=== PATIENT | female | born 1945 | race Asian ===

== ENCOUNTER 2017-11-21 14:26 | Inpatient (IN) | payer MEDICARE, MEDICAID ==
[~2017-11-21] VITALS: Ht 154.9 cm; Wt 51.3 kg
[2017-11-21 15:08] LABS: APPEARANCE,URINE CLEAR; BILIRUBIN, URINE NEGATIVE (NEGATIVE); COLOR,URINE PALE YELLOW; GLUCOSE, URINE (UA) 1+ (NEGATIVE); KETONES,URINE 1+ (NEGATIVE); LEUKOCYTE ESTERASE ,URINE NEGATIVE (NEGATIVE); NITRITE,URINE NEGATIVE (NEGATIVE); PH,URINE 6.5 (4.5-8.0); PROTEIN,URINE 3+ (NEGATIVE); UROBILINOGEN,URINE NORMAL MG/DL (0.0-1.0)
[2017-11-21 15:11] VITALS: BP 176/82
[2017-11-21 15:14] LABS: BASOPHILS % (AUTO) 0.7 % (0.0-2.0); EOSINOPHILS % (AUTO) 0.9 % (0.0-3.0); HEMOGLOBIN 12.9 G/DL (12.0-16.0); LYMPHOCYTES % (AUTO) 16.4 % (20.0-45.0); MEAN CORPUSCULAR VOLUME 99 FL (80-99); MONOCYTES % (AUTO) 5.4 % (1.0-10.0); NEUTROPHILS % (AUTO) 76.5 % (45.0-75.0); PLATELET COUNT 153 K/UL (150-450); RED BLOOD COUNT 3.74 M/UL (4.20-5.40); RED CELL DISTRIBUTION WIDTH 10.1 % (11.6-14.8); WHITE BLOOD COUNT 6.2 K/UL (4.8-10.8)
[2017-11-21 15:20] LABS: ANION GAP 8 mmol/L (5-15); BLOOD UREA NITROGEN 9 mg/dL (7-18); CALCIUM 11.1 MG/DL (8.5-10.1); CARBON DIOXIDE 28 MMOL/L (21-32); CHLORIDE 106 MMOL/L (98-107); CREATININE 0.7 MG/DL (0.55-1.30); SODIUM 142 MMOL/L (136-145)
[2017-11-21 15:24] LABS: ALANINE AMINOTRANSFERASE 18 U/L (12-78); ALBUMIN 3.3 G/DL (3.4-5.0); ALKALINE PHOSPHATASE 57 U/L (46-116); ASPARTATE AMINO TRANSFERASE 22 U/L (15-37); BILIRUBIN,TOTAL 0.6 MG/DL (0.2-1.0)
[2017-11-21] MEDS ORDERED: OMEPRAZOLE40 M1 ORAL (15:34)
[2017-11-21] MEDS ORDERED: SERTRALINE HCL25 MG ORAL (15:34)
[2017-11-21] MEDS ORDERED: SIMVASTATIN40 MG ORAL (15:34)
[2017-11-21] MEDS ORDERED: LOSARTAN POTASS50 MG ORAL (15:34)
[2017-11-21] MEDS ORDERED: METOPROLOL SUCC50 MG ORAL (15:34)
[2017-11-21] MEDS ORDERED: DIPHENOXYLATE-A60 ML ORAL (15:34)
[2017-11-21] MEDS ORDERED: LIDOCAINE700 M1 TP (15:34)
[2017-11-21] MEDS ORDERED: TYLENOL WITH C1 EACH ORAL (15:34)
[2017-11-21] MEDS ORDERED: METFORMIN HCL1000 M1 ORAL (15:34)
[2017-11-21] MEDS ORDERED: OMEGA-3 ACID ETH1 GM PO (15:34)
[2017-11-21] MEDS ORDERED: GLIPIZIDE5 MG ORAL (15:34)
[2017-11-21] MEDS: D5NS 1,000 ML IV SCH (15:53)
[2017-11-21 16:00] VITALS: BP 200/91
--- NOTE | 2017-11-21 16:01 | Diagnostic Imaging Report ---
Indication: Altered mental status Technique: Contiguous 5 mm thick transaxial imaging of the head obtained in a Siemens Sensation [address] scanner. Soft tissue and bone windows generated. Automatic Exposure Control was utilized. Total Dose length Product (DLP): 1414.[address] Dose Index Volume (CTDIvol): 70.38 mGy Comparison: none Findings: There is moderate prominence of the ventricles, basal cisterns, and cerebral sulci consistent with atrophy. Moderate, nonspecific, white matter hypoattenuation is noted throughout the brain consistent with chronic small vessel disease. There is no midline shift, edema, acute hemorrhage, mass effect, or abnormal extra-axial fluid collections. Bones and extra osseous soft tissues are unremarkable. Impression: No acute intracranial bleed, mass effect or edema. Moderate atrophy of the brain. Evidence of chronic small vessel disease involving white matter tracts. The CT scanner at [facility] is accredited by the [employer] and the scans are performed using dose optimization techniques as appropriate to a performed exam including Automatic Exposure control.
[2017-11-21 16:30] VITALS: BP 171/89
[2017-11-21] MEDS: NovoLOG Insulin Flexpen SUBQ SCH ×2 (16:30→21:00)
--- NOTE | 2017-11-21 16:39 | Emergency Room Report ---
History of Present Illness General Chief Complaint: Dizziness Source: Patient, Family Member, EMS Present Illness HPI 72-year-old female presents ED for evaluation. Patient felt weak and dizzy at home today. Accu-Chek per EMS was in the 20s. Given D50 in the field. Patient has history of diabetes. Takes glipizide and metformin. States she took her medication without eating. Daughter at bedside states that patient fell a few days ago in the bathroom and hit her head. Did not seek evaluation at that time. Denies any headache. Denies any slurred speech or facial droop. Denies chest pain or shortness of breath. No other aggravating relieving factors. Denies any other associated symptoms Allergies: Coded Allergies: No Known Allergies (Unverified , 11/21/17) Patient History Past Medical History: DM, HTN Past Surgical History: none Pertinent Family History: none Social History: Denies: smoking, alcohol use, drug use Now: No Immunizations: UTD Reviewed Nursing Documentation: PMH: Agreed; PSxH: Agreed Nursing Documentation-PMH Hx Cardiac Problems: Yes Hx Hypertension: Yes Hx Diabetes: Yes Review of Systems All Other Systems: negative except mentioned in HPI Physical Exam Vital Signs Date Time Temp Pulse Resp B/P (MAP) Pulse Ox O2 Delivery O2 Flow Rate FiO2 11/21/17 14:21 98.0 86 16 183/110 98 Room Air 98.1 Sp02 EP Interpretation: reviewed, normal General Appearance: no apparent distress, alert, GCS 15, non-toxic Head: normocephalic, atraumatic Eyes: bilateral eye normal inspection, bilateral eye PERRL ENT: hearing grossly normal, normal pharynx, no angioedema, normal voice Neck: full range of motion, supple/symm/no masses Respiratory: chest non-tender, lungs clear, normal breath sounds, speaking full sentences Cardiovascular #1: regular rate, rhythm, no edema Cardiovascular #2: 2+ carotid (R), 2+ carotid (L), 2+ radial (R), 2+ radial (L) , 2+ dorsalis pedis (R), 2+ dorsalis pedis (L) Gastrointestinal: normal bowel sounds, non tender, soft, non-distended, no guarding, no rebound Rectal: deferred Genitourinary: normal inspection, no CVA tenderness Musculoskeletal: back normal, gait/station normal, normal range of motion, non- tender Neurologic: alert, oriented x3, responsive, motor strength/tone normal, sensory intact, speech normal Psychiatric: judgement/insight normal, memory normal, mood/affect normal, no suicidal/homicidal ideation Reflexes: 3+ bicep (R), 3+ bicep (L), 3+ tricep (R), 3+ tricep (L), 3+ knee (R) , 3+ knee (L) Skin: normal color, no rash, warm/dry, well hydrated Lymphatic: no adenopathy Medical Decision Making Diagnostic Impression: Primary Impression: Hypoglycemia associated with type 2 diabetes mellitus ER Course Hospital Course 72-year-old female presenting to ED with generalized weakness, low FS in field Differential diagnoses include: dehyration, sepsis, hypoglycemia Clinical course Patient placed on stretcher. On potline monitor. After initial history and physical I ordered labs Labs-glucose 119, K 3.0, no leukocytosis, hb/hct stable Patient's Accu-Chek again became low, started on D5NS K repleted CT head negative Because patient is on long-acting oral medications, it is possible that she can again become hypoglycemic. Case discussed with Dr. Winston/Shantel and he agreed to accept the patient to his service for further care and support i. I feel this is a highly complex case requiring extensive working including EKG/Rhythm strip, Xray/CT/US, Blood/urine lab work, repeat exams while in ED, and administration of strong opiates/narcotics for pain control, admission to hospital or close patient follow up. diagnosis - hypoglycemia admitted to floor in serious condition Labs Test 11/21/17 14:40 White Blood Count 6.2 K/UL (4.8-10.8) Red Blood Count 3.74 M/UL (4.20-5.40) Hemoglobin 12.9 G/DL (12.0-16.0) Hematocrit 37.0 % (37.0-47.0) Mean Corpuscular Volume 99 FL (80-99) Mean Corpuscular Hemoglobin 34.6 PG (27.0-31.0) Mean Corpuscular Hemoglobin Concent 35.0 G/DL (32.0-36.0) Red Cell Distribution Width 10.1 % (11.6-14.8) Platelet Count 153 K/UL (150-450) Mean Platelet Volume 5.3 FL (6.5-10.1) Neutrophils (%) (Auto) 76.5 % (45.0-75.0) Lymphocytes (%) (Auto) 16.4 % (20.0-45.0) Monocytes (%) (Auto) 5.4 % (1.0-10.0) Eosinophils (%) (Auto) 0.9 % (0.0-3.0) Basophils (%) (Auto) 0.7 % (0.0-2.0) Urine Color Pale yellow Urine Appearance Clear Urine pH 6.5 (4.5-8.0) Urine Specific [place] 1.015 (1.005-1.035) Urine Protein 3+ (NEGATIVE) Urine Glucose (UA) 1+ (NEGATIVE) Urine Ketones 1+ (NEGATIVE) Urine Blood 2+ (NEGATIVE) Urine Nitrite Negative (NEGATIVE) Urine Bilirubin Negative (NEGATIVE) Urine Urobilinogen Normal MG/DL (0.0-1.0) Urine Leukocyte Esterase Negative (NEGATIVE) Urine RBC 2-4 /HPF (0 - 2) Urine WBC 0 /HPF (0 - 2) Urine Squamous Epithelial Cells Occasional /LPF Urine Bacteria None /HPF (NONE) Sodium Level 142 MMOL/L (136-145) Potassium Level 3.0 MMOL/L (3.5-5.1) Chloride Level 106 MMOL/L (98-107) Carbon Dioxide Level 28 MMOL/L (21-32) Anion Gap 8 mmol/L (5-15) Blood Urea Nitrogen 9 mg/dL (7-18) Creatinine 0.7 MG/DL (0.55-1.30) Estimat Glomerular Filtration Rate mL/min (>60) Glucose Level 119 MG/DL (74-106) Calcium Level 11.1 MG/DL (8.5-10.1) Magnesium Level 1.3 MG/DL (1.8-2.4) Total Bilirubin 0.6 MG/DL (0.2-1.0) Aspartate Amino Transf (AST/SGOT) 22 U/L (15-37) Alanine Aminotransferase (ALT/SGPT) 18 U/L (12-78) Alkaline Phosphatase 57 U/L (46-116) Total Protein 6.5 G/DL (6.4-8.2) Albumin 3.3 G/DL (3.4-5.0) Globulin 3.2 g/dL Albumin/Globulin Ratio 1.0 (1.0-2.7) Acetone Level Negative (NEGATIVE) CT/MRI/US Diagnostic Results CT/MRI/US Diagnostic Results : Imaging Test Ordered: CT Head Impression no acute process Last Vital Signs Date Time Temp Pulse Resp B/P (MAP) Pulse Ox O2 Delivery O2 Flow Rate FiO2 11/21/17 16:17 194/81 11/21/17 15:11 97.6 96 18 99 Room Air 97.6 Status: improved Disposition: ADMITTED INPATIENT Condition: Serious Referrals: NOT CHOSEN IPA/,REFERRING (PCP) Jose Arteaga MD Nov 21, 2017 16:39
[2017-11-21] MEDS ORDERED: Enoxaparin 40mg Inj SUBQ SCH (17:30)
[2017-11-21] MEDS: Metoprolol Succinate XL 50mg tab ORAL SCH (19:30)
[2017-11-21] MEDS: Losartan 50mg tab ORAL SCH (19:31)
[2017-11-21 20:00] VITALS: BP 159/89
--- NOTE | 2017-11-21 20:45 | History and Physical Report ---
DATE OF ADMISSION: 11/21/2017 REASON FOR ADMISSION: 1. Hypoglycemia. 2. Weakness. HISTORY OF PRESENT ILLNESS: The patient is a 72-year-old female, who was seen in the emergency room for further evaluation and care of weakness and dizziness. She was brought in by the emergency services, who has noted that she had a serum glucose in the 20s. She does have diabetes and has been taking glipizide and metformin without eating. She does have a caregiver. Her son had brought her in as well, but is not currently there. No slurred speech. No facial droops. No headaches to note. However, she has not been eating well, but taking her diabetes medication and feeling weak and has fallen. She had some unsteady gait, but at home, does have a walker and a cane and used for mobility, however, due to not eating well and taking her diabetes medications of glipizide and metformin, she presented to the emergency room and was noted that she had serum glucose in the 20s. She is feeling much better post resuscitation. PAST MEDICAL HISTORY: 1. Hypertension. 2. Diabetes mellitus. PAST SURGICAL HISTORY: None. ALLERGIES: No known drug allergies. FAMILY HISTORY: Positive for hypertension. SOCIAL HISTORY: No tobacco, alcohol, or illicit drug use. REVIEW OF SYSTEMS: NEUROLOGIC: The patient denies headache, change in vision, syncope, or presyncopal episodes. She has been feeling a little dizzy. CARDIOVASCULAR: No current chest pain, palpitations, or angina. PULMONARY: No difficulty breathing, productive cough, or sputum. GASTROINTESTINAL/GENITOURINARY: No changes in urinary or bowel habits. She has a decreased appetite. MUSCULOSKELETAL: The patient is feeling weak, tired, and fatigued. PHYSICAL EXAMINATION: VITAL SIGNS: Blood pressure 178/83, pulse oximetry 100% on room air, respiratory rate 14, pulse 84, and temperature 97.4. GENERAL: The patient is awake, seemingly alert, and coherent. HEENT: Extraocular muscles intact. No lymphadenopathy noted. CARDIOVASCULAR: S1, S2. No rubs or gallops. PULMONARY: Clear to auscultation bilaterally. No rales, rhonchi, or wheezes. ABDOMEN: Nondistended and nontender. EXTREMITY: No edema, however, throughout the extremities, there are small erythematous and bruising like lesions. She does have an area in her coccyx, which was examined with the nurse at bedside, which is slightly tender to touch. LABORATORY DATA: Laboratories dated 11/21/2017, white cell count 6.2, hemoglobin 12.9, and platelet count 153,000. Sodium 142, potassium 3, BUN 9, creatinine 0.7, glucose 119, calcium 11.1, and magnesium 1.3. Normal LFTs. Albumin 3.3. Toxicology, acetone level negative. ASSESSMENT AND PLAN: 1. Hypoglycemia, at this time, most likely secondary to poor oral intake while taking glipizide and metformin. Glipizide and metformin will be temporarily held. The patient will be given a regular diet and is initiated on IV fluids. Her serum glucose is now stable. Insulin sliding scale has been initiated. She is much more awake and feeling better after correction of her hypoglycemia. 2. Diabetes mellitus. We will have to adjust her oral hypoglycemics. We will also arrange for home health nurse to help with her medications at home at the time of discharge. 3. DVT prophylaxis with Lovenox subcutaneous. 4. Hypertension. I have re-initiated home antihypertensive medications. 5. Sacral tenderness. We will order an x-ray and wound care to evaluate. 6. PT evaluation for mobility. Vinh Winston MD DR: JOSE MANUEL JOB#: [id number] CC:
[2017-11-21] MEDS ORDERED: Atorvastatin 20mg tab ORAL SCH (21:00)
[2017-11-22] VITALS (47 sets, daily range): BP systolic 118–221; BP diastolic 53–162
[2017-11-22] MEDS: D5NS 1,000 ML IV SCH (01:41)
[2017-11-22] MEDS: Metoprolol Succinate XL 50mg tab ORAL SCH (06:48)
[2017-11-22] MEDS: Losartan 50mg tab ORAL SCH (06:48)
--- NOTE | 2017-11-22 08:45 | Nephrology Progress Note ---
Assessment/Plan Assessment/Plan A/P 1) HTN Urgency- Transferred to ICU - labetaolol gtt started for SBP goal 160-170 - on Losartan and Metoprolol - prn clonidine 2) S/P Fall- CT Head ordered STAT - Pulm Critical care cslted 3) Sacral pain- Xrays pending 4) DVT prophylaxsis with Lovenox 5) Hypokalemia- AM labs pending Subjective Date patient seen: Nov 22, 2017 Time patient seen: 08:42 ROS Limited/Unobtainable: Yes Allergies: Coded Allergies: No Known Allergies (Unverified , 11/21/17) Subjective Patient fell out of bed early this morning. Her BP spiked and patient became agitated Objective Last 24 Hour Vital Signs Date Time Temp Pulse Resp B/P (MAP) Pulse Ox O2 Delivery O2 Flow Rate FiO2 11/22/17 06:48 198/102 11/22/17 06:48 198/102 11/22/17 04:14 179/98 11/22/17 04:00 97.1 83 18 174/95 (121) 96 97.1 11/22/17 00:00 97.7 75 17 129/80 (96) 96 97.7 11/21/17 20:58 Room Air 11/21/17 20:00 97.3 85 17 159/89 (112) 98 97.3 11/21/17 19:31 172/95 11/21/17 19:30 84 172/95 11/21/17 17:20 97.4 84 14 178/83 100 Room Air 11/21/17 16:30 79 16 171/89 99 Room Air 11/21/17 16:17 194/81 11/21/17 16:00 76 18 200/91 100 Room Air 11/21/17 15:11 97.6 96 18 176/82 99 Room Air 97.6 11/21/17 14:21 98.0 86 16 183/110 98 Room Air 98.1 Intake and Output 11/21/17 11/22/17 19:00 07:00 Intake Total 300 ml 1100 ml Output Total 200 ml Balance 100 ml 1100 ml Intake IV Total 300 ml 1100 ml Output Urine Total 200 ml # Bowel Movements 2 Laboratory Tests 11/21/17 14:40: White Blood Count 6.2, Red Blood Count 3.74L, Hemoglobin 12.9, Hematocrit 37.0, Mean Corpuscular Volume 99, Mean Corpuscular Hemoglobin 34.6H, Mean Corpuscular Hemoglobin Concent 35.0, Red Cell Distribution Width 10.1L, Platelet Count 153, Mean Platelet Volume 5.3L, Neutrophils (%) (Auto) 76.5H, Lymphocytes (%) (Auto) 16.4L, Monocytes (%) (Auto) 5.4, Eosinophils (%) (Auto) 0.9, Basophils (%) (Auto ) 0.7, Urine Color Pale yellow, Urine Appearance Clear, Urine pH 6.5, Urine Specific [place] 1.015, Urine Protein 3+H, Urine Glucose (UA) 1+H, Urine Ketones 1+H, Urine Blood 2+H, Urine Nitrite Negative, Urine Bilirubin Negative, Urine Urobilinogen Normal, Urine Leukocyte Esterase Negative, Urine RBC 2-4H, Urine WBC 0, Urine Squamous Epithelial Cells Occasional, Urine Bacteria None, Sodium Level 142, Potassium Level 3.0L, Chloride Level 106, Carbon Dioxide Level 28, Anion Gap 8, Blood Urea Nitrogen 9, Creatinine 0.7, Estimat Glomerular Filtration Rate , Glucose Level 119H, Calcium Level 11.1H, Magnesium Level 1.3L, Total Bilirubin 0.6, Aspartate Amino Transf (AST/SGOT) 22, Alanine Aminotransferase (ALT/SGPT) 18, Alkaline Phosphatase 57, Total Protein 6.5, Albumin 3.3L, Globulin 3.2, Albumin/Globulin Ratio 1.0, Acetone Level Negative Height (Feet): 5 Height (Inches): 4.00 Weight (Pounds): 130 General Appearance: agitated EENT: normal ENT inspection Neck: normal alignment, supple Cardiovascular: normal rate, regular rhythm Respiratory/Chest: lungs clear, normal breath sounds Abdomen: non tender, soft Edema: no edema noted Arm (L), no edema noted Arm (R), no edema noted Leg (L), no edema noted Leg (R), no edema noted Pedal (L), no edema noted Pedal (R), no edema noted Generalized Vinh Winston MD Nov 22, 2017 08:45
[2017-11-22] MEDS ORDERED: D5NS 1,000 ML IV SCH (08:59)
[2017-11-22] MEDS: Sertraline 50mg tab ORAL SCH ×2 (09:00→10:52)
[2017-11-22] MEDS ORDERED: Losartan 50mg tab ORAL SCH (09:00)
[2017-11-22] MEDS ORDERED: Metoprolol Succinate XL 50mg tab ORAL SCH (09:00)
[2017-11-22] MEDS ORDERED: Sertraline 50mg tab ORAL SCH (09:00)
--- NOTE | 2017-11-22 09:45 | Diagnostic Imaging Report ---
INDICATION: Fall TECHNIQUE: Multiple, contiguous 2.5 mm axial cuts of the brain are obtained from the posterior fossa to the cranial vault. Sagittal and coronal reformatted images provided. No IV contrast is administered. One or more of the following dose reduction techniques were used: automated exposure control, adjustment of the mA and/or kV according to patient size, use of iterative reconstruction technique. COMPARISON: CT head dated 11/21/17 FINDINGS: No intracranial hemorrhage, abnormal intra- or extra-axial collections or parenchymal lesions are seen. There are involutional changes with prominence of the sulci, basal cisterns and ventricles. Scattered white matter hypoattenuations are present, likely from small vessel disease. The smith-white differentiation is preserved. No evidence of mass effect, midline shift, or edema. The osseous structures are unremarkable. The visualized portions of the paranasal sinuses are clear. Atherosclerotic vascular disease. IMPRESSION: 1. No acute intracranial process. 2. Involutional changes with small vessel disease. CTDI: 70.38 mGy DLP: 2480 mGycm
[2017-11-22] MEDS: D5W IV SCH ×4 (09:58→22:16)
[2017-11-22] MEDS: LABETALOL IV SCH ×4 (09:58→22:16)
--- NOTE | 2017-11-22 10:18 | Pulmonology Progress Note ---
Subjective Allergies: Coded Allergies: No Known Allergies (Unverified , 11/21/17) Objective Last 24 Hour Vital Signs Date Time Temp Pulse Resp B/P (MAP) Pulse Ox O2 Delivery O2 Flow Rate FiO2 11/22/17 09:58 89 214/90 11/22/17 06:48 198/102 11/22/17 06:48 198/102 11/22/17 04:14 179/98 11/22/17 04:00 97.1 83 18 174/95 (121) 96 97.1 11/22/17 00:00 97.7 75 17 129/80 (96) 96 97.7 11/21/17 20:58 Room Air 11/21/17 20:00 97.3 85 17 159/89 (112) 98 97.3 11/21/17 19:31 172/95 11/21/17 19:30 84 172/95 11/21/17 17:20 97.4 84 14 178/83 100 Room Air 11/21/17 16:30 79 16 171/89 99 Room Air 11/21/17 16:17 194/81 11/21/17 16:00 76 18 200/91 100 Room Air 11/21/17 15:11 97.6 96 18 176/82 99 Room Air 97.6 11/21/17 14:21 98.0 86 16 183/110 98 Room Air 98.1 Intake and Output 11/21/17 11/22/17 19:00 07:00 Intake Total 300 ml 1100 ml Output Total 200 ml Balance 100 ml 1100 ml Intake IV Total 300 ml 1100 ml Output Urine Total 200 ml # Bowel Movements 2 Microbiology Date/Time Source Procedure Growth Status 11/21/17 21:00 Stool Clostridium difficile Toxin Assay - Final Complete Laboratory Tests 11/21/17 14:40: White Blood Count 6.2, Red Blood Count 3.74L, Hemoglobin 12.9, Hematocrit 37.0, Mean Corpuscular Volume 99, Mean Corpuscular Hemoglobin 34.6H, Mean Corpuscular Hemoglobin Concent 35.0, Red Cell Distribution Width 10.1L, Platelet Count 153, Mean Platelet Volume 5.3L, Neutrophils (%) (Auto) 76.5H, Lymphocytes (%) (Auto) 16.4L, Monocytes (%) (Auto) 5.4, Eosinophils (%) (Auto) 0.9, Basophils (%) (Auto ) 0.7, Urine Color Pale yellow, Urine Appearance Clear, Urine pH 6.5, Urine Specific [place] 1.015, Urine Protein 3+H, Urine Glucose (UA) 1+H, Urine Ketones 1+H, Urine Blood 2+H, Urine Nitrite Negative, Urine Bilirubin Negative, Urine Urobilinogen Normal, Urine Leukocyte Esterase Negative, Urine RBC 2-4H, Urine WBC 0, Urine Squamous Epithelial Cells Occasional, Urine Bacteria None, Sodium Level 142, Potassium Level 3.0L, Chloride Level 106, Carbon Dioxide Level 28, Anion Gap 8, Blood Urea Nitrogen 9, Creatinine 0.7, Estimat Glomerular Filtration Rate , Glucose Level 119H, Calcium Level 11.1H, Magnesium Level 1.3L, Total Bilirubin 0.6, Aspartate Amino Transf (AST/SGOT) 22, Alanine Aminotransferase (ALT/SGPT) 18, Alkaline Phosphatase 57, Total Protein 6.5, Albumin 3.3L, Globulin 3.2, Albumin/Globulin Ratio 1.0, Acetone Level Negative Current Medications Medications (Trade) Dose Ordered Sig/Atilio Route PRN Reason Start Time Stop Time Status Last Admin Dose Admin Acetaminophen (Tylenol) 650 mg Q4H PRN ORAL Mild Pain (Pain Scale 1-3) 11/22/17 08:59 12/21/17 08:58 Atorvastatin Calcium (Lipitor) 40 mg QHS ORAL 11/22/17 21:00 12/21/17 20:59 Clonidine HCl (Catapres Tab) 0.1 mg Q6H PRN ORAL For High Blood Pressure 11/22/17 09:00 12/21/17 08:59 Dextrose (Dextrose 50%) 25 ml Q1H PRN IV Hypoglycemia 11/22/17 09:15 Dextrose (Dextrose 50%) 50 ml Q1H PRN IV hypoglycemia 11/22/17 09:15 Dextrose/Sodium Chloride 1,000 ml @ 100 mls/hr Q10H IV 11/22/17 08:59 12/21/17 08:58 11/22/17 10:04 Diphenhydramine HCl (Benadryl) 25 mg Q6H PRN ORAL Itching/Pruritis 11/22/17 09:00 12/21/17 08:59 Enoxaparin Sodium (Lovenox) 40 mg Q24H SUBQ 11/22/17 17:30 12/21/17 17:29 Famotidine (Pepcid) 40 mg DAILY ORAL 11/22/17 09:00 12/22/17 08:59 Insulin Aspart (NovoLOG) BEFORE MEALS AND HS SUBQ 11/22/17 11:30 12/21/17 16:29 Labetalol HCl 200 mg/Dextrose 290 ml @ 0 mls/hr Q24H IV 11/22/17 10:00 11/24/17 23:59 11/22/17 09:58 Losartan Potassium (Cozaar) 50 mg DAILY ORAL 11/23/17 09:00 12/23/17 08:59 Metoprolol Succinate (Toprol XL) 50 mg DAILY ORAL 11/23/17 09:00 12/23/17 08:59 Ondansetron HCl (Zofran) 4 mg Q6H PRN IVP Nausea & Vomiting 11/22/17 09:02 12/21/17 09:01 Sertraline HCl (Zoloft) 25 mg DAILY ORAL 11/22/17 09:00 12/22/17 08:59 Romeo Smith MD Nov 22, 2017 10:18
--- NOTE | 2017-11-22 10:18 | Consultation ---
Consult Note Consult Note 72-year-old female, admitted for weakness and dizziness. She was brought in by the emergency and was noted to be hypoglycemic. She does have diabetes and has been taking glipizide and metformin. Patient was transferred to ICU due to ALOC and fall. I was called to assist with critical care services. Care discussed with nursing staff on the floor. findings reviewed and chart noted PAST MEDICAL HISTORY: 1. Hypertension. 2. Diabetes mellitus. PAST SURGICAL HISTORY: None. ALLERGIES: No known drug allergies. FAMILY HISTORY: hypertension. SOCIAL HISTORY: No tobacco, alcohol, or illicit drug use. retired REVIEW OF SYSTEMS: unable PHYSICAL EXAMINATION: GENERAL: The patient is altered HEENT: No lymphadenopathy noted. CARDIOVASCULAR: S1, S2. No rubs or gallops. RRR PULMONARY: CTA. No rales, rhonchi, or wheezes. ABDOMEN: NABS, nontender EXTREMITY: no CCE NEURO: nonfocal Laboratory Tests Test 11/21/17 14:40 White Blood Count 6.2 K/UL (4.8-10.8) Red Blood Count 3.74 M/UL (4.20-5.40) L Hemoglobin 12.9 G/DL (12.0-16.0) Hematocrit 37.0 % (37.0-47.0) Mean Corpuscular Volume 99 FL (80-99) Mean Corpuscular Hemoglobin 34.6 PG (27.0-31.0) H Mean Corpuscular Hemoglobin Concent 35.0 G/DL (32.0-36.0) Red Cell Distribution Width 10.1 % (11.6-14.8) L Platelet Count 153 K/UL (150-450) Mean Platelet Volume 5.3 FL (6.5-10.1) L Neutrophils (%) (Auto) 76.5 % (45.0-75.0) H Lymphocytes (%) (Auto) 16.4 % (20.0-45.0) L Monocytes (%) (Auto) 5.4 % (1.0-10.0) Eosinophils (%) (Auto) 0.9 % (0.0-3.0) Basophils (%) (Auto) 0.7 % (0.0-2.0) Urine Color Pale yellow Urine Appearance Clear Urine pH 6.5 (4.5-8.0) Urine Specific [place] 1.015 (1.005-1.035) Urine Protein 3+ (NEGATIVE) H Urine Glucose (UA) 1+ (NEGATIVE) H Urine Ketones 1+ (NEGATIVE) H Urine Blood 2+ (NEGATIVE) H Urine Nitrite Negative (NEGATIVE) Urine Bilirubin Negative (NEGATIVE) Urine Urobilinogen Normal MG/DL (0.0-1.0) Urine Leukocyte Esterase Negative (NEGATIVE) Urine RBC 2-4 /HPF (0 - 2) H Urine WBC 0 /HPF (0 - 2) Urine Squamous Epithelial Cells Occasional /LPF Urine Bacteria None /HPF (NONE) Sodium Level 142 MMOL/L (136-145) Potassium Level 3.0 MMOL/L (3.5-5.1) L Chloride Level 106 MMOL/L (98-107) Carbon Dioxide Level 28 MMOL/L (21-32) Anion Gap 8 mmol/L (5-15) Blood Urea Nitrogen 9 mg/dL (7-18) Creatinine 0.7 MG/DL (0.55-1.30) Estimat Glomerular Filtration Rate mL/min (>60) Glucose Level 119 MG/DL (74-106) H Calcium Level 11.1 MG/DL (8.5-10.1) H Magnesium Level 1.3 MG/DL (1.8-2.4) L Total Bilirubin 0.6 MG/DL (0.2-1.0) Aspartate Amino Transf (AST/SGOT) 22 U/L (15-37) Alanine Aminotransferase (ALT/SGPT) 18 U/L (12-78) Alkaline Phosphatase 57 U/L (46-116) Total Protein 6.5 G/DL (6.4-8.2) Albumin 3.3 G/DL (3.4-5.0) L Globulin 3.2 g/dL Albumin/Globulin Ratio 1.0 (1.0-2.7) Acetone Level Negative (NEGATIVE) IMPRESSION ALOC DM HTN S/P fall hypercalemia PLAN ICU care neuro checks head CT noted monitor blood sugars monitor for aspiration check ABG if needed medications/laboratory data/nursing notes/ICU care reviewed in detail note reviewed and edited care discussed with RN and RT Romeo Smith MD Nov 22, 2017 10:18
[2017-11-22 10:31] LABS: BASOPHILS % (AUTO) 1.2 % (0.0-2.0); HEMATOCRIT 36.8 % (37.0-47.0); HEMOGLOBIN 12.8 G/DL (12.0-16.0); LYMPHOCYTES % (AUTO) 25.5 % (20.0-45.0); MEAN CORPUSCULAR VOLUME 100 FL (80-99); MONOCYTES % (AUTO) 4.4 % (1.0-10.0); PLATELET COUNT 140 K/UL (150-450); RED CELL DISTRIBUTION WIDTH 10.7 % (11.6-14.8); WHITE BLOOD COUNT 4.6 K/UL (4.8-10.8)
[2017-11-22 10:39] LABS: ANION GAP 7 mmol/L (5-15); BLOOD UREA NITROGEN 5 mg/dL (7-18); CALCIUM 10.6 MG/DL (8.5-10.1); CARBON DIOXIDE 28 MMOL/L (21-32); CHLORIDE 110 MMOL/L (98-107); CREATININE 0.8 MG/DL (0.55-1.30); POTASSIUM 3.4 MMOL/L (3.5-5.1); SODIUM 145 MMOL/L (136-145)
[2017-11-22] MEDS: DiphenhydrAMINE 50mg/ml Inj IVP PRN ×2 (11:38→14:29)
[2017-11-22] MEDS ORDERED: DiphenhydrAMINE 50mg/ml Inj IVP PRN (11:45)
--- NOTE | 2017-11-22 12:02 | Consultation ---
History of Present Illness General Date patient seen: Nov 22, 2017 Chief Complaint: Dizziness Reason for Consultation: abdominal pain Present Illness HPI 72 year old female with known history of DM presented with weakness and hypoglycemia. Admitted for care and management. Complaining of abdominal pain epigastric region upon admission. Surgery called to evaluate for abdominal pain. no n/v/f/c. unfortunately had a fall soon after admission and became hypertensive. currently admitted to ICU for monitoring and care. awake and alert but somewhat confused. patient seen, chart reviewed, patient examined. tender in epigastric region. Allergies: Coded Allergies: No Known Allergies (Unverified , 11/21/17) Medication History Scheduled Diphenoxylate Hcl/Atropine (Diphenoxylate-Atropine Liq), 5 ML ORAL DAILY, ( Reported) Glipizide* (Glipizide*), 10 MG ORAL BIDAC, (Reported) Lidocaine (Lidocaine), 700 MG TP DAILY, (Reported) Losartan Potassium* (Losartan Potassium*), 50 MG ORAL DAILY, (Reported) Metformin Hcl* (Metformin Hcl*), 1,000 MG ORAL BID, (Reported) Metoprolol Succinate* (Metoprolol Succinate*), 50 MG ORAL DAILY, (Reported) Finley-3 Acid Ethyl Esters (Finley-3 Acid Ethyl Esters), 1 GM PO DAILY, (Reported) Omeprazole (Omeprazole), 40 MG ORAL DAILY, (Reported) Sertraline Hcl* (Sertraline Hcl*), 25 MG ORAL DAILY, (Reported) Simvastatin (Zocor), 40 MG ORAL BEDTIME, (Reported) Scheduled PRN Acetaminophen With Codeine 300MG/30MG (T#3)* (Tylenol With Codeine #3 Tablet*), Unknown Dose ORAL Q6H PRN for For Pain, (Reported) Patient History Limited by: language barrier, medical condition History Provided By: Patient, Medical Record, PMD Healthcare decision maker N Resuscitation status Full Code Advanced Directive on File Past Medical/Surgical History Past Medical/Surgical History: (1) Abdominal pain (2) Hypoglycemia associated with type 2 diabetes mellitus Review of Systems All Other Systems: negative except mentioned in HPI Physical Exam General Appearance: no apparent distress, alert Lines, tubes and drains: peripheral HEENT: atraumatic, anicteric, mucous membranes moist Neck: normal inspection Respiratory/Chest: normal breath sounds, no respiratory distress, no accessory muscle use Cardiovascular/Chest: normal rate, regular rhythm, regularly irregular Abdomen: normal bowel sounds, soft, no organomegaly, no mass, guarding, tender Extremities: normal inspection, no calf tenderness Skin Exam: warm/dry Neurologic: alert, responsive Last 24 Hour Vital Signs Date Time Temp Pulse Resp B/P (MAP) Pulse Ox O2 Delivery O2 Flow Rate FiO2 11/22/17 09:58 89 214/90 11/22/17 06:48 198/102 11/22/17 06:48 198/102 11/22/17 04:14 179/98 11/22/17 04:00 97.1 83 18 174/95 (121) 96 97.1 11/22/17 00:00 97.7 75 17 129/80 (96) 96 97.7 11/21/17 20:58 Room Air 11/21/17 20:00 97.3 85 17 159/89 (112) 98 97.3 11/21/17 19:31 172/95 11/21/17 19:30 84 172/95 11/21/17 17:20 97.4 84 14 178/83 100 Room Air 11/21/17 16:30 79 16 171/89 99 Room Air 11/21/17 16:17 194/81 11/21/17 16:00 76 18 200/91 100 Room Air 11/21/17 15:11 97.6 96 18 176/82 99 Room Air 97.6 11/21/17 14:21 98.0 86 16 183/110 98 Room Air 98.1 Intake and Output 11/21/17 11/22/17 19:00 07:00 Intake Total 300 ml 1100 ml Output Total 200 ml Balance 100 ml 1100 ml Intake IV Total 300 ml 1100 ml Output Urine Total 200 ml # Bowel Movements 2 Laboratory Tests Test 11/21/17 14:40 11/22/17 10:20 White Blood Count 6.2 K/UL (4.8-10.8) 4.6 K/UL (4.8-10.8) L Red Blood Count 3.74 M/UL (4.20-5.40) L 3.70 M/UL (4.20-5.40) L Hemoglobin 12.9 G/DL (12.0-16.0) 12.8 G/DL (12.0-16.0) Hematocrit 37.0 % (37.0-47.0) 36.8 % (37.0-47.0) L Mean Corpuscular Volume 99 FL (80-99) 100 FL (80-99) H Mean Corpuscular Hemoglobin 34.6 PG (27.0-31.0) H 34.6 PG (27.0-31.0) H Mean Corpuscular Hemoglobin Concent 35.0 G/DL (32.0-36.0) 34.8 G/DL (32.0-36.0) Red Cell Distribution Width 10.1 % (11.6-14.8) L 10.7 % (11.6-14.8) L Platelet Count 153 K/UL (150-450) 140 K/UL (150-450) L Mean Platelet Volume 5.3 FL (6.5-10.1) L 5.0 FL (6.5-10.1) L Neutrophils (%) (Auto) 76.5 % (45.0-75.0) H 68.0 % (45.0-75.0) Lymphocytes (%) (Auto) 16.4 % (20.0-45.0) L 25.5 % (20.0-45.0) Monocytes (%) (Auto) 5.4 % (1.0-10.0) 4.4 % (1.0-10.0) Eosinophils (%) (Auto) 0.9 % (0.0-3.0) 1.0 % (0.0-3.0) Basophils (%) (Auto) 0.7 % (0.0-2.0) 1.2 % (0.0-2.0) Urine Color Pale yellow Urine Appearance Clear Urine pH 6.5 (4.5-8.0) Urine Specific [place] 1.015 (1.005-1.035) Urine Protein 3+ (NEGATIVE) H Urine Glucose (UA) 1+ (NEGATIVE) H Urine Ketones 1+ (NEGATIVE) H Urine Blood 2+ (NEGATIVE) H Urine Nitrite Negative (NEGATIVE) Urine Bilirubin Negative (NEGATIVE) Urine Urobilinogen Normal MG/DL (0.0-1.0) Urine Leukocyte Esterase Negative (NEGATIVE) Urine RBC 2-4 /HPF (0 - 2) H Urine WBC 0 /HPF (0 - 2) Urine Squamous Epithelial Cells Occasional /LPF Urine Bacteria None /HPF (NONE) Sodium Level 142 MMOL/L (136-145) 145 MMOL/L (136-145) Potassium Level 3.0 MMOL/L (3.5-5.1) L 3.4 MMOL/L (3.5-5.1) L Chloride Level 106 MMOL/L (98-107) 110 MMOL/L (98-107) H Carbon Dioxide Level 28 MMOL/L (21-32) 28 MMOL/L (21-32) Anion Gap 8 mmol/L (5-15) 7 mmol/L (5-15) Blood Urea Nitrogen 9 mg/dL (7-18) 5 mg/dL (7-18) L Creatinine 0.7 MG/DL (0.55-1.30) 0.8 MG/DL (0.55-1.30) Estimat Glomerular Filtration Rate mL/min (>60) mL/min (>60) Glucose Level 119 MG/DL (74-106) H 194 MG/DL (74-106) H Calcium Level 11.1 MG/DL (8.5-10.1) H 10.6 MG/DL (8.5-10.1) H Magnesium Level 1.3 MG/DL (1.8-2.4) L Total Bilirubin 0.6 MG/DL (0.2-1.0) Aspartate Amino Transf (AST/SGOT) 22 U/L (15-37) Alanine Aminotransferase (ALT/SGPT) 18 U/L (12-78) Alkaline Phosphatase 57 U/L (46-116) Total Protein 6.5 G/DL (6.4-8.2) Albumin 3.3 G/DL (3.4-5.0) L Globulin 3.2 g/dL Albumin/Globulin Ratio 1.0 (1.0-2.7) Acetone Level Negative (NEGATIVE) Microbiology Date/Time Source Procedure Growth Status 11/21/17 21:00 Stool Clostridium difficile Toxin Assay - Final Complete Height (Feet): 5 Height (Inches): 4.00 Weight (Pounds): 130 Medications Current Medications Medications (Trade) Dose Ordered Sig/Atilio Route PRN Reason Start Time Stop Time Status Last Admin Dose Admin Acetaminophen (Tylenol) 650 mg Q4H PRN ORAL Mild Pain (Pain Scale 1-3) 11/22/17 08:59 12/21/17 08:58 Atorvastatin Calcium (Lipitor) 40 mg QHS ORAL 11/22/17 21:00 12/21/17 20:59 Clonidine HCl (Catapres Tab) 0.1 mg Q6H PRN ORAL For High Blood Pressure 11/22/17 09:00 12/21/17 08:59 Dextrose (Dextrose 50%) 25 ml Q1H PRN IV Hypoglycemia 11/22/17 09:15 Dextrose (Dextrose 50%) 50 ml Q1H PRN IV hypoglycemia 11/22/17 09:15 Dextrose/Sodium Chloride 1,000 ml @ 100 mls/hr Q10H IV 11/22/17 08:59 12/21/17 08:58 11/22/17 10:04 Diphenhydramine HCl (Benadryl) 25 mg Q3H PRN IVP Itching 11/22/17 11:45 12/22/17 11:44 11/22/17 11:38 Diphenhydramine HCl (Benadryl) 25 mg Q6H PRN ORAL Itching/Pruritis 11/22/17 09:00 12/21/17 08:59 Enoxaparin Sodium (Lovenox) 40 mg Q24H SUBQ 11/22/17 17:30 12/21/17 17:29 Famotidine (Pepcid) 40 mg DAILY ORAL 11/22/17 09:00 12/22/17 08:59 Insulin Aspart (NovoLOG) BEFORE MEALS AND HS SUBQ 11/22/17 11:30 12/21/17 16:29 Labetalol HCl 200 mg/Dextrose 290 ml @ 0 mls/hr Q24H IV 11/22/17 10:00 11/24/17 23:59 11/22/17 09:58 Losartan Potassium (Cozaar) 50 mg DAILY ORAL 11/23/17 09:00 12/23/17 08:59 Metoprolol Succinate (Toprol XL) 50 mg DAILY ORAL 11/23/17 09:00 12/23/17 08:59 Ondansetron HCl (Zofran) 4 mg Q6H PRN IVP Nausea & Vomiting 11/22/17 09:02 12/21/17 09:01 Sertraline HCl (Zoloft) 25 mg DAILY ORAL 11/22/17 09:00 12/22/17 08:59 Assessment/Plan Problem List: (1) Abdominal pain Assessment & Plan: c/o abdominal pain. no n/v/f/c. unsure how long has been having pain. on exam epigastric tenderness with guarding labs reviewed. no leukocytosis. lfts okay etiology unknown gastritis? -PPI -okay for diet -US abd -MICHELLEB will follow with recs thank you for this consultation ICD Codes: R10.9 - Unspecified abdominal pain SNOMED: [id number] Qualifiers: Qualified Codes: R10.13 - Epigastric pain Sourav Tobias Nov 22, 2017 12:02
[2017-11-22] MEDS: NovoLOG Insulin Flexpen SUBQ SCH ×3 (12:03→21:16)
[2017-11-22] MEDS: Enoxaparin 40mg Inj SUBQ SCH (17:46)
--- NOTE | 2017-11-22 21:00 | Consultation ---
DATE OF CONSULTATION: 11/22/2017 GASTROENTEROLOGY CONSULTATION CONSULTING PHYSICIAN: Radhames Harding M.D. CHIEF COMPLAINT: I was asked to see this patient for evaluation of abdominal pain. HISTORY OF PRESENT ILLNESS: The patient is a 72-year-old Urdu woman who was admitted to the hospital when she was found weak and there was hypoglycemia with the sugar in the 20s. She does take oral diabetes medications. She was brought to the hospital and admitted to the medical floor, but subsequently was found to have a syncopal episode due to hypoglycemia. The patient was brought to the Intensive Care Unit. At some point during the admission process, the patient complained of some abdominal pain. However, at this time, she denies abdominal pain to me. She is interpreted through Urdu manufacture specialist. The nurse, Urdu manufacture specialist believes the patient's answers were poorly and the patient was only interested to be sent home. Nonetheless, she denies any abdominal pain, nausea, vomiting. The patient appears to have had some possible laparoscopic surgery of the abdomen, but she is not clear what type of surgery that was. PAST MEDICAL HISTORY: History of [id number] diabetes mellitus and history of hypertension. PAST SURGICAL HISTORY: Status post laparoscopic surgery of the abdomen. FAMILY HISTORY: Unavailable. SOCIAL HISTORY: The patient is Urdu speaking only. The patient has no reported history of smoking or drinking. REVIEW OF SYSTEMS: Otherwise negative. PHYSICAL EXAMINATION: GENERAL: An elderly Urdu woman, seen in the ICU with the nurse at bedside. HEENT: Normocephalic and atraumatic. Sclerae anicteric. Oropharynx clear. NECK: Supple. CHEST: Clear to auscultation. CARDIOVASCULAR: Revealed regular rate. ABDOMEN: Soft , nontender, and nondistended with good bowel sounds. There is no organomegaly and no tenderness. EXTREMITIES: Revealed no edema. LABORATORY DATA: Noted. ASSESSMENT: This patient was admitted to the hospital with predominant feature of hypoglycemia. There was also some degree of confusion and at one point syncope. The patient at this point denies any abdominal complaints and then will be observed for now. Her laboratory parameters likewise did not show any significant pathology. Endoscopy and colonoscopy can be contemplated at a later date and perhaps as an outpatient if her symptoms persist. In addition, the patient has not had a screening colonoscopy, this can be contemplated as well. For the time being, an abdominal ultrasound can perhaps be done to evaluate the GI tract and this will be accordingly ordered. Diabetic diet should be given and the patient should be watched for further signs and symptoms of hypoglycemia. RECOMMENDATIONS: Per above discussion and per orders written in the chart. Thank you for asking me to participate in the care of this patient. Radhames Harding M.D. DR: ROSIBEL JOB#: [id number] CC: GRACE
[2017-11-22] MEDS: Atorvastatin 20mg tab ORAL SCH (21:14)
[2017-11-23] VITALS (47 sets, daily range): BP systolic 97–190; BP diastolic 36–117
[2017-11-23 05:11] LABS: BASOPHILS % (AUTO) 0.9 % (0.0-2.0); EOSINOPHILS % (AUTO) 1.5 % (0.0-3.0); HEMATOCRIT 32.9 % (37.0-47.0); HEMOGLOBIN 12.1 G/DL (12.0-16.0); MEAN CORPUSCULAR VOLUME 100 FL (80-99); MONOCYTES % (AUTO) 7.7 % (1.0-10.0); PLATELET COUNT 122 K/UL (150-450); RED BLOOD COUNT 3.31 M/UL (4.20-5.40); RED CELL DISTRIBUTION WIDTH 10.9 % (11.6-14.8); WHITE BLOOD COUNT 5.2 K/UL (4.8-10.8)
[2017-11-23 05:13] LABS: ANION GAP 7 mmol/L (5-15); BLOOD UREA NITROGEN 6 mg/dL (7-18); CALCIUM 10.5 MG/DL (8.5-10.1); CARBON DIOXIDE 26 MMOL/L (21-32); CHLORIDE 113 MMOL/L (98-107); CREATININE 0.7 MG/DL (0.55-1.30); SODIUM 146 MMOL/L (136-145)
[2017-11-23] MEDS: NovoLOG Insulin Flexpen SUBQ SCH ×4 (06:04→21:00)
[2017-11-23] MEDS: LORazepam Inj 2mg/ml 1ml IV PRN ×2 (08:42→13:48)
--- NOTE | 2017-11-23 08:42 | Nephrology Progress Note ---
Assessment/Plan Assessment/Plan A/P 1) HTN Urgency- Transferred to ICU - labetalol gtt started for SBP goal 160-170 - start IV scheduled metoprolol 2) S/P Fall- CT Head negative - cslt car worker to evaluate home at discharge 3) Sacral pain- X-rays pending 4) DVT prophylaxsis with Lovenox 5) Hypokalemia- replace 6) Encephalopathy- Neuro not available until Friday. PSY consulted Subjective Date patient seen: Nov 23, 2017 Time patient seen: 08:32 ROS Limited/Unobtainable: No Allergies: Coded Allergies: No Known Allergies (Unverified , 11/21/17) Subjective Patient confused and disoriented today Objective Last 24 Hour Vital Signs Date Time Temp Pulse Resp B/P (MAP) Pulse Ox O2 Delivery O2 Flow Rate FiO2 11/23/17 08:00 98.7 86 20 188/84 (118) 97 98.7 11/23/17 07:30 86 20 176/78 (110) 97 11/23/17 07:00 76 19 173/75 (107) 96 11/23/17 06:30 75 19 170/76 (107) 96 11/23/17 06:00 74 19 145/65 (91) 95 11/23/17 05:30 74 19 139/58 (85) 95 11/23/17 05:00 75 16 149/63 (91) 97 11/23/17 04:30 74 19 175/72 (106) 98 11/23/17 04:00 83 11/23/17 04:00 Room Air 11/23/17 04:00 98.2 75 18 173/60 (97) 98 98.2 11/23/17 03:30 74 18 144/66 (92) 97 11/23/17 03:00 75 18 162/85 (110) 98 11/23/17 02:30 74 19 162/67 (98) 97 11/23/17 02:00 74 19 144/65 (91) 98 11/23/17 01:30 74 19 144/65 (91) 97 11/23/17 01:00 75 17 152/80 (104) 95 11/23/17 01:00 74 18 170/70 (103) 95 11/23/17 00:30 75 17 152/80 (104) 95 9/23/18 00:00 Room Air 11/23/17 00:00 98.7 75 18 151/72 (98) 95 98.7 11/23/17 00:00 73 11/22/17 23:30 74 17 156/76 (102) 95 11/22/17 23:00 76 18 145/65 (91) 95 11/22/17 22:30 77 17 150/79 (102) 95 11/22/17 22:16 74 141/69 11/22/17 22:00 75 18 141/69 (93) 95 11/22/17 21:30 81 17 158/95 (116) 98 11/22/17 21:00 79 19 147/75 (99) 98 11/22/17 20:30 79 19 169/82 (111) 98 11/22/17 20:00 98.1 80 18 162/102 (122) 99 98.1 11/22/17 20:00 75 11/22/17 20:00 Room Air 11/22/17 19:30 81 18 172/73 (106) 100 11/22/17 19:00 82 18 174/70 (104) 100 11/22/17 18:45 83 20 173/79 (110) 100 11/22/17 18:30 85 18 175/77 (109) 100 11/22/17 18:15 86 19 143/114 (124) 100 11/22/17 18:09 85 172/152 11/22/17 18:00 83 19 172/152 (159) 99 11/22/17 17:45 82 19 155/99 (117) 99 11/22/17 17:15 83 20 156/59 (91) 100 11/22/17 17:00 83 20 198/83 (121) 100 11/22/17 16:45 84 19 185/71 (109) 100 11/22/17 16:15 81 17 186/66 (106) 99 11/22/17 16:00 98.7 82 19 165/70 (101) 99 98.7 11/22/17 16:00 Room Air 11/22/17 15:45 82 19 178/57 (97) 99 11/22/17 15:30 82 18 165/65 (98) 99 11/22/17 15:15 83 19 178/67 (104) 99 11/22/17 15:00 82 13 178/67 (104) 100 11/22/17 14:45 85 20 177/68 (104) 99 11/22/17 14:30 87 18 186/81 (116) 99 11/22/17 14:15 86 21 192/53 (99) 97 11/22/17 14:14 87 171/73 11/22/17 14:00 85 19 174/67 (102) 99 11/22/17 13:45 86 19 171/73 (105) 99 11/22/17 13:30 87 19 156/126 (136) 100 11/22/17 13:15 86 19 177/79 (111) 100 11/22/17 13:00 85 19 161/136 (144) 99 11/22/17 12:45 87 22 130/56 (80) 99 11/22/17 12:30 88 21 193/147 (162) 99 11/22/17 12:15 98.6 87 20 182/62 (102) 98 98.6 11/22/17 12:00 92 20 186/80 (115) 99 11/22/17 12:00 Room Air 11/22/17 11:45 92 20 179/144 (156) 99 11/22/17 11:15 92 20 187/162 (170) 99 11/22/17 10:45 89 21 173/123 (140) 99 11/22/17 10:15 88 19 118/103 (108) 100 11/22/17 10:15 Room Air 11/22/17 09:58 89 214/90 11/22/17 09:45 89 19 157/106 (123) 99 11/22/17 09:30 88 20 140/103 (115) 99 11/22/17 09:15 87 19 140/103 (115) 99 11/22/17 09:00 Room Air 11/22/17 09:00 81 18 221/90 (133) 99 11/22/17 08:45 97.6 82 18 221/90 (133) 99 97.6 Intake and Output 11/22/17 11/23/17 19:00 07:00 Intake Total 1642.15 ml 1135.15 ml Balance 1642.15 ml 1135.15 ml Intake Oral 100 ml 100 ml IV Total 1542.15 ml 1035.15 ml # Voids 6 1 # Bowel Movements 13 6 Laboratory Tests 11/22/17 10:20: White Blood Count 4.6L, Red Blood Count 3.70L, Hemoglobin 12.8, Hematocrit 36.8L , Mean Corpuscular Volume 100H, Mean Corpuscular Hemoglobin 34.6H, Mean Corpuscular Hemoglobin Concent 34.8, Red Cell Distribution Width 10.7L, Platelet Count 140L, Mean Platelet Volume 5.0L, Neutrophils (%) (Auto) 68.0, Lymphocytes (%) (Auto) 25.5, Monocytes (%) (Auto) 4.4, Eosinophils (%) (Auto) 1.0, Basophils (%) (Auto) 1.2, Sodium Level 145, Potassium Level 3.4L, Chloride Level 110H, Carbon Dioxide Level 28, Anion Gap 7, Blood Urea Nitrogen 5L, Creatinine 0.8, Estimat Glomerular Filtration Rate , Glucose Level 194H, Calcium Level 10.6H 11/23/17 04:00: White Blood Count 5.2, Red Blood Count 3.31L, Hemoglobin 12.1, Hematocrit 32.9L , Mean Corpuscular Volume 100H, Mean Corpuscular Hemoglobin 36.7H, Mean Corpuscular Hemoglobin Concent 36.8H, Red Cell Distribution Width 10.9L, Platelet Count 122L, Mean Platelet Volume 5.4L, Neutrophils (%) (Auto) 63.0, Lymphocytes (%) (Auto) 27.0, Monocytes (%) (Auto) 7.7, Eosinophils (%) (Auto) 1.5, Basophils (%) (Auto) 0.9, Sodium Level 146H, Potassium Level 3.0L, Chloride Level 113H, Carbon Dioxide Level 26, Anion Gap 7, Blood Urea Nitrogen 6L, Creatinine 0.7, Estimat Glomerular Filtration Rate , Glucose Level 120H, Calcium Level 10.5H Height (Feet): 5 Height (Inches): 4.00 Weight (Pounds): 114 General Appearance: confused, agitated, combative EENT: normal ENT inspection Neck: normal alignment, supple Cardiovascular: normal rate, regular rhythm Respiratory/Chest: lungs clear, normal breath sounds Abdomen: non tender, soft Edema: no edema noted Arm (L), no edema noted Arm (R), no edema noted Leg (L), no edema noted Leg (R), no edema noted Pedal (L), no edema noted Pedal (R), no edema noted Generalized Vinh Winston MD Nov 23, 2017 08:42
[2017-11-23] MEDS ORDERED: D5W IV SCH (08:45)
[2017-11-23] MEDS ORDERED: LABETALOL IV SCH (08:45)
[2017-11-23] MEDS: Labetalol 5mg/ml 20ml vial IV SCH ×4 (11:30→21:30)
[2017-11-23] MEDS: Sertraline 50mg tab ORAL SCH (11:38)
[2017-11-23] MEDS: Metoprolol Succinate XL 50mg tab ORAL SCH (11:38)
[2017-11-23] MEDS: Losartan 50mg tab ORAL SCH (11:38)
--- NOTE | 2017-11-23 12:00 | General Progress Note ---
Assessment/Plan Assessment/Plan Assessment - HTN - hypoglycemia - mild macrocytic anemia - hypokalemia Recommendations - push po - monitor glucose - BP control - check B12, folate - ? samm level Subjective Allergies: Coded Allergies: No Known Allergies (Unverified , 11/21/17) Subjective Above noted seen in ICU arousable Objective Last 24 Hour Vital Signs Date Time Temp Pulse Resp B/P (MAP) Pulse Ox O2 Delivery O2 Flow Rate FiO2 11/23/17 11:38 82 190/88 11/23/17 11:38 190/88 11/23/17 11:30 82 189/80 11/23/17 11:00 81 20 189/80 (116) 98 11/23/17 10:30 81 19 190/88 (122) 98 11/23/17 10:00 80 19 180/96 (124) 98 11/23/17 09:30 81 20 182/101 (128) 98 11/23/17 09:00 82 19 177/87 (117) 98 11/23/17 08:00 85 11/23/17 08:00 98.7 86 20 188/84 (118) 97 98.7 11/23/17 07:30 86 20 176/78 (110) 97 11/23/17 07:00 76 19 173/75 (107) 96 11/23/17 06:30 75 19 170/76 (107) 96 11/23/17 06:00 74 19 145/65 (91) 95 11/23/17 05:30 74 19 139/58 (85) 95 11/23/17 05:00 75 16 149/63 (91) 97 11/23/17 04:30 74 19 175/72 (106) 98 11/23/17 04:00 83 11/23/17 04:00 Room Air 11/23/17 04:00 98.2 75 18 173/60 (97) 98 98.2 11/23/17 03:30 74 18 144/66 (92) 97 11/23/17 03:00 75 18 162/85 (110) 98 11/23/17 02:30 74 19 162/67 (98) 97 11/23/17 02:00 74 19 144/65 (91) 98 11/23/17 01:30 74 19 144/65 (91) 97 11/23/17 01:00 75 17 152/80 (104) 95 11/23/17 01:00 74 18 170/70 (103) 95 11/23/17 00:30 75 17 152/80 (104) 95 11/23/17 00:00 Room Air 11/23/17 00:00 98.7 75 18 151/72 (98) 95 98.7 11/23/17 00:00 73 11/22/17 23:30 74 17 156/76 (102) 95 11/22/17 23:00 76 18 145/65 (91) 95 11/22/17 22:30 77 17 150/79 (102) 95 11/22/17 22:16 74 141/69 11/22/17 22:00 75 18 141/69 (93) 95 11/22/17 21:30 81 17 158/95 (116) 98 11/22/17 21:00 79 19 147/75 (99) 98 11/22/17 20:30 79 19 169/82 (111) 98 11/22/17 20:00 98.1 80 18 162/102 (122) 99 98.1 11/22/17 20:00 75 11/22/17 20:00 Room Air 11/22/17 19:30 81 18 172/73 (106) 100 11/22/17 19:00 82 18 174/70 (104) 100 11/22/17 18:45 83 20 173/79 (110) 100 11/22/17 18:30 85 18 175/77 (109) 100 11/22/17 18:15 86 19 143/114 (124) 100 11/22/17 18:09 85 172/152 11/22/17 18:00 83 19 172/152 (159) 99 11/22/17 17:45 82 19 155/99 (117) 99 11/22/17 17:15 83 20 156/59 (91) 100 11/22/17 17:00 83 20 198/83 (121) 100 11/22/17 16:45 84 19 185/71 (109) 100 11/22/17 16:15 81 17 186/66 (106) 99 11/22/17 16:00 98.7 82 19 165/70 (101) 99 98.7 11/22/17 16:00 Room Air 11/22/17 15:45 82 19 178/57 (97) 99 9/22/18 15:30 82 18 165/65 (98) 99 11/22/17 15:15 83 19 178/67 (104) 99 11/22/17 15:00 82 13 178/67 (104) 100 11/22/17 14:45 85 20 177/68 (104) 99 11/22/17 14:30 87 18 186/81 (116) 99 11/22/17 14:15 86 21 192/53 (99) 97 11/22/17 14:14 87 171/73 11/22/17 14:00 85 19 174/67 (102) 99 11/22/17 13:45 86 19 171/73 (105) 99 11/22/17 13:30 87 19 156/126 (136) 100 11/22/17 13:15 86 19 177/79 (111) 100 11/22/17 13:00 85 19 161/136 (144) 99 11/22/17 12:45 87 22 130/56 (80) 99 11/22/17 12:30 88 21 193/147 (162) 99 11/22/17 12:15 98.6 87 20 182/62 (102) 98 98.6 11/22/17 12:00 92 20 186/80 (115) 99 11/22/17 12:00 Room Air Intake and Output 11/22/17 11/23/17 19:00 07:00 Intake Total 1642.15 ml 1135.15 ml Balance 1642.15 ml 1135.15 ml Intake Oral 100 ml 100 ml IV Total 1542.15 ml 1035.15 ml # Voids 6 1 # Bowel Movements 13 6 Laboratory Tests 11/23/17 04:00: White Blood Count 5.2, Red Blood Count 3.31L, Hemoglobin 12.1, Hematocrit 32.9L , Mean Corpuscular Volume 100H, Mean Corpuscular Hemoglobin 36.7H, Mean Corpuscular Hemoglobin Concent 36.8H, Red Cell Distribution Width 10.9L, Platelet Count 122L, Mean Platelet Volume 5.4L, Neutrophils (%) (Auto) 63.0, Lymphocytes (%) (Auto) 27.0, Monocytes (%) (Auto) 7.7, Eosinophils (%) (Auto) 1.5, Basophils (%) (Auto) 0.9, Sodium Level 146H, Potassium Level 3.0L, Chloride Level 113H, Carbon Dioxide Level 26, Anion Gap 7, Blood Urea Nitrogen 6L, Creatinine 0.7, Estimat Glomerular Filtration Rate , Glucose Level 120H, Calcium Level 10.5H Height (Feet): 5 Height (Inches): 4.00 Weight (Pounds): 114 Objective Elderly woman NCAT supple CTA RRR abd soft no edema Radhames Harding MD Nov 23, 2017 12:00
--- NOTE | 2017-11-23 12:04 | General Surgery Progress Note ---
General Surgery-Progress Note Subjective Symptoms: improved Additional Comments pain improved. no n/v/f/c. labs okay Objective Last 24 Hour Vital Signs Date Time Temp Pulse Resp B/P (MAP) Pulse Ox O2 Delivery O2 Flow Rate FiO2 11/23/17 11:38 82 190/88 11/23/17 11:38 190/88 11/23/17 11:30 82 189/80 11/23/17 11:00 81 20 189/80 (116) 98 11/23/17 10:30 81 19 190/88 (122) 98 11/23/17 10:00 80 19 180/96 (124) 98 11/23/17 09:30 81 20 182/101 (128) 98 11/23/17 09:00 82 19 177/87 (117) 98 11/23/17 08:00 85 11/23/17 08:00 98.7 86 20 188/84 (118) 97 98.7 11/23/17 07:30 86 20 176/78 (110) 97 11/23/17 07:00 76 19 173/75 (107) 96 11/23/17 06:30 75 19 170/76 (107) 96 11/23/17 06:00 74 19 145/65 (91) 95 11/23/17 05:30 74 19 139/58 (85) 95 11/23/17 05:00 75 16 149/63 (91) 97 11/23/17 04:30 74 19 175/72 (106) 98 11/23/17 04:00 83 11/23/17 04:00 Room Air 11/23/17 04:00 98.2 75 18 173/60 (97) 98 98.2 11/23/17 03:30 74 18 144/66 (92) 97 11/23/17 03:00 75 18 162/85 (110) 98 11/23/17 02:30 74 19 162/67 (98) 97 11/23/17 02:00 74 19 144/65 (91) 98 11/23/17 01:30 74 19 144/65 (91) 97 11/23/17 01:00 75 17 152/80 (104) 95 11/23/17 01:00 74 18 170/70 (103) 95 11/23/17 00:30 75 17 152/80 (104) 95 11/23/17 00:00 Room Air 11/23/17 00:00 98.7 75 18 151/72 (98) 95 98.7 11/23/17 00:00 73 11/22/17 23:30 74 17 156/76 (102) 95 11/22/17 23:00 76 18 145/65 (91) 95 11/22/17 22:30 77 17 150/79 (102) 95 11/22/17 22:16 74 141/69 11/22/17 22:00 75 18 141/69 (93) 95 11/22/17 21:30 81 17 158/95 (116) 98 11/22/17 21:00 79 19 147/75 (99) 98 11/22/17 20:30 79 19 169/82 (111) 98 11/22/17 20:00 98.1 80 18 162/102 (122) 99 98.1 11/22/17 20:00 75 11/22/17 20:00 Room Air 11/22/17 19:30 81 18 172/73 (106) 100 11/22/17 19:00 82 18 174/70 (104) 100 11/22/17 18:45 83 20 173/79 (110) 100 11/22/17 18:30 85 18 175/77 (109) 100 11/22/17 18:15 86 19 143/114 (124) 100 11/22/17 18:09 85 172/152 11/22/17 18:00 83 19 172/152 (159) 99 11/22/17 17:45 82 19 155/99 (117) 99 11/22/17 17:15 83 20 156/59 (91) 100 11/22/17 17:00 83 20 198/83 (121) 100 11/22/17 16:45 84 19 185/71 (109) 100 11/22/17 16:15 81 17 186/66 (106) 99 11/22/17 16:00 98.7 82 19 165/70 (101) 99 98.7 11/22/17 16:00 Room Air 11/22/17 15:45 82 19 178/57 (97) 99 11/22/17 15:30 82 18 165/65 (98) 99 11/22/17 15:15 83 19 178/67 (104) 99 11/22/17 15:00 82 13 178/67 (104) 100 11/22/17 14:45 85 20 177/68 (104) 99 11/22/17 14:30 87 18 186/81 (116) 99 11/22/17 14:15 86 21 192/53 (99) 97 11/22/17 14:14 87 171/73 11/22/17 14:00 85 19 174/67 (102) 99 11/22/17 13:45 86 19 171/73 (105) 99 11/22/17 13:30 87 19 156/126 (136) 100 11/22/17 13:15 86 19 177/79 (111) 100 11/22/17 13:00 85 19 161/136 (144) 99 11/22/17 12:45 87 22 130/56 (80) 99 11/22/17 12:30 88 21 193/147 (162) 99 11/22/17 12:15 98.6 87 20 182/62 (102) 98 98.6 I&O Intake and Output 11/22/17 11/23/17 19:00 07:00 Intake Total 1642.15 ml 1135.15 ml Balance 1642.15 ml 1135.15 ml Intake Oral 100 ml 100 ml IV Total 1542.15 ml 1035.15 ml # Voids 6 1 # Bowel Movements 13 6 Cardiovascular: RSR Respiratory: clear Abdomen: soft, distended, non-tender, present bowel sounds Extremities: other Laboratory Tests Test 11/23/17 04:00 White Blood Count 5.2 K/UL (4.8-10.8) Red Blood Count 3.31 M/UL (4.20-5.40) L Hemoglobin 12.1 G/DL (12.0-16.0) Hematocrit 32.9 % (37.0-47.0) L Mean Corpuscular Volume 100 FL (80-99) H Mean Corpuscular Hemoglobin 36.7 PG (27.0-31.0) H Mean Corpuscular Hemoglobin Concent 36.8 G/DL (32.0-36.0) H Red Cell Distribution Width 10.9 % (11.6-14.8) L Platelet Count 122 K/UL (150-450) L Mean Platelet Volume 5.4 FL (6.5-10.1) L Neutrophils (%) (Auto) 63.0 % (45.0-75.0) Lymphocytes (%) (Auto) 27.0 % (20.0-45.0) Monocytes (%) (Auto) 7.7 % (1.0-10.0) Eosinophils (%) (Auto) 1.5 % (0.0-3.0) Basophils (%) (Auto) 0.9 % (0.0-2.0) Sodium Level 146 MMOL/L (136-145) H Potassium Level 3.0 MMOL/L (3.5-5.1) L Chloride Level 113 MMOL/L (98-107) H Carbon Dioxide Level 26 MMOL/L (21-32) Anion Gap 7 mmol/L (5-15) Blood Urea Nitrogen 6 mg/dL (7-18) L Creatinine 0.7 MG/DL (0.55-1.30) Estimat Glomerular Filtration Rate mL/min (>60) Glucose Level 120 MG/DL (74-106) H Calcium Level 10.5 MG/DL (8.5-10.1) H Plan Problems: (1) Abdominal pain Assessment & Plan: c/o abdominal pain. no n/v/f/c. unsure how long has been having pain. on exam epigastric tenderness with guarding labs reviewed. no leukocytosis. lfts okay etiology unknown gastritis? -PPI -okay for diet -US abd pending -KUB will follow with recs thank you for this consultation Sourav Tobias Nov 23, 2017 12:04
[2017-11-23] MEDS: LABETALOL IV SCH ×2 (12:52→17:10)
[2017-11-23] MEDS: D5W IV SCH ×2 (12:52→17:10)
--- NOTE | 2017-11-23 15:22 | Pulmonology Progress Note ---
Assessment/Plan Assessment/Plan IMPRESSION ALOC DM HTN S/P fall hypercalemia PLAN ICU care noted neuro follow up monitor blood sugars monitor for aspiration medications/laboratory data/nursing notes/ICU care reviewed in detail note reviewed and edited care discussed with RN and RT Subjective ROS Limited/Unobtainable: Yes Allergies: Coded Allergies: No Known Allergies (Unverified , 11/21/17) Subjective altered Objective Last 24 Hour Vital Signs Date Time Temp Pulse Resp B/P (MAP) Pulse Ox O2 Delivery O2 Flow Rate FiO2 11/23/17 14:30 81 28 147/76 (99) 98 11/23/17 14:01 86 171/82 11/23/17 14:00 85 20 171/82 (111) 95 11/23/17 13:30 88 19 97/36 (56) 98 11/23/17 13:00 82 20 170/81 (110) 98 11/23/17 12:52 80 166/72 11/23/17 12:30 83 20 166/72 (103) 99 11/23/17 12:00 82 11/23/17 12:00 Room Air 11/23/17 12:00 98.6 82 20 176/117 (136) 98 98.6 11/23/17 11:38 82 190/88 11/23/17 11:38 190/88 11/23/17 11:30 82 20 179/71 (107) 98 11/23/17 11:30 82 189/80 11/23/17 11:00 81 20 189/80 (116) 98 11/23/17 10:30 81 19 190/88 (122) 98 11/23/17 10:00 80 19 180/96 (124) 98 11/23/17 09:30 81 20 182/101 (128) 98 11/23/17 09:00 82 19 177/87 (117) 98 11/23/17 08:00 85 11/23/17 08:00 98.7 86 20 188/84 (118) 97 98.7 11/23/17 08:00 Room Air 11/23/17 07:30 86 20 176/78 (110) 97 11/23/17 07:00 76 19 173/75 (107) 96 11/23/17 06:30 75 19 170/76 (107) 96 11/23/17 06:00 74 19 145/65 (91) 95 11/23/17 05:30 74 19 139/58 (85) 95 11/23/17 05:00 75 16 149/63 (91) 97 11/23/17 04:30 74 19 175/72 (106) 98 11/23/17 04:00 83 11/23/17 04:00 Room Air 11/23/17 04:00 98.2 75 18 173/60 (97) 98 98.2 11/23/17 03:30 74 18 144/66 (92) 97 11/23/17 03:00 75 18 162/85 (110) 98 11/23/17 02:30 74 19 162/67 (98) 97 11/23/17 02:00 74 19 144/65 (91) 98 11/23/17 01:30 74 19 144/65 (91) 97 11/23/17 01:00 75 17 152/80 (104) 95 11/23/17 01:00 74 18 170/70 (103) 95 11/23/17 00:30 75 17 152/80 (104) 95 11/23/17 00:00 Room Air 11/23/17 00:00 98.7 75 18 151/72 (98) 95 98.7 11/23/17 00:00 73 11/22/17 23:30 74 17 156/76 (102) 95 11/22/17 23:00 76 18 145/65 (91) 95 11/22/17 22:30 77 17 150/79 (102) 95 11/22/17 22:16 74 141/69 11/22/17 22:00 75 18 141/69 (93) 95 11/22/17 21:30 81 17 158/95 (116) 98 11/22/17 21:00 79 19 147/75 (99) 98 11/22/17 20:30 79 19 169/82 (111) 98 11/22/17 20:00 98.1 80 18 162/102 (122) 99 98.1 11/22/17 20:00 75 11/22/17 20:00 Room Air 11/22/17 19:30 81 18 172/73 (106) 100 11/22/17 19:00 82 18 174/70 (104) 100 11/22/17 18:45 83 20 173/79 (110) 100 11/22/17 18:30 85 18 175/77 (109) 100 11/22/17 18:15 86 19 143/114 (124) 100 11/22/17 18:09 85 172/152 11/22/17 18:00 83 19 172/152 (159) 99 11/22/17 17:45 82 19 155/99 (117) 99 11/22/17 17:15 83 20 156/59 (91) 100 11/22/17 17:00 83 20 198/83 (121) 100 11/22/17 16:45 84 19 185/71 (109) 100 11/22/17 16:15 81 17 186/66 (106) 99 11/22/17 16:00 98.7 82 19 165/70 (101) 99 98.7 11/22/17 16:00 Room Air 11/22/17 15:45 82 19 178/57 (97) 99 11/22/17 15:30 82 18 165/65 (98) 99 Intake and Output 11/22/17 11/23/17 19:00 07:00 Intake Total 1642.15 ml 1135.15 ml Balance 1642.15 ml 1135.15 ml Intake Oral 100 ml 100 ml IV Total 1542.15 ml 1035.15 ml # Voids 6 1 # Bowel Movements 13 6 Objective WDWN NAD reduced breath sounds bilaterally without rhonchi or wheeze [id number] without MRG NABS nontender no HSM no CCE altered Microbiology Date/Time Source Procedure Growth Status 11/21/17 21:00 Stool Clostridium difficile Toxin Assay - Final Complete Laboratory Tests 11/23/17 04:00: White Blood Count 5.2, Red Blood Count 3.31L, Hemoglobin 12.1, Hematocrit 32.9L , Mean Corpuscular Volume 100H, Mean Corpuscular Hemoglobin 36.7H, Mean Corpuscular Hemoglobin Concent 36.8H, Red Cell Distribution Width 10.9L, Platelet Count 122L, Mean Platelet Volume 5.4L, Neutrophils (%) (Auto) 63.0, Lymphocytes (%) (Auto) 27.0, Monocytes (%) (Auto) 7.7, Eosinophils (%) (Auto) 1.5, Basophils (%) (Auto) 0.9, Sodium Level 146H, Potassium Level 3.0L, Chloride Level 113H, Carbon Dioxide Level 26, Anion Gap 7, Blood Urea Nitrogen 6L, Creatinine 0.7, Estimat Glomerular Filtration Rate , Glucose Level 120H, Calcium Level 10.5H Current Medications Medications (Trade) Dose Ordered Sig/Atilio Route PRN Reason Start Time Stop Time Status Last Admin Dose Admin Acetaminophen (Tylenol) 650 mg Q4H PRN ORAL Mild Pain (Pain Scale 1-3) 11/22/17 08:59 12/21/17 08:58 Atorvastatin Calcium (Lipitor) 40 mg QHS ORAL 11/22/17 21:00 12/21/17 20:59 11/22/17 21:14 Clonidine HCl (Catapres Tab) 0.1 mg Q6H PRN ORAL For High Blood Pressure 11/22/17 09:00 12/21/17 08:59 Dextrose (Dextrose 50%) 25 ml Q1H PRN IV Hypoglycemia 11/22/17 09:15 Dextrose (Dextrose 50%) 50 ml Q1H PRN IV hypoglycemia 11/22/17 09:15 Diphenhydramine HCl (Benadryl) 25 mg Q3H PRN IVP Itching 11/22/17 11:45 12/22/17 11:44 11/22/17 14:29 Enoxaparin Sodium (Lovenox) 40 mg Q24H SUBQ 11/22/17 17:30 12/21/17 17:29 11/22/17 17:46 Famotidine (Pepcid) 40 mg DAILY ORAL 11/22/17 09:00 12/22/17 08:59 11/23/17 11:38 Insulin Aspart (NovoLOG) BEFORE MEALS AND HS SUBQ 11/22/17 11:30 12/21/17 16:29 11/23/17 11:46 Labetalol HCl (Normodyne) 5 mg Q4H IV 11/23/17 09:00 12/23/17 08:59 11/23/17 14:01 Labetalol HCl 200 mg/Dextrose 290 ml @ 0 mls/hr Q24H IV 11/22/17 10:00 11/24/17 23:59 11/23/17 12:52 Lorazepam (Ativan 2mg/ml 1ml) 0.5 mg Q4H PRN IV For Anxiety 11/22/17 17:30 11/29/17 17:29 11/23/17 13:48 Losartan Potassium (Cozaar) 50 mg DAILY ORAL 11/23/17 09:00 12/23/17 08:59 11/23/17 11:38 Metoprolol Succinate (Toprol XL) 50 mg DAILY ORAL 11/23/17 09:00 12/23/17 08:59 11/23/17 11:38 Ondansetron HCl (Zofran) 4 mg Q6H PRN IVP Nausea & Vomiting 11/22/17 09:02 12/21/17 09:01 Sertraline HCl (Zoloft) 25 mg DAILY ORAL 11/22/17 09:00 12/22/17 08:59 11/23/17 11:38 Sodium Chloride 1,000 ml @ 75 mls/hr [id number] IV 11/22/17 17:30 12/22/17 17:29 11/23/17 05:46 Romeo Smith MD Nov 23, 2017 15:22
[2017-11-23] MEDS: Enoxaparin 40mg Inj SUBQ SCH (17:36)
[2017-11-23] MEDS: Atorvastatin 20mg tab ORAL SCH ×2 (21:00→21:42)
[2017-11-24] VITALS (48 sets, daily range): BP systolic 132–199; BP diastolic 61–151
[2017-11-24] MEDS: Labetalol 5mg/ml 20ml vial IV SCH ×6 (00:20→21:00)
[2017-11-24] MEDS: NovoLOG Insulin Flexpen SUBQ SCH ×4 (05:14→21:02)
[2017-11-24 05:50] LABS: BASOPHILS % (AUTO) 0.5 % (0.0-2.0); EOSINOPHILS % (AUTO) 1.9 % (0.0-3.0); HEMATOCRIT 34.7 % (37.0-47.0); HEMOGLOBIN 12.2 G/DL (12.0-16.0); LYMPHOCYTES % (AUTO) 18.1 % (20.0-45.0); MEAN CORPUSCULAR VOLUME 99 FL (80-99); NEUTROPHILS % (AUTO) 73.6 % (45.0-75.0); PLATELET COUNT 130 K/UL (150-450); RED BLOOD COUNT 3.52 M/UL (4.20-5.40); RED CELL DISTRIBUTION WIDTH 10.6 % (11.6-14.8); WHITE BLOOD COUNT 5.5 K/UL (4.8-10.8)
[2017-11-24 06:13] LABS: ALANINE AMINOTRANSFERASE 20 U/L (12-78); ALBUMIN 2.6 G/DL (3.4-5.0); ALBUMIN/GLOBULIN RATIO 0.9 (1.0-2.7); ALKALINE PHOSPHATASE 53 U/L (46-116); ANION GAP 7 mmol/L (5-15); ASPARTATE AMINO TRANSFERASE 17 U/L (15-37); BILIRUBIN,TOTAL 0.8 MG/DL (0.2-1.0); BLOOD UREA NITROGEN 5 mg/dL (7-18); CALCIUM 10.4 MG/DL (8.5-10.1); CARBON DIOXIDE 24 MMOL/L (21-32); CHLORIDE 112 MMOL/L (98-107); CREATININE 0.6 MG/DL (0.55-1.30); POTASSIUM 3.2 MMOL/L (3.5-5.1); SODIUM 143 MMOL/L (136-145)
[2017-11-24] MEDS: DiphenhydrAMINE 50mg/ml Inj IVP PRN (06:20)
[2017-11-24] MEDS: LABETALOL IV SCH ×4 (06:51→22:04)
[2017-11-24] MEDS: D5W IV SCH ×4 (06:51→22:04)
[2017-11-24] MEDS: LORazepam Inj 2mg/ml 1ml IV PRN ×3 (08:43→18:17)
--- NOTE | 2017-11-24 08:43 | Nephrology Progress Note ---
Assessment/Plan Assessment/Plan A/P 1) HTN Urgency- Transferred to ICU and BP improved - labetalol gtt started for SBP goal 160-170 - labetalol scheduled as patient not taking po - will check renin:samm ratio as patient HTN and hypokalemic 2) S/P Fall- CT Head negative - cslt hospice social worker to evaluate home at discharge and HH vs SNF 3) Sacral pain- X-rays pending 4) DVT prophylaxsis with Lovenox 5) Hypokalemia- replaced 6) Encephalopathy- Neuro not available until Friday. PSY consulted 7) Abd Pain- N/V being addressed by Gen Surg and GI Subjective Date patient seen: Nov 24, 2017 Time patient seen: 08:40 ROS Limited/Unobtainable: Yes Allergies: Coded Allergies: No Known Allergies (Unverified , 11/21/17) Subjective Patient remains confused and agitated today Objective Last 24 Hour Vital Signs Date Time Temp Pulse Resp B/P (MAP) Pulse Ox O2 Delivery O2 Flow Rate FiO2 11/24/17 07:00 84 18 156/102 (120) 97 11/24/17 06:51 86 181/79 11/24/17 06:30 82 18 174/85 (114) 97 11/24/17 06:00 87 18 181/84 (116) 97 11/24/17 05:30 85 18 171/86 (114) 97 11/24/17 05:00 76 18 199/78 (118) 96 11/24/17 04:41 78 192/78 11/24/17 04:30 75 21 194/78 (116) 96 11/24/17 04:00 Room Air 11/24/17 04:00 79 11/24/17 04:00 76 20 177/73 (107) 96 11/24/17 04:00 98.1 98.1 11/24/17 03:30 75 18 157/73 (101) 96 11/24/17 03:00 74 19 144/77 (99) 96 11/24/17 02:30 76 18 169/76 (107) 96 11/24/17 02:00 72 19 158/68 (98) 97 11/24/17 01:30 75 19 163/68 (99) 98 11/24/17 01:00 73 19 154/68 (96) 96 11/24/17 00:30 98.3 71 19 156/71 (99) 96 98.3 11/24/17 00:20 71 156/63 11/24/17 00:00 Room Air 11/24/17 00:00 71 19 156/63 (94) 96 11/24/17 00:00 71 11/23/17 23:30 71 19 151/71 (97) 97 11/23/17 23:00 74 19 165/75 (105) 97 11/23/17 22:30 76 19 158/77 (104) 97 11/23/17 22:00 80 19 161/73 (102) 97 11/23/17 21:30 77 19 149/66 (93) 99 11/23/17 21:30 73 152/71 11/23/17 21:00 73 19 152/71 (98) 96 11/23/17 20:30 75 20 155/66 (95) 97 11/23/17 20:00 77 11/23/17 20:00 Room Air 11/23/17 20:00 98.4 76 20 152/66 (94) 97 98.4 11/23/17 19:30 77 20 149/70 (96) 97 11/23/17 19:00 78 19 144/63 (90) 97 11/23/17 18:30 81 19 157/68 (97) 95 11/23/17 18:00 77 19 157/62 (93) 97 11/23/17 17:30 82 154/80 11/23/17 17:30 80 18 177/81 (113) 96 11/23/17 17:10 81 169/77 11/23/17 17:00 82 30 154/80 (104) 94 11/23/17 16:30 98.6 81 22 169/77 (107) 95 98.6 11/23/17 16:00 Room Air 11/23/17 16:00 81 11/23/17 16:00 81 19 159/74 (102) 95 11/23/17 15:30 82 27 163/74 (103) 98 11/23/17 15:00 82 27 176/71 (106) 98 11/23/17 14:30 81 28 147/76 (99) 98 11/23/17 14:01 86 171/82 11/23/17 14:00 85 20 171/82 (111) 95 11/23/17 13:30 88 19 97/36 (56) 98 11/23/17 13:00 82 20 170/81 (110) 98 11/23/17 12:52 80 166/72 11/23/17 12:30 83 20 166/72 (103) 99 11/23/17 12:00 82 11/23/17 12:00 Room Air 11/23/17 12:00 98.6 82 20 176/117 (136) 98 98.6 11/23/17 11:38 82 190/88 11/23/17 11:38 190/88 11/23/17 11:30 82 20 179/71 (107) 98 11/23/17 11:30 82 189/80 11/23/17 11:00 81 20 189/80 (116) 98 11/23/17 10:30 81 19 190/88 (122) 98 11/23/17 10:00 80 19 180/96 (124) 98 11/23/17 09:30 81 20 182/101 (128) 98 11/23/17 09:00 82 19 177/87 (117) 98 Intake and Output 11/23/17 11/24/17 19:00 07:00 Intake Total 2208.3 ml 1115.5 ml Output Total 1 ml 0 ml Balance 2207.3 ml 1115.5 ml Intake Oral 0 ml 0 ml IV Total 2148.3 ml 1115.5 ml Other 60 ml Output Urine Total 1 ml 0 ml # Voids 1 4 # Bowel Movements 6 Laboratory Tests 11/24/17 05:08: White Blood Count 5.5, Red Blood Count 3.52L, Hemoglobin 12.2, Hematocrit 34.7L , Mean Corpuscular Volume 99, Mean Corpuscular Hemoglobin 34.8H, Mean Corpuscular Hemoglobin Concent 35.3, Red Cell Distribution Width 10.6L, Platelet Count 130L, Mean Platelet Volume 5.8L, Neutrophils (%) (Auto) 73.6, Lymphocytes (%) (Auto) 18.1L, Monocytes (%) (Auto) 6.0, Eosinophils (%) (Auto) 1.9, Basophils (%) (Auto) 0.5, Sodium Level 143, Potassium Level 3.2L, Chloride Level 112H, Carbon Dioxide Level 24, Anion Gap 7, Blood Urea Nitrogen 5L, Creatinine 0.6, Estimat Glomerular Filtration Rate , Glucose Level 111H, Calcium Level 10.4H, Total Bilirubin 0.8, Aspartate Amino Transf (AST/SGOT) 17, Alanine Aminotransferase (ALT/SGPT) 20, Alkaline Phosphatase 53, Total Protein 5.4L, Albumin 2.6L, Globulin 2.8, Albumin/Globulin Ratio 0.9L, Vitamin B12 Level 393, RBC Folate Hemolysate [Pending], Red Blood Cell Folate [Pending] Height (Feet): 5 Height (Inches): 4.00 Weight (Pounds): 114 General Appearance: agitated, combative EENT: normal ENT inspection Neck: normal alignment, supple Cardiovascular: normal rate, regular rhythm Respiratory/Chest: lungs clear, normal breath sounds Abdomen: non tender, soft Edema: no edema noted Arm (L), no edema noted Arm (R), no edema noted Leg (L), no edema noted Leg (R), no edema noted Pedal (L), no edema noted Pedal (R), no edema noted Generalized Vinh Winston MD Nov 24, 2017 08:43
[2017-11-24] MEDS: Sertraline 50mg tab ORAL SCH (08:44)
[2017-11-24] MEDS: Losartan 50mg tab ORAL SCH (08:46)
[2017-11-24] MEDS: Metoprolol Succinate XL 50mg tab ORAL SCH (09:46)
--- NOTE | 2017-11-24 11:34 | GI Progress Note ---
Assessment/Plan Problems: (1) Abdominal pain ICD Codes: R10.9 - Unspecified abdominal pain SNOMED: 04814716 Qualifiers: Qualified Codes: R10.13 - Epigastric pain (2) Hypoglycemia associated with type 2 diabetes mellitus ICD Codes: E11.649 - Type 2 diabetes mellitus with hypoglycemia without coma SNOMED: 40089459, 524293053 (3) Encephalopathy acute ICD Codes: G93.40 - Encephalopathy, unspecified SNOMED: 21322322, 135362331 Status: stable Status Narrative Discussed with Dr. Alegre. Assessment/Plan Assessment - HTN - hypoglycemia - mild macrocytic anemia - hypokalemia Recommendations - symptomatic treatment - push PO - DM management - zofran prn - prn transfusions - fu labs The patient was seen and examined at bedside and all new and available data was reviewed in the patients chart. I agree with the above findings, impression and plan. (Patient seen earlier today. Signature stamp does not reflect patient encounter time.). - Mayito Alegre MD Subjective Subjective limited Objective Last 24 Hour Vital Signs Date Time Temp Pulse Resp B/P (MAP) Pulse Ox O2 Delivery O2 Flow Rate FiO2 11/24/17 10:30 79 19 173/151 (158) 98 11/24/17 10:00 80 17 193/85 (121) 98 11/24/17 09:46 80 188/76 11/24/17 09:30 81 19 177/109 (131) 98 11/24/17 09:00 80 19 184/84 (117) 99 11/24/17 08:46 169/109 11/24/17 08:43 80 169/109 11/24/17 08:30 80 19 169/109 (129) 99 11/24/17 08:00 98.1 81 19 141/120 (127) 98 98.1 11/24/17 08:00 Room Air 11/24/17 08:00 82 11/24/17 07:30 84 20 177/86 (116) 98 11/24/17 07:00 84 18 156/102 (120) 97 11/24/17 06:51 86 181/79 11/24/17 06:30 82 18 174/85 (114) 97 11/24/17 06:00 87 18 181/84 (116) 97 11/24/17 05:30 85 18 171/86 (114) 97 11/24/17 05:00 76 18 199/78 (118) 96 11/24/17 04:41 78 192/78 11/24/17 04:30 75 21 194/78 (116) 96 11/24/17 04:00 Room Air 11/24/17 04:00 79 11/24/17 04:00 76 20 177/73 (107) 96 11/24/17 04:00 98.1 98.1 11/24/17 03:30 75 18 157/73 (101) 96 11/24/17 03:00 74 19 144/77 (99) 96 11/24/17 02:30 76 18 169/76 (107) 96 11/24/17 02:00 72 19 158/68 (98) 97 11/24/17 01:30 75 19 163/68 (99) 98 11/24/17 01:00 73 19 154/68 (96) 96 11/24/17 00:30 98.3 71 19 156/71 (99) 96 98.3 11/24/17 00:20 71 156/63 11/24/17 00:00 Room Air 11/24/17 00:00 71 19 156/63 (94) 96 11/24/17 00:00 71 11/23/17 23:30 71 19 151/71 (97) 97 11/23/17 23:00 74 19 165/75 (105) 97 11/23/17 22:30 76 19 158/77 (104) 97 11/23/17 22:00 80 19 161/73 (102) 97 11/23/17 21:30 77 19 149/66 (93) 99 11/23/17 21:30 73 152/71 11/23/17 21:00 73 19 152/71 (98) 96 11/23/17 20:30 75 20 155/66 (95) 97 11/23/17 20:00 77 11/23/17 20:00 Room Air 11/23/17 20:00 98.4 76 20 152/66 (94) 97 98.4 11/23/17 19:30 77 20 149/70 (96) 97 11/23/17 19:00 78 19 144/63 (90) 97 11/23/17 18:30 81 19 157/68 (97) 95 11/23/17 18:00 77 19 157/62 (93) 97 11/23/17 17:30 82 154/80 11/23/17 17:30 80 18 177/81 (113) 96 11/23/17 17:10 81 169/77 11/23/17 17:00 82 30 154/80 (104) 94 11/23/17 16:30 98.6 81 22 169/77 (107) 95 98.6 11/23/17 16:00 Room Air 11/23/17 16:00 81 11/23/17 16:00 81 19 159/74 (102) 95 11/23/17 15:30 82 27 163/74 (103) 98 11/23/17 15:00 82 27 176/71 (106) 98 11/23/17 14:30 81 28 147/76 (99) 98 11/23/17 14:01 86 171/82 11/23/17 14:00 85 20 171/82 (111) 95 11/23/17 13:30 88 19 97/36 (56) 98 11/23/17 13:00 82 20 170/81 (110) 98 11/23/17 12:52 80 166/72 11/23/17 12:30 83 20 166/72 (103) 99 11/23/17 12:00 82 11/23/17 12:00 Room Air 11/23/17 12:00 98.6 82 20 176/117 (136) 98 98.6 11/23/17 11:38 82 190/88 11/23/17 11:38 190/88 Intake and Output 11/23/17 11/24/17 19:00 07:00 Intake Total 2208.3 ml 1115.5 ml Output Total 1 ml 0 ml Balance 2207.3 ml 1115.5 ml Intake Oral 0 ml 0 ml IV Total 2148.3 ml 1115.5 ml Other 60 ml Output Urine Total 1 ml 0 ml # Voids 1 4 # Bowel Movements 6 Laboratory Tests Test 11/24/17 05:08 White Blood Count 5.5 K/UL (4.8-10.8) Red Blood Count 3.52 M/UL (4.20-5.40) L Hemoglobin 12.2 G/DL (12.0-16.0) Hematocrit 34.7 % (37.0-47.0) L Mean Corpuscular Volume 99 FL (80-99) Mean Corpuscular Hemoglobin 34.8 PG (27.0-31.0) H Mean Corpuscular Hemoglobin Concent 35.3 G/DL (32.0-36.0) Red Cell Distribution Width 10.6 % (11.6-14.8) L Platelet Count 130 K/UL (150-450) L Mean Platelet Volume 5.8 FL (6.5-10.1) L Neutrophils (%) (Auto) 73.6 % (45.0-75.0) Lymphocytes (%) (Auto) 18.1 % (20.0-45.0) L Monocytes (%) (Auto) 6.0 % (1.0-10.0) Eosinophils (%) (Auto) 1.9 % (0.0-3.0) Basophils (%) (Auto) 0.5 % (0.0-2.0) Sodium Level 143 MMOL/L (136-145) Potassium Level 3.2 MMOL/L (3.5-5.1) L Chloride Level 112 MMOL/L (98-107) H Carbon Dioxide Level 24 MMOL/L (21-32) Anion Gap 7 mmol/L (5-15) Blood Urea Nitrogen 5 mg/dL (7-18) L Creatinine 0.6 MG/DL (0.55-1.30) Estimat Glomerular Filtration Rate mL/min (>60) Glucose Level 111 MG/DL (74-106) H Calcium Level 10.4 MG/DL (8.5-10.1) H Calcium (Send out) Pending Total Bilirubin 0.8 MG/DL (0.2-1.0) Aspartate Amino Transf (AST/SGOT) 17 U/L (15-37) Alanine Aminotransferase (ALT/SGPT) 20 U/L (12-78) Alkaline Phosphatase 53 U/L (46-116) Total Protein 5.4 G/DL (6.4-8.2) L Albumin 2.6 G/DL (3.4-5.0) L Globulin 2.8 g/dL Albumin/Globulin Ratio 0.9 (1.0-2.7) L Renin Pending Aldosterone Pending Vitamin B12 Level 393 PG/ML (193-986) RBC Folate Hemolysate Pending Red Blood Cell Folate Pending Parathyroid Hormone (Intact) Pending Height (Feet): 5 Height (Inches): 4.00 Weight (Pounds): 114 General Appearance: WD/WN, no apparent distress, alert Cardiovascular: normal rate Respiratory/Chest: normal breath sounds, no respiratory distress Abdominal Exam: normal bowel sounds, non tender, soft Extremities: non-tender Fatou Santos NP Nov 24, 2017 11:34
--- NOTE | 2017-11-24 13:01 | General Surgery Progress Note ---
General Surgery-Progress Note Subjective Symptoms: improved, pain absent Additional Comments ultrasound being performed. stable Objective Last 24 Hour Vital Signs Date Time Temp Pulse Resp B/P (MAP) Pulse Ox O2 Delivery O2 Flow Rate FiO2 11/24/17 12:07 81 165/83 11/24/17 10:30 79 19 173/151 (158) 98 11/24/17 10:00 80 17 193/85 (121) 98 11/24/17 09:46 80 188/76 11/24/17 09:30 81 19 177/109 (131) 98 11/24/17 09:00 80 19 184/84 (117) 99 11/24/17 08:46 169/109 11/24/17 08:43 80 169/109 11/24/17 08:30 80 19 169/109 (129) 99 11/24/17 08:00 98.1 81 19 141/120 (127) 98 98.1 11/24/17 08:00 Room Air 11/24/17 08:00 82 11/24/17 07:30 84 20 177/86 (116) 98 11/24/17 07:00 84 18 156/102 (120) 97 11/24/17 06:51 86 181/79 11/24/17 06:30 82 18 174/85 (114) 97 11/24/17 06:00 87 18 181/84 (116) 97 11/24/17 05:30 85 18 171/86 (114) 97 11/24/17 05:00 76 18 199/78 (118) 96 11/24/17 04:41 78 192/78 11/24/17 04:30 75 21 194/78 (116) 96 11/24/17 04:00 Room Air 11/24/17 04:00 79 11/24/17 04:00 76 20 177/73 (107) 96 11/24/17 04:00 98.1 98.1 11/24/17 03:30 75 18 157/73 (101) 96 11/24/17 03:00 74 19 144/77 (99) 96 11/24/17 02:30 76 18 169/76 (107) 96 11/24/17 02:00 72 19 158/68 (98) 97 11/24/17 01:30 75 19 163/68 (99) 98 11/24/17 01:00 73 19 154/68 (96) 96 11/24/17 00:30 98.3 71 19 156/71 (99) 96 98.3 11/24/17 00:20 71 156/63 11/24/17 00:00 Room Air 11/24/17 00:00 71 19 156/63 (94) 96 11/24/17 00:00 71 11/23/17 23:30 71 19 151/71 (97) 97 11/23/17 23:00 74 19 165/75 (105) 97 11/23/17 22:30 76 19 158/77 (104) 97 11/23/17 22:00 80 19 161/73 (102) 97 11/23/17 21:30 77 19 149/66 (93) 99 11/23/17 21:30 73 152/71 11/23/17 21:00 73 19 152/71 (98) 96 11/23/17 20:30 75 20 155/66 (95) 97 11/23/17 20:00 77 11/23/17 20:00 Room Air 11/23/17 20:00 98.4 76 20 152/66 (94) 97 98.4 11/23/17 19:30 77 20 149/70 (96) 97 11/23/17 19:00 78 19 144/63 (90) 97 11/23/17 18:30 81 19 157/68 (97) 95 11/23/17 18:00 77 19 157/62 (93) 97 11/23/17 17:30 82 154/80 11/23/17 17:30 80 18 177/81 (113) 96 11/23/17 17:10 81 169/77 11/23/17 17:00 82 30 154/80 (104) 94 11/23/17 16:30 98.6 81 22 169/77 (107) 95 98.6 11/23/17 16:00 Room Air 11/23/17 16:00 81 11/23/17 16:00 81 19 159/74 (102) 95 11/23/17 15:30 82 27 163/74 (103) 98 11/23/17 15:00 82 27 176/71 (106) 98 11/23/17 14:30 81 28 147/76 (99) 98 11/23/17 14:01 86 171/82 11/23/17 14:00 85 20 171/82 (111) 95 11/23/17 13:30 88 19 97/36 (56) 98 I&O Intake and Output 11/23/17 11/24/17 19:00 07:00 Intake Total 2208.3 ml 1115.5 ml Output Total 1 ml 0 ml Balance 2207.3 ml 1115.5 ml Intake Oral 0 ml 0 ml IV Total 2148.3 ml 1115.5 ml Other 60 ml Output Urine Total 1 ml 0 ml # Voids 1 4 # Bowel Movements 6 Dressing: other Wound: other Drains: other Cardiovascular: RSR Respiratory: clear Abdomen: soft, flat, non-tender, present bowel sounds Extremities: other Laboratory Tests Test 11/24/17 05:08 White Blood Count 5.5 K/UL (4.8-10.8) Red Blood Count 3.52 M/UL (4.20-5.40) L Hemoglobin 12.2 G/DL (12.0-16.0) Hematocrit 34.7 % (37.0-47.0) L Mean Corpuscular Volume 99 FL (80-99) Mean Corpuscular Hemoglobin 34.8 PG (27.0-31.0) H Mean Corpuscular Hemoglobin Concent 35.3 G/DL (32.0-36.0) Red Cell Distribution Width 10.6 % (11.6-14.8) L Platelet Count 130 K/UL (150-450) L Mean Platelet Volume 5.8 FL (6.5-10.1) L Neutrophils (%) (Auto) 73.6 % (45.0-75.0) Lymphocytes (%) (Auto) 18.1 % (20.0-45.0) L Monocytes (%) (Auto) 6.0 % (1.0-10.0) Eosinophils (%) (Auto) 1.9 % (0.0-3.0) Basophils (%) (Auto) 0.5 % (0.0-2.0) Sodium Level 143 MMOL/L (136-145) Potassium Level 3.2 MMOL/L (3.5-5.1) L Chloride Level 112 MMOL/L (98-107) H Carbon Dioxide Level 24 MMOL/L (21-32) Anion Gap 7 mmol/L (5-15) Blood Urea Nitrogen 5 mg/dL (7-18) L Creatinine 0.6 MG/DL (0.55-1.30) Estimat Glomerular Filtration Rate mL/min (>60) Glucose Level 111 MG/DL (74-106) H Calcium Level 10.4 MG/DL (8.5-10.1) H Calcium (Send out) Pending Total Bilirubin 0.8 MG/DL (0.2-1.0) Aspartate Amino Transf (AST/SGOT) 17 U/L (15-37) Alanine Aminotransferase (ALT/SGPT) 20 U/L (12-78) Alkaline Phosphatase 53 U/L (46-116) Total Protein 5.4 G/DL (6.4-8.2) L Albumin 2.6 G/DL (3.4-5.0) L Globulin 2.8 g/dL Albumin/Globulin Ratio 0.9 (1.0-2.7) L Renin Pending Aldosterone Pending Vitamin B12 Level 393 PG/ML (193-986) RBC Folate Hemolysate Pending Red Blood Cell Folate Pending Parathyroid Hormone (Intact) Pending Plan Problems: (1) Abdominal pain Assessment & Plan: c/o abdominal pain. no n/v/f/c. unsure how long has been having pain. on exam epigastric tenderness with guarding labs reviewed. no leukocytosis. lfts okay etiology unknown gastritis? -PPI -okay for diet -US abd pending -KUB will follow with recs thank you for this consultation Sourav Tobias Nov 24, 2017 13:01
[2017-11-24] MEDS: Enoxaparin 40mg Inj SUBQ SCH (17:36)
--- NOTE | 2017-11-24 18:23 | Diagnostic Imaging Report ---
Indication: Trauma pain Technique: Multiplanar ultrasound examination of the abdomen with duplex Doppler evaluation. Comparison: None Findings: Imaged portions of the pancreatic head grossly unremarkable. The body and tail are not seen. The liver is moderately dense and echogenicity. No focal hepatic mass lesion is appreciated sonographically. The liver is normal in size with the right lobe measuring approximately 11 cm in length. The main portal vein is patent with normal direction of flow. The gallbladder is not identified. Correlate for history of cholecystectomy. The common bile duct measures approximately 5.7 mm. No appreciable intrahepatic biliary ductal dilatation. The right kidney measures 10.4 cm in length. The left kidney measures 10.6 cm in length. Renal echogenicity is within normal limits bilaterally. 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 A subcentimeter cyst with a tiny peripheral microcalcification is noted in the left kidney. No evidence of hydronephrosis bilaterally. Spleen is normal in size and remarkable in appearance. Imaged portions of the abdominal aorta are normal in caliber. Trace right pleural effusion incidentally identified. IMPRESSION: * Gallbladder not identified. Correlate for history of cholecystectomy. * No appreciable biliary ductal dilatation. * No hydronephrosis or sonographically appreciable renal stone. * Subcentimeter left renal cyst with peripheral calcification. * Trace right pleural effusion incidentally identified.
--- NOTE | 2017-11-24 20:40 | Pulmonology Progress Note ---
Assessment/Plan Assessment/Plan IMPRESSION ALOC DM HTN S/P fall hypercalemia PLAN ICU care noted neuro care noted monitor blood sugars monitor for aspiration supportive care medications/laboratory data/nursing notes/ICU care reviewed in detail note reviewed and edited care discussed with RN and RT Subjective Allergies: Coded Allergies: No Known Allergies (Unverified , 11/21/17) Subjective altered Objective Last 24 Hour Vital Signs Date Time Temp Pulse Resp B/P (MAP) Pulse Ox O2 Delivery O2 Flow Rate FiO2 11/24/17 20:00 Room Air 11/24/17 19:00 83 19 164/99 (120) 99 11/24/17 19:00 83 170/130 11/24/17 18:30 84 21 170/138 (149) 97 11/24/17 18:00 84 21 178/80 (112) 97 11/24/17 17:34 82 183/131 11/24/17 17:30 80 20 187/86 (119) 97 11/24/17 17:00 81 19 169/87 (114) 97 11/24/17 16:30 79 20 180/88 (118) 95 11/24/17 16:00 82 11/24/17 16:00 99.1 77 19 171/74 (106) 96 99.1 11/24/17 16:00 Room Air 11/24/17 15:30 78 21 188/77 (114) 96 11/24/17 15:00 77 21 192/73 (112) 97 11/24/17 14:30 80 20 174/78 (110) 97 11/24/17 14:00 79 19 174/78 (110) 98 11/24/17 13:30 80 18 169/77 (107) 97 11/24/17 13:06 84 159/90 11/24/17 13:00 82 19 159/90 (113) 98 11/24/17 12:30 81 19 140/78 (98) 98 11/24/17 12:07 81 165/83 11/24/17 12:00 81 11/24/17 12:00 Room Air 11/24/17 12:00 99.1 79 22 165/83 (110) 98 99.1 11/24/17 11:30 81 20 174/93 (120) 98 11/24/17 11:00 81 19 191/129 (149) 98 11/24/17 10:30 79 19 173/151 (158) 98 11/24/17 10:00 80 17 193/85 (121) 98 11/24/17 09:46 80 188/76 11/24/17 09:30 81 19 177/109 (131) 98 11/24/17 09:00 80 19 184/84 (117) 99 11/24/17 08:46 169/109 11/24/17 08:43 80 169/109 11/24/17 08:30 80 19 169/109 (129) 99 11/24/17 08:00 98.1 81 19 141/120 (127) 98 98.1 11/24/17 08:00 Room Air 11/24/17 08:00 82 11/24/17 07:30 84 20 177/86 (116) 98 11/24/17 07:00 84 18 156/102 (120) 97 11/24/17 06:51 86 181/79 11/24/17 06:30 82 18 174/85 (114) 97 11/24/17 06:00 87 18 181/84 (116) 97 11/24/17 05:30 85 18 171/86 (114) 97 11/24/17 05:00 76 18 199/78 (118) 96 11/24/17 04:41 78 192/78 11/24/17 04:30 75 21 194/78 (116) 96 11/24/17 04:00 Room Air 11/24/17 04:00 79 11/24/17 04:00 76 20 177/73 (107) 96 11/24/17 04:00 98.1 98.1 11/24/17 03:30 75 18 157/73 (101) 96 11/24/17 03:00 74 19 144/77 (99) 96 11/24/17 02:30 76 18 169/76 (107) 96 11/24/17 02:00 72 19 158/68 (98) 97 11/24/17 01:30 75 19 163/68 (99) 98 11/24/17 01:00 73 19 154/68 (96) 96 11/24/17 00:30 98.3 71 19 156/71 (99) 96 98.3 11/24/17 00:20 71 156/63 11/24/17 00:00 Room Air 11/24/17 00:00 71 19 156/63 (94) 96 11/24/17 00:00 71 11/23/17 23:30 71 19 151/71 (97) 97 11/23/17 23:00 74 19 165/75 (105) 97 11/23/17 22:30 76 19 158/77 (104) 97 11/23/17 22:00 80 19 161/73 (102) 97 11/23/17 21:30 77 19 149/66 (93) 99 11/23/17 21:30 73 152/71 11/23/17 21:00 73 19 152/71 (98) 96 Intake and Output 11/23/17 11/24/17 19:00 07:00 Intake Total 2208.3 ml 1115.5 ml Output Total 1 ml 0 ml Balance 2207.3 ml 1115.5 ml Intake Oral 0 ml 0 ml IV Total 2148.3 ml 1115.5 ml Other 60 ml Output Urine Total 1 ml 0 ml # Voids 1 4 # Bowel Movements 6 Objective WDWN NAD reduced breath sounds bilaterally without rhonchi or wheeze [id number] without MRG NABS nontender no HSM no CCE altered Microbiology Date/Time Source Procedure Growth Status 11/21/17 21:00 Stool Clostridium difficile Toxin Assay - Final Complete Laboratory Tests 11/24/17 05:08: White Blood Count 5.5, Red Blood Count 3.52L, Hemoglobin 12.2, Hematocrit 34.7L , Mean Corpuscular Volume 99, Mean Corpuscular Hemoglobin 34.8H, Mean Corpuscular Hemoglobin Concent 35.3, Red Cell Distribution Width 10.6L, Platelet Count 130L, Mean Platelet Volume 5.8L, Neutrophils (%) (Auto) 73.6, Lymphocytes (%) (Auto) 18.1L, Monocytes (%) (Auto) 6.0, Eosinophils (%) (Auto) 1.9, Basophils (%) (Auto) 0.5, Sodium Level 143, Potassium Level 3.2L, Chloride Level 112H, Carbon Dioxide Level 24, Anion Gap 7, Blood Urea Nitrogen 5L, Creatinine 0.6, Estimat Glomerular Filtration Rate , Glucose Level 111H, Calcium Level 10.4H, Calcium (Send out) [Pending], Total Bilirubin 0.8, Aspartate Amino Transf (AST/SGOT) 17, Alanine Aminotransferase (ALT/SGPT) 20, Alkaline Phosphatase 53, Total Protein 5.4L, Albumin 2.6L, Globulin 2.8, Albumin /Globulin Ratio 0.9L, Renin [Pending], Aldosterone [Pending], Vitamin B12 Level 393, RBC Folate Hemolysate [Pending], Red Blood Cell Folate [Pending], Parathyroid Hormone (Intact) [Pending] Current Medications Medications (Trade) Dose Ordered Sig/Atilio Route PRN Reason Start Time Stop Time Status Last Admin Dose Admin Acetaminophen (Tylenol) 650 mg Q4H PRN ORAL Mild Pain (Pain Scale 1-3) 11/22/17 08:59 12/21/17 08:58 Atorvastatin Calcium (Lipitor) 40 mg QHS ORAL 11/22/17 21:00 12/21/17 20:59 11/23/17 21:42 Clonidine HCl (Catapres Tab) 0.1 mg Q6H PRN ORAL For High Blood Pressure 11/22/17 09:00 12/21/17 08:59 Dextrose (Dextrose 50%) 25 ml Q1H PRN IV Hypoglycemia 11/22/17 09:15 Dextrose (Dextrose 50%) 50 ml Q1H PRN IV hypoglycemia 11/22/17 09:15 Diphenhydramine HCl (Benadryl) 25 mg Q3H PRN IVP Itching 11/22/17 11:45 12/22/17 11:44 11/24/17 06:20 Enoxaparin Sodium (Lovenox) 40 mg Q24H SUBQ 11/22/17 17:30 12/21/17 17:29 11/24/17 17:36 Famotidine (Pepcid) 40 mg DAILY ORAL 11/22/17 09:00 12/22/17 08:59 11/24/17 08:44 Insulin Aspart (NovoLOG) BEFORE MEALS AND HS SUBQ 11/22/17 11:30 12/21/17 16:29 11/24/17 11:50 Labetalol HCl (Normodyne) 5 mg Q4H IV 11/23/17 09:00 12/23/17 08:59 11/24/17 17:34 Labetalol HCl 200 mg/Dextrose 290 ml @ 0 mls/hr Q24H IV 11/22/17 10:00 11/24/17 23:59 11/24/17 19:00 Lorazepam (Ativan 2mg/ml 1ml) 0.5 mg Q4H PRN IV For Anxiety 11/22/17 17:30 11/29/17 17:29 11/24/17 18:17 Losartan Potassium (Cozaar) 50 mg DAILY ORAL 11/23/17 09:00 12/23/17 08:59 11/24/17 08:46 Metoprolol Succinate (Toprol XL) 50 mg DAILY ORAL 11/23/17 09:00 12/23/17 08:59 11/24/17 09:46 Ondansetron HCl (Zofran) 4 mg Q6H PRN IVP Nausea & Vomiting 11/22/17 09:02 12/21/17 09:01 Sertraline HCl (Zoloft) 25 mg DAILY ORAL 11/22/17 09:00 12/22/17 08:59 11/24/17 08:44 Sodium Chloride 1,000 ml @ 75 mls/hr [id number] IV 11/22/17 17:30 12/22/17 17:29 11/24/17 08:40 Romeo Smith MD Nov 24, 2017 20:40
--- NOTE | 2017-11-24 20:49 | Consultation ---
Consult Note Consult Note NEUROLOGY CONSULTATION: Full note dictated #[id number] 72 y/o, KF of ?H who has a PH of HTN and DM She was hospitalized on 11/21/17 for an episode of hypoglycemia at home with her BS in the 20s. She continues to have an AMS and thus this consult was requested. ON EXAM: Difficult to arouse. When aroused for a few seconds does not follow commands consistently. No definite focal or lateralizing findings. CT of brain done on 11/22/17 with atrophy but no acute path. 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 However other etiology should be R/O. REC: Labs for encephalopathy EEG MRI brain B12 - 1000 mcg SC daily x3 Observe. Betina Osullivan M.D., M.S.P.H. BETINA OSULLIVAN Nov 24, 2017 20:48
[2017-11-24] MEDS: Atorvastatin 20mg tab ORAL SCH (21:00)
--- NOTE | 2017-11-24 22:45 | Consultation ---
DATE OF CONSULTATION: 11/24/2017 NEUROLOGY CONSULTATION CONSULTING PHYSICIAN: Jeff Osullivan M.D. REQUESTING PHYSICIAN: Vinh Winston M.D. HISTORY: Ms. Chelly Bernardo is a 72-year-old, [place] lady, of unknown handedness, who does have a past history of hypertension and diabetes mellitus. She apparently had a hypoglycemic event at home with her blood sugars in the 20s. When the paramedics got to her, she was unresponsive. She was given intravenous glucose and her blood sugars rapidly returned to within normal range. She, however, has been observed to have an alteration in the mental state with periods of confusion and disorientation followed by periods of poor responsiveness. This consultation was requested to evaluate the patient from a neurological point of view for her altered mental state. At this point in time, the patient is unable to give me any history. PAST MEDICAL HISTORY: Significant for hypertension and diabetes mellitus. FAMILY HISTORY: Positive for hypertension. PERSONAL HISTORY: Home: She lives at own home . Work: She is unemployed. Habits: None. PRESENT MEDICATIONS: Losartan, Toprol, labetalol, Lipitor, Lovenox, Ativan p.r.n., Benadryl p.r.n, insulin, clonidine p.r.n., Pepcid, Zoloft, and Tylenol p.r.n. PHYSICAL EXAMINATION: GENERAL: She is a well-developed, well-nourished, [place] lady, lying in bed, in no acute distress. VITAL SIGNS: Pulse 83 per minute, blood pressure 170/130 mmHg, respirations 19 per minute, and temperature 99.1 degrees Fahrenheit axillary. HEAD: Normocephalic and atraumatic. EENT: Examination benign. NECK: No neck rigidity was observed. NEUROLOGICAL EXAMINATION: MENTAL STATUS EXAMINATION: She was difficult to arouse. When aroused for few seconds, she did not follow commands in a consistent manner. Further mental status testing was impossible. SPEECH: She was quite dysarthric when she said a few words. LANGUAGE: She was unable to communicate even in [place]zeri. CRANIAL NERVE EXAMINATION: II: She did blink to threat when aroused for a few seconds, but would then rapidly go off to sleep. III, IV & : The external ocular movements were present on oculocephalic maneuvers. The pupils were 3 mm in diameter, equal, round, regular, and reactive sluggishly to light. V & VII: The corneal reflexes were present bilaterally. VIII: She seemed to be able to hear and had no nystagmus. IX: The palate moved symmetrically on phonation. X: She had no hoarseness of voice. XI: The sternocleidomastoids and trapezii functioned normally. XII: The tongue was in the midline without any fasciculations or atrophy. MOTOR SYSTEM: The tone was normal in all four extremities. Examination of muscle mass revealed no focal wasting. Examination of power was impossible to perform on individual muscle groups, however, when deep painful stimuli were applied, she did move all four extremities. SENSORY EXAMINATION: She responded appropriately to deep pain. She was unable to cooperate for other sensory modalities. REFLEXES: 0 at the biceps, triceps, brachioradialis, knees, and ankles. The plantar responses were flexor bilaterally. COORDINATION, STANCE & GAIT: Could not be tested. DIAGNOSTIC IMPRESSION: 1. Ms. Chelly Bernardo is a 72-year-old, [place] lady, of unknown handedness, who does have a past history of hypertension and diabetes mellitus, who was hospitalized on 11/21/2017 for an episode of severe hypoglycemia with her blood sugars in the 20s. Since she has been here, she has also been exhibiting significantly elevated blood pressures. Her mental state continues to be quite altered. 2. On neurological examination, at this time, she is difficult to arouse. When aroused, she wakes up for a few seconds at a time and does not follow commands in a consistent manner. She, however, does not demonstrate any focal or lateralizing neurological findings. 3. The CT scan of the brain performed on 11/22/2017 revealed atrophy, but no acute pathology. 4. Laboratory data obtained thus far have revealed that she is mildly anemic., has a borderline low B12 level, but otherwise normal laboratory data. 5. 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 However, other etiologies should be excluded. RECOMMENDATIONS: 1. The patient's blood pressure should be brought down into the physiological range. 2. Would continue to correct the patient's fluids and electrolytes. 3. The patient should be worked up thoroughly for other treatable causes of encephalopathy with in addition to the laboratory tests already done, a folate, vitamin D level, TSH, RPR, glycohemoglobin, Westergren sedimentation rate, and an a.m. cortisol. 4. The patient should be given vitamin B12 1000 mcg SC daily for the next 3 days and then monthly. 5. An EEG will be ordered to evaluate the patient for the degree and type of cerebral dysfunction. 6. An MRI scan will be ordered to evaluate the patient for acute intracranial pathology. 7. Depending on how the patient fares over the next day or so, further recommendations will be given. Thank you for entrusting me with the care of . I shall follow her with you. Jeff Osullivan M.D., M.S.P.H. DR: NII JOB#: [id number]
--- NOTE | 2017-11-24 23:24 | Consultation ---
History of Present Illness General Chief Complaint: Dizziness Reason for Consultation: abdominal pain Present Illness Allergies: Coded Allergies: No Known Allergies (Unverified , 11/21/17) Medication History Scheduled Diphenoxylate Hcl/Atropine (Diphenoxylate-Atropine Liq), 5 ML ORAL DAILY, ( Reported) Glipizide* (Glipizide*), 10 MG ORAL BIDAC, (Reported) Lidocaine (Lidocaine), 700 MG TP DAILY, (Reported) Losartan Potassium* (Losartan Potassium*), 50 MG ORAL DAILY, (Reported) Metformin Hcl* (Metformin Hcl*), 1,000 MG ORAL BID, (Reported) Metoprolol Succinate* (Metoprolol Succinate*), 50 MG ORAL DAILY, (Reported) Shunk-3 Acid Ethyl Esters (Shunk-3 Acid Ethyl Esters), 1 GM PO DAILY, (Reported) Omeprazole (Omeprazole), 40 MG ORAL DAILY, (Reported) Sertraline Hcl* (Sertraline Hcl*), 25 MG ORAL DAILY, (Reported) Simvastatin (Zocor), 40 MG ORAL BEDTIME, (Reported) Scheduled PRN Acetaminophen With Codeine 300MG/30MG (T#3)* (Tylenol With Codeine #3 Tablet*), Unknown Dose ORAL Q6H PRN for For Pain, (Reported) Patient History Healthcare decision maker N Resuscitation status Full Code Advanced Directive on File Physical Exam Last 24 Hour Vital Signs Date Time Temp Pulse Resp B/P (MAP) Pulse Ox O2 Delivery O2 Flow Rate FiO2 11/24/17 22:04 78 132/61 11/24/17 21:00 80 169/72 11/24/17 20:00 Room Air 11/24/17 19:00 83 19 164/99 (120) 99 11/24/17 19:00 83 170/130 11/24/17 18:30 84 21 170/138 (149) 97 11/24/17 18:00 84 21 178/80 (112) 97 11/24/17 17:34 82 183/131 11/24/17 17:30 80 20 187/86 (119) 97 11/24/17 17:00 81 19 169/87 (114) 97 11/24/17 16:30 79 20 180/88 (118) 95 11/24/17 16:00 82 11/24/17 16:00 99.1 77 19 171/74 (106) 96 99.1 11/24/17 16:00 Room Air 11/24/17 15:30 78 21 188/77 (114) 96 11/24/17 15:00 77 21 192/73 (112) 97 11/24/17 14:30 80 20 174/78 (110) 97 11/24/17 14:00 79 19 174/78 (110) 98 11/24/17 13:30 80 18 169/77 (107) 97 11/24/17 13:06 84 159/90 11/24/17 13:00 82 19 159/90 (113) 98 11/24/17 12:30 81 19 140/78 (98) 98 11/24/17 12:07 81 165/83 11/24/17 12:00 81 11/24/17 12:00 Room Air 11/24/17 12:00 99.1 79 22 165/83 (110) 98 99.1 11/24/17 11:30 81 20 174/93 (120) 98 11/24/17 11:00 81 19 191/129 (149) 98 11/24/17 10:30 79 19 173/151 (158) 98 11/24/17 10:00 80 17 193/85 (121) 98 11/24/17 09:46 80 188/76 11/24/17 09:30 81 19 177/109 (131) 98 11/24/17 09:00 80 19 184/84 (117) 99 11/24/17 08:46 169/109 11/24/17 08:43 80 169/109 11/24/17 08:30 80 19 169/109 (129) 99 11/24/17 08:00 98.1 81 19 141/120 (127) 98 98.1 11/24/17 08:00 Room Air 11/24/17 08:00 82 11/24/17 07:30 84 20 177/86 (116) 98 11/24/17 07:00 84 18 156/102 (120) 97 11/24/17 06:51 86 181/79 11/24/17 06:30 82 18 174/85 (114) 97 11/24/17 06:00 87 18 181/84 (116) 97 11/24/17 05:30 85 18 171/86 (114) 97 11/24/17 05:00 76 18 199/78 (118) 96 11/24/17 04:41 78 192/78 11/24/17 04:30 75 21 194/78 (116) 96 11/24/17 04:00 Room Air 11/24/17 04:00 79 11/24/17 04:00 76 20 177/73 (107) 96 11/24/17 04:00 98.1 98.1 11/24/17 03:30 75 18 157/73 (101) 96 11/24/17 03:00 74 19 144/77 (99) 96 11/24/17 02:30 76 18 169/76 (107) 96 11/24/17 02:00 72 19 158/68 (98) 97 11/24/17 01:30 75 19 163/68 (99) 98 11/24/17 01:00 73 19 154/68 (96) 96 11/24/17 00:30 98.3 71 19 156/71 (99) 96 98.3 11/24/17 00:20 71 156/63 11/24/17 00:00 Room Air 11/24/17 00:00 71 19 156/63 (94) 96 11/24/17 00:00 71 11/23/17 23:30 71 19 151/71 (97) 97 Intake and Output 11/23/17 11/24/17 19:00 07:00 Intake Total 2208.3 ml 1115.5 ml Output Total 1 ml 0 ml Balance 2207.3 ml 1115.5 ml Intake Oral 0 ml 0 ml IV Total 2148.3 ml 1115.5 ml Other 60 ml Output Urine Total 1 ml 0 ml # Voids 1 4 # Bowel Movements 6 Laboratory Tests Test 11/24/17 05:08 White Blood Count 5.5 K/UL (4.8-10.8) Red Blood Count 3.52 M/UL (4.20-5.40) L Hemoglobin 12.2 G/DL (12.0-16.0) Hematocrit 34.7 % (37.0-47.0) L Mean Corpuscular Volume 99 FL (80-99) Mean Corpuscular Hemoglobin 34.8 PG (27.0-31.0) H Mean Corpuscular Hemoglobin Concent 35.3 G/DL (32.0-36.0) Red Cell Distribution Width 10.6 % (11.6-14.8) L Platelet Count 130 K/UL (150-450) L Mean Platelet Volume 5.8 FL (6.5-10.1) L Neutrophils (%) (Auto) 73.6 % (45.0-75.0) Lymphocytes (%) (Auto) 18.1 % (20.0-45.0) L Monocytes (%) (Auto) 6.0 % (1.0-10.0) Eosinophils (%) (Auto) 1.9 % (0.0-3.0) Basophils (%) (Auto) 0.5 % (0.0-2.0) Sodium Level 143 MMOL/L (136-145) Potassium Level 3.2 MMOL/L (3.5-5.1) L Chloride Level 112 MMOL/L (98-107) H Carbon Dioxide Level 24 MMOL/L (21-32) Anion Gap 7 mmol/L (5-15) Blood Urea Nitrogen 5 mg/dL (7-18) L Creatinine 0.6 MG/DL (0.55-1.30) Estimat Glomerular Filtration Rate mL/min (>60) Glucose Level 111 MG/DL (74-106) H Calcium Level 10.4 MG/DL (8.5-10.1) H Calcium (Send out) Pending Total Bilirubin 0.8 MG/DL (0.2-1.0) Aspartate Amino Transf (AST/SGOT) 17 U/L (15-37) Alanine Aminotransferase (ALT/SGPT) 20 U/L (12-78) Alkaline Phosphatase 53 U/L (46-116) Total Protein 5.4 G/DL (6.4-8.2) L Albumin 2.6 G/DL (3.4-5.0) L Globulin 2.8 g/dL Albumin/Globulin Ratio 0.9 (1.0-2.7) L Renin Pending Aldosterone Pending Vitamin B12 Level 393 PG/ML (193-986) RBC Folate Hemolysate Pending Red Blood Cell Folate Pending Parathyroid Hormone (Intact) Pending Height (Feet): 5 Height (Inches): 4.00 Weight (Pounds): 114 Medications Current Medications Medications (Trade) Dose Ordered Sig/Atilio Route PRN Reason Start Time Stop Time Status Last Admin Dose Admin Acetaminophen (Tylenol) 650 mg Q4H PRN ORAL Mild Pain (Pain Scale 1-3) 11/22/17 08:59 12/21/17 08:58 Atorvastatin Calcium (Lipitor) 40 mg QHS ORAL 11/22/17 21:00 12/21/17 20:59 11/24/17 21:00 Clonidine HCl (Catapres Tab) 0.1 mg Q6H PRN ORAL For High Blood Pressure 11/22/17 09:00 12/21/17 08:59 Dextrose (Dextrose 50%) 25 ml Q1H PRN IV Hypoglycemia 11/22/17 09:15 Dextrose (Dextrose 50%) 50 ml Q1H PRN IV hypoglycemia 11/22/17 09:15 Diphenhydramine HCl (Benadryl) 25 mg Q3H PRN IVP Itching 11/22/17 11:45 12/22/17 11:44 11/24/17 06:20 Enoxaparin Sodium (Lovenox) 40 mg Q24H SUBQ 11/22/17 17:30 12/21/17 17:29 11/24/17 17:36 Famotidine (Pepcid) 40 mg DAILY ORAL 11/22/17 09:00 12/22/17 08:59 11/24/17 08:44 Insulin Aspart (NovoLOG) BEFORE MEALS AND HS SUBQ 11/22/17 11:30 12/21/17 16:29 11/24/17 21:02 Labetalol HCl (Normodyne) 5 mg Q4H IV 11/23/17 09:00 12/23/17 08:59 11/24/17 21:00 Labetalol HCl 200 mg/Dextrose 290 ml @ 0 mls/hr Q24H IV 11/24/17 21:30 11/26/17 21:29 11/24/17 22:04 Lorazepam (Ativan 2mg/ml 1ml) 0.5 mg Q4H PRN IV For Anxiety 11/22/17 17:30 11/29/17 17:29 11/24/17 18:17 Losartan Potassium (Cozaar) 50 mg DAILY ORAL 11/23/17 09:00 12/23/17 08:59 11/24/17 08:46 Metoprolol Succinate (Toprol XL) 50 mg DAILY ORAL 11/23/17 09:00 12/23/17 08:59 11/24/17 09:46 Ondansetron HCl (Zofran) 4 mg Q6H PRN IVP Nausea & Vomiting 11/22/17 09:02 12/21/17 09:01 Sertraline HCl (Zoloft) 25 mg DAILY ORAL 11/22/17 09:00 12/22/17 08:59 11/24/17 08:44 Sodium Chloride 1,000 ml @ 75 mls/hr [id number] IV 11/22/17 17:30 12/22/17 17:29 11/24/17 23:00 Lacey Matthews MD Nov 24, 2017 23:24
[2017-11-25] VITALS (63 sets, daily range): BP systolic 101–185; BP diastolic 46–133
[2017-11-25] MEDS: Labetalol 5mg/ml 20ml vial IV SCH ×6 (01:12→21:14)
[2017-11-25] MEDS: D5W IV SCH ×5 (05:44→17:43)
[2017-11-25] MEDS: LABETALOL IV SCH ×5 (05:44→17:43)
[2017-11-25 05:45] LABS: BASOPHILS % (AUTO) 0.4 % (0.0-2.0); HEMOGLOBIN 11.4 G/DL (12.0-16.0); MEAN CORPUSCULAR VOLUME 99 FL (80-99); MONOCYTES % (AUTO) 6.2 % (1.0-10.0); NEUTROPHILS % (AUTO) 68.4 % (45.0-75.0); PLATELET COUNT 133 K/UL (150-450); RED BLOOD COUNT 3.22 M/UL (4.20-5.40); RED CELL DISTRIBUTION WIDTH 10.3 % (11.6-14.8); WHITE BLOOD COUNT 4.4 K/UL (4.8-10.8)
[2017-11-25 06:05] LABS: ALANINE AMINOTRANSFERASE 13 U/L (12-78); ALBUMIN 2.4 G/DL (3.4-5.0); ALKALINE PHOSPHATASE 53 U/L (46-116); ANION GAP 9 mmol/L (5-15); ASPARTATE AMINO TRANSFERASE 14 U/L (15-37); BILIRUBIN,DIRECT 0.2 MG/DL (0.0-0.3); BILIRUBIN,TOTAL 0.8 MG/DL (0.2-1.0); BLOOD UREA NITROGEN 4 mg/dL (7-18); CALCIUM 10.3 MG/DL (8.5-10.1); CARBON DIOXIDE 24 MMOL/L (21-32); CHLORIDE 113 MMOL/L (98-107); CREATININE 0.7 MG/DL (0.55-1.30); POTASSIUM 3.1 MMOL/L (3.5-5.1); SODIUM 146 MMOL/L (136-145)
[2017-11-25] MEDS: NovoLOG Insulin Flexpen SUBQ SCH ×4 (06:36→21:20)
--- NOTE | 2017-11-25 08:16 | Nephrology Progress Note ---
Assessment/Plan Assessment/Plan A/P 1) HTN Urgency- target goal today 130-140 - labetalol scheduled as patient not taking po - renin:samm ratio pending as patient HTN and hypokalemic 2) S/P Fall- CT Head negative - cslted psychologist social to evaluate home at discharge and HH vs SNF 3) Sacral pain- X-rays pending 4) DVT prophylaxsis with Lovenox 5) Hypokalemia- replace today 6) Encephalopathy- appreciate Neuro and PSY - patient has been confused at home prior to hospitilization 7) Abd Pain- N/V being addressed by Gen Surg and GI and improved Subjective Date patient seen: Nov 25, 2017 Time patient seen: 08:11 ROS Limited/Unobtainable: Yes Allergies: Coded Allergies: No Known Allergies (Unverified , 11/21/17) Subjective Patient remains confused but less agitated Objective Last 24 Hour Vital Signs Date Time Temp Pulse Resp B/P (MAP) Pulse Ox O2 Delivery O2 Flow Rate FiO2 11/25/17 07:00 81 19 181/69 (106) 99 11/25/17 06:30 98.1 83 19 157/74 (101) 99 98.1 11/25/17 06:00 81 19 160/89 (112) 99 11/25/17 05:44 88 173/46 11/25/17 05:30 83 19 173/46 (88) 99 11/25/17 05:20 77 163/70 11/25/17 05:00 80 19 163/70 (101) 99 11/25/17 04:30 80 19 167/69 (101) 99 11/25/17 04:00 81 19 149/67 (94) 99 11/25/17 04:00 Room Air 11/25/17 04:00 83 11/25/17 03:30 81 19 152/66 (94) 99 11/25/17 03:00 81 19 150/73 (98) 99 11/25/17 02:30 81 19 152/73 (99) 99 11/25/17 02:00 78 19 150/80 (103) 99 11/25/17 01:30 77 19 164/99 (120) 99 11/25/17 01:12 77 132/57 11/25/17 01:00 76 19 154/61 (92) 99 11/25/17 00:30 76 19 132/57 (82) 99 11/25/17 00:00 Room Air 11/25/17 00:00 Room Air 11/25/17 00:00 98.9 76 19 138/60 (86) 99 98.9 11/25/17 00:00 80 11/25/17 00:00 83 11/24/17 23:30 76 19 144/65 (91) 99 11/24/17 23:00 76 19 132/66 (88) 99 11/24/17 22:30 76 19 139/61 (87) 99 11/24/17 22:04 78 132/61 11/24/17 22:00 78 19 151/64 (93) 99 11/24/17 21:30 81 19 142/80 (100) 99 11/24/17 21:00 80 169/72 11/24/17 21:00 81 19 164/99 (120) 99 11/24/17 20:30 81 19 169/72 (104) 99 11/24/17 20:00 Room Air 11/24/17 20:00 81 11/24/17 20:00 98.9 82 19 186/72 (110) 99 98.9 11/24/17 19:30 82 19 172/76 (108) 99 11/24/17 19:00 83 19 164/99 (120) 99 11/24/17 19:00 83 170/130 11/24/17 18:30 84 21 170/138 (149) 97 11/24/17 18:00 84 21 178/80 (112) 97 11/24/17 17:34 82 183/131 11/24/17 17:30 80 20 187/86 (119) 97 11/24/17 17:00 81 19 169/87 (114) 97 11/24/17 16:30 79 20 180/88 (118) 95 11/24/17 16:00 82 11/24/17 16:00 99.1 77 19 171/74 (106) 96 99.1 11/24/17 16:00 Room Air 11/24/17 15:30 78 21 188/77 (114) 96 11/24/17 15:00 77 21 192/73 (112) 97 11/24/17 14:30 80 20 174/78 (110) 97 11/24/17 14:00 79 19 174/78 (110) 98 11/24/17 13:30 80 18 169/77 (107) 97 11/24/17 13:06 84 159/90 11/24/17 13:00 82 19 159/90 (113) 98 11/24/17 12:30 81 19 140/78 (98) 98 11/24/17 12:07 81 165/83 11/24/17 12:00 81 11/24/17 12:00 Room Air 11/24/17 12:00 99.1 79 22 165/83 (110) 98 99.1 11/24/17 11:30 81 20 174/93 (120) 98 11/24/17 11:00 81 19 191/129 (149) 98 11/24/17 10:30 79 19 173/151 (158) 98 11/24/17 10:00 80 17 193/85 (121) 98 11/24/17 09:46 80 188/76 11/24/17 09:30 81 19 177/109 (131) 98 11/24/17 09:00 80 19 184/84 (117) 99 11/24/17 08:46 169/109 11/24/17 08:43 80 169/109 11/24/17 08:30 80 19 169/109 (129) 99 Intake and Output 11/24/17 11/25/17 19:00 07:00 Intake Total 1644.00 ml 1574.25 ml Output Total 3 ml 350 ml Balance 1641.00 ml 1224.25 ml Intake Oral 0 ml IV Total 1584.00 ml 1574.25 ml Other 60 ml Output Urine Total 3 ml 350 ml Laboratory Tests 11/25/17 05:12: White Blood Count 4.4L, Red Blood Count 3.22L, Hemoglobin 11.4L, Hematocrit 32.0L, Mean Corpuscular Volume 99, Mean Corpuscular Hemoglobin 35.5H, Mean Corpuscular Hemoglobin Concent 35.8, Red Cell Distribution Width 10.3L, Platelet Count 133L, Mean Platelet Volume 5.9L, Neutrophils (%) (Auto) 68.4, Lymphocytes (%) (Auto) 21.0, Monocytes (%) (Auto) 6.2, Eosinophils (%) (Auto) 4.0H, Basophils (%) (Auto) 0.4, Erythrocyte Sedimentation Rate 27, Sodium Level 146H, Potassium Level 3.1L, Chloride Level 113H, Carbon Dioxide Level 24, Anion Gap 9, Blood Urea Nitrogen 4L, Creatinine 0.7, Estimat Glomerular Filtration Rate , Glucose Level 113H, Hemoglobin A1c 5.4, Calcium Level 10.3H, Total Bilirubin 0.8, Direct Bilirubin 0.2, Aspartate Amino Transf (AST/SGOT) 14L, Alanine Aminotransferase (ALT/SGPT) 13, Alkaline Phosphatase 53, Total Protein 5.1L, Albumin 2.4L, Vitamin D 25-Hydroxy [Pending], 25-Hydroxy Vitamin D2 [ Pending], 25-Hydroxy Vitamin D3 [Pending], Folate 3.3L, Thyroid Stimulating Hormone (TSH) 1.051, Cortisol AM Sample [Pending], Rapid Plasma Reagin [Pending] Height (Feet): 5 Height (Inches): 4.00 Weight (Pounds): 114 General Appearance: no apparent distress, alert EENT: normal ENT inspection Neck: normal alignment, supple Cardiovascular: normal rate, regular rhythm Respiratory/Chest: lungs clear, normal breath sounds Abdomen: non tender, soft Edema: no edema noted Arm (L), no edema noted Arm (R), no edema noted Leg (L), no edema noted Leg (R), no edema noted Pedal (L), no edema noted Pedal (R), no edema noted Generalized Vinh Winston MD Nov 25, 2017 08:16
--- NOTE | 2017-11-25 09:12 | General Surgery Progress Note ---
General Surgery-Progress Note Subjective Additional Comments states abdominal discomfort. no n/v/f/c. US without GB. Objective Last 24 Hour Vital Signs Date Time Temp Pulse Resp B/P (MAP) Pulse Ox O2 Delivery O2 Flow Rate FiO2 11/25/17 07:00 81 19 181/69 (106) 99 11/25/17 06:30 98.1 83 19 157/74 (101) 99 98.1 11/25/17 06:00 81 19 160/89 (112) 99 11/25/17 05:44 88 173/46 11/25/17 05:30 83 19 173/46 (88) 99 11/25/17 05:20 77 163/70 11/25/17 05:00 80 19 163/70 (101) 99 11/25/17 04:30 80 19 167/69 (101) 99 11/25/17 04:00 81 19 149/67 (94) 99 11/25/17 04:00 Room Air 11/25/17 04:00 83 11/25/17 03:30 81 19 152/66 (94) 99 11/25/17 03:00 81 19 150/73 (98) 99 11/25/17 02:30 81 19 152/73 (99) 99 11/25/17 02:00 78 19 150/80 (103) 99 11/25/17 01:30 77 19 164/99 (120) 99 11/25/17 01:12 77 132/57 11/25/17 01:00 76 19 154/61 (92) 99 11/25/17 00:30 76 19 132/57 (82) 99 11/25/17 00:00 Room Air 11/25/17 00:00 Room Air 11/25/17 00:00 98.9 76 19 138/60 (86) 99 98.9 11/25/17 00:00 80 11/25/17 00:00 83 11/24/17 23:30 76 19 144/65 (91) 99 11/24/17 23:00 76 19 132/66 (88) 99 11/24/17 22:30 76 19 139/61 (87) 99 11/24/17 22:04 78 132/61 11/24/17 22:00 78 19 151/64 (93) 99 11/24/17 21:30 81 19 142/80 (100) 99 11/24/17 21:00 80 169/72 11/24/17 21:00 81 19 164/99 (120) 99 11/24/17 20:30 81 19 169/72 (104) 99 11/24/17 20:00 Room Air 11/24/17 20:00 81 11/24/17 20:00 98.9 82 19 186/72 (110) 99 98.9 11/24/17 19:30 82 19 172/76 (108) 99 11/24/17 19:00 83 19 164/99 (120) 99 11/24/17 19:00 83 170/130 11/24/17 18:30 84 21 170/138 (149) 97 11/24/17 18:00 84 21 178/80 (112) 97 11/24/17 17:34 82 183/131 11/24/17 17:30 80 20 187/86 (119) 97 11/24/17 17:00 81 19 169/87 (114) 97 11/24/17 16:30 79 20 180/88 (118) 95 11/24/17 16:00 82 11/24/17 16:00 99.1 77 19 171/74 (106) 96 99.1 11/24/17 16:00 Room Air 11/24/17 15:30 78 21 188/77 (114) 96 11/24/17 15:00 77 21 192/73 (112) 97 11/24/17 14:30 80 20 174/78 (110) 97 11/24/17 14:00 79 19 174/78 (110) 98 11/24/17 13:30 80 18 169/77 (107) 97 11/24/17 13:06 84 159/90 11/24/17 13:00 82 19 159/90 (113) 98 11/24/17 12:30 81 19 140/78 (98) 98 11/24/17 12:07 81 165/83 11/24/17 12:00 81 11/24/17 12:00 Room Air 11/24/17 12:00 99.1 79 22 165/83 (110) 98 99.1 11/24/17 11:30 81 20 174/93 (120) 98 11/24/17 11:00 81 19 191/129 (149) 98 11/24/17 10:30 79 19 173/151 (158) 98 11/24/17 10:00 80 17 193/85 (121) 98 11/24/17 09:46 80 188/76 11/24/17 09:30 81 19 177/109 (131) 98 I&O Intake and Output 11/24/17 11/25/17 19:00 07:00 Intake Total 1644.00 ml 1574.25 ml Output Total 3 ml 350 ml Balance 1641.00 ml 1224.25 ml Intake Oral 0 ml IV Total 1584.00 ml 1574.25 ml Other 60 ml Output Urine Total 3 ml 350 ml Dressing: other Wound: other Drains: other Cardiovascular: RSR Respiratory: clear Abdomen: soft, distended, present bowel sounds Extremities: other Laboratory Tests Test 11/25/17 05:12 White Blood Count 4.4 K/UL (4.8-10.8) L Red Blood Count 3.22 M/UL (4.20-5.40) L Hemoglobin 11.4 G/DL (12.0-16.0) L Hematocrit 32.0 % (37.0-47.0) L Mean Corpuscular Volume 99 FL (80-99) Mean Corpuscular Hemoglobin 35.5 PG (27.0-31.0) H Mean Corpuscular Hemoglobin Concent 35.8 G/DL (32.0-36.0) Red Cell Distribution Width 10.3 % (11.6-14.8) L Platelet Count 133 K/UL (150-450) L Mean Platelet Volume 5.9 FL (6.5-10.1) L Neutrophils (%) (Auto) 68.4 % (45.0-75.0) Lymphocytes (%) (Auto) 21.0 % (20.0-45.0) Monocytes (%) (Auto) 6.2 % (1.0-10.0) Eosinophils (%) (Auto) 4.0 % (0.0-3.0) H Basophils (%) (Auto) 0.4 % (0.0-2.0) Erythrocyte Sedimentation Rate 27 MM/HR (0-30) Sodium Level 146 MMOL/L (136-145) H Potassium Level 3.1 MMOL/L (3.5-5.1) L Chloride Level 113 MMOL/L (98-107) H Carbon Dioxide Level 24 MMOL/L (21-32) Anion Gap 9 mmol/L (5-15) Blood Urea Nitrogen 4 mg/dL (7-18) L Creatinine 0.7 MG/DL (0.55-1.30) Estimat Glomerular Filtration Rate mL/min (>60) Glucose Level 113 MG/DL (74-106) H Hemoglobin A1c 5.4 % (4.3-6.0) Calcium Level 10.3 MG/DL (8.5-10.1) H Total Bilirubin 0.8 MG/DL (0.2-1.0) Direct Bilirubin 0.2 MG/DL (0.0-0.3) Aspartate Amino Transf (AST/SGOT) 14 U/L (15-37) L Alanine Aminotransferase (ALT/SGPT) 13 U/L (12-78) Alkaline Phosphatase 53 U/L (46-116) Total Protein 5.1 G/DL (6.4-8.2) L Albumin 2.4 G/DL (3.4-5.0) L Vitamin D 25-Hydroxy Pending 25-Hydroxy Vitamin D2 Pending 25-Hydroxy Vitamin D3 Pending Folate 3.3 NG/ML (8.6-58.9) L Thyroid Stimulating Hormone (TSH) 1.051 uiU/mL (0.358-3.740) Cortisol AM Sample Pending Rapid Plasma Reagin Pending Plan Problems: (1) Abdominal pain Assessment & Plan: c/o abdominal pain. no n/v/f/c. unsure how long has been having pain. on exam epigastric tenderness with guarding labs reviewed. no leukocytosis. lfts okay etiology unknown gastritis? US reviewed. no GB noted. prior cholecystectomy -PPI -okay for diet -no surgical intervention planned. will follow with recs thank you for this consultation Sourav Tobias Nov 25, 2017 09:12
[2017-11-25] MEDS: Losartan 50mg tab ORAL SCH (09:20)
[2017-11-25] MEDS: Metoprolol Succinate XL 50mg tab ORAL SCH (09:23)
[2017-11-25 09:24] LABS: AMYLASE 29 U/L (25-115)
--- NOTE | 2017-11-25 10:23 | Diagnostic Imaging Report ---
Indication: Abdominal pain Technique: Supine view of the abdomen Comparison: none Findings: Bowel gas pattern is unremarkable. No unusual masses or calcifications. There are cholecystectomy clips. Impression: Negative
--- NOTE | 2017-11-25 10:32 | Diagnostic Imaging Report ---
Indication: Pain Technique: One view of the pelvis Comparison: none Findings: Bones are osteoporotic. No acute fractures. No dislocations. The joint spaces are preserved. Some dystrophic ossification is seen adjacent to the greater trochanter on the right. No gross pelvic mass Impression: No acute process
--- NOTE | 2017-11-25 12:51 | Pulmonology Progress Note ---
Assessment/Plan Assessment/Plan IMPRESSION ALOC DM HTN S/P fall hypercalemia trace pleural effusion, not significant mild anemia PLAN ICU care reviewed changes noted monitor for aspiration supportive care medications/laboratory data/nursing notes/ICU care reviewed in detail note reviewed and edited care discussed with RN and RT Subjective Allergies: Coded Allergies: No Known Allergies (Unverified , 11/21/17) Subjective less altered Objective Last 24 Hour Vital Signs Date Time Temp Pulse Resp B/P (MAP) Pulse Ox O2 Delivery O2 Flow Rate FiO2 11/25/17 12:30 78 17 142/61 (88) 98 11/25/17 12:15 78 17 168/69 (102) 98 11/25/17 12:01 78 170/72 11/25/17 12:00 78 17 150/70 (96) 99 11/25/17 11:45 79 17 174/72 (106) 98 11/25/17 11:36 80 174/76 11/25/17 11:30 80 18 174/72 (106) 99 11/25/17 11:15 81 19 162/66 (98) 99 11/25/17 11:00 81 18 160/88 (112) 99 11/25/17 10:45 82 19 163/72 (102) 99 11/25/17 10:30 82 19 147/92 (110) 99 11/25/17 10:15 82 17 170/76 (107) 99 11/25/17 10:00 82 19 155/65 (95) 98 11/25/17 09:56 84 163/71 11/25/17 09:45 84 21 163/71 (101) 99 11/25/17 09:30 85 20 175/85 (115) 99 11/25/17 09:23 89 189/76 11/25/17 09:20 185/76 11/25/17 09:19 95 185/76 11/25/17 09:15 86 21 185/76 (112) 99 11/25/17 09:00 85 21 178/74 (108) 99 11/25/17 08:30 83 20 164/75 (104) 98 11/25/17 08:00 82 20 164/106 (125) 99 11/25/17 07:30 97.7 86 20 175/81 (112) 97 97.7 11/25/17 07:00 81 19 181/69 (106) 99 11/25/17 06:30 98.1 83 19 157/74 (101) 99 98.1 11/25/17 06:00 81 19 160/89 (112) 99 11/25/17 05:44 88 173/46 11/25/17 05:30 83 19 173/46 (88) 99 11/25/17 05:20 77 163/70 11/25/17 05:00 80 19 163/70 (101) 99 11/25/17 04:30 80 19 167/69 (101) 99 11/25/17 04:00 81 19 149/67 (94) 99 11/25/17 04:00 Room Air 11/25/17 04:00 83 11/25/17 03:30 81 19 152/66 (94) 99 11/25/17 03:00 81 19 150/73 (98) 99 11/25/17 02:30 81 19 152/73 (99) 99 11/25/17 02:00 78 19 150/80 (103) 99 11/25/17 01:30 77 19 164/99 (120) 99 11/25/17 01:12 77 132/57 11/25/17 01:00 76 19 154/61 (92) 99 11/25/17 00:30 76 19 132/57 (82) 99 11/25/17 00:00 Room Air 11/25/17 00:00 Room Air 11/25/17 00:00 98.9 76 19 138/60 (86) 99 98.9 11/25/17 00:00 80 11/25/17 00:00 83 11/24/17 23:30 76 19 144/65 (91) 99 11/24/17 23:00 76 19 132/66 (88) 99 11/24/17 22:30 76 19 139/61 (87) 99 11/24/17 22:04 78 132/61 11/24/17 22:00 78 19 151/64 (93) 99 11/24/17 21:30 81 19 142/80 (100) 99 11/24/17 21:00 80 169/72 11/24/17 21:00 81 19 164/99 (120) 99 11/24/17 20:30 81 19 169/72 (104) 99 11/24/17 20:00 Room Air 11/24/17 20:00 81 11/24/17 20:00 98.9 82 19 186/72 (110) 99 98.9 11/24/17 19:30 82 19 172/76 (108) 99 11/24/17 19:00 83 19 164/99 (120) 99 11/24/17 19:00 83 170/130 11/24/17 18:30 84 21 170/138 (149) 97 11/24/17 18:00 84 21 178/80 (112) 97 11/24/17 17:34 82 183/131 11/24/17 17:30 80 20 187/86 (119) 97 11/24/17 17:00 81 19 169/87 (114) 97 11/24/17 16:30 79 20 180/88 (118) 95 11/24/17 16:00 82 11/24/17 16:00 99.1 77 19 171/74 (106) 96 99.1 11/24/17 16:00 Room Air 11/24/17 15:30 78 21 188/77 (114) 96 11/24/17 15:00 77 21 192/73 (112) 97 11/24/17 14:30 80 20 174/78 (110) 97 11/24/17 14:00 79 19 174/78 (110) 98 11/24/17 13:30 80 18 169/77 (107) 97 11/24/17 13:06 84 159/90 11/24/17 13:00 82 19 159/90 (113) 98 Intake and Output 11/24/17 11/25/17 19:00 07:00 Intake Total 1644.00 ml 1574.25 ml Output Total 3 ml 350 ml Balance 1641.00 ml 1224.25 ml Intake Oral 0 ml IV Total 1584.00 ml 1574.25 ml Other 60 ml Output Urine Total 3 ml 350 ml Objective WDWN NAD reduced breath sounds bilaterally without rhonchi or wheeze [id number] without MRG NABS nontender no HSM no CCE altered Laboratory Tests 11/25/17 05:12: White Blood Count 4.4L, Red Blood Count 3.22L, Hemoglobin 11.4L, Hematocrit 32.0L, Mean Corpuscular Volume 99, Mean Corpuscular Hemoglobin 35.5H, Mean Corpuscular Hemoglobin Concent 35.8, Red Cell Distribution Width 10.3L, Platelet Count 133L, Mean Platelet Volume 5.9L, Neutrophils (%) (Auto) 68.4, Lymphocytes (%) (Auto) 21.0, Monocytes (%) (Auto) 6.2, Eosinophils (%) (Auto) 4.0H, Basophils (%) (Auto) 0.4, Erythrocyte Sedimentation Rate 27, Sodium Level 146H, Potassium Level 3.1L, Chloride Level 113H, Carbon Dioxide Level 24, Anion Gap 9, Blood Urea Nitrogen 4L, Creatinine 0.7, Estimat Glomerular Filtration Rate , Glucose Level 113H, Hemoglobin A1c 5.4, Calcium Level 10.3H, Total Bilirubin 0.8, Direct Bilirubin 0.2, Aspartate Amino Transf (AST/SGOT) 14L, Alanine Aminotransferase (ALT/SGPT) 13, Alkaline Phosphatase 53, Total Protein 5.1L, Albumin 2.4L, Amylase Level 29, Lipase 55L, Vitamin D 25-Hydroxy [Pending] , 25-Hydroxy Vitamin D2 [Pending], 25-Hydroxy Vitamin D3 [Pending], Folate 3.3L , Thyroid Stimulating Hormone (TSH) 1.051, Cortisol AM Sample 14.1, Rapid Plasma Reagin [Pending] Current Medications Medications (Trade) Dose Ordered Sig/Atilio Route PRN Reason Start Time Stop Time Status Last Admin Dose Admin Acetaminophen (Tylenol) 650 mg Q4H PRN ORAL Mild Pain (Pain Scale 1-3) 11/22/17 08:59 12/21/17 08:58 Atorvastatin Calcium (Lipitor) 40 mg QHS ORAL 11/22/17 21:00 12/21/17 20:59 11/24/17 21:00 Clonidine HCl (Catapres Tab) 0.1 mg Q6H PRN ORAL For High Blood Pressure 11/22/17 09:00 12/21/17 08:59 Dextrose (Dextrose 50%) 25 ml Q1H PRN IV Hypoglycemia 11/22/17 09:15 Dextrose (Dextrose 50%) 50 ml Q1H PRN IV hypoglycemia 11/22/17 09:15 Diphenhydramine HCl (Benadryl) 25 mg Q3H PRN IVP Itching 11/22/17 11:45 12/22/17 11:44 11/24/17 06:20 Enoxaparin Sodium (Lovenox) 40 mg Q24H SUBQ 11/22/17 17:30 12/21/17 17:29 11/24/17 17:36 Famotidine (Pepcid) 40 mg DAILY ORAL 11/22/17 09:00 12/22/17 08:59 11/25/17 09:20 Insulin Aspart (NovoLOG) BEFORE MEALS AND HS SUBQ 11/22/17 11:30 12/21/17 16:29 11/25/17 12:06 Labetalol HCl (Normodyne) 5 mg Q4H IV 11/23/17 09:00 12/23/17 08:59 11/25/17 12:01 Labetalol HCl 200 mg/Dextrose 290 ml @ 0 mls/hr Q24H IV 11/25/17 08:15 12/25/17 08:14 11/25/17 11:36 Lorazepam (Ativan 2mg/ml 1ml) 0.5 mg Q4H PRN IV For Anxiety 11/22/17 17:30 11/29/17 17:29 11/24/17 18:17 Losartan Potassium (Cozaar) 50 mg DAILY ORAL 11/23/17 09:00 12/23/17 08:59 11/25/17 09:20 Metoprolol Succinate (Toprol XL) 50 mg DAILY ORAL 11/23/17 09:00 12/23/17 08:59 11/25/17 09:23 Ondansetron HCl (Zofran) 4 mg Q6H PRN IVP Nausea & Vomiting 11/22/17 09:02 12/21/17 09:01 Quetiapine Fumarate (SEROquel) 25 mg EVERY 4 HOURS ORAL 11/25/17 13:00 12/25/17 12:59 Sodium Chloride 1,000 ml @ 75 mls/hr [id number] IV 11/22/17 17:30 12/22/17 17:29 11/25/17 12:01 Romeo Smith MD Nov 25, 2017 12:51
--- NOTE | 2017-11-25 14:03 | GI Progress Note ---
Assessment/Plan Problems: (1) Abdominal pain ICD Codes: R10.9 - Unspecified abdominal pain SNOMED: 79268108 Qualifiers: Qualified Codes: R10.13 - Epigastric pain (2) Hypoglycemia associated with type 2 diabetes mellitus ICD Codes: E11.649 - Type 2 diabetes mellitus with hypoglycemia without coma SNOMED: 26308249, 932742914 (3) Encephalopathy acute ICD Codes: G93.40 - Encephalopathy, unspecified SNOMED: 38673956, [id number] Status: stable, unchanged Status Narrative Discussed with Dr. Alegre. Assessment/Plan Assessment - HTN - hypoglycemia - mild macrocytic anemia - hypokalemia - no N/V/D Recommendations - symptomatic treatment - push PO - DM management - zofran prn - prn transfusions - fu labs The patient was seen and examined at bedside and all new and available data was reviewed in the patients chart. I agree with the above findings, impression and plan. (Patient seen earlier today. Signature stamp does not reflect patient encounter time.). - Mayito Alegre MD Subjective Subjective limited Objective Last 24 Hour Vital Signs Date Time Temp Pulse Resp B/P (MAP) Pulse Ox O2 Delivery O2 Flow Rate FiO2 11/25/17 12:30 78 17 142/61 (88) 98 11/25/17 12:15 78 17 168/69 (102) 98 11/25/17 12:01 78 170/72 11/25/17 12:00 78 17 150/70 (96) 99 11/25/17 12:00 Room Air 11/25/17 11:45 79 17 174/72 (106) 98 11/25/17 11:36 80 174/76 11/25/17 11:30 80 18 174/72 (106) 99 11/25/17 11:15 81 19 162/66 (98) 99 11/25/17 11:00 81 18 160/88 (112) 99 11/25/17 10:45 82 19 163/72 (102) 99 11/25/17 10:30 82 19 147/92 (110) 99 11/25/17 10:15 82 17 170/76 (107) 99 11/25/17 10:00 82 19 155/65 (95) 98 11/25/17 09:56 84 163/71 11/25/17 09:45 84 21 163/71 (101) 99 11/25/17 09:30 85 20 175/85 (115) 99 11/25/17 09:23 89 189/76 11/25/17 09:20 185/76 11/25/17 09:19 95 185/76 11/25/17 09:15 86 21 185/76 (112) 99 11/25/17 09:00 85 21 178/74 (108) 99 11/25/17 08:30 83 20 164/75 (104) 98 11/25/17 08:00 Room Air 11/25/17 08:00 82 20 164/106 (125) 99 11/25/17 07:30 97.7 86 20 175/81 (112) 97 97.7 11/25/17 07:00 81 19 181/69 (106) 99 11/25/17 06:30 98.1 83 19 157/74 (101) 99 98.1 11/25/17 06:00 81 19 160/89 (112) 99 11/25/17 05:44 88 173/46 11/25/17 05:30 83 19 173/46 (88) 99 11/25/17 05:20 77 163/70 11/25/17 05:00 80 19 163/70 (101) 99 11/25/17 04:30 80 19 167/69 (101) 99 11/25/17 04:00 81 19 149/67 (94) 99 11/25/17 04:00 Room Air 11/25/17 04:00 83 11/25/17 03:30 81 19 152/66 (94) 99 11/25/17 03:00 81 19 150/73 (98) 99 11/25/17 02:30 81 19 152/73 (99) 99 11/25/17 02:00 78 19 150/80 (103) 99 11/25/17 01:30 77 19 164/99 (120) 99 11/25/17 01:12 77 132/57 11/25/17 01:00 76 19 154/61 (92) 99 11/25/17 00:30 76 19 132/57 (82) 99 11/25/17 00:00 Room Air 11/25/17 00:00 Room Air 11/25/17 00:00 98.9 76 19 138/60 (86) 99 98.9 11/25/17 00:00 80 11/25/17 00:00 83 11/24/17 23:30 76 19 144/65 (91) 99 11/24/17 23:00 76 19 132/66 (88) 99 11/24/17 22:30 76 19 139/61 (87) 99 11/24/17 22:04 78 132/61 11/24/17 22:00 78 19 151/64 (93) 99 11/24/17 21:30 81 19 142/80 (100) 99 11/24/17 21:00 80 169/72 11/24/17 21:00 81 19 164/99 (120) 99 11/24/17 20:30 81 19 169/72 (104) 99 11/24/17 20:00 Room Air 11/24/17 20:00 81 11/24/17 20:00 98.9 82 19 186/72 (110) 99 98.9 11/24/17 19:30 82 19 172/76 (108) 99 11/24/17 19:00 83 19 164/99 (120) 99 11/24/17 19:00 83 170/130 11/24/17 18:30 84 21 170/138 (149) 97 11/24/17 18:00 84 21 178/80 (112) 97 11/24/17 17:34 82 183/131 11/24/17 17:30 80 20 187/86 (119) 97 11/24/17 17:00 81 19 169/87 (114) 97 11/24/17 16:30 79 20 180/88 (118) 95 11/24/17 16:00 82 11/24/17 16:00 99.1 77 19 171/74 (106) 96 99.1 11/24/17 16:00 Room Air 11/24/17 15:30 78 21 188/77 (114) 96 11/24/17 15:00 77 21 192/73 (112) 97 11/24/17 14:30 80 20 174/78 (110) 97 Intake and Output 11/24/17 11/25/17 19:00 07:00 Intake Total 1644.00 ml 1574.25 ml Output Total 3 ml 350 ml Balance 1641.00 ml 1224.25 ml Intake Oral 0 ml IV Total 1584.00 ml 1574.25 ml Other 60 ml Output Urine Total 3 ml 350 ml Laboratory Tests Test 11/25/17 05:12 White Blood Count 4.4 K/UL (4.8-10.8) L Red Blood Count 3.22 M/UL (4.20-5.40) L Hemoglobin 11.4 G/DL (12.0-16.0) L Hematocrit 32.0 % (37.0-47.0) L Mean Corpuscular Volume 99 FL (80-99) Mean Corpuscular Hemoglobin 35.5 PG (27.0-31.0) H Mean Corpuscular Hemoglobin Concent 35.8 G/DL (32.0-36.0) Red Cell Distribution Width 10.3 % (11.6-14.8) L Platelet Count 133 K/UL (150-450) L Mean Platelet Volume 5.9 FL (6.5-10.1) L Neutrophils (%) (Auto) 68.4 % (45.0-75.0) Lymphocytes (%) (Auto) 21.0 % (20.0-45.0) Monocytes (%) (Auto) 6.2 % (1.0-10.0) Eosinophils (%) (Auto) 4.0 % (0.0-3.0) H Basophils (%) (Auto) 0.4 % (0.0-2.0) Erythrocyte Sedimentation Rate 27 MM/HR (0-30) Sodium Level 146 MMOL/L (136-145) H Potassium Level 3.1 MMOL/L (3.5-5.1) L Chloride Level 113 MMOL/L (98-107) H Carbon Dioxide Level 24 MMOL/L (21-32) Anion Gap 9 mmol/L (5-15) Blood Urea Nitrogen 4 mg/dL (7-18) L Creatinine 0.7 MG/DL (0.55-1.30) Estimat Glomerular Filtration Rate mL/min (>60) Glucose Level 113 MG/DL (74-106) H Hemoglobin A1c 5.4 % (4.3-6.0) Calcium Level 10.3 MG/DL (8.5-10.1) H Total Bilirubin 0.8 MG/DL (0.2-1.0) Direct Bilirubin 0.2 MG/DL (0.0-0.3) Aspartate Amino Transf (AST/SGOT) 14 U/L (15-37) L Alanine Aminotransferase (ALT/SGPT) 13 U/L (12-78) Alkaline Phosphatase 53 U/L (46-116) Total Protein 5.1 G/DL (6.4-8.2) L Albumin 2.4 G/DL (3.4-5.0) L Amylase Level 29 U/L (25-115) Lipase 55 U/L (73-393) L Vitamin D 25-Hydroxy Pending 25-Hydroxy Vitamin D2 Pending 25-Hydroxy Vitamin D3 Pending Folate 3.3 NG/ML (8.6-58.9) L Thyroid Stimulating Hormone (TSH) 1.051 uiU/mL (0.358-3.740) Cortisol AM Sample 14.1 UG/DL Rapid Plasma Reagin Pending Height (Feet): 5 Height (Inches): 4.00 Weight (Pounds): 114 General Appearance: WD/WN, no apparent distress, alert Cardiovascular: normal rate Respiratory/Chest: normal breath sounds, no respiratory distress Abdominal Exam: normal bowel sounds, non tender, soft Extremities: normal range of motion, non-tender Fatou Santos NP Nov 25, 2017 14:03
--- NOTE | 2017-11-25 15:01 | Consultation ---
History of Present Illness General Date patient seen: Nov 24, 2017 Chief Complaint: Dizziness Reason for Consultation: abdominal pain Present Illness HPI 72-year-old female, came in for an evaluation and care of weakness and dizziness. the pt is severely agitated and not able to provide hx. the pt has cognitive impairment. the pt has been trying to come out of bed Allergies: Coded Allergies: No Known Allergies (Unverified , 11/21/17) Medication History Scheduled Diphenoxylate Hcl/Atropine (Diphenoxylate-Atropine Liq), 5 ML ORAL DAILY, ( Reported) Glipizide* (Glipizide*), 10 MG ORAL BIDAC, (Reported) Lidocaine (Lidocaine), 700 MG TP DAILY, (Reported) Losartan Potassium* (Losartan Potassium*), 50 MG ORAL DAILY, (Reported) Metformin Hcl* (Metformin Hcl*), 1,000 MG ORAL BID, (Reported) Metoprolol Succinate* (Metoprolol Succinate*), 50 MG ORAL DAILY, (Reported) [place]-3 Acid Ethyl Esters ([place]-3 Acid Ethyl Esters), 1 GM PO DAILY, (Reported) Omeprazole (Omeprazole), 40 MG ORAL DAILY, (Reported) Sertraline Hcl* (Sertraline Hcl*), 25 MG ORAL DAILY, (Reported) Simvastatin (Zocor), 40 MG ORAL BEDTIME, (Reported) Scheduled PRN Acetaminophen With Codeine 300MG/30MG (T#3)* (Tylenol With Codeine #3 Tablet*), Unknown Dose ORAL Q6H PRN for For Pain, (Reported) Patient History Limited by: medical condition History Provided By: Patient, Medical Record Healthcare decision maker N Resuscitation status Full Code Advanced Directive on File Past Medical/Surgical History Past Medical/Surgical History: (1) Abdominal pain (2) Hypoglycemia associated with type 2 diabetes mellitus (3) Encephalopathy acute Review of Systems Psychiatric: Reports: anxiety, depressed feelings, emotional problems Physical Exam General Appearance: alert, confused, severe distress, agitated Last 24 Hour Vital Signs Date Time Temp Pulse Resp B/P (MAP) Pulse Ox O2 Delivery O2 Flow Rate FiO2 11/25/17 12:30 78 17 142/61 (88) 98 11/25/17 12:15 78 17 168/69 (102) 98 11/25/17 12:01 78 170/72 11/25/17 12:00 78 17 150/70 (96) 99 11/25/17 12:00 Room Air 11/25/17 11:45 79 17 174/72 (106) 98 11/25/17 11:36 80 174/76 11/25/17 11:30 80 18 174/72 (106) 99 11/25/17 11:15 81 19 162/66 (98) 99 11/25/17 11:00 81 18 160/88 (112) 99 11/25/17 10:45 82 19 163/72 (102) 99 11/25/17 10:30 82 19 147/92 (110) 99 11/25/17 10:15 82 17 170/76 (107) 99 11/25/17 10:00 82 19 155/65 (95) 98 11/25/17 09:56 84 163/71 11/25/17 09:45 84 21 163/71 (101) 99 11/25/17 09:30 85 20 175/85 (115) 99 11/25/17 09:23 89 189/76 11/25/17 09:20 185/76 11/25/17 09:19 95 185/76 11/25/17 09:15 86 21 185/76 (112) 99 11/25/17 09:00 85 21 178/74 (108) 99 11/25/17 08:30 83 20 164/75 (104) 98 11/25/17 08:00 Room Air 11/25/17 08:00 82 20 164/106 (125) 99 11/25/17 07:30 97.7 86 20 175/81 (112) 97 97.7 11/25/17 07:00 81 19 181/69 (106) 99 11/25/17 06:30 98.1 83 19 157/74 (101) 99 98.1 11/25/17 06:00 81 19 160/89 (112) 99 11/25/17 05:44 88 173/46 11/25/17 05:30 83 19 173/46 (88) 99 11/25/17 05:20 77 163/70 11/25/17 05:00 80 19 163/70 (101) 99 11/25/17 04:30 80 19 167/69 (101) 99 11/25/17 04:00 81 19 149/67 (94) 99 11/25/17 04:00 Room Air 11/25/17 04:00 83 11/25/17 03:30 81 19 152/66 (94) 99 11/25/17 03:00 81 19 150/73 (98) 99 11/25/17 02:30 81 19 152/73 (99) 99 11/25/17 02:00 78 19 150/80 (103) 99 11/25/17 01:30 77 19 164/99 (120) 99 11/25/17 01:12 77 132/57 11/25/17 01:00 76 19 154/61 (92) 99 11/25/17 00:30 76 19 132/57 (82) 99 11/25/17 00:00 Room Air 11/25/17 00:00 Room Air 11/25/17 00:00 98.9 76 19 138/60 (86) 99 98.9 11/25/17 00:00 80 11/25/17 00:00 83 11/24/17 23:30 76 19 144/65 (91) 99 11/24/17 23:00 76 19 132/66 (88) 99 11/24/17 22:30 76 19 139/61 (87) 99 11/24/17 22:04 78 132/61 11/24/17 22:00 78 19 151/64 (93) 99 11/24/17 21:30 81 19 142/80 (100) 99 11/24/17 21:00 80 169/72 11/24/17 21:00 81 19 164/99 (120) 99 11/24/17 20:30 81 19 169/72 (104) 99 11/24/17 20:00 Room Air 11/24/17 20:00 81 11/24/17 20:00 98.9 82 19 186/72 (110) 99 98.9 11/24/17 19:30 82 19 172/76 (108) 99 11/24/17 19:00 83 19 164/99 (120) 99 11/24/17 19:00 83 170/130 11/24/17 18:30 84 21 170/138 (149) 97 11/24/17 18:00 84 21 178/80 (112) 97 11/24/17 17:34 82 183/131 11/24/17 17:30 80 20 187/86 (119) 97 11/24/17 17:00 81 19 169/87 (114) 97 11/24/17 16:30 79 20 180/88 (118) 95 11/24/17 16:00 82 11/24/17 16:00 99.1 77 19 171/74 (106) 96 99.1 11/24/17 16:00 Room Air 11/24/17 15:30 78 21 188/77 (114) 96 11/24/17 15:00 77 21 192/73 (112) 97 Intake and Output 11/24/17 11/25/17 19:00 07:00 Intake Total 1644.00 ml 1574.25 ml Output Total 3 ml 350 ml Balance 1641.00 ml 1224.25 ml Intake Oral 0 ml IV Total 1584.00 ml 1574.25 ml Other 60 ml Output Urine Total 3 ml 350 ml Laboratory Tests Test 11/25/17 05:12 White Blood Count 4.4 K/UL (4.8-10.8) L Red Blood Count 3.22 M/UL (4.20-5.40) L Hemoglobin 11.4 G/DL (12.0-16.0) L Hematocrit 32.0 % (37.0-47.0) L Mean Corpuscular Volume 99 FL (80-99) Mean Corpuscular Hemoglobin 35.5 PG (27.0-31.0) H Mean Corpuscular Hemoglobin Concent 35.8 G/DL (32.0-36.0) Red Cell Distribution Width 10.3 % (11.6-14.8) L Platelet Count 133 K/UL (150-450) L Mean Platelet Volume 5.9 FL (6.5-10.1) L Neutrophils (%) (Auto) 68.4 % (45.0-75.0) Lymphocytes (%) (Auto) 21.0 % (20.0-45.0) Monocytes (%) (Auto) 6.2 % (1.0-10.0) Eosinophils (%) (Auto) 4.0 % (0.0-3.0) H Basophils (%) (Auto) 0.4 % (0.0-2.0) Erythrocyte Sedimentation Rate 27 MM/HR (0-30) Sodium Level 146 MMOL/L (136-145) H Potassium Level 3.1 MMOL/L (3.5-5.1) L Chloride Level 113 MMOL/L (98-107) H Carbon Dioxide Level 24 MMOL/L (21-32) Anion Gap 9 mmol/L (5-15) Blood Urea Nitrogen 4 mg/dL (7-18) L Creatinine 0.7 MG/DL (0.55-1.30) Estimat Glomerular Filtration Rate mL/min (>60) Glucose Level 113 MG/DL (74-106) H Hemoglobin A1c 5.4 % (4.3-6.0) Calcium Level 10.3 MG/DL (8.5-10.1) H Total Bilirubin 0.8 MG/DL (0.2-1.0) Direct Bilirubin 0.2 MG/DL (0.0-0.3) Aspartate Amino Transf (AST/SGOT) 14 U/L (15-37) L Alanine Aminotransferase (ALT/SGPT) 13 U/L (12-78) Alkaline Phosphatase 53 U/L (46-116) Total Protein 5.1 G/DL (6.4-8.2) L Albumin 2.4 G/DL (3.4-5.0) L Amylase Level 29 U/L (25-115) Lipase 55 U/L (73-393) L Vitamin D 25-Hydroxy Pending 25-Hydroxy Vitamin D2 Pending 25-Hydroxy Vitamin D3 Pending Folate 3.3 NG/ML (8.6-58.9) L Thyroid Stimulating Hormone (TSH) 1.051 uiU/mL (0.358-3.740) Cortisol AM Sample 14.1 UG/DL Rapid Plasma Reagin Pending Height (Feet): 5 Height (Inches): 4.00 Weight (Pounds): 114 Medications Current Medications Medications (Trade) Dose Ordered Sig/Atilio Route PRN Reason Start Time Stop Time Status Last Admin Dose Admin Acetaminophen (Tylenol) 650 mg Q4H PRN ORAL Mild Pain (Pain Scale 1-3) 11/22/17 08:59 12/21/17 08:58 Atorvastatin Calcium (Lipitor) 40 mg QHS ORAL 11/22/17 21:00 12/21/17 20:59 11/24/17 21:00 Clonidine HCl (Catapres Tab) 0.1 mg Q6H PRN ORAL For High Blood Pressure 11/22/17 09:00 12/21/17 08:59 Dextrose (Dextrose 50%) 25 ml Q1H PRN IV Hypoglycemia 11/22/17 09:15 Dextrose (Dextrose 50%) 50 ml Q1H PRN IV hypoglycemia 11/22/17 09:15 Diphenhydramine HCl (Benadryl) 25 mg Q3H PRN IVP Itching 11/22/17 11:45 12/22/17 11:44 11/24/17 06:20 Enoxaparin Sodium (Lovenox) 40 mg Q24H SUBQ 11/22/17 17:30 12/21/17 17:29 11/24/17 17:36 Famotidine (Pepcid) 40 mg DAILY ORAL 11/22/17 09:00 12/22/17 08:59 11/25/17 09:20 Insulin Aspart (NovoLOG) BEFORE MEALS AND HS SUBQ 11/22/17 11:30 12/21/17 16:29 11/25/17 12:06 Labetalol HCl (Normodyne) 5 mg Q4H IV 11/23/17 09:00 12/23/17 08:59 11/25/17 12:01 Labetalol HCl 200 mg/Dextrose 290 ml @ 0 mls/hr Q24H IV 11/25/17 08:15 12/25/17 08:14 11/25/17 11:36 Lorazepam (Ativan 2mg/ml 1ml) 0.5 mg Q4H PRN IV For Anxiety 11/22/17 17:30 11/29/17 17:29 11/24/17 18:17 Losartan Potassium (Cozaar) 50 mg DAILY ORAL 11/23/17 09:00 12/23/17 08:59 11/25/17 09:20 Metoprolol Succinate (Toprol XL) 50 mg DAILY ORAL 11/23/17 09:00 12/23/17 08:59 11/25/17 09:23 Ondansetron HCl (Zofran) 4 mg Q6H PRN IVP Nausea & Vomiting 11/22/17 09:02 12/21/17 09:01 Quetiapine Fumarate (SEROquel) 25 mg EVERY 4 HOURS ORAL 11/25/17 13:00 12/25/17 12:59 11/25/17 14:03 Sodium Chloride 1,000 ml @ 75 mls/hr [id number] IV 11/22/17 17:30 12/22/17 17:29 11/25/17 12:01 Assessment/Plan Problem List: (1) Encephalopathy acute ICD Codes: G93.40 - Encephalopathy, unspecified SNOMED: [id number], [id number] Status: unchanged, deteriorating Assessment/Plan Seroquel 12.5 mg po q6hr prn anxiety Lacey Matthews MD Nov 25, 2017 15:01
--- NOTE | 2017-11-25 15:03 | General Progress Note ---
Assessment/Plan Problem List: (1) Encephalopathy acute ICD Codes: G93.40 - Encephalopathy, unspecified SNOMED: [id number], [id number] Status: unchanged Assessment/Plan increase Seroquel 25 mg q 6hr restraints soft Subjective Neurologic/Psychiatric: Reports: anxiety, depressed, emotional problems Allergies: Coded Allergies: No Known Allergies (Unverified , 11/21/17) Objective Last 24 Hour Vital Signs Date Time Temp Pulse Resp B/P (MAP) Pulse Ox O2 Delivery O2 Flow Rate FiO2 11/25/17 12:30 78 17 142/61 (88) 98 11/25/17 12:15 78 17 168/69 (102) 98 11/25/17 12:01 78 170/72 11/25/17 12:00 78 17 150/70 (96) 99 11/25/17 12:00 Room Air 11/25/17 11:45 79 17 174/72 (106) 98 11/25/17 11:36 80 174/76 11/25/17 11:30 80 18 174/72 (106) 99 11/25/17 11:15 81 19 162/66 (98) 99 11/25/17 11:00 81 18 160/88 (112) 99 11/25/17 10:45 82 19 163/72 (102) 99 11/25/17 10:30 82 19 147/92 (110) 99 11/25/17 10:15 82 17 170/76 (107) 99 11/25/17 10:00 82 19 155/65 (95) 98 11/25/17 09:56 84 163/71 11/25/17 09:45 84 21 163/71 (101) 99 11/25/17 09:30 85 20 175/85 (115) 99 11/25/17 09:23 89 189/76 11/25/17 09:20 185/76 11/25/17 09:19 95 185/76 11/25/17 09:15 86 21 185/76 (112) 99 11/25/17 09:00 85 21 178/74 (108) 99 11/25/17 08:30 83 20 164/75 (104) 98 11/25/17 08:00 Room Air 11/25/17 08:00 82 20 164/106 (125) 99 11/25/17 07:30 97.7 86 20 175/81 (112) 97 97.7 11/25/17 07:00 81 19 181/69 (106) 99 11/25/17 06:30 98.1 83 19 157/74 (101) 99 98.1 11/25/17 06:00 81 19 160/89 (112) 99 11/25/17 05:44 88 173/46 11/25/17 05:30 83 19 173/46 (88) 99 11/25/17 05:20 77 163/70 11/25/17 05:00 80 19 163/70 (101) 99 11/25/17 04:30 80 19 167/69 (101) 99 11/25/17 04:00 81 19 149/67 (94) 99 11/25/17 04:00 Room Air 11/25/17 04:00 83 11/25/17 03:30 81 19 152/66 (94) 99 11/25/17 03:00 81 19 150/73 (98) 99 11/25/17 02:30 81 19 152/73 (99) 99 11/25/17 02:00 78 19 150/80 (103) 99 11/25/17 01:30 77 19 164/99 (120) 99 11/25/17 01:12 77 132/57 11/25/17 01:00 76 19 154/61 (92) 99 11/25/17 00:30 76 19 132/57 (82) 99 11/25/17 00:00 Room Air 11/25/17 00:00 Room Air 11/25/17 00:00 98.9 76 19 138/60 (86) 99 98.9 11/25/17 00:00 80 11/25/17 00:00 83 11/24/17 23:30 76 19 144/65 (91) 99 11/24/17 23:00 76 19 132/66 (88) 99 11/24/17 22:30 76 19 139/61 (87) 99 11/24/17 22:04 78 132/61 11/24/17 22:00 78 19 151/64 (93) 99 11/24/17 21:30 81 19 142/80 (100) 99 11/24/17 21:00 80 169/72 11/24/17 21:00 81 19 164/99 (120) 99 11/24/17 20:30 81 19 169/72 (104) 99 11/24/17 20:00 Room Air 11/24/17 20:00 81 11/24/17 20:00 98.9 82 19 186/72 (110) 99 98.9 11/24/17 19:30 82 19 172/76 (108) 99 11/24/17 19:00 83 19 164/99 (120) 99 11/24/17 19:00 83 170/130 11/24/17 18:30 84 21 170/138 (149) 97 11/24/17 18:00 84 21 178/80 (112) 97 11/24/17 17:34 82 183/131 11/24/17 17:30 80 20 187/86 (119) 97 11/24/17 17:00 81 19 169/87 (114) 97 11/24/17 16:30 79 20 180/88 (118) 95 11/24/17 16:00 82 11/24/17 16:00 99.1 77 19 171/74 (106) 96 99.1 11/24/17 16:00 Room Air 11/24/17 15:30 78 21 188/77 (114) 96 Intake and Output 11/24/17 11/25/17 19:00 07:00 Intake Total 1644.00 ml 1574.25 ml Output Total 3 ml 350 ml Balance 1641.00 ml 1224.25 ml Intake Oral 0 ml IV Total 1584.00 ml 1574.25 ml Other 60 ml Output Urine Total 3 ml 350 ml Laboratory Tests 11/25/17 05:12: White Blood Count 4.4L, Red Blood Count 3.22L, Hemoglobin 11.4L, Hematocrit 32.0L, Mean Corpuscular Volume 99, Mean Corpuscular Hemoglobin 35.5H, Mean Corpuscular Hemoglobin Concent 35.8, Red Cell Distribution Width 10.3L, Platelet Count 133L, Mean Platelet Volume 5.9L, Neutrophils (%) (Auto) 68.4, Lymphocytes (%) (Auto) 21.0, Monocytes (%) (Auto) 6.2, Eosinophils (%) (Auto) 4.0H, Basophils (%) (Auto) 0.4, Erythrocyte Sedimentation Rate 27, Sodium Level 146H, Potassium Level 3.1L, Chloride Level 113H, Carbon Dioxide Level 24, Anion Gap 9, Blood Urea Nitrogen 4L, Creatinine 0.7, Estimat Glomerular Filtration Rate , Glucose Level 113H, Hemoglobin A1c 5.4, Calcium Level 10.3H, Total Bilirubin 0.8, Direct Bilirubin 0.2, Aspartate Amino Transf (AST/SGOT) 14L, Alanine Aminotransferase (ALT/SGPT) 13, Alkaline Phosphatase 53, Total Protein 5.1L, Albumin 2.4L, Amylase Level 29, Lipase 55L, Vitamin D 25-Hydroxy [Pending] , 25-Hydroxy Vitamin D2 [Pending], 25-Hydroxy Vitamin D3 [Pending], Folate 3.3L , Thyroid Stimulating Hormone (TSH) 1.051, Cortisol AM Sample 14.1, Rapid Plasma Reagin [Pending] Height (Feet): 5 Height (Inches): 4.00 Weight (Pounds): 114 General Appearance: alert, confused, severe distress Neurologic: depressed affect Lacey Matthews MD Nov 25, 2017 15:03
[2017-11-25] MEDS: Enoxaparin 40mg Inj SUBQ SCH (17:27)
--- NOTE | 2017-11-25 20:26 | Neurology Progress Note ---
Interim History Interim History Interim History Ms. Bernardo is sedated now. She has been getting Seroquel as she has been agitated. She is unable to respond due to her somnolence. Review of Systems Neuro Review of Systems Unable to obtain. Objective Physical Exam Last Vital Signs Date Time Temp Pulse Resp B/P (MAP) Pulse Ox O2 Delivery O2 Flow Rate FiO2 11/25/17 17:43 81 164/67 11/25/17 17:15 20 99 11/25/17 16:00 Room Air 11/25/17 12:45 98.7 98.7 Laboratory Tests Test 11/25/17 05:12 White Blood Count 4.4 K/UL (4.8-10.8) L Red Blood Count 3.22 M/UL (4.20-5.40) L Hemoglobin 11.4 G/DL (12.0-16.0) L Hematocrit 32.0 % (37.0-47.0) L Mean Corpuscular Volume 99 FL (80-99) Mean Corpuscular Hemoglobin 35.5 PG (27.0-31.0) H Mean Corpuscular Hemoglobin Concent 35.8 G/DL (32.0-36.0) Red Cell Distribution Width 10.3 % (11.6-14.8) L Platelet Count 133 K/UL (150-450) L Mean Platelet Volume 5.9 FL (6.5-10.1) L Neutrophils (%) (Auto) 68.4 % (45.0-75.0) Lymphocytes (%) (Auto) 21.0 % (20.0-45.0) Monocytes (%) (Auto) 6.2 % (1.0-10.0) Eosinophils (%) (Auto) 4.0 % (0.0-3.0) H Basophils (%) (Auto) 0.4 % (0.0-2.0) Erythrocyte Sedimentation Rate 27 MM/HR (0-30) Sodium Level 146 MMOL/L (136-145) H Potassium Level 3.1 MMOL/L (3.5-5.1) L Chloride Level 113 MMOL/L (98-107) H Carbon Dioxide Level 24 MMOL/L (21-32) Anion Gap 9 mmol/L (5-15) Blood Urea Nitrogen 4 mg/dL (7-18) L Creatinine 0.7 MG/DL (0.55-1.30) Estimat Glomerular Filtration Rate mL/min (>60) Glucose Level 113 MG/DL (74-106) H Hemoglobin A1c 5.4 % (4.3-6.0) Calcium Level 10.3 MG/DL (8.5-10.1) H Total Bilirubin 0.8 MG/DL (0.2-1.0) Direct Bilirubin 0.2 MG/DL (0.0-0.3) Aspartate Amino Transf (AST/SGOT) 14 U/L (15-37) L Alanine Aminotransferase (ALT/SGPT) 13 U/L (12-78) Alkaline Phosphatase 53 U/L (46-116) Total Protein 5.1 G/DL (6.4-8.2) L Albumin 2.4 G/DL (3.4-5.0) L Amylase Level 29 U/L (25-115) Lipase 55 U/L (73-393) L Vitamin D 25-Hydroxy Pending 25-Hydroxy Vitamin D2 Pending 25-Hydroxy Vitamin D3 Pending Folate 3.3 NG/ML (8.6-58.9) L Thyroid Stimulating Hormone (TSH) 1.051 uiU/mL (0.358-3.740) Cortisol AM Sample 14.1 UG/DL Rapid Plasma Reagin Pending Neurologic Exam Objective PHYSICAL EXAMINATION: GENERAL: She is a well-developed, well-nourished, [place] lady, lying in bed, in no acute distress. HEAD: Normocephalic and atraumatic. EENT: Examination benign. NECK: No neck rigidity was observed. NEUROLOGICAL EXAMINATION: MENTAL STATUS EXAMINATION: She was difficult to arouse. When aroused for few seconds, she did not follow commands in a consistent manner. Further mental status testing was impossible. SPEECH: She was quite dysarthric when she said a few words. LANGUAGE: She was unable to communicate even in Thai. CRANIAL NERVE EXAMINATION: II: She did blink to threat when aroused for a few seconds, but would then rapidly go off to sleep. III, IV & : The external ocular movements were present on oculocephalic maneuvers. The pupils were 3 mm in diameter, equal, round, regular, and reactive sluggishly to light. V & VII: The corneal reflexes were present bilaterally. VIII: She seemed to be able to hear and had no nystagmus. IX: The palate moved symmetrically on phonation. X: She had no hoarseness of voice. XI: The sternocleidomastoids and trapezii functioned normally. XII: The tongue was in the midline without any fasciculations or atrophy. MOTOR SYSTEM: The tone was normal in all four extremities. Examination of muscle mass revealed no focal wasting. Examination of power was impossible to perform on individual muscle groups, however, when deep painful stimuli were applied, she did move all four extremities. SENSORY EXAMINATION: She responded appropriately to deep pain. She was unable to cooperate for other sensory modalities. REFLEXES: 0 at the biceps, triceps, brachioradialis, knees, and ankles. The plantar responses were flexor bilaterally. COORDINATION, STANCE & GAIT: Could not be tested. Impression/Recommendations Diagnostic Impression 1. Ms. Chelly Bernardo is a 72-year-old, [place] lady, of unknown handedness, who does have a past history of hypertension and diabetes mellitus, who was hospitalized on 11/21/2017 for an episode of severe hypoglycemia with her blood sugars in the 20s. Since she has been here, she has also been exhibiting significantly elevated blood pressures. Her mental state continues to be quite altered. 2. She is sedated now. She has been getting Seroquel as she has been agitated. She is unable to respond due to her somnolence. 3. On neurological examination, at this time, she is difficult to arouse. When aroused, she wakes up for a few seconds at a time and does not follow commands in a consistent manner. She, however, does not demonstrate any focal or lateralizing neurological findings. 4. The CT scan of the brain performed on 11/22/2017 revealed atrophy, but no acute pathology. 5. Laboratory data obtained thus far have revealed that she is mildly anemic., has a borderline low B12 level, and a low folate level but otherwise normal laboratory data. 6. 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 In addition the neuroleptics (Seroquel 62.5 mg in total) she is getting could also be complicating the encephalopathy. Recommendations 1. The patient's blood pressure should be brought down into the physiological range. 2. Continue to correct the patient's fluids and electrolytes. 3. Folic acid 1 mg via NGT q day. 4. The patient should be given vitamin B12 1000 mcg SC daily for the next 3 days and then monthly. 5. Will review EEG. 6. Await MRI scan of brain. Betina Osullivan M.D., M.S.P.H. BETINA OSULLIVAN Nov 25, 2017 20:26
[2017-11-25] MEDS ORDERED: Losartan 25mg tab ORAL SCH (21:00)
[2017-11-25] MEDS ORDERED: Metoprolol 25mg tab ORAL SCH (21:00)
[2017-11-25] MEDS: Atorvastatin 20mg tab ORAL SCH (21:14)
[2017-11-25] MEDS: Vitamin B12 1000mcg/ml Inj SUBQ SCH (22:00)
[2017-11-26] VITALS (69 sets, daily range): BP systolic 103–172; BP diastolic 49–90
[2017-11-26] MEDS: Labetalol 5mg/ml 20ml vial IV SCH ×6 (01:13→21:51)
[2017-11-26] MEDS: NovoLOG Insulin Flexpen SUBQ SCH ×4 (06:36→21:00)
[2017-11-26 06:50] LABS: BASOPHILS % (AUTO) 0.6 % (0.0-2.0); EOSINOPHILS % (AUTO) 2.7 % (0.0-3.0); HEMATOCRIT 29.7 % (37.0-47.0); HEMOGLOBIN 10.4 G/DL (12.0-16.0); LYMPHOCYTES % (AUTO) 9.4 % (20.0-45.0); MEAN CORPUSCULAR VOLUME 99 FL (80-99); MONOCYTES % (AUTO) 6.1 % (1.0-10.0); NEUTROPHILS % (AUTO) 81.2 % (45.0-75.0); PLATELET COUNT 124 K/UL (150-450); RED BLOOD COUNT 2.99 M/UL (4.20-5.40); RED CELL DISTRIBUTION WIDTH 10.4 % (11.6-14.8); WHITE BLOOD COUNT 6.1 K/UL (4.8-10.8)
[2017-11-26 07:18] LABS: ANION GAP 8 mmol/L (5-15); BLOOD UREA NITROGEN 5 mg/dL (7-18); CALCIUM 10.5 MG/DL (8.5-10.1); CARBON DIOXIDE 23 MMOL/L (21-32); CHLORIDE 112 MMOL/L (98-107); CREATININE 0.8 MG/DL (0.55-1.30); SODIUM 143 MMOL/L (136-145)
--- NOTE | 2017-11-26 08:22 | Nephrology Progress Note ---
Assessment/Plan Assessment/Plan A/P 1) HTN Urgency- resolved. BP at goal - labetalol scheduled as patient not taking po - renin:samm ratio pending 2) S/P Fall- CT Head negative - licensed master social worker to evaluate home at discharge and HH vs SNF 3) Sacral pain- X-rays negative 4) DVT prophylaxsis with Lovenox 5) Hypokalemia- replace today again. TPN started 6) Encephalopathy- appreciate Neuro and PSY - patient has been confused at home prior to hospitilization - BP at goal , MRI Head 7) Abd Pain- N/V being addressed by Gen Surg and GI and improved Subjective Date patient seen: Nov 26, 2017 Time patient seen: 08:20 ROS Limited/Unobtainable: Yes Allergies: Coded Allergies: No Known Allergies (Unverified , 11/21/17) Subjective Patient sedated. BP at goal Objective Last 24 Hour Vital Signs Date Time Temp Pulse Resp B/P (MAP) Pulse Ox O2 Delivery O2 Flow Rate FiO2 11/26/17 07:00 84 17 132/58 (82) 98 11/26/17 06:30 84 17 121/50 (73) 98 11/26/17 06:00 99.5 83 17 125/49 (74) 98 99.5 11/26/17 05:30 80 17 116/69 (85) 98 11/26/17 05:00 82 17 149/63 (91) 98 11/26/17 04:49 81 166/72 11/26/17 04:30 84 17 158/69 (98) 98 11/26/17 04:00 Room Air 11/26/17 04:00 83 11/26/17 04:00 81 17 154/70 (98) 98 11/26/17 03:30 81 17 152/70 (97) 98 11/26/17 03:00 99.5 81 17 133/90 (104) 98 99.5 11/26/17 02:30 81 17 161/65 (97) 98 11/26/17 02:00 81 17 150/62 (91) 98 11/26/17 01:30 81 17 150/60 (90) 98 11/26/17 01:13 76 149/65 11/26/17 01:00 79 17 154/59 (90) 98 11/26/17 00:30 78 17 141/85 (103) 98 11/26/17 00:00 76 17 145/57 (86) 98 18 00:00 77 11/26/17 00:00 Room Air 11/25/17 23:30 74 17 146/57 (86) 98 18 23:00 75 17 133/52 (79) 98 18 22:30 74 17 111/48 (69) 98 11/25/17 22:00 77 17 122/51 (74) 98 11/25/17 21:30 77 19 149/56 (87) 98 18 21:14 77 145/56 11/25/17 21:00 78 19 145/56 (85) 98 18 20:30 79 19 159/58 (91) 98 11/25/17 20:00 79 11/25/17 20:00 82 19 129/50 (76) 98 11/25/17 20:00 Room Air 11/25/17 19:30 82 19 144/73 (96) 98 11/25/17 19:00 82 19 129/77 (94) 98 11/25/17 18:30 82 19 101/71 (81) 98 18 18:00 82 19 136/62 (86) 98 11/25/17 17:43 81 164/67 11/25/17 17:30 82 19 164/67 (99) 98 11/25/17 17:17 82 173/133 11/25/17 17:15 83 20 173/133 (146) 99 11/25/17 17:00 82 19 152/64 (93) 98 11/25/17 16:45 81 20 157/82 (107) 99 18 16:30 83 20 155/89 (111) 99 11/25/17 16:15 82 20 138/113 (121) 99 11/25/17 16:00 Room Air 11/25/17 16:00 80 19 164/79 (107) 99 11/25/17 16:00 82 18 15:44 84 164/79 11/25/17 15:30 80 19 164/79 (107) 99 18 15:15 78 18 161/70 (100) 99 18 15:00 78 19 140/94 (109) 99 11/25/17 14:30 75 16 143/63 (89) 98 11/25/17 14:15 75 16 128/65 (86) 98 11/25/17 14:00 76 17 149/65 (93) 99 18 13:45 76 16 131/61 (84) 99 11/25/17 13:30 76 16 146/62 (90) 98 11/25/17 13:15 77 15 127/84 (98) 99 11/25/17 13:00 79 17 111/61 (78) 99 11/25/17 12:45 98.7 77 17 131/69 (89) 98 98.7 11/25/17 12:30 78 17 142/61 (88) 98 11/25/17 12:15 78 17 168/69 (102) 98 11/25/17 12:01 78 170/72 11/25/17 12:00 78 17 150/70 (96) 99 11/25/17 12:00 Room Air 11/25/17 12:00 77 11/25/17 11:45 79 17 174/72 (106) 98 11/25/17 11:36 80 174/76 11/25/17 11:30 80 18 174/72 (106) 99 11/25/17 11:15 81 19 162/66 (98) 99 11/25/17 11:00 81 18 160/88 (112) 99 11/25/17 10:45 82 19 163/72 (102) 99 11/25/17 10:30 82 19 147/92 (110) 99 11/25/17 10:15 82 17 170/76 (107) 99 11/25/17 10:00 82 19 155/65 (95) 98 11/25/17 09:56 84 163/71 11/25/17 09:45 84 21 163/71 (101) 99 11/25/17 09:30 85 20 175/85 (115) 99 11/25/17 09:23 89 189/76 18 09:20 185/76 18 09:19 95 185/76 11/25/17 09:15 86 21 185/76 (112) 99 11/25/17 09:00 85 21 178/74 (108) 99 11/25/17 08:30 83 20 164/75 (104) 98 Intake and Output 11/25/17 11/26/17 19:00 07:00 Intake Total 2248 ml 1161.00 ml Output Total 700 ml 500 ml Balance 1548 ml 661.00 ml IV Total 2248 ml 1161.00 ml Output Urine Total 700 ml 500 ml Laboratory Tests 11/26/17 05:55: White Blood Count 6.1, Red Blood Count 2.99L, Hemoglobin 10.4L, Hematocrit 29.7L , Mean Corpuscular Volume 99, Mean Corpuscular Hemoglobin 34.8H, Mean Corpuscular Hemoglobin Concent 35.0, Red Cell Distribution Width 10.4L, Platelet Count 124L, Mean Platelet Volume 6.5, Neutrophils (%) (Auto) 81.2H, Lymphocytes (%) (Auto) 9.4L, Monocytes (%) (Auto) 6.1, Eosinophils (%) (Auto) 2.7, Basophils (%) (Auto) 0.6, Sodium Level 143, Potassium Level 3.0L, Chloride Level 112H, Carbon Dioxide Level 23, Anion Gap 8, Blood Urea Nitrogen 5L, Creatinine 0.8, Estimat Glomerular Filtration Rate , Glucose Level 128H, Calcium Level 10.5H, RBC Folate Hemolysate [Pending], Red Blood Cell Folate [ Pending] Height (Feet): 5 Height (Inches): 4.00 Weight (Pounds): 115 General Appearance: lethargic EENT: normal ENT inspection Neck: normal alignment, supple Cardiovascular: normal rate, regular rhythm Respiratory/Chest: lungs clear, normal breath sounds Abdomen: non tender, soft Edema: no edema noted Arm (L), no edema noted Arm (R), no edema noted Leg (L), no edema noted Leg (R), no edema noted Pedal (L), no edema noted Pedal (R), no edema noted Generalized Vinh Winston MD Nov 26, 2017 08:22
[2017-11-26] MEDS: Vitamin B12 1000mcg/ml Inj SUBQ SCH (08:53)
--- NOTE | 2017-11-26 09:00 | Pulmonolgy Critical Care Note ---
Critical Care - Asmt/Plan Assessment/Plan: Assessment/Plan IMPRESSION ALOC DM Hypertensive Urgency S/P fall hypercalemia trace pleural effusion, not significant mild anemia PLAN ICU care reviewed changes noted monitor for aspiration supportive care medications/laboratory data/nursing notes/ICU care reviewed in detail note reviewed and edited care discussed with RN and RT Subjective Allergies: Coded Allergies: No Known Allergies (Unverified , 11/21/17) Subjective less altered Objective Last 24 Hour Vital Signs Date Time Temp Pulse Resp B/P (MAP) Pulse Ox O2 Delivery O2 Flow Rate FiO2 11/25/17 12:30 78 17 142/61 (88) 98 11/25/17 12:15 78 17 168/69 (102) 98 11/25/17 12:01 78 170/72 11/25/17 12:00 78 17 150/70 (96) 99 11/25/17 11:45 79 17 174/72 (106) 98 11/25/17 11:36 80 174/76 11/25/17 11:30 80 18 174/72 (106) 99 11/25/17 11:15 81 19 162/66 (98) 99 11/25/17 11:00 81 18 160/88 (112) 99 11/25/17 10:45 82 19 163/72 (102) 99 11/25/17 10:30 82 19 147/92 (110) 99 11/25/17 10:15 82 17 170/76 (107) 99 11/25/17 10:00 82 19 155/65 (95) 98 11/25/17 09:56 84 163/71 11/25/17 09:45 84 21 163/71 (101) 99 11/25/17 09:30 85 20 175/85 (115) 99 11/25/17 09:23 89 189/76 11/25/17 09:20 185/76 11/25/17 09:19 95 185/76 11/25/17 09:15 86 21 185/76 (112) 99 11/25/17 09:00 85 21 178/74 (108) 99 11/25/17 08:30 83 20 164/75 (104) 98 11/25/17 08:00 82 20 164/106 (125) 99 11/25/17 07:30 97.7 86 20 175/81 (112) 97 97.7 11/25/17 07:00 81 19 181/69 (106) 99 11/25/17 06:30 98.1 83 19 157/74 (101) 99 98.1 11/25/17 06:00 81 19 160/89 (112) 99 11/25/17 05:44 88 173/46 11/25/17 05:30 83 19 173/46 (88) 99 11/25/17 05:20 77 163/70 11/25/17 05:00 80 19 163/70 (101) 99 11/25/17 04:30 80 19 167/69 (101) 99 11/25/17 04:00 81 19 149/67 (94) 99 11/25/17 04:00 Room Air 11/25/17 04:00 83 11/25/17 03:30 81 19 152/66 (94) 99 11/25/17 03:00 81 19 150/73 (98) 99 11/25/17 02:30 81 19 152/73 (99) 99 11/25/17 02:00 78 19 150/80 (103) 99 11/25/17 01:30 77 19 164/99 (120) 99 11/25/17 01:12 77 132/57 11/25/17 01:00 76 19 154/61 (92) 99 11/25/17 00:30 76 19 132/57 (82) 99 11/25/17 00:00 Room Air 11/25/17 00:00 Room Air 11/25/17 00:00 98.9 76 19 138/60 (86) 99 98.9 11/25/17 00:00 80 11/25/17 00:00 83 11/24/17 23:30 76 19 144/65 (91) 99 11/24/17 23:00 76 19 132/66 (88) 99 11/24/17 22:30 76 19 139/61 (87) 99 11/24/17 22:04 78 132/61 11/24/17 22:00 78 19 151/64 (93) 99 11/24/17 21:30 81 19 142/80 (100) 99 11/24/17 21:00 80 169/72 11/24/17 21:00 81 19 164/99 (120) 99 11/24/17 20:30 81 19 169/72 (104) 99 11/24/17 20:00 Room Air 11/24/17 20:00 81 11/24/17 20:00 98.9 82 19 186/72 (110) 99 98.9 11/24/17 19:30 82 19 172/76 (108) 99 11/24/17 19:00 83 19 164/99 (120) 99 11/24/17 19:00 83 170/130 11/24/17 18:30 84 21 170/138 (149) 97 11/24/17 18:00 84 21 178/80 (112) 97 11/24/17 17:34 82 183/131 11/24/17 17:30 80 20 187/86 (119) 97 11/24/17 17:00 81 19 169/87 (114) 97 11/24/17 16:30 79 20 180/88 (118) 95 11/24/17 16:00 82 11/24/17 16:00 99.1 77 19 171/74 (106) 96 99.1 11/24/17 16:00 Room Air 11/24/17 15:30 78 21 188/77 (114) 96 11/24/17 15:00 77 21 192/73 (112) 97 11/24/17 14:30 80 20 174/78 (110) 97 11/24/17 14:00 79 19 174/78 (110) 98 11/24/17 13:30 80 18 169/77 (107) 97 11/24/17 13:06 84 159/90 11/24/17 13:00 82 19 159/90 (113) 98 Intake and Output 11/24/17 11/25/17 19:00 07:00 Intake Total 1644.00 ml 1574.25 ml Output Total 3 ml 350 ml Balance 1641.00 ml 1224.25 ml Intake Oral 0 ml IV Total 1584.00 ml 1574.25 ml Other 60 ml Output Urine Total 3 ml 350 ml Objective WDWN NAD reduced breath sounds bilaterally without rhonchi or wheeze [id number] without MRG NABS nontender no HSM no CCE altered Laboratory Tests 11/25/17 05:12: White Blood Count 4.4L, Red Blood Count 3.22L, Hemoglobin 11.4L, Hematocrit 32.0L, Mean Corpuscular Volume 99, Mean Corpuscular Hemoglobin 35.5H, Mean Corpuscular Hemoglobin Concent 35.8, Red Cell Distribution Width 10.3L, Platelet Count 133L, Mean Platelet Volume 5.9L, Neutrophils (%) (Auto) 68.4, Lymphocytes (%) (Auto) 21.0, Monocytes (%) (Auto) 6.2, Eosinophils (%) (Auto) 4.0H, Basophils (%) (Auto) 0.4, Erythrocyte Sedimentation Rate 27, Sodium Level 146H, Potassium Level 3.1L, Chloride Level 113H, Carbon Dioxide Level 24, Anion Gap 9, Blood Urea Nitrogen 4L, Creatinine 0.7, Estimat Glomerular Filtration Rate , Glucose Level 113H, Hemoglobin A1c 5.4, Calcium Level 10.3H, Total Bilirubin 0.8, Direct Bilirubin 0.2, Aspartate Amino Transf (AST/SGOT) 14L, Alanine Aminotransferase (ALT/SGPT) 13, Alkaline Phosphatase 53, Total Protein 5.1L, Albumin 2.4L, Amylase Level 29, Lipase 55L, Vitamin D 25-Hydroxy [Pending] , 25-Hydroxy Vitamin D2 [Pending], 25-Hydroxy Vitamin D3 [Pending], Folate 3.3L , Thyroid Stimulating Hormone (TSH) 1.051, Cortisol AM Sample 14.1, Rapid Plasma Reagin [Pending] Current Medications Medications (Trade) Dose Ordered Sig/Atilio Route PRN Reason Start Time Stop Time Status Last Admin Dose Admin Acetaminophen (Tylenol) 650 mg Q4H PRN ORAL Mild Pain (Pain Scale 1-3) 11/22/17 08:59 12/21/17 08:58 Atorvastatin Calcium (Lipitor) 40 mg QHS ORAL 11/22/17 21:00 12/21/17 20:59 11/24/17 21:00 Clonidine HCl (Catapres Tab) 0.1 mg Q6H PRN ORAL For High Blood Pressure 11/22/17 09:00 12/21/17 08:59 Dextrose (Dextrose 50%) 25 ml Q1H PRN IV Hypoglycemia 11/22/17 09:15 Dextrose (Dextrose 50%) 50 ml Q1H PRN IV hypoglycemia 11/22/17 09:15 Diphenhydramine HCl (Benadryl) 25 mg Q3H PRN IVP Itching 11/22/17 11:45 12/22/17 11:44 11/24/17 06:20 Enoxaparin Sodium (Lovenox) 40 mg Q24H SUBQ 11/22/17 17:30 12/21/17 17:29 11/24/17 17:36 Famotidine (Pepcid) 40 mg DAILY ORAL 11/22/17 09:00 12/22/17 08:59 11/25/17 09:20 Insulin Aspart (NovoLOG) BEFORE MEALS AND HS SUBQ 11/22/17 11:30 12/21/17 16:29 11/25/17 12:06 Labetalol HCl (Normodyne) 5 mg Q4H IV 11/23/17 09:00 12/23/17 08:59 11/25/17 12:01 Labetalol HCl 200 mg/Dextrose 290 ml @ 0 mls/hr Q24H IV 11/25/17 08:15 12/25/17 08:14 11/25/17 11:36 Lorazepam (Ativan 2mg/ml 1ml) 0.5 mg Q4H PRN IV For Anxiety 11/22/17 17:30 11/29/17 17:29 11/24/17 18:17 Losartan Potassium (Cozaar) 50 mg DAILY ORAL 11/23/17 09:00 12/23/17 08:59 11/25/17 09:20 Metoprolol Succinate (Toprol XL) 50 mg DAILY ORAL 11/23/17 09:00 12/23/17 08:59 11/25/17 09:23 Ondansetron HCl (Zofran) 4 mg Q6H PRN IVP Nausea & Vomiting 11/22/17 09:02 12/21/17 09:01 Quetiapine Fumarate (SEROquel) 25 mg EVERY 4 HOURS ORAL 11/25/17 13:00 12/25/17 12:59 Sodium Chloride 1,000 ml @ 75 mls/hr [id number] IV 11/22/17 17:30 12/22/17 17:29 11/25/17 12:01 Critical Care - Objective Last 24 Hour Vital Signs Date Time Temp Pulse Resp B/P (MAP) Pulse Ox O2 Delivery O2 Flow Rate FiO2 11/26/17 08:54 72 157/68 11/26/17 07:00 84 17 132/58 (82) 98 11/26/17 06:30 84 17 121/50 (73) 98 11/26/17 06:00 99.5 83 17 125/49 (74) 98 99.5 11/26/17 05:30 80 17 116/69 (85) 98 11/26/17 05:00 82 17 149/63 (91) 98 11/26/17 04:49 81 166/72 11/26/17 04:30 84 17 158/69 (98) 98 11/26/17 04:00 Room Air 11/26/17 04:00 83 11/26/17 04:00 81 17 154/70 (98) 98 11/26/17 03:30 81 17 152/70 (97) 98 11/26/17 03:00 99.5 81 17 133/90 (104) 98 99.5 11/26/17 02:30 81 17 161/65 (97) 98 11/26/17 02:00 81 17 150/62 (91) 98 11/26/17 01:30 81 17 150/60 (90) 98 11/26/17 01:13 76 149/65 11/26/17 01:00 79 17 154/59 (90) 98 11/26/17 00:30 78 17 141/85 (103) 98 11/26/17 00:00 76 17 145/57 (86) 98 11/26/17 00:00 77 11/26/17 00:00 Room Air 11/25/17 23:30 74 17 146/57 (86) 98 11/25/17 23:00 75 17 133/52 (79) 98 11/25/17 22:30 74 17 111/48 (69) 98 11/25/17 22:00 77 17 122/51 (74) 98 11/25/17 21:30 77 19 149/56 (87) 98 11/25/17 21:14 77 145/56 11/25/17 21:00 78 19 145/56 (85) 98 11/25/17 20:30 79 19 159/58 (91) 98 11/25/17 20:00 79 11/25/17 20:00 82 19 129/50 (76) 98 11/25/17 20:00 Room Air 11/25/17 19:30 82 19 144/73 (96) 98 11/25/17 19:00 82 19 129/77 (94) 98 11/25/17 18:30 82 19 101/71 (81) 98 18 18:00 82 19 136/62 (86) 98 18 17:43 81 164/67 18 17:30 82 19 164/67 (99) 98 18 17:17 82 173/133 18 17:15 83 20 173/133 (146) 99 11/25/17 17:00 82 19 152/64 (93) 98 11/25/17 16:45 81 20 157/82 (107) 99 11/25/17 16:30 83 20 155/89 (111) 99 11/25/17 16:15 82 20 138/113 (121) 99 11/25/17 16:00 Room Air 11/25/17 16:00 80 19 164/79 (107) 99 11/25/17 16:00 82 11/25/17 15:44 84 164/79 11/25/17 15:30 80 19 164/79 (107) 99 11/25/17 15:15 78 18 161/70 (100) 99 11/25/17 15:00 78 19 140/94 (109) 99 11/25/17 14:30 75 16 143/63 (89) 98 11/25/17 14:15 75 16 128/65 (86) 98 11/25/17 14:00 76 17 149/65 (93) 99 11/25/17 13:45 76 16 131/61 (84) 99 11/25/17 13:30 76 16 146/62 (90) 98 11/25/17 13:15 77 15 127/84 (98) 99 11/25/17 13:00 79 17 111/61 (78) 99 11/25/17 12:45 98.7 77 17 131/69 (89) 98 98.7 11/25/17 12:30 78 17 142/61 (88) 98 11/25/17 12:15 78 17 168/69 (102) 98 11/25/17 12:01 78 170/72 11/25/17 12:00 78 17 150/70 (96) 99 11/25/17 12:00 Room Air 11/25/17 12:00 77 11/25/17 11:45 79 17 174/72 (106) 98 11/25/17 11:36 80 174/76 11/25/17 11:30 80 18 174/72 (106) 99 11/25/17 11:15 81 19 162/66 (98) 99 11/25/17 11:00 81 18 160/88 (112) 99 11/25/17 10:45 82 19 163/72 (102) 99 11/25/17 10:30 82 19 147/92 (110) 99 11/25/17 10:15 82 17 170/76 (107) 99 11/25/17 10:00 82 19 155/65 (95) 98 11/25/17 09:56 84 163/71 11/25/17 09:45 84 21 163/71 (101) 99 11/25/17 09:30 85 20 175/85 (115) 99 11/25/17 09:23 89 189/76 11/25/17 09:20 185/76 11/25/17 09:19 95 185/76 11/25/17 09:15 86 21 185/76 (112) 99 Accucheck: 129 Critical Care - Subjective ROS Limited/Unobtainable: Yes I&O: Intake and Output 11/25/17 11/26/17 19:00 07:00 Intake Total 2248 ml 1161.00 ml Output Total 700 ml 500 ml Balance 1548 ml 661.00 ml IV Total 2248 ml 1161.00 ml Output Urine Total 700 ml 500 ml Lupillo Huber MD Nov 26, 2017 09:00
[2017-11-26] MEDS: LABETALOL IV SCH ×4 (09:26→17:57)
[2017-11-26] MEDS: D5W IV SCH ×4 (09:26→17:57)
--- NOTE | 2017-11-26 09:55 | Diagnostic Imaging Report ---
Indication: Post nasogastric tube placement Technique: Supine view of the upper abdomen Comparison: 11/24/2017 Findings: Interim placement of a gastric tube, tip projected at the level of the gastric antrum, in good position. Visualized bowel gas is unremarkable. Visualized thoracic structures are unremarkable Impression: Satisfactory nasogastric intubation
[2017-11-26] MEDS: Metoprolol 25mg tab ORAL SCH ×2 (10:56→21:53)
[2017-11-26] MEDS: Losartan 25mg tab ORAL SCH ×2 (10:56→21:52)
--- NOTE | 2017-11-26 12:22 | GI Progress Note ---
Assessment/Plan Problems: (1) Abdominal pain ICD Codes: R10.9 - Unspecified abdominal pain SNOMED: 61618843 Qualifiers: Qualified Codes: R10.13 - Epigastric pain (2) Hypoglycemia associated with type 2 diabetes mellitus ICD Codes: E11.649 - Type 2 diabetes mellitus with hypoglycemia without coma SNOMED: 57981862, 251212142 (3) Encephalopathy acute ICD Codes: G93.40 - Encephalopathy, unspecified SNOMED: 86712679, [id number] Status: unchanged Status Narrative Discussed with Dr. Alegre. Assessment/Plan Assessment - HTN - hypoglycemia - mild macrocytic anemia - hypokalemia - no N/V/D Recommendations - NGT inserted, start feeds - symptomatic treatment - push PO - DM management - zofran prn - prn transfusions - fu labs The patient was seen and examined at bedside and all new and available data was reviewed in the patients chart. I agree with the above findings, impression and plan. (Patient seen earlier today. Signature stamp does not reflect patient encounter time.). - Mayito Alegre MD Subjective Subjective limited Objective Last 24 Hour Vital Signs Date Time Temp Pulse Resp B/P (MAP) Pulse Ox O2 Delivery O2 Flow Rate FiO2 11/26/17 10:56 84 162/74 11/26/17 10:56 162/74 11/26/17 10:15 80 14 165/68 (100) 98 11/26/17 10:00 81 15 149/72 (97) 98 11/26/17 09:45 80 16 157/70 (99) 99 11/26/17 09:30 79 15 139/66 (90) 99 11/26/17 09:26 78 138/66 11/26/17 09:15 82 18 138/66 (90) 99 11/26/17 09:00 77 15 153/72 (99) 98 11/26/17 08:54 72 157/68 11/26/17 08:30 80 15 122/83 (96) 97 11/26/17 08:15 78 16 121/52 (75) 98 11/26/17 08:00 71 11/26/17 08:00 98.4 77 16 127/57 (80) 98 98.4 11/26/17 08:00 Room Air 11/26/17 07:30 79 16 125/55 (78) 97 11/26/17 07:15 82 17 125/55 (78) 97 11/26/17 07:00 84 17 132/58 (82) 98 11/26/17 06:30 84 17 121/50 (73) 98 11/26/17 06:00 99.5 83 17 125/49 (74) 98 99.5 11/26/17 05:30 80 17 116/69 (85) 98 11/26/17 05:00 82 17 149/63 (91) 98 11/26/17 04:49 81 166/72 11/26/17 04:30 84 17 158/69 (98) 98 11/26/17 04:00 Room Air 11/26/17 04:00 83 11/26/17 04:00 81 17 154/70 (98) 98 11/26/17 03:30 81 17 152/70 (97) 98 11/26/17 03:00 99.5 81 17 133/90 (104) 98 99.5 11/26/17 02:30 81 17 161/65 (97) 98 11/26/17 02:00 81 17 150/62 (91) 98 11/26/17 01:30 81 17 150/60 (90) 98 11/26/17 01:13 76 149/65 11/26/17 01:00 79 17 154/59 (90) 98 11/26/17 00:30 78 17 141/85 (103) 98 11/26/17 00:00 76 17 145/57 (86) 98 11/26/17 00:00 77 11/26/17 00:00 Room Air 11/25/17 23:30 74 17 146/57 (86) 98 11/25/17 23:00 75 17 133/52 (79) 98 11/25/17 22:30 74 17 111/48 (69) 98 11/25/17 22:00 77 17 122/51 (74) 98 11/25/17 21:30 77 19 149/56 (87) 98 11/25/17 21:14 77 145/56 11/25/17 21:00 78 19 145/56 (85) 98 11/25/17 20:30 79 19 159/58 (91) 98 11/25/17 20:00 79 11/25/17 20:00 82 19 129/50 (76) 98 11/25/17 20:00 Room Air 11/25/17 19:30 82 19 144/73 (96) 98 11/25/17 19:00 82 19 129/77 (94) 98 11/25/17 18:30 82 19 101/71 (81) 98 11/25/17 18:00 82 19 136/62 (86) 98 11/25/17 17:43 81 164/67 11/25/17 17:30 82 19 164/67 (99) 98 11/25/17 17:17 82 173/133 11/25/17 17:15 83 20 173/133 (146) 99 11/25/17 17:00 82 19 152/64 (93) 98 11/25/17 16:45 81 20 157/82 (107) 99 11/25/17 16:30 83 20 155/89 (111) 99 11/25/17 16:15 82 20 138/113 (121) 99 11/25/17 16:00 Room Air 11/25/17 16:00 80 19 164/79 (107) 99 11/25/17 16:00 82 11/25/17 15:44 84 164/79 11/25/17 15:30 80 19 164/79 (107) 99 11/25/17 15:15 78 18 161/70 (100) 99 11/25/17 15:00 78 19 140/94 (109) 99 11/25/17 14:30 75 16 143/63 (89) 98 11/25/17 14:15 75 16 128/65 (86) 98 11/25/17 14:00 76 17 149/65 (93) 99 11/25/17 13:45 76 16 131/61 (84) 99 11/25/17 13:30 76 16 146/62 (90) 98 11/25/17 13:15 77 15 127/84 (98) 99 11/25/17 13:00 79 17 111/61 (78) 99 11/25/17 12:45 98.7 77 17 131/69 (89) 98 98.7 11/25/17 12:30 78 17 142/61 (88) 98 Intake and Output 11/25/17 11/26/17 19:00 07:00 Intake Total 2248 ml 1161.00 ml Output Total 700 ml 500 ml Balance 1548 ml 661.00 ml IV Total 2248 ml 1161.00 ml Output Urine Total 700 ml 500 ml Laboratory Tests Test 11/26/17 05:55 White Blood Count 6.1 K/UL (4.8-10.8) Red Blood Count 2.99 M/UL (4.20-5.40) L Hemoglobin 10.4 G/DL (12.0-16.0) L Hematocrit 29.7 % (37.0-47.0) L Mean Corpuscular Volume 99 FL (80-99) Mean Corpuscular Hemoglobin 34.8 PG (27.0-31.0) H Mean Corpuscular Hemoglobin Concent 35.0 G/DL (32.0-36.0) Red Cell Distribution Width 10.4 % (11.6-14.8) L Platelet Count 124 K/UL (150-450) L Mean Platelet Volume 6.5 FL (6.5-10.1) Neutrophils (%) (Auto) 81.2 % (45.0-75.0) H Lymphocytes (%) (Auto) 9.4 % (20.0-45.0) L Monocytes (%) (Auto) 6.1 % (1.0-10.0) Eosinophils (%) (Auto) 2.7 % (0.0-3.0) Basophils (%) (Auto) 0.6 % (0.0-2.0) Sodium Level 143 MMOL/L (136-145) Potassium Level 3.0 MMOL/L (3.5-5.1) L Chloride Level 112 MMOL/L (98-107) H Carbon Dioxide Level 23 MMOL/L (21-32) Anion Gap 8 mmol/L (5-15) Blood Urea Nitrogen 5 mg/dL (7-18) L Creatinine 0.8 MG/DL (0.55-1.30) Estimat Glomerular Filtration Rate mL/min (>60) Glucose Level 128 MG/DL (74-106) H Calcium Level 10.5 MG/DL (8.5-10.1) H RBC Folate Hemolysate Pending Red Blood Cell Folate Pending Height (Feet): 5 Height (Inches): 4.00 Weight (Pounds): 115 General Appearance: alert, confused Cardiovascular: normal rate Respiratory/Chest: normal breath sounds, no respiratory distress Abdominal Exam: soft, other - NGT Fatou Santos NP Nov 26, 2017 12:22
--- NOTE | 2017-11-26 13:34 | General Surgery Progress Note ---
General Surgery-Progress Note Subjective Additional Comments no acute events. doing okay. imaging reviewed. stable. will not eat or take much po intake Objective Last 24 Hour Vital Signs Date Time Temp Pulse Resp B/P (MAP) Pulse Ox O2 Delivery O2 Flow Rate FiO2 11/26/17 13:27 82 152/63 11/26/17 10:56 84 162/74 11/26/17 10:56 162/74 11/26/17 10:15 80 14 165/68 (100) 98 11/26/17 10:00 81 15 149/72 (97) 98 11/26/17 09:45 80 16 157/70 (99) 99 11/26/17 09:30 79 15 139/66 (90) 99 11/26/17 09:26 78 138/66 11/26/17 09:15 82 18 138/66 (90) 99 11/26/17 09:00 77 15 153/72 (99) 98 11/26/17 08:54 72 157/68 11/26/17 08:30 80 15 122/83 (96) 97 11/26/17 08:15 78 16 121/52 (75) 98 11/26/17 08:00 71 11/26/17 08:00 98.4 77 16 127/57 (80) 98 98.4 11/26/17 08:00 Room Air 11/26/17 07:30 79 16 125/55 (78) 97 11/26/17 07:15 82 17 125/55 (78) 97 11/26/17 07:00 84 17 132/58 (82) 98 11/26/17 06:30 84 17 121/50 (73) 98 11/26/17 06:00 99.5 83 17 125/49 (74) 98 99.5 11/26/17 05:30 80 17 116/69 (85) 98 11/26/17 05:00 82 17 149/63 (91) 98 11/26/17 04:49 81 166/72 11/26/17 04:30 84 17 158/69 (98) 98 11/26/17 04:00 Room Air 11/26/17 04:00 83 11/26/17 04:00 81 17 154/70 (98) 98 11/26/17 03:30 81 17 152/70 (97) 98 11/26/17 03:00 99.5 81 17 133/90 (104) 98 99.5 11/26/17 02:30 81 17 161/65 (97) 98 11/26/17 02:00 81 17 150/62 (91) 98 11/26/17 01:30 81 17 150/60 (90) 98 11/26/17 01:13 76 149/65 11/26/17 01:00 79 17 154/59 (90) 98 11/26/17 00:30 78 17 141/85 (103) 98 11/26/17 00:00 76 17 145/57 (86) 98 11/26/17 00:00 77 11/26/17 00:00 Room Air 11/25/17 23:30 74 17 146/57 (86) 98 11/25/17 23:00 75 17 133/52 (79) 98 11/25/17 22:30 74 17 111/48 (69) 98 11/25/17 22:00 77 17 122/51 (74) 98 11/25/17 21:30 77 19 149/56 (87) 98 11/25/17 21:14 77 145/56 11/25/17 21:00 78 19 145/56 (85) 98 11/25/17 20:30 79 19 159/58 (91) 98 11/25/17 20:00 79 11/25/17 20:00 82 19 129/50 (76) 98 11/25/17 20:00 Room Air 11/25/17 19:30 82 19 144/73 (96) 98 11/25/17 19:00 82 19 129/77 (94) 98 11/25/17 18:30 82 19 101/71 (81) 98 11/25/17 18:00 82 19 136/62 (86) 98 11/25/17 17:43 81 164/67 11/25/17 17:30 82 19 164/67 (99) 98 11/25/17 17:17 82 173/133 11/25/17 17:15 83 20 173/133 (146) 99 11/25/17 17:00 82 19 152/64 (93) 98 11/25/17 16:45 81 20 157/82 (107) 99 11/25/17 16:30 83 20 155/89 (111) 99 11/25/17 16:15 82 20 138/113 (121) 99 11/25/17 16:00 Room Air 11/25/17 16:00 80 19 164/79 (107) 99 11/25/17 16:00 82 11/25/17 15:44 84 164/79 11/25/17 15:30 80 19 164/79 (107) 99 11/25/17 15:15 78 18 161/70 (100) 99 11/25/17 15:00 78 19 140/94 (109) 99 11/25/17 14:30 75 16 143/63 (89) 98 11/25/17 14:15 75 16 128/65 (86) 98 11/25/17 14:00 76 17 149/65 (93) 99 11/25/17 13:45 76 16 131/61 (84) 99 I&O Intake and Output 11/25/17 11/26/17 19:00 07:00 Intake Total 2248 ml 1161.00 ml Output Total 700 ml 500 ml Balance 1548 ml 661.00 ml IV Total 2248 ml 1161.00 ml Output Urine Total 700 ml 500 ml Drains: none Cardiovascular: RSR Respiratory: clear Abdomen: soft, flat, non-tender, present bowel sounds Extremities: other Laboratory Tests Test 11/26/17 05:55 White Blood Count 6.1 K/UL (4.8-10.8) Red Blood Count 2.99 M/UL (4.20-5.40) L Hemoglobin 10.4 G/DL (12.0-16.0) L Hematocrit 29.7 % (37.0-47.0) L Mean Corpuscular Volume 99 FL (80-99) Mean Corpuscular Hemoglobin 34.8 PG (27.0-31.0) H Mean Corpuscular Hemoglobin Concent 35.0 G/DL (32.0-36.0) Red Cell Distribution Width 10.4 % (11.6-14.8) L Platelet Count 124 K/UL (150-450) L Mean Platelet Volume 6.5 FL (6.5-10.1) Neutrophils (%) (Auto) 81.2 % (45.0-75.0) H Lymphocytes (%) (Auto) 9.4 % (20.0-45.0) L Monocytes (%) (Auto) 6.1 % (1.0-10.0) Eosinophils (%) (Auto) 2.7 % (0.0-3.0) Basophils (%) (Auto) 0.6 % (0.0-2.0) Sodium Level 143 MMOL/L (136-145) Potassium Level 3.0 MMOL/L (3.5-5.1) L Chloride Level 112 MMOL/L (98-107) H Carbon Dioxide Level 23 MMOL/L (21-32) Anion Gap 8 mmol/L (5-15) Blood Urea Nitrogen 5 mg/dL (7-18) L Creatinine 0.8 MG/DL (0.55-1.30) Estimat Glomerular Filtration Rate mL/min (>60) Glucose Level 128 MG/DL (74-106) H Calcium Level 10.5 MG/DL (8.5-10.1) H RBC Folate Hemolysate Pending Red Blood Cell Folate Pending Plan Problems: (1) Abdominal pain Assessment & Plan: c/o abdominal pain. no n/v/f/c. unsure how long has been having pain. on exam epigastric tenderness with guarding - improved labs reviewed. no leukocytosis. lfts okay etiology unknown gastritis? US reviewed. no GB noted. prior cholecystectomy KUB okay -PPI -okay for diet -NG tube placed. start tube feeds for nutritional support -no surgical intervention planned. will follow with recs thank you for this consultation Sourav Tobias Nov 26, 2017 13:34
--- NOTE | 2017-11-26 13:57 | General Progress Note ---
Assessment/Plan Problem List: (1) Encephalopathy acute ICD Codes: G93.40 - Encephalopathy, unspecified SNOMED: 01580490, [id number] Status: stable Assessment/Plan increase Seroquel 25 mg q 6hr restraints soft Subjective Date patient seen: Nov 26, 2017 Neurologic/Psychiatric: Reports: anxiety, depressed, emotional problems Allergies: Coded Allergies: No Known Allergies (Unverified , 11/21/17) Objective Last 24 Hour Vital Signs Date Time Temp Pulse Resp B/P (MAP) Pulse Ox O2 Delivery O2 Flow Rate FiO2 11/26/17 13:27 82 152/63 11/26/17 10:56 84 162/74 11/26/17 10:56 162/74 11/26/17 10:15 80 14 165/68 (100) 98 11/26/17 10:00 81 15 149/72 (97) 98 11/26/17 09:45 80 16 157/70 (99) 99 11/26/17 09:30 79 15 139/66 (90) 99 11/26/17 09:26 78 138/66 11/26/17 09:15 82 18 138/66 (90) 99 11/26/17 09:00 77 15 153/72 (99) 98 11/26/17 08:54 72 157/68 11/26/17 08:30 80 15 122/83 (96) 97 11/26/17 08:15 78 16 121/52 (75) 98 11/26/17 08:00 71 11/26/17 08:00 98.4 77 16 127/57 (80) 98 98.4 11/26/17 08:00 Room Air 11/26/17 07:30 79 16 125/55 (78) 97 11/26/17 07:15 82 17 125/55 (78) 97 11/26/17 07:00 84 17 132/58 (82) 98 11/26/17 06:30 84 17 121/50 (73) 98 11/26/17 06:00 99.5 83 17 125/49 (74) 98 99.5 11/26/17 05:30 80 17 116/69 (85) 98 11/26/17 05:00 82 17 149/63 (91) 98 11/26/17 04:49 81 166/72 11/26/17 04:30 84 17 158/69 (98) 98 11/26/17 04:00 Room Air 11/26/17 04:00 83 11/26/17 04:00 81 17 154/70 (98) 98 11/26/17 03:30 81 17 152/70 (97) 98 11/26/17 03:00 99.5 81 17 133/90 (104) 98 99.5 11/26/17 02:30 81 17 161/65 (97) 98 11/26/17 02:00 81 17 150/62 (91) 98 11/26/17 01:30 81 17 150/60 (90) 98 11/26/17 01:13 76 149/65 11/26/17 01:00 79 17 154/59 (90) 98 11/26/17 00:30 78 17 141/85 (103) 98 11/26/17 00:00 76 17 145/57 (86) 98 11/26/17 00:00 77 11/26/17 00:00 Room Air 11/25/17 23:30 74 17 146/57 (86) 98 11/25/17 23:00 75 17 133/52 (79) 98 11/25/17 22:30 74 17 111/48 (69) 98 11/25/17 22:00 77 17 122/51 (74) 98 11/25/17 21:30 77 19 149/56 (87) 98 11/25/17 21:14 77 145/56 11/25/17 21:00 78 19 145/56 (85) 98 11/25/17 20:30 79 19 159/58 (91) 98 11/25/17 20:00 79 11/25/17 20:00 82 19 129/50 (76) 98 11/25/17 20:00 Room Air 11/25/17 19:30 82 19 144/73 (96) 98 11/25/17 19:00 82 19 129/77 (94) 98 11/25/17 18:30 82 19 101/71 (81) 98 11/25/17 18:00 82 19 136/62 (86) 98 11/25/17 17:43 81 164/67 18 17:30 82 19 164/67 (99) 98 11/25/17 17:17 82 173/133 11/25/17 17:15 83 20 173/133 (146) 99 11/25/17 17:00 82 19 152/64 (93) 98 11/25/17 16:45 81 20 157/82 (107) 99 11/25/17 16:30 83 20 155/89 (111) 99 11/25/17 16:15 82 20 138/113 (121) 99 11/25/17 16:00 Room Air 11/25/17 16:00 80 19 164/79 (107) 99 11/25/17 16:00 82 11/25/17 15:44 84 164/79 11/25/17 15:30 80 19 164/79 (107) 99 11/25/17 15:15 78 18 161/70 (100) 99 11/25/17 15:00 78 19 140/94 (109) 99 11/25/17 14:30 75 16 143/63 (89) 98 11/25/17 14:15 75 16 128/65 (86) 98 11/25/17 14:00 76 17 149/65 (93) 99 Intake and Output 11/25/17 11/26/17 19:00 07:00 Intake Total 2248 ml 1161.00 ml Output Total 700 ml 500 ml Balance 1548 ml 661.00 ml IV Total 2248 ml 1161.00 ml Output Urine Total 700 ml 500 ml Laboratory Tests 11/26/17 05:55: White Blood Count 6.1, Red Blood Count 2.99L, Hemoglobin 10.4L, Hematocrit 29.7L , Mean Corpuscular Volume 99, Mean Corpuscular Hemoglobin 34.8H, Mean Corpuscular Hemoglobin Concent 35.0, Red Cell Distribution Width 10.4L, Platelet Count 124L, Mean Platelet Volume 6.5, Neutrophils (%) (Auto) 81.2H, Lymphocytes (%) (Auto) 9.4L, Monocytes (%) (Auto) 6.1, Eosinophils (%) (Auto) 2.7, Basophils (%) (Auto) 0.6, Sodium Level 143, Potassium Level 3.0L, Chloride Level 112H, Carbon Dioxide Level 23, Anion Gap 8, Blood Urea Nitrogen 5L, Creatinine 0.8, Estimat Glomerular Filtration Rate , Glucose Level 128H, Calcium Level 10.5H, RBC Folate Hemolysate [Pending], Red Blood Cell Folate [ Pending] Height (Feet): 5 Height (Inches): 4.00 Weight (Pounds): 115 General Appearance: no apparent distress, alert, confused, agitated Lacey Matthews MD Nov 26, 2017 13:57
--- NOTE | 2017-11-26 16:55 | Neurology Progress Note ---
Interim History Interim History Interim History Ms. Bernardo feels better. She is awake but not alert. She is more responsive today. She feels stronger. She continues to be cognitively impoverished. Review of Systems Neuro Review of Systems Unable to obtain. Objective Physical Exam Last Vital Signs Date Time Temp Pulse Resp B/P (MAP) Pulse Ox O2 Delivery O2 Flow Rate FiO2 11/26/17 16:02 82 146/65 11/26/17 14:00 19 99 11/26/17 12:00 98.9 98.9 11/26/17 12:00 Room Air Laboratory Tests Test 11/26/17 05:55 White Blood Count 6.1 K/UL (4.8-10.8) Red Blood Count 2.99 M/UL (4.20-5.40) L Hemoglobin 10.4 G/DL (12.0-16.0) L Hematocrit 29.7 % (37.0-47.0) L Mean Corpuscular Volume 99 FL (80-99) Mean Corpuscular Hemoglobin 34.8 PG (27.0-31.0) H Mean Corpuscular Hemoglobin Concent 35.0 G/DL (32.0-36.0) Red Cell Distribution Width 10.4 % (11.6-14.8) L Platelet Count 124 K/UL (150-450) L Mean Platelet Volume 6.5 FL (6.5-10.1) Neutrophils (%) (Auto) 81.2 % (45.0-75.0) H Lymphocytes (%) (Auto) 9.4 % (20.0-45.0) L Monocytes (%) (Auto) 6.1 % (1.0-10.0) Eosinophils (%) (Auto) 2.7 % (0.0-3.0) Basophils (%) (Auto) 0.6 % (0.0-2.0) Sodium Level 143 MMOL/L (136-145) Potassium Level 3.0 MMOL/L (3.5-5.1) L Chloride Level 112 MMOL/L (98-107) H Carbon Dioxide Level 23 MMOL/L (21-32) Anion Gap 8 mmol/L (5-15) Blood Urea Nitrogen 5 mg/dL (7-18) L Creatinine 0.8 MG/DL (0.55-1.30) Estimat Glomerular Filtration Rate mL/min (>60) Glucose Level 128 MG/DL (74-106) H Calcium Level 10.5 MG/DL (8.5-10.1) H RBC Folate Hemolysate Pending Red Blood Cell Folate Pending Neurologic Exam Objective PHYSICAL EXAMINATION: GENERAL: She is a well-developed, well-nourished, Bengali lady, lying in bed, in no acute distress. HEAD: Normocephalic and atraumatic. EENT: Examination benign. NECK: No neck rigidity was observed. NEUROLOGICAL EXAMINATION: MENTAL STATUS EXAMINATION: She was awake but not completely alert. She was oriented to self only. Further mental status testing was impossible. SPEECH: She was mildly dysarthric. LANGUAGE: She was able to communicate but not perfectly even in Bengali. CRANIAL NERVE EXAMINATION: II: She was able to count fingers. III, IV & : The external ocular movements were full. The pupils were 3 mm in diameter, equal, round, regular, and reactive sluggishly to light. V & VII: The corneal reflexes were present bilaterally. VIII: She was able to hear and had no nystagmus. IX: The palate moved symmetrically on phonation. X: She had no hoarseness of voice. XI: The sternocleidomastoids and trapezii functioned normally. XII: The tongue was in the midline without any fasciculations or atrophy. MOTOR SYSTEM: The tone was normal in all four extremities. Examination of muscle mass revealed no focal wasting. Examination of power was impossible to perform on individual muscle groups, however, she move all four extremities with good power. SENSORY EXAMINATION: She responded appropriately to light touch. She was unable to cooperate for other sensory modalities. REFLEXES: 0 at the biceps, triceps, brachioradialis, knees, and ankles. The plantar responses were flexor bilaterally. COORDINATION, STANCE & GAIT: Could not be tested. Impression/Recommendations Diagnostic Impression 1. Ms. Chelly Bernardo is a 72-year-old, Bengali lady, of unknown handedness, who does have a past history of hypertension and diabetes mellitus, who was hospitalized on 11/21/2017 for an episode of severe hypoglycemia with her blood sugars in the 20s. Since she has been here, she has also been exhibiting significantly elevated blood pressures. Her mental state continues to be quite altered. 2. She feels better. She is awake but not alert. She is more responsive today. She feels stronger. She continues to be cognitively impoverished. 3. On neurological examination, at this time, she is awake but not completely alert. She is oriented to self only. Further mental status testing is impossible. She is mildly dysarthric. She is able to communicate but not perfectly even in Bengali. She does not demonstrate any focal or lateralizing neurological findings. 4. The CT scan of the brain performed on 11/22/2017 revealed atrophy, but no acute pathology. 5. Laboratory data obtained thus far have revealed that she is mildly anemic., has a borderline low B12 level, and a low folate level but otherwise normal laboratory data. 6. The EEG done on 11/25/17 revealed a moserate metabolic encephalopathy. 7. The patient's history, neurological examination, imaging studies, and laboratory data are most compatible with an encephalopathy most probably due to a hypoglycemic brain insult and in addition, significant hypertension. Her encephalopathy is improving. Recommendations 1. The patient's blood pressure should be brought down into the physiological range. 2. Continue to correct the patient's fluids and electrolytes. 3. Folic acid 1 mg via NGT q day. 4. The patient should be given vitamin B12 1000 mcg SC daily for the next 3 days and then monthly. 5. Await MRI scan of brain. Betina Osullivan M.D., M.S.P.BETINA KAY Nov 26, 2017 16:55
[2017-11-26] MEDS: Enoxaparin 40mg Inj SUBQ SCH (17:43)
[2017-11-26] MEDS ORDERED: Dextrose 10% 1,000 ML IV PRN (20:00)
[2017-11-26] MEDS ORDERED: Tpn 2,000 ML IV SCH (21:00)
[2017-11-26] MEDS: Atorvastatin 20mg tab ORAL SCH (21:52)
--- NOTE | 2017-11-26 23:00 | Electroencephalogram ---
DATE OF PROCEDURE: 11/25/2017 REQUESTING PHYSICIAN: Vinh Winston M.D. READING PHYSICIAN: Jeff Osullivan M.D. PROCEDURE PERFORMED: Electroencephalogram. HISTORY: This EEG was performed on a 72-year-old lady with a history of severe hypoglycemia followed by poor responsiveness. The purpose of this EEG was to evaluate the patient for the degree and type of cerebral dysfunction. TECHNICAL NOTE: This EEG was performed on a [employer] Unit with electrodes placed on the scalp according to the International 10-20 system. [id number] and [id number] montages were used. The EEG was technically satisfactory and was performed predominantly while the patient was either drowsy or sleeping with brief periods of arousal. OBSERVATIONS: In the best awake state, the background activity consisted of 5-6 Hz posterior rhythmic theta activity. Drowsiness was characterized by slowing of the background predominantly in the 4-5 hertz theta and 1.5-2 Hz delta range. During drowsiness, triphasic waveforms with an anterior to posterior gradient were seen. Stage II sleep was characterized by further slowing of the background predominantly in the delta range with some intermixed theta frequencies and continued triphasic waveforms. No definite focal abnormalities or epileptiform discharges were seen. IMPRESSION: This is an abnormal EEG characterized by: 1. Slowing of the background in the 5-6 Hz theta range in the best awake state. 2. The presence of triphasic waveforms with an anterior to posterior gradient seen during drowsiness and sleep. COMMENT: This study is consistent with an encephalopathy of a moderate degree most probably with a metabolic component as evidenced by the triphasic waveforms. Jeff Osullivan M.D., M.S.P.H. DR: NII JOB#: [id number] [facility]
[2017-11-27] VITALS (37 sets, daily range): BP systolic 118–176; BP diastolic 47–120
[2017-11-27] MEDS: Labetalol 5mg/ml 20ml vial IV SCH ×6 (01:21→20:48)
[2017-11-27 06:10] LABS: ANION GAP 7 mmol/L (5-15); BLOOD UREA NITROGEN 11 mg/dL (7-18); CALCIUM 10.6 MG/DL (8.5-10.1); CARBON DIOXIDE 23 MMOL/L (21-32); CHLORIDE 110 MMOL/L (98-107); CREATININE 0.7 MG/DL (0.55-1.30); POTASSIUM 3.6 MMOL/L (3.5-5.1); SODIUM 140 MMOL/L (136-145)
[2017-11-27] MEDS: NovoLOG Insulin Flexpen SUBQ SCH ×4 (06:17→20:57)
--- NOTE | 2017-11-27 08:34 | Nephrology Progress Note ---
Assessment/Plan Assessment/Plan A/P 1) HTN Urgency- resolved. BP at goal 2) S/P Fall- CT Head negative - licensed clinical social worker to evaluate home at discharge and HH vs SNF - MRI HEad pending 3) Sacral pain- X-rays negative 4) DVT prophylaxsis with SCDs 5) Hypokalemia- corrected 6) Encephalopathy- appreciate Neuro and PSY - patient has been confused at home prior to hospitilization - BP at goal , MRI Head pending. Patient less confused 7) Hypercal- elevated PTH, possible P-HPT- will d/w Gen Surgery Subjective Date patient seen: Nov 27, 2017 Time patient seen: 08:32 ROS Limited/Unobtainable: Yes Allergies: Coded Allergies: No Known Allergies (Unverified , 11/21/17) Subjective Patient more awake and more coherent today. Less confused Objective Last 24 Hour Vital Signs Date Time Temp Pulse Resp B/P (MAP) Pulse Ox O2 Delivery O2 Flow Rate FiO2 11/27/17 08:00 98.2 78 22 138/55 (82) 97 98.2 11/27/17 07:30 78 15 125/49 (74) 98 11/27/17 07:00 80 16 122/47 (72) 100 11/27/17 06:30 88 20 155/59 (91) 100 11/27/17 06:00 78 19 160/59 (92) 100 11/27/17 06:00 79 19 161/70 (100) 100 11/27/17 05:30 75 15 155/70 (98) 99 11/27/17 05:00 84 135/56 11/27/17 05:00 75 15 163/61 (95) 99 11/27/17 04:30 88 17 169/66 (100) 99 11/27/17 04:00 98.0 84 22 135/56 (82) 100 98.0 11/27/17 04:00 Room Air 11/27/17 04:00 85 11/27/17 03:30 80 17 142/69 (93) 99 11/27/17 03:00 83 19 154/73 (100) 99 11/27/17 02:30 84 19 145/63 (90) 99 11/27/17 02:00 81 15 153/61 (91) 99 11/27/17 01:30 82 15 139/59 (85) 99 11/27/17 01:21 82 143/63 11/27/17 01:00 87 16 141/66 (91) 99 11/27/17 00:30 78 17 131/61 (84) 99 11/27/17 00:00 Room Air 11/27/17 00:00 98.7 81 15 125/54 (77) 97 98.7 11/27/17 00:00 79 11/26/17 23:30 79 14 137/65 (89) 99 11/26/17 23:00 76 18 131/54 (79) 99 11/26/17 22:30 75 15 139/68 (91) 98 11/26/17 22:00 76 16 131/52 (78) 98 11/26/17 21:53 75 135/56 11/26/17 21:52 135/56 11/26/17 21:51 85 135/56 11/26/17 21:30 82 18 125/68 (87) 98 11/26/17 21:00 72 19 137/49 (78) 98 11/26/17 20:30 76 17 127/50 (75) 98 11/26/17 20:00 75 17 135/54 (81) 97 11/26/17 20:00 85 11/26/17 20:00 Room Air 11/26/17 19:30 84 19 132/58 (82) 97 11/26/17 19:00 98.2 80 18 119/59 (79) 98 98.2 11/26/17 18:45 99.1 82 18 122/73 (89) 98 99.1 11/26/17 18:30 82 18 133/63 (86) 98 11/26/17 18:15 83 18 122/56 (78) 97 11/26/17 18:00 83 22 135/58 (83) 97 11/26/17 17:57 82 154/64 11/26/17 17:49 82 154/64 11/26/17 17:45 83 22 154/64 (94) 97 11/26/17 17:30 82 22 125/68 (87) 98 11/26/17 17:15 82 20 133/81 (98) 98 11/26/17 17:00 82 23 135/75 (95) 98 11/26/17 16:45 82 23 129/76 (93) 99 11/26/17 16:30 98.9 82 20 152/72 (98) 98 98.9 11/26/17 16:02 82 146/65 11/26/17 16:00 81 18 146/65 (92) 97 11/26/17 16:00 Room Air 11/26/17 16:00 82 11/26/17 15:45 82 20 150/75 (100) 98 11/26/17 15:30 81 20 157/68 (97) 98 11/26/17 15:15 82 18 164/71 (102) 98 11/26/17 15:00 81 17 172/66 (101) 98 11/26/17 14:45 82 17 146/57 (86) 98 11/26/17 14:30 82 18 148/63 (91) 99 11/26/17 14:17 82 155/64 11/26/17 14:15 82 17 155/64 (94) 99 11/26/17 14:00 83 19 156/67 (96) 99 11/26/17 13:45 82 18 172/70 (104) 99 11/26/17 13:30 83 19 160/64 (96) 81 11/26/17 13:27 82 152/63 11/26/17 13:15 82 20 152/63 (92) 92 11/26/17 13:00 81 19 154/72 (99) 94 11/26/17 12:45 80 18 147/68 (94) 90 11/26/17 12:30 81 19 148/64 (92) 91 11/26/17 12:15 80 18 156/70 (98) 92 11/26/17 12:00 98.9 78 16 153/66 (95) 96 98.9 11/26/17 12:00 Room Air 11/26/17 12:00 82 11/26/17 11:45 80 18 136/70 (92) 99 11/26/17 11:30 84 19 127/79 (95) 99 11/26/17 11:15 83 18 103/56 (72) 99 11/26/17 11:00 82 19 150/68 (95) 99 11/26/17 10:56 84 162/74 11/26/17 10:56 162/74 11/26/17 10:45 83 16 162/74 (103) 98 11/26/17 10:30 83 17 160/73 (102) 98 11/26/17 10:15 80 14 165/68 (100) 98 11/26/17 10:00 81 15 149/72 (97) 98 11/26/17 09:45 80 16 157/70 (99) 99 11/26/17 09:30 79 15 139/66 (90) 99 11/26/17 09:26 78 138/66 11/26/17 09:15 82 18 138/66 (90) 99 11/26/17 09:00 77 15 153/72 (99) 98 11/26/17 08:54 72 157/68 Intake and Output 11/26/17 11/27/17 19:00 07:00 Intake Total 1014.75 ml 597 ml Output Total 950 ml 700 ml Balance 64.75 ml -103 ml Free Water 30 ml IV Total 804.75 ml 87 ml Tube Feeding 180 ml 420 ml Other 90 ml Output Urine Total 950 ml 700 ml # Bowel Movements 1 Laboratory Tests 11/27/17 05:29: Sodium Level 140, Potassium Level 3.6, Chloride Level 110H, Carbon Dioxide Level 23, Anion Gap 7, Blood Urea Nitrogen 11, Creatinine 0.7, Estimat Glomerular Filtration Rate , Glucose Level 164H, Calcium Level 10.6H Height (Feet): 5 Height (Inches): 4.00 Weight (Pounds): 113 General Appearance: no apparent distress, lethargic EENT: normal ENT inspection Neck: normal alignment, supple Cardiovascular: normal rate, regular rhythm Respiratory/Chest: lungs clear, normal breath sounds Abdomen: non tender, soft Edema: no edema noted Arm (L), no edema noted Arm (R), no edema noted Leg (L), no edema noted Leg (R), no edema noted Pedal (L), no edema noted Pedal (R), no edema noted Generalized Vinh Winston MD Nov 27, 2017 08:34
[2017-11-27] MEDS: Metoprolol 25mg tab ORAL SCH ×2 (09:06→20:49)
[2017-11-27] MEDS: Losartan 25mg tab ORAL SCH ×2 (09:07→20:48)
[2017-11-27] MEDS: Vitamin B12 1000mcg/ml Inj SUBQ SCH (09:07)
--- NOTE | 2017-11-27 10:35 | GI Progress Note ---
Assessment/Plan Problems: (1) Abdominal pain ICD Codes: R10.9 - Unspecified abdominal pain SNOMED: 18717382 Qualifiers: Qualified Codes: R10.13 - Epigastric pain (2) Hypoglycemia associated with type 2 diabetes mellitus ICD Codes: E11.649 - Type 2 diabetes mellitus with hypoglycemia without coma SNOMED: 91778172, 930066411 (3) Encephalopathy acute ICD Codes: G93.40 - Encephalopathy, unspecified SNOMED: 23825629, 364412719 Status: stable Status Narrative Discussed with Dr. Alegre. Assessment/Plan Assessment - HTN - hypoglycemia - mild macrocytic anemia - hypokalemia - no N/V/D Recommendations - NGTFs - symptomatic treatment - push PO - DM management - zofran prn - prn transfusions - fu labs The patient was seen and examined at bedside and all new and available data was reviewed in the patients chart. I agree with the above findings, impression and plan. (Patient seen earlier today. Signature stamp does not reflect patient encounter time.). - Mayito Alegre MD Subjective Subjective limited Objective Last 24 Hour Vital Signs Date Time Temp Pulse Resp B/P (MAP) Pulse Ox O2 Delivery O2 Flow Rate FiO2 11/27/17 09:08 82 152/58 11/27/17 09:07 152/58 11/27/17 09:06 83 152/58 11/27/17 08:30 78 31 146/54 (84) 99 11/27/17 08:00 98.2 78 22 138/55 (82) 97 98.2 11/27/17 08:00 78 11/27/17 07:30 78 15 125/49 (74) 98 11/27/17 07:00 80 16 122/47 (72) 100 11/27/17 06:30 88 20 155/59 (91) 100 11/27/17 06:00 78 19 160/59 (92) 100 11/27/17 06:00 79 19 161/70 (100) 100 11/27/17 05:30 75 15 155/70 (98) 99 11/27/17 05:00 84 135/56 11/27/17 05:00 75 15 163/61 (95) 99 11/27/17 04:30 88 17 169/66 (100) 99 11/27/17 04:00 98.0 84 22 135/56 (82) 100 98.0 11/27/17 04:00 Room Air 11/27/17 04:00 85 11/27/17 03:30 80 17 142/69 (93) 99 11/27/17 03:00 83 19 154/73 (100) 99 11/27/17 02:30 84 19 145/63 (90) 99 11/27/17 02:00 81 15 153/61 (91) 99 11/27/17 01:30 82 15 139/59 (85) 99 11/27/17 01:21 82 143/63 11/27/17 01:00 87 16 141/66 (91) 99 11/27/17 00:30 78 17 131/61 (84) 99 11/27/17 00:00 Room Air 11/27/17 00:00 98.7 81 15 125/54 (77) 97 98.7 11/27/17 00:00 79 11/26/17 23:30 79 14 137/65 (89) 99 11/26/17 23:00 76 18 131/54 (79) 99 11/26/17 22:30 75 15 139/68 (91) 98 11/26/17 22:00 76 16 131/52 (78) 98 11/26/17 21:53 75 135/56 11/26/17 21:52 135/56 11/26/17 21:51 85 135/56 11/26/17 21:30 82 18 125/68 (87) 98 11/26/17 21:00 72 19 137/49 (78) 98 11/26/17 20:30 76 17 127/50 (75) 98 11/26/17 20:00 75 17 135/54 (81) 97 11/26/17 20:00 85 11/26/17 20:00 Room Air 11/26/17 19:30 84 19 132/58 (82) 97 11/26/17 19:00 98.2 80 18 119/59 (79) 98 98.2 11/26/17 18:45 99.1 82 18 122/73 (89) 98 99.1 11/26/17 18:30 82 18 133/63 (86) 98 11/26/17 18:15 83 18 122/56 (78) 97 11/26/17 18:00 83 22 135/58 (83) 97 11/26/17 17:57 82 154/64 11/26/17 17:49 82 154/64 11/26/17 17:45 83 22 154/64 (94) 97 11/26/17 17:30 82 22 125/68 (87) 98 11/26/17 17:15 82 20 133/81 (98) 98 11/26/17 17:00 82 23 135/75 (95) 98 11/26/17 16:45 82 23 129/76 (93) 99 11/26/17 16:30 98.9 82 20 152/72 (98) 98 98.9 11/26/17 16:02 82 146/65 11/26/17 16:00 81 18 146/65 (92) 97 11/26/17 16:00 Room Air 11/26/17 16:00 82 11/26/17 15:45 82 20 150/75 (100) 98 11/26/17 15:30 81 20 157/68 (97) 98 11/26/17 15:15 82 18 164/71 (102) 98 11/26/17 15:00 81 17 172/66 (101) 98 11/26/17 14:45 82 17 146/57 (86) 98 11/26/17 14:30 82 18 148/63 (91) 99 11/26/17 14:17 82 155/64 11/26/17 14:15 82 17 155/64 (94) 99 11/26/17 14:00 83 19 156/67 (96) 99 11/26/17 13:45 82 18 172/70 (104) 99 11/26/17 13:30 83 19 160/64 (96) 81 11/26/17 13:27 82 152/63 11/26/17 13:15 82 20 152/63 (92) 92 11/26/17 13:00 81 19 154/72 (99) 94 11/26/17 12:45 80 18 147/68 (94) 90 11/26/17 12:30 81 19 148/64 (92) 91 11/26/17 12:15 80 18 156/70 (98) 92 11/26/17 12:00 98.9 78 16 153/66 (95) 96 98.9 11/26/17 12:00 Room Air 11/26/17 12:00 82 11/26/17 11:45 80 18 136/70 (92) 99 11/26/17 11:30 84 19 127/79 (95) 99 11/26/17 11:15 83 18 103/56 (72) 99 11/26/17 11:00 82 19 150/68 (95) 99 11/26/17 10:56 84 162/74 11/26/17 10:56 162/74 11/26/17 10:45 83 16 162/74 (103) 98 Intake and Output 11/26/17 11/27/17 19:00 07:00 Intake Total 1014.75 ml 597 ml Output Total 950 ml 700 ml Balance 64.75 ml -103 ml Free Water 30 ml IV Total 804.75 ml 87 ml Tube Feeding 180 ml 420 ml Other 90 ml Output Urine Total 950 ml 700 ml # Bowel Movements 1 Laboratory Tests Test 11/27/17 05:29 Sodium Level 140 MMOL/L (136-145) Potassium Level 3.6 MMOL/L (3.5-5.1) Chloride Level 110 MMOL/L (98-107) H Carbon Dioxide Level 23 MMOL/L (21-32) Anion Gap 7 mmol/L (5-15) Blood Urea Nitrogen 11 mg/dL (7-18) Creatinine 0.7 MG/DL (0.55-1.30) Estimat Glomerular Filtration Rate mL/min (>60) Glucose Level 164 MG/DL (74-106) H Calcium Level 10.6 MG/DL (8.5-10.1) H Height (Feet): 5 Height (Inches): 4.00 Weight (Pounds): 113 General Appearance: alert Cardiovascular: normal rate Respiratory/Chest: normal breath sounds, no respiratory distress Abdominal Exam: soft Fatou Santos VETERINARY RECEPTIONIST Nov 27, 2017 10:35
[2017-11-27] MEDS: LORazepam Inj 2mg/ml 1ml IV PRN ×2 (12:06→20:49)
--- NOTE | 2017-11-27 12:43 | General Progress Note ---
Assessment/Plan Problem List: (1) Encephalopathy acute ICD Codes: G93.40 - Encephalopathy, unspecified SNOMED: 44607051, [id number] Status: stable, progressing Assessment/Plan increase Seroquel 25 mg q 6hr restraints soft Subjective Neurologic/Psychiatric: Reports: anxiety, depressed Allergies: Coded Allergies: No Known Allergies (Unverified , 11/21/17) Subjective the pt is doing well more coherent Objective Last 24 Hour Vital Signs Date Time Temp Pulse Resp B/P (MAP) Pulse Ox O2 Delivery O2 Flow Rate FiO2 11/27/17 12:00 86 11/27/17 12:00 99.4 85 19 167/67 (100) 98 99.4 11/27/17 12:00 Room Air 11/27/17 11:30 83 22 156/76 (102) 98 11/27/17 11:00 83 19 151/60 (90) 98 11/27/17 10:30 84 21 155/67 (96) 98 11/27/17 10:00 83 20 176/60 (98) 98 11/27/17 09:30 78 18 154/63 (93) 98 11/27/17 09:08 82 152/58 11/27/17 09:07 152/58 11/27/17 09:06 83 152/58 11/27/17 09:00 82 19 152/58 (89) 98 11/27/17 08:30 78 31 146/54 (84) 99 11/27/17 08:15 78 15 138/55 (82) 98 11/27/17 08:00 Room Air 11/27/17 08:00 98.2 78 22 138/55 (82) 97 98.2 11/27/17 08:00 78 11/27/17 07:30 78 15 125/49 (74) 98 11/27/17 07:00 80 16 122/47 (72) 100 11/27/17 06:30 88 20 155/59 (91) 100 11/27/17 06:00 78 19 160/59 (92) 100 11/27/17 06:00 79 19 161/70 (100) 100 11/27/17 05:30 75 15 155/70 (98) 99 11/27/17 05:00 84 135/56 11/27/17 05:00 75 15 163/61 (95) 99 11/27/17 04:30 88 17 169/66 (100) 99 11/27/17 04:00 98.0 84 22 135/56 (82) 100 98.0 11/27/17 04:00 Room Air 11/27/17 04:00 85 11/27/17 03:30 80 17 142/69 (93) 99 11/27/17 03:00 83 19 154/73 (100) 99 11/27/17 02:30 84 19 145/63 (90) 99 11/27/17 02:00 81 15 153/61 (91) 99 11/27/17 01:30 82 15 139/59 (85) 99 11/27/17 01:21 82 143/63 11/27/17 01:00 87 16 141/66 (91) 99 11/27/17 00:30 78 17 131/61 (84) 99 11/27/17 00:00 Room Air 11/27/17 00:00 98.7 81 15 125/54 (77) 97 98.7 11/27/17 00:00 79 11/26/17 23:30 79 14 137/65 (89) 99 11/26/17 23:00 76 18 131/54 (79) 99 11/26/17 22:30 75 15 139/68 (91) 98 11/26/17 22:00 76 16 131/52 (78) 98 11/26/17 21:53 75 135/56 11/26/17 21:52 135/56 11/26/17 21:51 85 135/56 11/26/17 21:30 82 18 125/68 (87) 98 11/26/17 21:00 72 19 137/49 (78) 98 11/26/17 20:30 76 17 127/50 (75) 98 11/26/17 20:00 75 17 135/54 (81) 97 11/26/17 20:00 85 11/26/17 20:00 Room Air 11/26/17 19:30 84 19 132/58 (82) 97 11/26/17 19:00 98.2 80 18 119/59 (79) 98 98.2 11/26/17 18:45 99.1 82 18 122/73 (89) 98 99.1 11/26/17 18:30 82 18 133/63 (86) 98 11/26/17 18:15 83 18 122/56 (78) 97 11/26/17 18:00 83 22 135/58 (83) 97 11/26/17 17:57 82 154/64 11/26/17 17:49 82 154/64 11/26/17 17:45 83 22 154/64 (94) 97 11/26/17 17:30 82 22 125/68 (87) 98 11/26/17 17:15 82 20 133/81 (98) 98 11/26/17 17:00 82 23 135/75 (95) 98 11/26/17 16:45 82 23 129/76 (93) 99 11/26/17 16:30 98.9 82 20 152/72 (98) 98 98.9 11/26/17 16:02 82 146/65 11/26/17 16:00 81 18 146/65 (92) 97 11/26/17 16:00 Room Air 11/26/17 16:00 82 11/26/17 15:45 82 20 150/75 (100) 98 11/26/17 15:30 81 20 157/68 (97) 98 11/26/17 15:15 82 18 164/71 (102) 98 11/26/17 15:00 81 17 172/66 (101) 98 11/26/17 14:45 82 17 146/57 (86) 98 11/26/17 14:30 82 18 148/63 (91) 99 11/26/17 14:17 82 155/64 11/26/17 14:15 82 17 155/64 (94) 99 11/26/17 14:00 83 19 156/67 (96) 99 11/26/17 13:45 82 18 172/70 (104) 99 11/26/17 13:30 83 19 160/64 (96) 81 11/26/17 13:27 82 152/63 11/26/17 13:15 82 20 152/63 (92) 92 11/26/17 13:00 81 19 154/72 (99) 94 11/26/17 12:45 80 18 147/68 (94) 90 Intake and Output 11/26/17 11/27/17 19:00 07:00 Intake Total 1014.75 ml 597 ml Output Total 950 ml 700 ml Balance 64.75 ml -103 ml Free Water 30 ml IV Total 804.75 ml 87 ml Tube Feeding 180 ml 420 ml Other 90 ml Output Urine Total 950 ml 700 ml # Bowel Movements 1 Laboratory Tests 11/27/17 05:29: Sodium Level 140, Potassium Level 3.6, Chloride Level 110H, Carbon Dioxide Level 23, Anion Gap 7, Blood Urea Nitrogen 11, Creatinine 0.7, Estimat Glomerular Filtration Rate , Glucose Level 164H, Calcium Level 10.6H Height (Feet): 5 Height (Inches): 4.00 Weight (Pounds): 113 General Appearance: no apparent distress, alert, confused Lacey Matthews MD Nov 27, 2017 12:43
--- NOTE | 2017-11-27 15:41 | Diagnostic Imaging Report ---
Indication: Altered level of consciousness Technique: The head was imaged in a 1.5 Jodi magnet. Sequences obtained include sagittal and axial T1 FLAIR, axial T2 FLAIR, diffusion and ADC map. Comparison: None Findings: There is moderate prominence of the sulci, ventricles, and basal cisterns consistent with atrophy. Moderate, nonspecific T2 hyperintensity noted within white matter. This may be due to chronic small vessel disease. There is no restricted diffusion. Hubbard-white differentiation is normal. There is no mass effect, midline shift, edema, or hemorrhage. There are no abnormal extra-axial or intra-axial fluid collections. The corpus callosum and sella are unremarkable. The brainstem and cerebellum are unremarkable. Bone marrow signal within the visualized osseous structures appears age appropriate and unremarkable otherwise. Impression: No acute intracranial findings. Moderate atrophy and evidence of chronic small vessel disease involving white matter tracts. Motion artifacts
--- NOTE | 2017-11-27 15:51 | Pulmonolgy Critical Care Note ---
Critical Care - Asmt/Plan Assessment/Plan: Assessment/Plan IMPRESSION ALOC DM Hypertensive Urgency S/P fall hypercalemia trace pleural effusion, not significant mild anemia PLAN ICU care reviewed changes noted monitor for aspiration supportive care medications/laboratory data/nursing notes/ICU care reviewed in detail note reviewed and edited care discussed with RN and RT Subjective Allergies: Coded Allergies: No Known Allergies (Unverified , 11/21/17) Subjective less altered Objective Last 24 Hour Vital Signs Date Time Temp Pulse Resp B/P (MAP) Pulse Ox O2 Delivery O2 Flow Rate FiO2 11/25/17 12:30 78 17 142/61 (88) 98 11/25/17 12:15 78 17 168/69 (102) 98 11/25/17 12:01 78 170/72 11/25/17 12:00 78 17 150/70 (96) 99 11/25/17 11:45 79 17 174/72 (106) 98 11/25/17 11:36 80 174/76 11/25/17 11:30 80 18 174/72 (106) 99 11/25/17 11:15 81 19 162/66 (98) 99 11/25/17 11:00 81 18 160/88 (112) 99 11/25/17 10:45 82 19 163/72 (102) 99 11/25/17 10:30 82 19 147/92 (110) 99 11/25/17 10:15 82 17 170/76 (107) 99 11/25/17 10:00 82 19 155/65 (95) 98 11/25/17 09:56 84 163/71 11/25/17 09:45 84 21 163/71 (101) 99 11/25/17 09:30 85 20 175/85 (115) 99 11/25/17 09:23 89 189/76 11/25/17 09:20 185/76 11/25/17 09:19 95 185/76 11/25/17 09:15 86 21 185/76 (112) 99 11/25/17 09:00 85 21 178/74 (108) 99 11/25/17 08:30 83 20 164/75 (104) 98 11/25/17 08:00 82 20 164/106 (125) 99 11/25/17 07:30 97.7 86 20 175/81 (112) 97 97.7 11/25/17 07:00 81 19 181/69 (106) 99 11/25/17 06:30 98.1 83 19 157/74 (101) 99 98.1 11/25/17 06:00 81 19 160/89 (112) 99 11/25/17 05:44 88 173/46 11/25/17 05:30 83 19 173/46 (88) 99 11/25/17 05:20 77 163/70 11/25/17 05:00 80 19 163/70 (101) 99 11/25/17 04:30 80 19 167/69 (101) 99 11/25/17 04:00 81 19 149/67 (94) 99 11/25/17 04:00 Room Air 11/25/17 04:00 83 11/25/17 03:30 81 19 152/66 (94) 99 11/25/17 03:00 81 19 150/73 (98) 99 11/25/17 02:30 81 19 152/73 (99) 99 11/25/17 02:00 78 19 150/80 (103) 99 11/25/17 01:30 77 19 164/99 (120) 99 11/25/17 01:12 77 132/57 11/25/17 01:00 76 19 154/61 (92) 99 11/25/17 00:30 76 19 132/57 (82) 99 11/25/17 00:00 Room Air 11/25/17 00:00 Room Air 11/25/17 00:00 98.9 76 19 138/60 (86) 99 98.9 11/25/17 00:00 80 11/25/17 00:00 83 11/24/17 23:30 76 19 144/65 (91) 99 11/24/17 23:00 76 19 132/66 (88) 99 11/24/17 22:30 76 19 139/61 (87) 99 11/24/17 22:04 78 132/61 11/24/17 22:00 78 19 151/64 (93) 99 11/24/17 21:30 81 19 142/80 (100) 99 11/24/17 21:00 80 169/72 11/24/17 21:00 81 19 164/99 (120) 99 11/24/17 20:30 81 19 169/72 (104) 99 11/24/17 20:00 Room Air 11/24/17 20:00 81 11/24/17 20:00 98.9 82 19 186/72 (110) 99 98.9 11/24/17 19:30 82 19 172/76 (108) 99 11/24/17 19:00 83 19 164/99 (120) 99 11/24/17 19:00 83 170/130 11/24/17 18:30 84 21 170/138 (149) 97 11/24/17 18:00 84 21 178/80 (112) 97 11/24/17 17:34 82 183/131 11/24/17 17:30 80 20 187/86 (119) 97 11/24/17 17:00 81 19 169/87 (114) 97 11/24/17 16:30 79 20 180/88 (118) 95 11/24/17 16:00 82 11/24/17 16:00 99.1 77 19 171/74 (106) 96 99.1 11/24/17 16:00 Room Air 11/24/17 15:30 78 21 188/77 (114) 96 11/24/17 15:00 77 21 192/73 (112) 97 11/24/17 14:30 80 20 174/78 (110) 97 11/24/17 14:00 79 19 174/78 (110) 98 11/24/17 13:30 80 18 169/77 (107) 97 11/24/17 13:06 84 159/90 11/24/17 13:00 82 19 159/90 (113) 98 Intake and Output 11/24/17 11/25/17 19:00 07:00 Intake Total 1644.00 ml 1574.25 ml Output Total 3 ml 350 ml Balance 1641.00 ml 1224.25 ml Intake Oral 0 ml IV Total 1584.00 ml 1574.25 ml Other 60 ml Output Urine Total 3 ml 350 ml Objective WDWN NAD reduced breath sounds bilaterally without rhonchi or wheeze [id number] without MRG NABS nontender no HSM no CCE altered Laboratory Tests 11/25/17 05:12: White Blood Count 4.4L, Red Blood Count 3.22L, Hemoglobin 11.4L, Hematocrit 32.0L, Mean Corpuscular Volume 99, Mean Corpuscular Hemoglobin 35.5H, Mean Corpuscular Hemoglobin Concent 35.8, Red Cell Distribution Width 10.3L, Platelet Count 133L, Mean Platelet Volume 5.9L, Neutrophils (%) (Auto) 68.4, Lymphocytes (%) (Auto) 21.0, Monocytes (%) (Auto) 6.2, Eosinophils (%) (Auto) 4.0H, Basophils (%) (Auto) 0.4, Erythrocyte Sedimentation Rate 27, Sodium Level 146H, Potassium Level 3.1L, Chloride Level 113H, Carbon Dioxide Level 24, Anion Gap 9, Blood Urea Nitrogen 4L, Creatinine 0.7, Estimat Glomerular Filtration Rate , Glucose Level 113H, Hemoglobin A1c 5.4, Calcium Level 10.3H, Total Bilirubin 0.8, Direct Bilirubin 0.2, Aspartate Amino Transf (AST/SGOT) 14L, Alanine Aminotransferase (ALT/SGPT) 13, Alkaline Phosphatase 53, Total Protein 5.1L, Albumin 2.4L, Amylase Level 29, Lipase 55L, Vitamin D 25-Hydroxy [Pending] , 25-Hydroxy Vitamin D2 [Pending], 25-Hydroxy Vitamin D3 [Pending], Folate 3.3L , Thyroid Stimulating Hormone (TSH) 1.051, Cortisol AM Sample 14.1, Rapid Plasma Reagin [Pending] Current Medications Medications (Trade) Dose Ordered Sig/Atilio Route PRN Reason Start Time Stop Time Status Last Admin Dose Admin Acetaminophen (Tylenol) 650 mg Q4H PRN ORAL Mild Pain (Pain Scale 1-3) 11/22/17 08:59 12/21/17 08:58 Atorvastatin Calcium (Lipitor) 40 mg QHS ORAL 11/22/17 21:00 12/21/17 20:59 11/24/17 21:00 Clonidine HCl (Catapres Tab) 0.1 mg Q6H PRN ORAL For High Blood Pressure 11/22/17 09:00 12/21/17 08:59 Dextrose (Dextrose 50%) 25 ml Q1H PRN IV Hypoglycemia 11/22/17 09:15 Dextrose (Dextrose 50%) 50 ml Q1H PRN IV hypoglycemia 11/22/17 09:15 Diphenhydramine HCl (Benadryl) 25 mg Q3H PRN IVP Itching 11/22/17 11:45 12/22/17 11:44 11/24/17 06:20 Enoxaparin Sodium (Lovenox) 40 mg Q24H SUBQ 11/22/17 17:30 12/21/17 17:29 11/24/17 17:36 Famotidine (Pepcid) 40 mg DAILY ORAL 11/22/17 09:00 12/22/17 08:59 11/25/17 09:20 Insulin Aspart (NovoLOG) BEFORE MEALS AND HS SUBQ 11/22/17 11:30 12/21/17 16:29 11/25/17 12:06 Labetalol HCl (Normodyne) 5 mg Q4H IV 11/23/17 09:00 12/23/17 08:59 11/25/17 12:01 Labetalol HCl 200 mg/Dextrose 290 ml @ 0 mls/hr Q24H IV 11/25/17 08:15 12/25/17 08:14 11/25/17 11:36 Lorazepam (Ativan 2mg/ml 1ml) 0.5 mg Q4H PRN IV For Anxiety 11/22/17 17:30 11/29/17 17:29 11/24/17 18:17 Losartan Potassium (Cozaar) 50 mg DAILY ORAL 11/23/17 09:00 12/23/17 08:59 11/25/17 09:20 Metoprolol Succinate (Toprol XL) 50 mg DAILY ORAL 11/23/17 09:00 12/23/17 08:59 11/25/17 09:23 Ondansetron HCl (Zofran) 4 mg Q6H PRN IVP Nausea & Vomiting 11/22/17 09:02 12/21/17 09:01 Quetiapine Fumarate (SEROquel) 25 mg EVERY 4 HOURS ORAL 11/25/17 13:00 12/25/17 12:59 Sodium Chloride 1,000 ml @ 75 mls/hr [id number] IV 11/22/17 17:30 12/22/17 17:29 11/25/17 12:01 Critical Care - Objective Last 24 Hour Vital Signs Date Time Temp Pulse Resp B/P (MAP) Pulse Ox O2 Delivery O2 Flow Rate FiO2 11/27/17 15:00 83 20 154/55 (88) 97 11/27/17 14:11 83 173/66 11/27/17 14:00 84 18 173/66 (101) 97 11/27/17 13:30 87 20 146/120 (129) 99 11/27/17 12:00 86 11/27/17 12:00 99.4 85 19 167/67 (100) 98 99.4 11/27/17 12:00 Room Air 11/27/17 11:30 83 22 156/76 (102) 98 11/27/17 11:00 83 19 151/60 (90) 98 11/27/17 10:30 84 21 155/67 (96) 98 11/27/17 10:00 83 20 176/60 (98) 98 11/27/17 09:30 78 18 154/63 (93) 98 11/27/17 09:08 82 152/58 11/27/17 09:07 152/58 11/27/17 09:06 83 152/58 11/27/17 09:00 82 19 152/58 (89) 98 11/27/17 08:30 78 31 146/54 (84) 99 11/27/17 08:15 78 15 138/55 (82) 98 11/27/17 08:00 Room Air 11/27/17 08:00 98.2 78 22 138/55 (82) 97 98.2 11/27/17 08:00 78 11/27/17 07:30 78 15 125/49 (74) 98 11/27/17 07:00 80 16 122/47 (72) 100 11/27/17 06:30 88 20 155/59 (91) 100 11/27/17 06:00 78 19 160/59 (92) 100 11/27/17 06:00 79 19 161/70 (100) 100 11/27/17 05:30 75 15 155/70 (98) 99 11/27/17 05:00 84 135/56 11/27/17 05:00 75 15 163/61 (95) 99 11/27/17 04:30 88 17 169/66 (100) 99 11/27/17 04:00 98.0 84 22 135/56 (82) 100 98.0 11/27/17 04:00 Room Air 11/27/17 04:00 85 11/27/17 03:30 80 17 142/69 (93) 99 11/27/17 03:00 83 19 154/73 (100) 99 11/27/17 02:30 84 19 145/63 (90) 99 11/27/17 02:00 81 15 153/61 (91) 99 11/27/17 01:30 82 15 139/59 (85) 99 11/27/17 01:21 82 143/63 11/27/17 01:00 87 16 141/66 (91) 99 11/27/17 00:30 78 17 131/61 (84) 99 11/27/17 00:00 Room Air 11/27/17 00:00 98.7 81 15 125/54 (77) 97 98.7 11/27/17 00:00 79 11/26/17 23:30 79 14 137/65 (89) 99 11/26/17 23:00 76 18 131/54 (79) 99 11/26/17 22:30 75 15 139/68 (91) 98 11/26/17 22:00 76 16 131/52 (78) 98 11/26/17 21:53 75 135/56 11/26/17 21:52 135/56 11/26/17 21:51 85 135/56 11/26/17 21:30 82 18 125/68 (87) 98 11/26/17 21:00 72 19 137/49 (78) 98 11/26/17 20:30 76 17 127/50 (75) 98 11/26/17 20:00 75 17 135/54 (81) 97 11/26/17 20:00 85 11/26/17 20:00 Room Air 11/26/17 19:30 84 19 132/58 (82) 97 11/26/17 19:00 98.2 80 18 119/59 (79) 98 98.2 11/26/17 18:45 99.1 82 18 122/73 (89) 98 99.1 11/26/17 18:30 82 18 133/63 (86) 98 11/26/17 18:15 83 18 122/56 (78) 97 11/26/17 18:00 83 22 135/58 (83) 97 11/26/17 17:57 82 154/64 11/26/17 17:49 82 154/64 11/26/17 17:45 83 22 154/64 (94) 97 11/26/17 17:30 82 22 125/68 (87) 98 11/26/17 17:15 82 20 133/81 (98) 98 11/26/17 17:00 82 23 135/75 (95) 98 11/26/17 16:45 82 23 129/76 (93) 99 11/26/17 16:30 98.9 82 20 152/72 (98) 98 98.9 11/26/17 16:02 82 146/65 11/26/17 16:00 81 18 146/65 (92) 97 11/26/17 16:00 Room Air 11/26/17 16:00 82 Accucheck: 212 Critical Care - Subjective ROS Limited/Unobtainable: No Tube Feeding Amount: 40 I&O: Intake and Output 11/26/17 11/27/17 19:00 07:00 Intake Total 1014.75 ml 597 ml Output Total 950 ml 700 ml Balance 64.75 ml -103 ml Free Water 30 ml IV Total 804.75 ml 87 ml Tube Feeding 180 ml 420 ml Other 90 ml Output Urine Total 950 ml 700 ml # Bowel Movements 1 Lupillo Huber MD Nov 27, 2017 15:50
--- NOTE | 2017-11-27 17:01 | General Surgery Progress Note ---
General Surgery-Progress Note Subjective Additional Comments no acute events. stable. Objective Last 24 Hour Vital Signs Date Time Temp Pulse Resp B/P (MAP) Pulse Ox O2 Delivery O2 Flow Rate FiO2 11/27/17 16:28 83 142/52 11/27/17 16:00 99.3 81 18 156/57 (90) 97 99.3 11/27/17 16:00 Room Air 11/27/17 16:00 84 11/27/17 15:00 83 20 154/55 (88) 97 11/27/17 14:11 83 173/66 11/27/17 14:00 84 18 173/66 (101) 97 11/27/17 13:30 87 20 146/120 (129) 99 11/27/17 12:00 86 11/27/17 12:00 99.4 85 19 167/67 (100) 98 99.4 11/27/17 12:00 Room Air 11/27/17 11:30 83 22 156/76 (102) 98 11/27/17 11:00 83 19 151/60 (90) 98 11/27/17 10:30 84 21 155/67 (96) 98 11/27/17 10:00 83 20 176/60 (98) 98 11/27/17 09:30 78 18 154/63 (93) 98 11/27/17 09:08 82 152/58 11/27/17 09:07 152/58 11/27/17 09:06 83 152/58 11/27/17 09:00 82 19 152/58 (89) 98 11/27/17 08:30 78 31 146/54 (84) 99 11/27/17 08:15 78 15 138/55 (82) 98 11/27/17 08:00 Room Air 11/27/17 08:00 98.2 78 22 138/55 (82) 97 98.2 11/27/17 08:00 78 11/27/17 07:30 78 15 125/49 (74) 98 11/27/17 07:00 80 16 122/47 (72) 100 11/27/17 06:30 88 20 155/59 (91) 100 11/27/17 06:00 78 19 160/59 (92) 100 11/27/17 06:00 79 19 161/70 (100) 100 11/27/17 05:30 75 15 155/70 (98) 99 11/27/17 05:00 84 135/56 11/27/17 05:00 75 15 163/61 (95) 99 11/27/17 04:30 88 17 169/66 (100) 99 11/27/17 04:00 98.0 84 22 135/56 (82) 100 98.0 11/27/17 04:00 Room Air 11/27/17 04:00 85 11/27/17 03:30 80 17 142/69 (93) 99 11/27/17 03:00 83 19 154/73 (100) 99 11/27/17 02:30 84 19 145/63 (90) 99 11/27/17 02:00 81 15 153/61 (91) 99 11/27/17 01:30 82 15 139/59 (85) 99 11/27/17 01:21 82 143/63 11/27/17 01:00 87 16 141/66 (91) 99 11/27/17 00:30 78 17 131/61 (84) 99 11/27/17 00:00 Room Air 11/27/17 00:00 98.7 81 15 125/54 (77) 97 98.7 11/27/17 00:00 79 11/26/17 23:30 79 14 137/65 (89) 99 11/26/17 23:00 76 18 131/54 (79) 99 11/26/17 22:30 75 15 139/68 (91) 98 11/26/17 22:00 76 16 131/52 (78) 98 11/26/17 21:53 75 135/56 11/26/17 21:52 135/56 11/26/17 21:51 85 135/56 11/26/17 21:30 82 18 125/68 (87) 98 11/26/17 21:00 72 19 137/49 (78) 98 11/26/17 20:30 76 17 127/50 (75) 98 11/26/17 20:00 75 17 135/54 (81) 97 11/26/17 20:00 85 11/26/17 20:00 Room Air 11/26/17 19:30 84 19 132/58 (82) 97 11/26/17 19:00 98.2 80 18 119/59 (79) 98 98.2 11/26/17 18:45 99.1 82 18 122/73 (89) 98 99.1 11/26/17 18:30 82 18 133/63 (86) 98 11/26/17 18:15 83 18 122/56 (78) 97 11/26/17 18:00 83 22 135/58 (83) 97 11/26/17 17:57 82 154/64 11/26/17 17:49 82 154/64 11/26/17 17:45 83 22 154/64 (94) 97 11/26/17 17:30 82 22 125/68 (87) 98 11/26/17 17:15 82 20 133/81 (98) 98 I&O Intake and Output 11/26/17 11/27/17 19:00 07:00 Intake Total 1014.75 ml 597 ml Output Total 950 ml 700 ml Balance 64.75 ml -103 ml Free Water 30 ml IV Total 804.75 ml 87 ml Tube Feeding 180 ml 420 ml Other 90 ml Output Urine Total 950 ml 700 ml # Bowel Movements 1 Drains: none Cardiovascular: RSR Respiratory: clear Abdomen: soft, distended, present bowel sounds Extremities: other Laboratory Tests Test 11/27/17 05:29 Sodium Level 140 MMOL/L (136-145) Potassium Level 3.6 MMOL/L (3.5-5.1) Chloride Level 110 MMOL/L (98-107) H Carbon Dioxide Level 23 MMOL/L (21-32) Anion Gap 7 mmol/L (5-15) Blood Urea Nitrogen 11 mg/dL (7-18) Creatinine 0.7 MG/DL (0.55-1.30) Estimat Glomerular Filtration Rate mL/min (>60) Glucose Level 164 MG/DL (74-106) H Calcium Level 10.6 MG/DL (8.5-10.1) H Plan Problems: (1) Abdominal pain Assessment & Plan: c/o abdominal pain. no n/v/f/c. unsure how long has been having pain. on exam epigastric tenderness with guarding - improved labs reviewed. no leukocytosis. lfts okay etiology unknown gastritis? US reviewed. no GB noted. prior cholecystectomy KUB okay -PPI -okay for diet -NG tube placed. start tube feeds for nutritional support -no surgical intervention planned. will follow with recs thank you for this consultation Benyamini,Sourav Nov 27, 2017 17:01
[2017-11-27] MEDS ORDERED: NS 275ml ONE (20:04)
[2017-11-27] MEDS: Atorvastatin 20mg tab ORAL SCH (20:47)
--- NOTE | 2017-11-27 21:33 | Neurology Progress Note ---
Interim History Interim History Interim History Ms. Bernardo is sedated today. She has been given 3 doses of Ativan during the day and in addition was given Seroquel. She is lethargic now. She is significantly less responsive today. She moves all her limbs but cannot cooperate for a formal motor examination. Review of Systems Neuro Review of Systems Unable to obtain. Objective Physical Exam Last Vital Signs Date Time Temp Pulse Resp B/P (MAP) Pulse Ox O2 Delivery O2 Flow Rate FiO2 11/27/17 20:49 81 148/54 11/27/17 20:00 18 100 11/27/17 20:00 Room Air 11/27/17 16:00 99.3 99.3 Laboratory Tests Test 11/27/17 05:29 Sodium Level 140 MMOL/L (136-145) Potassium Level 3.6 MMOL/L (3.5-5.1) Chloride Level 110 MMOL/L (98-107) H Carbon Dioxide Level 23 MMOL/L (21-32) Anion Gap 7 mmol/L (5-15) Blood Urea Nitrogen 11 mg/dL (7-18) Creatinine 0.7 MG/DL (0.55-1.30) Estimat Glomerular Filtration Rate mL/min (>60) Glucose Level 164 MG/DL (74-106) H Calcium Level 10.6 MG/DL (8.5-10.1) H Neurologic Exam Objective PHYSICAL EXAMINATION: GENERAL: She is a well-developed, well-nourished, [place] lady, lying in bed, in no acute distress. HEAD: Normocephalic and atraumatic. EENT: Examination benign. NECK: No neck rigidity was observed. NEUROLOGICAL EXAMINATION: MENTAL STATUS EXAMINATION: She was lethargic. Further mental status testing was impossible. SPEECH: Could not be tested as she was sedated. LANGUAGE: Could not be tested as she was sedated. CRANIAL NERVE EXAMINATION: II: She did blink to threat when aroused briefly. III, IV & : The external ocular movements were present on OCM. The pupils were 3 mm in diameter, equal, round, regular, and reactive sluggishly to light. V & VII: The corneal reflexes were present bilaterally. VIII: She was able to hear loud sounds and had no nystagmus. IX- X: Were not tested. XI: The sternocleidomastoids and trapezii functioned. XII: The tongue was in the midline without any fasciculations or atrophy. MOTOR SYSTEM: The tone was normal in all four extremities. Examination of muscle mass revealed no focal wasting. Examination of power was impossible to perform on individual muscle groups, however, she move all four extremities on deep pain. SENSORY EXAMINATION: She responded appropriately to deep pain. She was unable to cooperate for other sensory modalities. REFLEXES: 0 at the biceps, triceps, brachioradialis, knees, and ankles. The plantar responses were extensor bilaterally. COORDINATION, STANCE & GAIT: Could not be tested. Impression/Recommendations Diagnostic Impression 1. Ms. Chelly Bernardo is a 72-year-old, [place] lady, of unknown handedness, who does have a past history of hypertension and diabetes mellitus, who was hospitalized on 11/21/2017 for an episode of severe hypoglycemia with her blood sugars in the 20s. Since she has been here, she has also been exhibiting significantly elevated blood pressures. Her mental state continues to be quite altered. 2. She is sedated today. She has been given 3 doses of Ativan during the day and in addition was given Seroquel. She is lethargic now. She is significantly less responsive today. She moves all her limbs but cannot cooperate for a formal motor examination. 3. On neurological examination, at this time, she is lethargic as she has been sedated. Further mental status testing is impossible. She does not demonstrate any focal or lateralizing neurological findings. 4. The CT scan of the brain performed on 11/22/2017 revealed atrophy, but no acute pathology. 5. Laboratory data obtained thus far have revealed that she is mildly anemic., has a borderline low B12 level, and a low folate level but otherwise normal laboratory data. 6. The EEG done on 11/25/17 revealed a moderate metabolic encephalopathy. 7. The MRI of the brain done on 11/27/17 revealed no acute intracranial pathology. Moderate atrophy and chronic small vessel disease involving white matter was seen. 8. 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 Her encephalopathy is significantly worse today. Recommendations 1. The patient's blood pressure should be brought down into the physiological range. 2. Continue to correct the patient's fluids and electrolytes. 3. Folic acid 1 mg via NGT q day. 4. The patient should be given vitamin B12 1000 mcg SC daily for the next 3 days and then monthly. 5. Refrain from use of mind altering drugs. Betina Osullivan M.D., M.S.P.Ngoc. BETINA OSULLIVAN Nov 27, 2017 21:33
[2017-11-28] VITALS (13 sets, daily range): BP systolic 119–193; BP diastolic 46–108
[2017-11-28] MEDS: Labetalol 5mg/ml 20ml vial IV SCH ×6 (01:17→20:43)
[2017-11-28 03:22] LABS: BASOPHILS % (AUTO) 0.5 % (0.0-2.0); EOSINOPHILS % (AUTO) 3.7 % (0.0-3.0); HEMATOCRIT 31.7 % (37.0-47.0); HEMOGLOBIN 11.2 G/DL (12.0-16.0); LYMPHOCYTES % (AUTO) 17.7 % (20.0-45.0); MEAN CORPUSCULAR VOLUME 100 FL (80-99); MONOCYTES % (AUTO) 11.4 % (1.0-10.0); NEUTROPHILS % (AUTO) 66.8 % (45.0-75.0); PLATELET COUNT 144 K/UL (150-450); RED BLOOD COUNT 3.19 M/UL (4.20-5.40); RED CELL DISTRIBUTION WIDTH 10.3 % (11.6-14.8); WHITE BLOOD COUNT 6.6 K/UL (4.8-10.8)
[2017-11-28 03:35] LABS: ALANINE AMINOTRANSFERASE 16 U/L (12-78); ALBUMIN 2.3 G/DL (3.4-5.0); ALBUMIN/GLOBULIN RATIO 0.7 (1.0-2.7); ALKALINE PHOSPHATASE 72 U/L (46-116); ANION GAP 5 mmol/L (5-15); ASPARTATE AMINO TRANSFERASE 14 U/L (15-37); BILIRUBIN,TOTAL 0.6 MG/DL (0.2-1.0); BLOOD UREA NITROGEN 14 mg/dL (7-18); CALCIUM 10.7 MG/DL (8.5-10.1); CARBON DIOXIDE 26 MMOL/L (21-32); CHLORIDE 111 MMOL/L (98-107); CREATININE 0.8 MG/DL (0.55-1.30); POTASSIUM 3.6 MMOL/L (3.5-5.1); SODIUM 142 MMOL/L (136-145)
[2017-11-28] MEDS ORDERED: LORazepam Inj 2mg/ml 1ml IV PRN (05:30)
[2017-11-28] MEDS: NovoLOG Insulin Flexpen SUBQ SCH ×4 (05:43→20:45)
[2017-11-28] MEDS ORDERED: DiphenhydrAMINE 50mg/ml Inj IVP PRN (05:45)
--- NOTE | 2017-11-28 08:08 | Pulmonology Progress Note ---
Assessment/Plan Assessment/Plan IMPRESSION ALOC DM HTN S/P fall hypercalemia trace pleural effusion, not significant mild anemia PLAN respiratory stable events reviewed dispo per primary MD supportive care medications/laboratory data/nursing notes/ICU care reviewed in detail note reviewed and edited care discussed with RN and RT Subjective Allergies: Coded Allergies: No Known Allergies (Unverified , 11/21/17) Subjective out of ICU events reviewed care noted Objective Last 24 Hour Vital Signs Date Time Temp Pulse Resp B/P (MAP) Pulse Ox O2 Delivery O2 Flow Rate FiO2 11/28/17 05:00 81 151/75 11/28/17 04:25 81 11/28/17 04:00 75 11/28/17 04:00 97.3 75 16 151/75 (100) 96 97.3 11/28/17 04:00 Room Air 11/28/17 03:00 87 19 172/82 (112) 100 11/28/17 02:00 80 15 135/52 (79) 100 11/28/17 01:17 75 142/57 11/28/17 01:00 75 15 142/57 (85) 100 11/28/17 00:00 Room Air 11/28/17 00:00 99.2 73 18 119/46 (70) 99 99.2 11/28/17 00:00 72 11/27/17 23:00 76 19 118/50 (72) 97 11/27/17 22:00 86 17 131/51 (77) 99 11/27/17 21:00 99.8 79 12 165/62 (96) 100 99.8 11/27/17 20:49 81 148/54 11/27/17 20:49 148/54 11/27/17 20:48 148/54 11/27/17 20:48 87 148/54 11/27/17 20:00 81 11/27/17 20:00 82 18 154/58 (90) 100 11/27/17 20:00 Room Air 11/27/17 19:00 80 14 138/52 (80) 97 11/27/17 18:00 81 20 144/54 (84) 97 11/27/17 17:00 86 19 144/53 (83) 97 11/27/17 16:28 83 142/52 11/27/17 16:00 99.3 81 18 156/57 (90) 97 99.3 11/27/17 16:00 Room Air 11/27/17 16:00 84 11/27/17 15:00 83 20 154/55 (88) 97 11/27/17 14:11 83 173/66 11/27/17 14:00 84 18 173/66 (101) 97 11/27/17 13:30 87 20 146/120 (129) 99 11/27/17 12:00 86 11/27/17 12:00 99.4 85 19 167/67 (100) 98 99.4 11/27/17 12:00 Room Air 11/27/17 11:30 83 22 156/76 (102) 98 11/27/17 11:00 83 19 151/60 (90) 98 11/27/17 10:30 84 21 155/67 (96) 98 11/27/17 10:00 83 20 176/60 (98) 98 11/27/17 09:30 78 18 154/63 (93) 98 11/27/17 09:08 82 152/58 11/27/17 09:07 152/58 11/27/17 09:06 83 152/58 11/27/17 09:00 82 19 152/58 (89) 98 11/27/17 08:30 78 31 146/54 (84) 99 11/27/17 08:15 78 15 138/55 (82) 98 Intake and Output 11/27/17 11/28/17 19:00 07:00 Intake Total 620 ml 490 ml Output Total 250 ml 300 ml Balance 370 ml 190 ml Free Water 100 ml Tube Feeding 440 ml 440 ml Other 80 ml 50 ml Output Urine Total 250 ml 300 ml Objective WDWN NAD reduced breath sounds bilaterally without rhonchi or wheeze [id number] without MRG NABS nontender no HSM no CCE confused no distress Laboratory Tests 11/28/17 03:06: White Blood Count 6.6, Red Blood Count 3.19L, Hemoglobin 11.2L, Hematocrit 31.7L , Mean Corpuscular Volume 100H, Mean Corpuscular Hemoglobin 35.2H, Mean Corpuscular Hemoglobin Concent 35.4, Red Cell Distribution Width 10.3L, Platelet Count 144L, Mean Platelet Volume 6.2L, Neutrophils (%) (Auto) 66.8, Lymphocytes (%) (Auto) 17.7L, Monocytes (%) (Auto) 11.4H, Eosinophils (%) (Auto ) 3.7H, Basophils (%) (Auto) 0.5, Prothrombin Time 10.2, Prothromb Time International Ratio 1.0, Activated Partial Thromboplast Time 27, Sodium Level 142, Potassium Level 3.6, Chloride Level 111H, Carbon Dioxide Level 26, Anion Gap 5, Blood Urea Nitrogen 14, Creatinine 0.8, Estimat Glomerular Filtration Rate , Glucose Level 117H, Calcium Level 10.7H, Total Bilirubin 0.6, Aspartate Amino Transf (AST/SGOT) 14L, Alanine Aminotransferase (ALT/SGPT) 16, Alkaline Phosphatase 72, Total Protein 5.6L, Albumin 2.3L, Globulin 3.3, Albumin/ Globulin Ratio 0.7L Current Medications Medications (Trade) Dose Ordered Sig/Atilio Route PRN Reason Start Time Stop Time Status Last Admin Dose Admin Acetaminophen (Tylenol) 650 mg Q4H PRN ORAL Mild Pain (Pain Scale 1-3) 11/28/17 05:00 12/21/17 08:58 Atorvastatin Calcium (Lipitor) 40 mg QHS ORAL 11/28/17 21:00 12/21/17 20:59 Clonidine HCl (Catapres Tab) 0.1 mg Q6H PRN ORAL For High Blood Pressure 11/28/17 04:19 12/21/17 04:18 Dextrose (Dextrose 50%) 25 ml Q30M PRN IV Hypoglycemia 11/28/17 04:15 12/26/17 09:14 Dextrose (Dextrose 50%) 50 ml Q30M PRN IV hypoglycemia 11/28/17 04:15 12/26/17 09:14 Diphenhydramine HCl (Benadryl) 25 mg Q3H PRN IVP Itching 11/28/17 05:45 12/22/17 11:44 Famotidine (Pepcid) 40 mg DAILY ORAL 11/28/17 09:00 12/22/17 08:59 Folic Acid (Folate) 1 mg DAILY NG 11/28/17 09:00 12/25/17 21:29 Insulin Aspart (NovoLOG) BEFORE MEALS AND HS SUBQ 11/28/17 06:30 12/21/17 16:29 11/28/17 05:43 Labetalol HCl (Normodyne) 5 mg Q4H IV 11/28/17 05:00 12/23/17 08:59 11/28/17 05:00 Losartan Potassium (Cozaar) 25 mg EVERY 12 HOURS ORAL 11/28/17 09:00 12/25/17 20:59 Metoprolol Tartrate (Lopressor) 25 mg Q12HR ORAL 11/28/17 09:00 12/25/17 20:59 Ondansetron HCl (Zofran) 4 mg Q6H PRN IVP Nausea & Vomiting 11/28/17 04:19 12/21/17 04:18 Romeo Smith MD Nov 28, 2017 08:08
--- NOTE | 2017-11-28 08:14 | Nephrology Progress Note ---
Assessment/Plan Assessment/Plan A/P 1) HTN Urgency- resolved. 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 Patient was confused prior to admission (multiple bruises from falling at time of admission) - patient has been confused at home prior to hospitilization. Worsened since admission. - MRI Head negative. Will hold ativan and seroquel per Neurology request so that he can better assess the situation 7) Hypercal- elevated PTH, possible P-HPT- will d/w Gen Surgery Subjective Date patient seen: Nov 28, 2017 Time patient seen: 08:08 ROS Limited/Unobtainable: Yes Allergies: Coded Allergies: No Known Allergies (Unverified , 11/21/17) Subjective Patient somnolent but arousable Objective Last 24 Hour Vital Signs Date Time Temp Pulse Resp B/P (MAP) Pulse Ox O2 Delivery O2 Flow Rate FiO2 11/28/17 05:00 81 151/75 11/28/17 04:25 81 11/28/17 04:00 75 11/28/17 04:00 97.3 75 16 151/75 (100) 96 97.3 11/28/17 04:00 Room Air 11/28/17 03:00 87 19 172/82 (112) 100 11/28/17 02:00 80 15 135/52 (79) 100 11/28/17 01:17 75 142/57 11/28/17 01:00 75 15 142/57 (85) 100 11/28/17 00:00 Room Air 11/28/17 00:00 99.2 73 18 119/46 (70) 99 99.2 11/28/17 00:00 72 11/27/17 23:00 76 19 118/50 (72) 97 11/27/17 22:00 86 17 131/51 (77) 99 11/27/17 21:00 99.8 79 12 165/62 (96) 100 99.8 11/27/17 20:49 81 148/54 11/27/17 20:49 148/54 11/27/17 20:48 148/54 11/27/17 20:48 87 148/54 11/27/17 20:00 81 11/27/17 20:00 82 18 154/58 (90) 100 11/27/17 20:00 Room Air 11/27/17 19:00 80 14 138/52 (80) 97 11/27/17 18:00 81 20 144/54 (84) 97 11/27/17 17:00 86 19 144/53 (83) 97 11/27/17 16:28 83 142/52 11/27/17 16:00 99.3 81 18 156/57 (90) 97 99.3 11/27/17 16:00 Room Air 11/27/17 16:00 84 11/27/17 15:00 83 20 154/55 (88) 97 11/27/17 14:11 83 173/66 11/27/17 14:00 84 18 173/66 (101) 97 11/27/17 13:30 87 20 146/120 (129) 99 11/27/17 12:00 86 11/27/17 12:00 99.4 85 19 167/67 (100) 98 99.4 11/27/17 12:00 Room Air 11/27/17 11:30 83 22 156/76 (102) 98 11/27/17 11:00 83 19 151/60 (90) 98 11/27/17 10:30 84 21 155/67 (96) 98 11/27/17 10:00 83 20 176/60 (98) 98 11/27/17 09:30 78 18 154/63 (93) 98 11/27/17 09:08 82 152/58 11/27/17 09:07 152/58 11/27/17 09:06 83 152/58 11/27/17 09:00 82 19 152/58 (89) 98 11/27/17 08:30 78 31 146/54 (84) 99 11/27/17 08:15 78 15 138/55 (82) 98 Intake and Output 11/27/17 11/28/17 19:00 07:00 Intake Total 620 ml 490 ml Output Total 250 ml 300 ml Balance 370 ml 190 ml Free Water 100 ml Tube Feeding 440 ml 440 ml Other 80 ml 50 ml Output Urine Total 250 ml 300 ml Laboratory Tests 11/28/17 03:06: White Blood Count 6.6, Red Blood Count 3.19L, Hemoglobin 11.2L, Hematocrit 31.7L , Mean Corpuscular Volume 100H, Mean Corpuscular Hemoglobin 35.2H, Mean Corpuscular Hemoglobin Concent 35.4, Red Cell Distribution Width 10.3L, Platelet Count 144L, Mean Platelet Volume 6.2L, Neutrophils (%) (Auto) 66.8, Lymphocytes (%) (Auto) 17.7L, Monocytes (%) (Auto) 11.4H, Eosinophils (%) (Auto ) 3.7H, Basophils (%) (Auto) 0.5, Prothrombin Time 10.2, Prothromb Time International Ratio 1.0, Activated Partial Thromboplast Time 27, Sodium Level 142, Potassium Level 3.6, Chloride Level 111H, Carbon Dioxide Level 26, Anion Gap 5, Blood Urea Nitrogen 14, Creatinine 0.8, Estimat Glomerular Filtration Rate , Glucose Level 117H, Calcium Level 10.7H, Total Bilirubin 0.6, Aspartate Amino Transf (AST/SGOT) 14L, Alanine Aminotransferase (ALT/SGPT) 16, Alkaline Phosphatase 72, Total Protein 5.6L, Albumin 2.3L, Globulin 3.3, Albumin/ Globulin Ratio 0.7L Height (Feet): 5 Height (Inches): 4.00 Weight (Pounds): 114 General Appearance: lethargic EENT: normal ENT inspection Neck: normal alignment, supple Cardiovascular: normal rate, regular rhythm Respiratory/Chest: lungs clear Abdomen: non tender, soft Edema: no edema noted Arm (L), no edema noted Arm (R), no edema noted Leg (L), no edema noted Leg (R), no edema noted Pedal (L), no edema noted Pedal (R), no edema noted Generalized Vinh Winston MD Nov 28, 2017 08:14
[2017-11-28] MEDS ORDERED: Metoprolol 25mg tab ORAL SCH (09:00)
[2017-11-28] MEDS ORDERED: Losartan 25mg tab ORAL SCH (09:00)
[2017-11-28] MEDS ORDERED: Losartan 50mg tab ORAL SCH (09:00)
--- NOTE | 2017-11-28 12:38 | GI Progress Note ---
Assessment/Plan Problems: (1) Abdominal pain ICD Codes: R10.9 - Unspecified abdominal pain SNOMED: 41398241 Qualifiers: Qualified Codes: R10.13 - Epigastric pain (2) Hypoglycemia associated with type 2 diabetes mellitus ICD Codes: E11.649 - Type 2 diabetes mellitus with hypoglycemia without coma SNOMED: 26462054, 772440397 (3) Encephalopathy acute ICD Codes: G93.40 - Encephalopathy, unspecified SNOMED: 13780944, [id number] Status: unchanged Status Narrative Discussed with Dr. Alegre. Assessment/Plan Assessment - HTN - hypoglycemia - mild macrocytic anemia - hypokalemia - no N/V/D Recommendations - NGTFs >> ST evaluation ordered r/o swallowing deficit - symptomatic treatment - DM management - zofran prn - prn transfusions - fu labs The patient was seen and examined at bedside and all new and available data was reviewed in the patients chart. I agree with the above findings, impression and plan. (Patient seen earlier today. Signature stamp does not reflect patient encounter time.). - Mayito Alegre MD Subjective Subjective limited Objective Last 24 Hour Vital Signs Date Time Temp Pulse Resp B/P (MAP) Pulse Ox O2 Delivery O2 Flow Rate FiO2 11/28/17 11:21 183/108 11/28/17 11:14 183/108 (133) 11/28/17 11:13 190/96 (127) 11/28/17 09:39 82 185/94 11/28/17 09:39 185/94 (124) 11/28/17 08:42 83 172/94 11/28/17 08:41 172/94 11/28/17 08:00 Room Air 11/28/17 08:00 97.3 87 20 172/94 (120) 96 97.3 11/28/17 05:00 81 151/75 11/28/17 04:25 81 11/28/17 04:00 75 11/28/17 04:00 97.3 75 16 151/75 (100) 96 97.3 11/28/17 04:00 Room Air 11/28/17 03:00 87 19 172/82 (112) 100 11/28/17 02:00 80 15 135/52 (79) 100 11/28/17 01:17 75 142/57 11/28/17 01:00 75 15 142/57 (85) 100 11/28/17 00:00 Room Air 11/28/17 00:00 99.2 73 18 119/46 (70) 99 99.2 11/28/17 00:00 72 11/27/17 23:00 76 19 118/50 (72) 97 11/27/17 22:00 86 17 131/51 (77) 99 11/27/17 21:00 99.8 79 12 165/62 (96) 100 99.8 11/27/17 20:49 81 148/54 11/27/17 20:49 148/54 11/27/17 20:48 148/54 11/27/17 20:48 87 148/54 11/27/17 20:00 81 11/27/17 20:00 82 18 154/58 (90) 100 11/27/17 20:00 Room Air 11/27/17 19:00 80 14 138/52 (80) 97 11/27/17 18:00 81 20 144/54 (84) 97 11/27/17 17:00 86 19 144/53 (83) 97 11/27/17 16:28 83 142/52 11/27/17 16:00 99.3 81 18 156/57 (90) 97 99.3 11/27/17 16:00 Room Air 11/27/17 16:00 84 11/27/17 15:00 83 20 154/55 (88) 97 11/27/17 14:11 83 173/66 11/27/17 14:00 84 18 173/66 (101) 97 11/27/17 13:30 87 20 146/120 (129) 99 Intake and Output 11/27/17 11/28/17 19:00 07:00 Intake Total 620 ml 490 ml Output Total 250 ml 300 ml Balance 370 ml 190 ml Free Water 100 ml Tube Feeding 440 ml 440 ml Other 80 ml 50 ml Output Urine Total 250 ml 300 ml Laboratory Tests Test 11/28/17 03:06 White Blood Count 6.6 K/UL (4.8-10.8) Red Blood Count 3.19 M/UL (4.20-5.40) L Hemoglobin 11.2 G/DL (12.0-16.0) L Hematocrit 31.7 % (37.0-47.0) L Mean Corpuscular Volume 100 FL (80-99) H Mean Corpuscular Hemoglobin 35.2 PG (27.0-31.0) H Mean Corpuscular Hemoglobin Concent 35.4 G/DL (32.0-36.0) Red Cell Distribution Width 10.3 % (11.6-14.8) L Platelet Count 144 K/UL (150-450) L Mean Platelet Volume 6.2 FL (6.5-10.1) L Neutrophils (%) (Auto) 66.8 % (45.0-75.0) Lymphocytes (%) (Auto) 17.7 % (20.0-45.0) L Monocytes (%) (Auto) 11.4 % (1.0-10.0) H Eosinophils (%) (Auto) 3.7 % (0.0-3.0) H Basophils (%) (Auto) 0.5 % (0.0-2.0) Prothrombin Time 10.2 SEC (9.30-11.50) Prothromb Time International Ratio 1.0 (0.9-1.1) Activated Partial Thromboplast Time 27 SEC (23-33) Sodium Level 142 MMOL/L (136-145) Potassium Level 3.6 MMOL/L (3.5-5.1) Chloride Level 111 MMOL/L (98-107) H Carbon Dioxide Level 26 MMOL/L (21-32) Anion Gap 5 mmol/L (5-15) Blood Urea Nitrogen 14 mg/dL (7-18) Creatinine 0.8 MG/DL (0.55-1.30) Estimat Glomerular Filtration Rate mL/min (>60) Glucose Level 117 MG/DL (74-106) H Calcium Level 10.7 MG/DL (8.5-10.1) H Total Bilirubin 0.6 MG/DL (0.2-1.0) Aspartate Amino Transf (AST/SGOT) 14 U/L (15-37) L Alanine Aminotransferase (ALT/SGPT) 16 U/L (12-78) Alkaline Phosphatase 72 U/L (46-116) Total Protein 5.6 G/DL (6.4-8.2) L Albumin 2.3 G/DL (3.4-5.0) L Globulin 3.3 g/dL Albumin/Globulin Ratio 0.7 (1.0-2.7) L Height (Feet): 5 Height (Inches): 4.00 Weight (Pounds): 114 General Appearance: no apparent distress, confused Cardiovascular: normal rate Respiratory/Chest: normal breath sounds, no respiratory distress Abdominal Exam: normal bowel sounds, non tender, soft, other - NGT Extremities: non-tender Fatou Santos NP Nov 28, 2017 12:38
--- NOTE | 2017-11-28 14:43 | General Surgery Progress Note ---
General Surgery-Progress Note Subjective Additional Comments still agitated at times. does not complain of pain but mental status not baseline currently Objective Last 24 Hour Vital Signs Date Time Temp Pulse Resp B/P (MAP) Pulse Ox O2 Delivery O2 Flow Rate FiO2 11/28/17 14:38 87 201/91 11/28/17 13:14 193/83 (119) 11/28/17 13:14 86 193/83 11/28/17 12:00 Room Air 11/28/17 12:00 97.0 84 164/100 (121) 97.0 11/28/17 11:21 183/108 11/28/17 11:14 183/108 (133) 11/28/17 11:13 190/96 (127) 11/28/17 09:39 82 185/94 11/28/17 09:39 185/94 (124) 11/28/17 08:42 83 172/94 11/28/17 08:41 172/94 11/28/17 08:00 Room Air 11/28/17 08:00 97.3 87 20 172/94 (120) 96 97.3 11/28/17 05:00 81 151/75 11/28/17 04:25 81 11/28/17 04:00 75 11/28/17 04:00 97.3 75 16 151/75 (100) 96 97.3 11/28/17 04:00 Room Air 11/28/17 03:00 87 19 172/82 (112) 100 11/28/17 02:00 80 15 135/52 (79) 100 11/28/17 01:17 75 142/57 11/28/17 01:00 75 15 142/57 (85) 100 11/28/17 00:00 Room Air 11/28/17 00:00 99.2 73 18 119/46 (70) 99 99.2 11/28/17 00:00 72 11/27/17 23:00 76 19 118/50 (72) 97 11/27/17 22:00 86 17 131/51 (77) 99 11/27/17 21:00 99.8 79 12 165/62 (96) 100 99.8 11/27/17 20:49 81 148/54 11/27/17 20:49 148/54 11/27/17 20:48 148/54 11/27/17 20:48 87 148/54 11/27/17 20:00 81 11/27/17 20:00 82 18 154/58 (90) 100 11/27/17 20:00 Room Air 11/27/17 19:00 80 14 138/52 (80) 97 11/27/17 18:00 81 20 144/54 (84) 97 11/27/17 17:00 86 19 144/53 (83) 97 11/27/17 16:28 83 142/52 11/27/17 16:00 99.3 81 18 156/57 (90) 97 99.3 11/27/17 16:00 Room Air 11/27/17 16:00 84 11/27/17 15:00 83 20 154/55 (88) 97 I&O Intake and Output 11/27/17 11/28/17 19:00 07:00 Intake Total 620 ml 530 ml Output Total 250 ml 300 ml Balance 370 ml 230 ml Free Water 100 ml Tube Feeding 440 ml 480 ml Other 80 ml 50 ml Output Urine Total 250 ml 300 ml Dressing: other Wound: other Drains: other Cardiovascular: RSR Respiratory: clear Abdomen: soft, distended, present bowel sounds Extremities: other Laboratory Tests Test 11/28/17 03:06 White Blood Count 6.6 K/UL (4.8-10.8) Red Blood Count 3.19 M/UL (4.20-5.40) L Hemoglobin 11.2 G/DL (12.0-16.0) L Hematocrit 31.7 % (37.0-47.0) L Mean Corpuscular Volume 100 FL (80-99) H Mean Corpuscular Hemoglobin 35.2 PG (27.0-31.0) H Mean Corpuscular Hemoglobin Concent 35.4 G/DL (32.0-36.0) Red Cell Distribution Width 10.3 % (11.6-14.8) L Platelet Count 144 K/UL (150-450) L Mean Platelet Volume 6.2 FL (6.5-10.1) L Neutrophils (%) (Auto) 66.8 % (45.0-75.0) Lymphocytes (%) (Auto) 17.7 % (20.0-45.0) L Monocytes (%) (Auto) 11.4 % (1.0-10.0) H Eosinophils (%) (Auto) 3.7 % (0.0-3.0) H Basophils (%) (Auto) 0.5 % (0.0-2.0) Prothrombin Time 10.2 SEC (9.30-11.50) Prothromb Time International Ratio 1.0 (0.9-1.1) Activated Partial Thromboplast Time 27 SEC (23-33) Sodium Level 142 MMOL/L (136-145) Potassium Level 3.6 MMOL/L (3.5-5.1) Chloride Level 111 MMOL/L (98-107) H Carbon Dioxide Level 26 MMOL/L (21-32) Anion Gap 5 mmol/L (5-15) Blood Urea Nitrogen 14 mg/dL (7-18) Creatinine 0.8 MG/DL (0.55-1.30) Estimat Glomerular Filtration Rate mL/min (>60) Glucose Level 117 MG/DL (74-106) H Calcium Level 10.7 MG/DL (8.5-10.1) H Total Bilirubin 0.6 MG/DL (0.2-1.0) Aspartate Amino Transf (AST/SGOT) 14 U/L (15-37) L Alanine Aminotransferase (ALT/SGPT) 16 U/L (12-78) Alkaline Phosphatase 72 U/L (46-116) Total Protein 5.6 G/DL (6.4-8.2) L Albumin 2.3 G/DL (3.4-5.0) L Globulin 3.3 g/dL Albumin/Globulin Ratio 0.7 (1.0-2.7) L Plan Problems: (1) Abdominal pain Assessment & Plan: c/o abdominal pain. no n/v/f/c. unsure how long has been having pain. on exam epigastric tenderness with guarding - improved labs reviewed. no leukocytosis. lfts okay etiology unknown gastritis? US reviewed. no GB noted. prior cholecystectomy KUB okay -PPI -okay for diet -NG tube placed. start tube feeds for nutritional support -no surgical intervention planned. -noted to have elevated Calcium level. possible primary hypercalcemia which at such low elevation unlikely to be etiology of agitation and mental status change. PTH noted. will order neck ultrasound to see if evident adenoma. will follow with recs thank you for this consultation Sourav Tobias Nov 28, 2017 14:43
--- NOTE | 2017-11-28 15:13 | Neurology Progress Note ---
Interim History Interim History Interim History Ms. Bernardo feels sleepy. She got her last dose of mind altering drugs yesterday. Her BP is still running high. She is lethargic now. She is still significantly less responsive than she was a few days ago. She moves all her limbs but cannot cooperate for a formal motor examination. Review of Systems Neuro Review of Systems Benign. Objective Physical Exam Last Vital Signs Date Time Temp Pulse Resp B/P (MAP) Pulse Ox O2 Delivery O2 Flow Rate FiO2 11/28/17 14:38 87 201/91 11/28/17 12:00 Room Air 11/28/17 12:00 97.0 97.0 11/28/17 08:00 20 96 Laboratory Tests Test 11/28/17 03:06 White Blood Count 6.6 K/UL (4.8-10.8) Red Blood Count 3.19 M/UL (4.20-5.40) L Hemoglobin 11.2 G/DL (12.0-16.0) L Hematocrit 31.7 % (37.0-47.0) L Mean Corpuscular Volume 100 FL (80-99) H Mean Corpuscular Hemoglobin 35.2 PG (27.0-31.0) H Mean Corpuscular Hemoglobin Concent 35.4 G/DL (32.0-36.0) Red Cell Distribution Width 10.3 % (11.6-14.8) L Platelet Count 144 K/UL (150-450) L Mean Platelet Volume 6.2 FL (6.5-10.1) L Neutrophils (%) (Auto) 66.8 % (45.0-75.0) Lymphocytes (%) (Auto) 17.7 % (20.0-45.0) L Monocytes (%) (Auto) 11.4 % (1.0-10.0) H Eosinophils (%) (Auto) 3.7 % (0.0-3.0) H Basophils (%) (Auto) 0.5 % (0.0-2.0) Prothrombin Time 10.2 SEC (9.30-11.50) Prothromb Time International Ratio 1.0 (0.9-1.1) Activated Partial Thromboplast Time 27 SEC (23-33) Sodium Level 142 MMOL/L (136-145) Potassium Level 3.6 MMOL/L (3.5-5.1) Chloride Level 111 MMOL/L (98-107) H Carbon Dioxide Level 26 MMOL/L (21-32) Anion Gap 5 mmol/L (5-15) Blood Urea Nitrogen 14 mg/dL (7-18) Creatinine 0.8 MG/DL (0.55-1.30) Estimat Glomerular Filtration Rate mL/min (>60) Glucose Level 117 MG/DL (74-106) H Calcium Level 10.7 MG/DL (8.5-10.1) H Total Bilirubin 0.6 MG/DL (0.2-1.0) Aspartate Amino Transf (AST/SGOT) 14 U/L (15-37) L Alanine Aminotransferase (ALT/SGPT) 16 U/L (12-78) Alkaline Phosphatase 72 U/L (46-116) Total Protein 5.6 G/DL (6.4-8.2) L Albumin 2.3 G/DL (3.4-5.0) L Globulin 3.3 g/dL Albumin/Globulin Ratio 0.7 (1.0-2.7) L Neurologic Exam Objective PHYSICAL EXAMINATION: GENERAL: She is a well-developed, well-nourished, [place] lady, lying in bed, in no acute distress. HEAD: Normocephalic and atraumatic. EENT: Examination benign. NECK: No neck rigidity was observed. NEUROLOGICAL EXAMINATION: MENTAL STATUS EXAMINATION: She was lethargic. Further mental status testing was impossible. SPEECH: Could not be tested. LANGUAGE: Could not be tested. CRANIAL NERVE EXAMINATION: II: She did blink to threat when aroused briefly. III, IV & : The external ocular movements were present on OCM. The pupils were 3 mm in diameter, equal, round, regular, and reactive sluggishly to light. V & VII: The corneal reflexes were present bilaterally. VIII: She was able to hear loud sounds and had no nystagmus. IX- X: Were not tested. XI: The sternocleidomastoids and trapezii functioned. XII: The tongue was in the midline without any fasciculations or atrophy. MOTOR SYSTEM: The tone was normal in all four extremities. Examination of muscle mass revealed no focal wasting. Examination of power was impossible to perform on individual muscle groups, however, she move all four extremities on deep pain. SENSORY EXAMINATION: She responded appropriately to deep pain. She was unable to cooperate for other sensory modalities. REFLEXES: 0 at the biceps, triceps, brachioradialis, knees, and ankles. The plantar responses were extensor bilaterally. COORDINATION, STANCE & GAIT: Could not be tested. Impression/Recommendations Diagnostic Impression 1. Ms. Chelly Bernardo is a 72-year-old, [place] lady, of unknown handedness, who does have a past history of hypertension and diabetes mellitus, who was hospitalized on 11/21/2017 for an episode of severe hypoglycemia with her blood sugars in the 20s. Since she has been here, she has also been exhibiting significantly elevated blood pressures. Her mental state continues to be quite altered. 2. She feels sleepy. She got her last dose of mind altering drugs yesterday. Her BP is still running high. She is lethargic now. She is still significantly less responsive than she was a few days ago. She moves all her limbs but cannot cooperate for a formal motor examination. 3. On neurological examination, at this time, she is lethargic. Further mental status testing is impossible. She does not demonstrate any focal or lateralizing neurological findings. 4. The CT scan of the brain performed on 11/22/2017 revealed atrophy, but no acute pathology. 5. Laboratory data obtained thus far have revealed that she is mildly anemic., has a borderline low B12 level, and a low folate level but otherwise normal laboratory data. 6. The EEG done on 11/25/17 revealed a moderate metabolic encephalopathy. 7. The MRI of the brain done on 11/27/17 revealed no acute intracranial pathology. Moderate atrophy and chronic small vessel disease involving white matter was seen. 8. 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 Her encephalopathy is similar in degree as it was yesterday. Recommendations 1. The patient's blood pressure should be brought down into the physiological range. 2. Continue to correct the patient's fluids and electrolytes. 3. Folic acid 1 mg via NGT q day. 4. The patient should be given vitamin B12 1000 mcg SC monthly. 5. Refrain from use of mind altering drugs. Cheraw K. Abran, M.D., [place]. BETINA REIS Nov 28, 2017 15:13
--- NOTE | 2017-11-28 15:45 | General Progress Note ---
Assessment/Plan Problem List: (1) Encephalopathy acute ICD Codes: G93.40 - Encephalopathy, unspecified SNOMED: 23778830, [id number] Status: unchanged Assessment/Plan dc per pmd Seroquel 25 mg q 6hr restraints soft Subjective Date patient seen: Nov 28, 2017 Neurologic/Psychiatric: Reports: anxiety Allergies: Coded Allergies: No Known Allergies (Unverified , 11/21/17) Subjective the pt has been confused and agitated upon admission. she has received seroquel for delirium and became calmer over the past two days. the pts meds were stopped per Dr. Osullivan's request to do pe/ the pt is in restraints and unable to cooperate due to encephalopathy not only due to Seroquel Objective Last 24 Hour Vital Signs Date Time Temp Pulse Resp B/P (MAP) Pulse Ox O2 Delivery O2 Flow Rate FiO2 11/28/17 14:38 87 201/91 11/28/17 13:14 193/83 (119) 11/28/17 13:14 86 193/83 11/28/17 12:00 Room Air 11/28/17 12:00 97.0 84 164/100 (121) 97.0 11/28/17 11:44 88 11/28/17 11:21 183/108 11/28/17 11:14 183/108 (133) 11/28/17 11:13 190/96 (127) 11/28/17 09:39 82 185/94 11/28/17 09:39 185/94 (124) 11/28/17 08:42 83 172/94 11/28/17 08:41 172/94 11/28/17 08:00 Room Air 11/28/17 08:00 97.3 87 20 172/94 (120) 96 97.3 11/28/17 05:00 81 151/75 11/28/17 04:25 81 11/28/17 04:00 75 11/28/17 04:00 97.3 75 16 151/75 (100) 96 97.3 11/28/17 04:00 Room Air 11/28/17 03:00 87 19 172/82 (112) 100 11/28/17 02:00 80 15 135/52 (79) 100 11/28/17 01:17 75 142/57 11/28/17 01:00 75 15 142/57 (85) 100 11/28/17 00:00 Room Air 11/28/17 00:00 99.2 73 18 119/46 (70) 99 99.2 11/28/17 00:00 72 11/27/17 23:00 76 19 118/50 (72) 97 11/27/17 22:00 86 17 131/51 (77) 99 11/27/17 21:00 99.8 79 12 165/62 (96) 100 99.8 11/27/17 20:49 81 148/54 11/27/17 20:49 148/54 11/27/17 20:48 148/54 11/27/17 20:48 87 148/54 11/27/17 20:00 81 11/27/17 20:00 82 18 154/58 (90) 100 11/27/17 20:00 Room Air 11/27/17 19:00 80 14 138/52 (80) 97 11/27/17 18:00 81 20 144/54 (84) 97 11/27/17 17:00 86 19 144/53 (83) 97 11/27/17 16:28 83 142/52 11/27/17 16:00 99.3 81 18 156/57 (90) 97 99.3 11/27/17 16:00 Room Air 11/27/17 16:00 84 Intake and Output 11/27/17 11/28/17 19:00 07:00 Intake Total 620 ml 530 ml Output Total 250 ml 300 ml Balance 370 ml 230 ml Free Water 100 ml Tube Feeding 440 ml 480 ml Other 80 ml 50 ml Output Urine Total 250 ml 300 ml Laboratory Tests 11/28/17 03:06: White Blood Count 6.6, Red Blood Count 3.19L, Hemoglobin 11.2L, Hematocrit 31.7L , Mean Corpuscular Volume 100H, Mean Corpuscular Hemoglobin 35.2H, Mean Corpuscular Hemoglobin Concent 35.4, Red Cell Distribution Width 10.3L, Platelet Count 144L, Mean Platelet Volume 6.2L, Neutrophils (%) (Auto) 66.8, Lymphocytes (%) (Auto) 17.7L, Monocytes (%) (Auto) 11.4H, Eosinophils (%) (Auto ) 3.7H, Basophils (%) (Auto) 0.5, Prothrombin Time 10.2, Prothromb Time International Ratio 1.0, Activated Partial Thromboplast Time 27, Sodium Level 142, Potassium Level 3.6, Chloride Level 111H, Carbon Dioxide Level 26, Anion Gap 5, Blood Urea Nitrogen 14, Creatinine 0.8, Estimat Glomerular Filtration Rate , Glucose Level 117H, Calcium Level 10.7H, Total Bilirubin 0.6, Aspartate Amino Transf (AST/SGOT) 14L, Alanine Aminotransferase (ALT/SGPT) 16, Alkaline Phosphatase 72, Total Protein 5.6L, Albumin 2.3L, Globulin 3.3, Albumin/ Globulin Ratio 0.7L Height (Feet): 5 Height (Inches): 4.00 Weight (Pounds): 114 General Appearance: alert, confused, agitated Lacey Matthews MD Nov 28, 2017 15:44
--- NOTE | 2017-11-28 17:34 | Consultation ---
History of Present Illness General Date patient seen: Nov 28, 2017 Time patient seen: 17:27 Chief Complaint: Dizziness Reason for Consultation: abdominal pain Present Illness HPI 72-year-old, Tel[place] lady with past history of hypertension and diabetes mellitus, who was hospitalized on 11/21/2017 for an episode of severe hypoglycemia with her blood sugars in the 20s. She has elevated blood pressures and tachycardia. She is altered and on restraints. Allergies: Coded Allergies: No Known Allergies (Unverified , 11/21/17) Medication History Scheduled Diphenoxylate Hcl/Atropine (Diphenoxylate-Atropine Liq), 5 ML ORAL DAILY, ( Reported) Glipizide* (Glipizide*), 10 MG ORAL BIDAC, (Reported) Lidocaine (Lidocaine), 700 MG TP DAILY, (Reported) Losartan Potassium* (Losartan Potassium*), 50 MG ORAL DAILY, (Reported) Metformin Hcl* (Metformin Hcl*), 1,000 MG ORAL BID, (Reported) Metoprolol Succinate* (Metoprolol Succinate*), 50 MG ORAL DAILY, (Reported) [place]-3 Acid Ethyl Esters ([place]-3 Acid Ethyl Esters), 1 GM PO DAILY, (Reported) Omeprazole (Omeprazole), 40 MG ORAL DAILY, (Reported) Sertraline Hcl* (Sertraline Hcl*), 25 MG ORAL DAILY, (Reported) Simvastatin (Zocor), 40 MG ORAL BEDTIME, (Reported) Scheduled PRN Acetaminophen With Codeine 300MG/30MG (T#3)* (Tylenol With Codeine #3 Tablet*), Unknown Dose ORAL Q6H PRN for For Pain, (Reported) Patient History Healthcare decision maker N Resuscitation status Full Code Advanced Directive on File Physical Exam Last 24 Hour Vital Signs Date Time Temp Pulse Resp B/P (MAP) Pulse Ox O2 Delivery O2 Flow Rate FiO2 11/28/17 16:24 97 178/115 11/28/17 16:00 Room Air 11/28/17 16:00 97.7 96 18 155/79 (104) 96 97.7 11/28/17 14:38 87 201/91 11/28/17 13:14 193/83 (119) 11/28/17 13:14 86 193/83 11/28/17 12:00 Room Air 11/28/17 12:00 97.0 84 164/100 (121) 97.0 11/28/17 11:44 88 11/28/17 11:21 183/108 11/28/17 11:14 183/108 (133) 11/28/17 11:13 190/96 (127) 11/28/17 09:39 82 185/94 11/28/17 09:39 185/94 (124) 11/28/17 08:42 83 172/94 11/28/17 08:41 172/94 11/28/17 08:00 Room Air 11/28/17 08:00 97.3 87 20 172/94 (120) 96 97.3 11/28/17 05:00 81 151/75 11/28/17 04:25 81 11/28/17 04:00 75 11/28/17 04:00 97.3 75 16 151/75 (100) 96 97.3 11/28/17 04:00 Room Air 11/28/17 03:00 87 19 172/82 (112) 100 11/28/17 02:00 80 15 135/52 (79) 100 11/28/17 01:17 75 142/57 11/28/17 01:00 75 15 142/57 (85) 100 11/28/17 00:00 Room Air 11/28/17 00:00 99.2 73 18 119/46 (70) 99 99.2 11/28/17 00:00 72 11/27/17 23:00 76 19 118/50 (72) 97 11/27/17 22:00 86 17 131/51 (77) 99 11/27/17 21:00 99.8 79 12 165/62 (96) 100 99.8 11/27/17 20:49 81 148/54 11/27/17 20:49 148/54 11/27/17 20:48 148/54 11/27/17 20:48 87 148/54 11/27/17 20:00 81 11/27/17 20:00 82 18 154/58 (90) 100 11/27/17 20:00 Room Air 11/27/17 19:00 80 14 138/52 (80) 97 11/27/17 18:00 81 20 144/54 (84) 97 Intake and Output 11/27/17 11/28/17 19:00 07:00 Intake Total 620 ml 530 ml Output Total 250 ml 300 ml Balance 370 ml 230 ml Free Water 100 ml Tube Feeding 440 ml 480 ml Other 80 ml 50 ml Output Urine Total 250 ml 300 ml Laboratory Tests Test 11/28/17 03:06 White Blood Count 6.6 K/UL (4.8-10.8) Red Blood Count 3.19 M/UL (4.20-5.40) L Hemoglobin 11.2 G/DL (12.0-16.0) L Hematocrit 31.7 % (37.0-47.0) L Mean Corpuscular Volume 100 FL (80-99) H Mean Corpuscular Hemoglobin 35.2 PG (27.0-31.0) H Mean Corpuscular Hemoglobin Concent 35.4 G/DL (32.0-36.0) Red Cell Distribution Width 10.3 % (11.6-14.8) L Platelet Count 144 K/UL (150-450) L Mean Platelet Volume 6.2 FL (6.5-10.1) L Neutrophils (%) (Auto) 66.8 % (45.0-75.0) Lymphocytes (%) (Auto) 17.7 % (20.0-45.0) L Monocytes (%) (Auto) 11.4 % (1.0-10.0) H Eosinophils (%) (Auto) 3.7 % (0.0-3.0) H Basophils (%) (Auto) 0.5 % (0.0-2.0) Prothrombin Time 10.2 SEC (9.30-11.50) Prothromb Time International Ratio 1.0 (0.9-1.1) Activated Partial Thromboplast Time 27 SEC (23-33) Sodium Level 142 MMOL/L (136-145) Potassium Level 3.6 MMOL/L (3.5-5.1) Chloride Level 111 MMOL/L (98-107) H Carbon Dioxide Level 26 MMOL/L (21-32) Anion Gap 5 mmol/L (5-15) Blood Urea Nitrogen 14 mg/dL (7-18) Creatinine 0.8 MG/DL (0.55-1.30) Estimat Glomerular Filtration Rate mL/min (>60) Glucose Level 117 MG/DL (74-106) H Calcium Level 10.7 MG/DL (8.5-10.1) H Total Bilirubin 0.6 MG/DL (0.2-1.0) Aspartate Amino Transf (AST/SGOT) 14 U/L (15-37) L Alanine Aminotransferase (ALT/SGPT) 16 U/L (12-78) Alkaline Phosphatase 72 U/L (46-116) Total Protein 5.6 G/DL (6.4-8.2) L Albumin 2.3 G/DL (3.4-5.0) L Globulin 3.3 g/dL Albumin/Globulin Ratio 0.7 (1.0-2.7) L Height (Feet): 5 Height (Inches): 4.00 Weight (Pounds): 114 Medications Current Medications Medications (Trade) Dose Ordered Sig/Atilio Route PRN Reason Start Time Stop Time Status Last Admin Dose Admin Acetaminophen (Tylenol) 650 mg Q4H PRN ORAL Mild Pain (Pain Scale 1-3) 11/28/17 05:00 12/21/17 08:58 Amlodipine Besylate (Norvasc) 10 mg DAILY ORAL 11/28/17 13:50 12/28/17 13:49 11/28/17 14:38 Atorvastatin Calcium (Lipitor) 40 mg QHS ORAL 11/28/17 21:00 12/21/17 20:59 Clonidine HCl (Catapres Tab) 0.1 mg Q6H PRN ORAL For High Blood Pressure 11/28/17 04:19 12/21/17 04:18 11/28/17 11:21 Dextrose (Dextrose 50%) 25 ml Q30M PRN IV Hypoglycemia 11/28/17 04:15 12/26/17 09:14 Dextrose (Dextrose 50%) 50 ml Q30M PRN IV hypoglycemia 11/28/17 04:15 12/26/17 09:14 Diphenhydramine HCl (Benadryl) 25 mg Q3H PRN IVP Itching 11/28/17 05:45 12/22/17 11:44 Famotidine (Pepcid) 40 mg DAILY ORAL 11/28/17 09:00 12/22/17 08:59 11/28/17 08:32 Folic Acid (Folate) 1 mg DAILY NG 11/28/17 09:00 12/25/17 21:29 11/28/17 08:33 Insulin Aspart (NovoLOG) BEFORE MEALS AND HS SUBQ 11/28/17 06:30 12/21/17 16:29 11/28/17 16:18 Labetalol HCl (Normodyne) 10 mg Q4H IV 11/28/17 17:00 12/23/17 08:59 11/28/17 16:24 Losartan Potassium (Cozaar) 50 mg Q12HR ORAL 11/28/17 09:00 12/28/17 08:59 11/28/17 08:41 Metoprolol Tartrate (Lopressor) 37.5 mg Q12HR ORAL 11/28/17 21:00 12/25/17 20:59 Ondansetron HCl (Zofran) 4 mg Q6H PRN IVP Nausea & Vomiting 11/28/17 04:19 12/21/17 04:18 Assessment/Plan Assessment/Plan Assessment: Encephalopathy Hypertension Fall/syncope Hypokalemia Hypercalcemia Diabetes Anemia Plan: Echocardioram Monitor on telemetry due to abnormal electrolytes which can alter the QT and QRS intervals and lead to arrhythmias Speech evaluation - continue tube feeds BP control -Losartan and norvasc started GI/DVT ppx Lupillo Palomo MD Nov 28, 2017 17:34
[2017-11-28] MEDS: Metoprolol Tartrate 12.5mg TAB ORAL SCH (20:43)
[2017-11-28] MEDS ORDERED: Atorvastatin 20mg tab ORAL SCH (21:00)
[2017-11-29] VITALS (24 sets, daily range): BP systolic 120–182; BP diastolic 53–89
[2017-11-29] MEDS: Labetalol 5mg/ml 20ml vial IV SCH ×4 (01:10→12:29)
[2017-11-29 06:11] LABS: ANION GAP 5 mmol/L (5-15); BLOOD UREA NITROGEN 14 mg/dL (7-18); CALCIUM 11.6 MG/DL (8.5-10.1); CARBON DIOXIDE 30 MMOL/L (21-32); CHLORIDE 107 MMOL/L (98-107); CREATININE 0.7 MG/DL (0.55-1.30); PHOSPHORUS 2.2 MG/DL (2.5-4.9); POTASSIUM 3.1 MMOL/L (3.5-5.1); SODIUM 142 MMOL/L (136-145)
[2017-11-29 06:13] LABS: BASOPHILS % (AUTO) 0.5 % (0.0-2.0); EOSINOPHILS % (AUTO) 1.2 % (0.0-3.0); HEMATOCRIT 31.6 % (37.0-47.0); HEMOGLOBIN 11.3 G/DL (12.0-16.0); LYMPHOCYTES % (AUTO) 8.1 % (20.0-45.0); MEAN CORPUSCULAR VOLUME 99 FL (80-99); MONOCYTES % (AUTO) 8.2 % (1.0-10.0); PLATELET COUNT 155 K/UL (150-450); RED BLOOD COUNT 3.21 M/UL (4.20-5.40); RED CELL DISTRIBUTION WIDTH 9.6 % (11.6-14.8); WHITE BLOOD COUNT 8.6 K/UL (4.8-10.8)
[2017-11-29] MEDS: NovoLOG Insulin Flexpen SUBQ SCH ×3 (06:25→23:34)
--- NOTE | 2017-11-29 08:07 | Nephrology Progress Note ---
Assessment/Plan Assessment/Plan A/P 1) HTN Urgency- resolved. 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 Patient was confused prior to admission (multiple bruises from falling at time of admission). reason for admission was confusion/hypoglycemia - patient has been confused at home prior to hospitilization. Worsened since admission. - MRI Head negative. Holding ativan and seroquel per Neurology - due to continue confusion since admission which has worsened, restraints ordered to prevent her from pulling out NG 7) Hypercal- elevated PTH, possible P-HPT- sensipar started. Thyroid US ordered Subjective Date patient seen: Nov 29, 2017 Time patient seen: 08:02 ROS Limited/Unobtainable: Yes Allergies: Coded Allergies: No Known Allergies (Unverified , 11/21/17) Subjective Patient somnolent but arousable and more participant. Failed swallow test Objective Last 24 Hour Vital Signs Date Time Temp Pulse Resp B/P (MAP) Pulse Ox O2 Delivery O2 Flow Rate FiO2 11/29/17 05:30 97.8 11/29/17 05:00 100.6 11/29/17 04:59 97 180/87 11/29/17 04:02 98 11/29/17 04:00 100.6 97 24 180/87 (118) 96 100.6 11/29/17 04:00 Room Air 11/29/17 01:10 89 164/89 11/29/17 00:00 Room Air 11/29/17 00:00 99.5 89 20 164/89 (114) 99 99.5 11/28/17 23:31 92 11/28/17 20:43 95 160/81 11/28/17 20:43 95 160/81 11/28/17 20:00 99.1 95 20 160/81 (107) 95 99.1 11/28/17 20:00 Room Air 11/28/17 19:43 99 11/28/17 16:24 97 178/115 11/28/17 16:00 Room Air 11/28/17 16:00 93 11/28/17 16:00 97.7 96 18 155/79 (104) 96 97.7 11/28/17 14:38 87 201/91 11/28/17 13:14 193/83 (119) 11/28/17 13:14 86 193/83 11/28/17 12:00 Room Air 11/28/17 12:00 97.0 84 164/100 (121) 97.0 11/28/17 11:44 88 11/28/17 11:21 183/108 11/28/17 11:14 183/108 (133) 11/28/17 11:13 190/96 (127) 11/28/17 09:39 82 185/94 11/28/17 09:39 185/94 (124) 11/28/17 08:42 83 172/94 11/28/17 08:41 172/94 Intake and Output 11/28/17 11/29/17 19:00 07:00 Intake Total 740 ml 630 ml Output Total 200 ml Balance 540 ml 630 ml Free Water 300 ml 90 ml Tube Feeding 440 ml 480 ml Other 60 ml Output Urine Total 200 ml # Voids 1 Laboratory Tests 11/29/17 04:05: White Blood Count 8.6, Red Blood Count 3.21L, Hemoglobin 11.3L, Hematocrit 31.6L , Mean Corpuscular Volume 99, Mean Corpuscular Hemoglobin 35.3H, Mean Corpuscular Hemoglobin Concent 35.8, Red Cell Distribution Width 9.6L, Platelet Count 155, Mean Platelet Volume 5.9L, Neutrophils (%) (Auto) 82.0H, Lymphocytes (%) (Auto) 8.1L, Monocytes (%) (Auto) 8.2, Eosinophils (%) (Auto) 1.2, Basophils (%) (Auto) 0.5, Sodium Level 142, Potassium Level 3.1L, Chloride Level 107, Carbon Dioxide Level 30, Anion Gap 5, Blood Urea Nitrogen 14, Creatinine 0.7, Estimat Glomerular Filtration Rate , Glucose Level 218#H, Calcium Level 11.6H, Phosphorus Level 2.2L, Magnesium Level 1.6L Height (Feet): 5 Height (Inches): 4.00 Weight (Pounds): 115 General Appearance: lethargic EENT: normal ENT inspection Neck: normal alignment, supple Cardiovascular: normal rate, regular rhythm Respiratory/Chest: lungs clear, normal breath sounds Abdomen: non tender, soft Edema: no edema noted Arm (L), no edema noted Arm (R), no edema noted Leg (L), no edema noted Leg (R), no edema noted Pedal (L), no edema noted Pedal (R), no edema noted Generalized Vinh Winston MD Nov 29, 2017 08:07
[2017-11-29] MEDS ORDERED: Sensipar 30mg Tab ORAL SCH (09:00)
[2017-11-29] MEDS ORDERED: Losartan 50mg tab ORAL SCH (09:00)
[2017-11-29] MEDS ORDERED: Spironolactone 50mg tab ORAL SCH (09:00)
--- NOTE | 2017-11-29 09:03 | General Progress Note ---
Assessment/Plan Assessment/Plan Assessment - HTN - hypoglycemia - mild macrocytic anemia - hypokalemia - no N/V/D Recommendations - NGTFs >> ST evaluation>> failed swallow eval on Friday, plan repeat on Friday - symptomatic treatment - DM management - zofran prn - prn transfusions - fu labs Subjective ROS Limited/Unobtainable: No Allergies: Coded Allergies: No Known Allergies (Unverified , 11/21/17) Objective Last 24 Hour Vital Signs Date Time Temp Pulse Resp B/P (MAP) Pulse Ox O2 Delivery O2 Flow Rate FiO2 11/29/17 08:42 98 11/29/17 08:00 98.2 84 19 159/80 (106) 96 98.2 11/29/17 05:30 97.8 11/29/17 05:00 100.6 11/29/17 04:59 97 180/87 11/29/17 04:02 98 11/29/17 04:00 100.6 97 24 180/87 (118) 96 100.6 11/29/17 04:00 Room Air 11/29/17 01:10 89 164/89 11/29/17 00:00 Room Air 11/29/17 00:00 99.5 89 20 164/89 (114) 99 99.5 11/28/17 23:31 92 11/28/17 20:43 95 160/81 11/28/17 20:43 95 160/81 11/28/17 20:00 99.1 95 20 160/81 (107) 95 99.1 11/28/17 20:00 Room Air 11/28/17 19:43 99 11/28/17 16:24 97 178/115 11/28/17 16:00 Room Air 11/28/17 16:00 93 11/28/17 16:00 97.7 96 18 155/79 (104) 96 97.7 11/28/17 14:38 87 201/91 11/28/17 13:14 193/83 (119) 11/28/17 13:14 86 193/83 11/28/17 12:00 Room Air 11/28/17 12:00 97.0 84 164/100 (121) 97.0 11/28/17 11:44 88 11/28/17 11:21 183/108 11/28/17 11:14 183/108 (133) 11/28/17 11:13 190/96 (127) 11/28/17 09:39 82 185/94 11/28/17 09:39 185/94 (124) Intake and Output 11/28/17 11/29/17 19:00 07:00 Intake Total 740 ml 630 ml Output Total 200 ml Balance 540 ml 630 ml Free Water 300 ml 90 ml Tube Feeding 440 ml 480 ml Other 60 ml Output Urine Total 200 ml # Voids 1 Laboratory Tests 11/29/17 04:05: White Blood Count 8.6, Red Blood Count 3.21L, Hemoglobin 11.3L, Hematocrit 31.6L , Mean Corpuscular Volume 99, Mean Corpuscular Hemoglobin 35.3H, Mean Corpuscular Hemoglobin Concent 35.8, Red Cell Distribution Width 9.6L, Platelet Count 155, Mean Platelet Volume 5.9L, Neutrophils (%) (Auto) 82.0H, Lymphocytes (%) (Auto) 8.1L, Monocytes (%) (Auto) 8.2, Eosinophils (%) (Auto) 1.2, Basophils (%) (Auto) 0.5, Sodium Level 142, Potassium Level 3.1L, Chloride Level 107, Carbon Dioxide Level 30, Anion Gap 5, Blood Urea Nitrogen 14, Creatinine 0.7, Estimat Glomerular Filtration Rate , Glucose Level 218#H, Calcium Level 11.6H, Phosphorus Level 2.2L, Magnesium Level 1.6L Height (Feet): 5 Height (Inches): 4.00 Weight (Pounds): 115 General Appearance: no apparent distress EENT: normal ENT inspection Neck: supple Cardiovascular: normal rate Respiratory/Chest: decreased breath sounds Abdomen: normal bowel sounds, non tender, soft Extremities: non-tender Mayito Alegre MD Nov 29, 2017 09:03
[2017-11-29] MEDS: Metoprolol Tartrate 12.5mg TAB ORAL SCH ×2 (09:19→20:12)
--- NOTE | 2017-11-29 11:04 | Pulmonology Progress Note ---
Assessment/Plan Assessment/Plan IMPRESSION ALOC DM HTN S/P fall hypercalemia trace pleural effusion, not significant mild anemia PLAN respiratory stable and currently without change oxygen as needed events reviewed dispo per primary MD supportive care medications/laboratory data/nursing notes reviewed in detail note reviewed and edited care discussed with RN and RT Subjective Allergies: Coded Allergies: No Known Allergies (Unverified , 11/21/17) Subjective stable events reviewed care noted and hemodynamics reviewed Objective Last 24 Hour Vital Signs Date Time Temp Pulse Resp B/P (MAP) Pulse Ox O2 Delivery O2 Flow Rate FiO2 11/29/17 09:21 159/80 11/29/17 09:19 98 159/80 11/29/17 09:19 98 159/80 11/29/17 08:42 98 11/29/17 08:00 Room Air 11/29/17 08:00 98.2 84 19 159/80 (106) 96 98.2 11/29/17 05:30 97.8 11/29/17 05:00 100.6 11/29/17 04:59 97 180/87 11/29/17 04:02 98 11/29/17 04:00 100.6 97 24 180/87 (118) 96 100.6 11/29/17 04:00 Room Air 11/29/17 01:10 89 164/89 11/29/17 00:00 Room Air 11/29/17 00:00 99.5 89 20 164/89 (114) 99 99.5 11/28/17 23:31 92 11/28/17 20:43 95 160/81 11/28/17 20:43 95 160/81 11/28/17 20:00 99.1 95 20 160/81 (107) 95 99.1 11/28/17 20:00 Room Air 11/28/17 19:43 99 11/28/17 16:24 97 178/115 11/28/17 16:00 Room Air 11/28/17 16:00 93 11/28/17 16:00 97.7 96 18 155/79 (104) 96 97.7 11/28/17 14:38 87 201/91 11/28/17 13:14 193/83 (119) 11/28/17 13:14 86 193/83 11/28/17 12:00 Room Air 11/28/17 12:00 97.0 84 164/100 (121) 97.0 11/28/17 11:44 88 11/28/17 11:21 183/108 11/28/17 11:14 183/108 (133) 11/28/17 11:13 190/96 (127) Intake and Output 11/28/17 11/29/17 19:00 07:00 Intake Total 740 ml 630 ml Output Total 200 ml Balance 540 ml 630 ml Free Water 300 ml 90 ml Tube Feeding 440 ml 480 ml Other 60 ml Output Urine Total 200 ml # Voids 1 Objective WDWN NAD stable breath sounds bilaterally without rhonchi or wheeze [id number] without MRG NABS nontender no HSM no CCE confused but awake no distress Laboratory Tests 11/29/17 04:05: White Blood Count 8.6, Red Blood Count 3.21L, Hemoglobin 11.3L, Hematocrit 31.6L , Mean Corpuscular Volume 99, Mean Corpuscular Hemoglobin 35.3H, Mean Corpuscular Hemoglobin Concent 35.8, Red Cell Distribution Width 9.6L, Platelet Count 155, Mean Platelet Volume 5.9L, Neutrophils (%) (Auto) 82.0H, Lymphocytes (%) (Auto) 8.1L, Monocytes (%) (Auto) 8.2, Eosinophils (%) (Auto) 1.2, Basophils (%) (Auto) 0.5, Sodium Level 142, Potassium Level 3.1L, Chloride Level 107, Carbon Dioxide Level 30, Anion Gap 5, Blood Urea Nitrogen 14, Creatinine 0.7, Estimat Glomerular Filtration Rate , Glucose Level 218#H, Calcium Level 11.6H, Phosphorus Level 2.2L, Magnesium Level 1.6L Current Medications Medications (Trade) Dose Ordered Sig/Atilio Route PRN Reason Start Time Stop Time Status Last Admin Dose Admin Acetaminophen (Tylenol) 650 mg Q4H PRN ORAL Mild Pain (Pain Scale 1-3) 11/28/17 05:00 12/21/17 08:58 11/29/17 05:00 Atorvastatin Calcium (Lipitor) 40 mg QHS ORAL 11/28/17 21:00 12/21/17 20:59 11/28/17 20:43 Cinacalcet (Sensipar) 30 mg DAILY ORAL 11/29/17 09:00 12/29/17 08:59 11/29/17 09:22 Clonidine HCl (Catapres Tab) 0.1 mg Q6H PRN ORAL For High Blood Pressure 11/28/17 04:19 12/21/17 04:18 11/28/17 11:21 Dextrose (Dextrose 50%) 25 ml Q30M PRN IV Hypoglycemia 11/28/17 04:15 12/26/17 09:14 Dextrose (Dextrose 50%) 50 ml Q30M PRN IV hypoglycemia 11/28/17 04:15 12/26/17 09:14 Diphenhydramine HCl (Benadryl) 25 mg Q3H PRN IVP Itching 11/28/17 05:45 12/22/17 11:44 Famotidine (Pepcid) 40 mg DAILY ORAL 11/28/17 09:00 12/22/17 08:59 11/29/17 09:19 Folic Acid (Folate) 1 mg DAILY NG 11/28/17 09:00 12/25/17 21:29 11/29/17 09:21 Insulin Aspart (NovoLOG) EVERY 6 HOURS SUBQ 11/29/17 12:00 12/21/17 16:29 Labetalol HCl (Normodyne) 10 mg Q4H IV 11/28/17 17:00 12/23/17 08:59 11/29/17 09:19 Losartan Potassium (Cozaar) 100 mg DAILY ORAL 11/29/17 09:00 12/29/17 08:59 11/29/17 09:21 Metoprolol Tartrate (Lopressor) 37.5 mg Q12HR ORAL 11/28/17 21:00 12/25/17 20:59 11/29/17 09:19 Ondansetron HCl (Zofran) 4 mg Q6H PRN IVP Nausea & Vomiting 11/28/17 04:19 12/21/17 04:18 Spironolactone (Aldactone) 50 mg EVERY 12 HOURS ORAL 11/29/17 09:00 12/29/17 08:59 11/29/17 09:21 Romeo Smith MD Nov 29, 2017 11:04
[2017-11-29] MEDS ORDERED: NovoLOG Insulin Flexpen SUBQ SCH (12:00)
[2017-11-29] MEDS ORDERED: D5W IV SCH (12:45)
[2017-11-29] MEDS ORDERED: LABETALOL IV SCH (12:45)
[2017-11-29] MEDS ORDERED: DiphenhydrAMINE 50mg/ml Inj IVP PRN (13:59)
[2017-11-29] MEDS: D5W IV SCH ×4 (14:04→22:01)
[2017-11-29] MEDS: LABETALOL IV SCH ×4 (14:04→22:01)
--- NOTE | 2017-11-29 14:21 | General Surgery Progress Note ---
General Surgery-Progress Note Subjective Additional Comments transferred to ICU. HTN, ALOC. tolerating feeds. abd stable. Objective Last 24 Hour Vital Signs Date Time Temp Pulse Resp B/P (MAP) Pulse Ox O2 Delivery O2 Flow Rate FiO2 11/29/17 14:04 86 167/73 11/29/17 12:29 90 175/86 11/29/17 12:28 175/86 11/29/17 12:00 98.8 115 20 175/86 (115) 96 98.8 11/29/17 12:00 Room Air 11/29/17 12:00 89 11/29/17 09:21 159/80 11/29/17 09:19 98 159/80 11/29/17 09:19 98 159/80 11/29/17 08:42 98 11/29/17 08:00 Room Air 11/29/17 08:00 98.2 84 19 159/80 (106) 96 98.2 11/29/17 05:30 97.8 11/29/17 05:00 100.6 11/29/17 04:59 97 180/87 11/29/17 04:02 98 11/29/17 04:00 100.6 97 24 180/87 (118) 96 100.6 11/29/17 04:00 Room Air 11/29/17 01:10 89 164/89 11/29/17 00:00 Room Air 11/29/17 00:00 99.5 89 20 164/89 (114) 99 99.5 11/28/17 23:31 92 11/28/17 20:43 95 160/81 11/28/17 20:43 95 160/81 11/28/17 20:00 99.1 95 20 160/81 (107) 95 99.1 11/28/17 20:00 Room Air 11/28/17 19:43 99 11/28/17 16:24 97 178/115 11/28/17 16:00 Room Air 11/28/17 16:00 93 11/28/17 16:00 97.7 96 18 155/79 (104) 96 97.7 11/28/17 14:38 87 201/91 I&O Intake and Output 11/28/17 11/29/17 19:00 07:00 Intake Total 740 ml 630 ml Output Total 200 ml Balance 540 ml 630 ml Free Water 300 ml 90 ml Tube Feeding 440 ml 480 ml Other 60 ml Output Urine Total 200 ml # Voids 1 Dressing: other Wound: other Drains: other Cardiovascular: RSR Respiratory: clear Abdomen: soft, flat, non-tender, present bowel sounds Extremities: other Laboratory Tests Test 11/29/17 04:05 White Blood Count 8.6 K/UL (4.8-10.8) Red Blood Count 3.21 M/UL (4.20-5.40) L Hemoglobin 11.3 G/DL (12.0-16.0) L Hematocrit 31.6 % (37.0-47.0) L Mean Corpuscular Volume 99 FL (80-99) Mean Corpuscular Hemoglobin 35.3 PG (27.0-31.0) H Mean Corpuscular Hemoglobin Concent 35.8 G/DL (32.0-36.0) Red Cell Distribution Width 9.6 % (11.6-14.8) L Platelet Count 155 K/UL (150-450) Mean Platelet Volume 5.9 FL (6.5-10.1) L Neutrophils (%) (Auto) 82.0 % (45.0-75.0) H Lymphocytes (%) (Auto) 8.1 % (20.0-45.0) L Monocytes (%) (Auto) 8.2 % (1.0-10.0) Eosinophils (%) (Auto) 1.2 % (0.0-3.0) Basophils (%) (Auto) 0.5 % (0.0-2.0) Sodium Level 142 MMOL/L (136-145) Potassium Level 3.1 MMOL/L (3.5-5.1) L Chloride Level 107 MMOL/L (98-107) Carbon Dioxide Level 30 MMOL/L (21-32) Anion Gap 5 mmol/L (5-15) Blood Urea Nitrogen 14 mg/dL (7-18) Creatinine 0.7 MG/DL (0.55-1.30) Estimat Glomerular Filtration Rate mL/min (>60) Glucose Level 218 MG/DL (74-106) #H Calcium Level 11.6 MG/DL (8.5-10.1) H Phosphorus Level 2.2 MG/DL (2.5-4.9) L Magnesium Level 1.6 MG/DL (1.8-2.4) L Plan Problems: (1) Abdominal pain Assessment & Plan: c/o abdominal pain. no n/v/f/c. unsure how long has been having pain. on exam epigastric tenderness with guarding - improved labs reviewed. no leukocytosis. lfts okay etiology unknown gastritis? US reviewed. no GB noted. prior cholecystectomy KUB okay -PPI -cont tube feeds -no surgical intervention planned. -noted to have elevated Calcium level. possible primary hypercalcemia which at such low elevation unlikely to be etiology of agitation and mental status change. PTH noted. will order neck ultrasound to see if evident adenoma. will follow with recs thank you for this consultation Sourav Tobias Nov 29, 2017 14:21
--- NOTE | 2017-11-29 14:30 | Neurology Progress Note ---
Interim History Interim History Interim History Ms. Bernardo feels unwell. She is less sleepy. Her BP is still running high. She has been moved to the ICU for BP control with labetalol. She is still somnolent. She is still less responsive than she was a few days ago. She still cannot cooperate for a thorough neurologic exam. Review of Systems Neuro Review of Systems Unable to obtain. Objective Physical Exam Last Vital Signs Date Time Temp Pulse Resp B/P (MAP) Pulse Ox O2 Delivery O2 Flow Rate FiO2 11/29/17 14:04 86 167/73 11/29/17 12:00 98.8 20 96 98.8 11/29/17 12:00 Room Air Laboratory Tests Test 11/29/17 04:05 White Blood Count 8.6 K/UL (4.8-10.8) Red Blood Count 3.21 M/UL (4.20-5.40) L Hemoglobin 11.3 G/DL (12.0-16.0) L Hematocrit 31.6 % (37.0-47.0) L Mean Corpuscular Volume 99 FL (80-99) Mean Corpuscular Hemoglobin 35.3 PG (27.0-31.0) H Mean Corpuscular Hemoglobin Concent 35.8 G/DL (32.0-36.0) Red Cell Distribution Width 9.6 % (11.6-14.8) L Platelet Count 155 K/UL (150-450) Mean Platelet Volume 5.9 FL (6.5-10.1) L Neutrophils (%) (Auto) 82.0 % (45.0-75.0) H Lymphocytes (%) (Auto) 8.1 % (20.0-45.0) L Monocytes (%) (Auto) 8.2 % (1.0-10.0) Eosinophils (%) (Auto) 1.2 % (0.0-3.0) Basophils (%) (Auto) 0.5 % (0.0-2.0) Sodium Level 142 MMOL/L (136-145) Potassium Level 3.1 MMOL/L (3.5-5.1) L Chloride Level 107 MMOL/L (98-107) Carbon Dioxide Level 30 MMOL/L (21-32) Anion Gap 5 mmol/L (5-15) Blood Urea Nitrogen 14 mg/dL (7-18) Creatinine 0.7 MG/DL (0.55-1.30) Estimat Glomerular Filtration Rate mL/min (>60) Glucose Level 218 MG/DL (74-106) #H Calcium Level 11.6 MG/DL (8.5-10.1) H Phosphorus Level 2.2 MG/DL (2.5-4.9) L Magnesium Level 1.6 MG/DL (1.8-2.4) L Neurologic Exam Objective PHYSICAL EXAMINATION: GENERAL: She is a well-developed, well-nourished, [place] lady, lying in bed, in no acute distress. HEAD: Normocephalic and atraumatic. EENT: Examination benign. NECK: No neck rigidity was observed. NEUROLOGICAL EXAMINATION: MENTAL STATUS EXAMINATION: She was somnolent. She was oriented to the hospital. Further mental status testing was impossible. SPEECH: She was dysarthric. LANGUAGE: Could not be tested adequately. CRANIAL NERVE EXAMINATION: II: She did blink to threat. III, IV & : The external ocular movements were present.The pupils were 3 mm in diameter, equal, round, regular, and reactive sluggishly to light. V & VII: The corneal reflexes were present bilaterally. VIII: She was able to hear loud sounds and had no nystagmus. IX- X: Were not tested. XI: The sternocleidomastoids and trapezii functioned. XII: The tongue was in the midline without any fasciculations or atrophy. MOTOR SYSTEM: The tone was normal in all four extremities. Examination of muscle mass revealed no focal wasting. Examination of power was impossible to perform on individual muscle groups, however, she moved all four extremities on command. SENSORY EXAMINATION: She responded appropriately to deep pain. She was unable to cooperate for other sensory modalities. REFLEXES: 0 at the biceps, triceps, brachioradialis, knees, and ankles. The plantar responses were extensor bilaterally. COORDINATION, STANCE & GAIT: Could not be tested. Impression/Recommendations Diagnostic Impression 1. Ms. Chelly Bernardo is a 72-year-old, [place] lady, of unknown handedness, who does have a past history of hypertension and diabetes mellitus, who was hospitalized on 11/21/2017 for an episode of severe hypoglycemia with her blood sugars in the 20s. Since she has been here, she has also been exhibiting significantly elevated blood pressures. Her mental state continues to be quite altered. 2. She feels unwell. She is less sleepy. Her BP is still running high. She has been moved to the ICU for BP control with labetalol. She is still somnolent. She is still less responsive than she was a few days ago. She still cannot cooperate for a thorough neurologic exam. 3. On neurological examination, at this time, she is somnolent. Further mental status testing is impossible. She does not demonstrate any focal or lateralizing neurological findings. 4. The CT scan of the brain performed on 11/22/2017 revealed atrophy, but no acute pathology. 5. Laboratory data obtained thus far have revealed that she is mildly anemic., has a borderline low B12 level, and a low folate level but otherwise normal laboratory data. 6. The EEG done on 11/25/17 revealed a moderate metabolic encephalopathy. 7. The MRI of the brain done on 11/27/17 revealed no acute intracranial pathology. Moderate atrophy and chronic small vessel disease involving white matter was seen. 8. 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 Her encephalopathy is minimally better. Recommendations 1. The patient's blood pressure should be brought down into the physiological range. 2. Continue to correct the patient's fluids and electrolytes. 3. Folic acid 1 mg via NGT q day. 4. The patient should be given vitamin B12 1000 mcg SC monthly. 5. Refrain from use of mind altering drugs. Betina Osullivan M.D., M.S.P.BETINA KAY Nov 29, 2017 14:30
--- NOTE | 2017-11-29 15:10 | Cardiology Progress Note ---
Assessment/Plan Status: stable Assessment/Plan Assessment: Encephalopathy Hypertension Fall/syncope Hypokalemia Hypercalcemia Diabetes Anemia Plan: Echocardioram Monitor on telemetry due to abnormal electrolytes which can alter the QT and QRS intervals and lead to arrhythmias Speech evaluation - continue tube feeds BP control -Losartan aldactone, labetalol gtt, add nicardipine or nitro gtt if not controlled GI/DVT ppx Subjective Cardiovascular: Reports: no symptoms Respiratory: Reports: no symptoms Gastrointestinal/Abdominal: Reports: no symptoms Genitourinary: Reports: no symptoms Subjective Heart rates normal, sinus rhythm, Patient trasferred to ICU for uncontrolled HTN , started on labetalol gtt, still on aldactone and losartan. BP still high Objective Last 24 Hour Vital Signs Date Time Temp Pulse Resp B/P (MAP) Pulse Ox O2 Delivery O2 Flow Rate FiO2 11/29/17 14:04 86 167/73 11/29/17 14:00 99.2 19 182/77 (112) 98 99.2 11/29/17 12:29 90 175/86 11/29/17 12:28 175/86 11/29/17 12:00 98.8 115 20 175/86 (115) 96 98.8 11/29/17 12:00 Room Air 11/29/17 12:00 89 11/29/17 09:21 159/80 11/29/17 09:19 98 159/80 11/29/17 09:19 98 159/80 11/29/17 08:42 98 11/29/17 08:00 Room Air 11/29/17 08:00 98.2 84 19 159/80 (106) 96 98.2 11/29/17 05:30 97.8 11/29/17 05:00 100.6 11/29/17 04:59 97 180/87 11/29/17 04:02 98 11/29/17 04:00 100.6 97 24 180/87 (118) 96 100.6 11/29/17 04:00 Room Air 11/29/17 01:10 89 164/89 11/29/17 00:00 Room Air 11/29/17 00:00 99.5 89 20 164/89 (114) 99 99.5 11/28/17 23:31 92 11/28/17 20:43 95 160/81 11/28/17 20:43 95 160/81 11/28/17 20:00 99.1 95 20 160/81 (107) 95 99.1 11/28/17 20:00 Room Air 11/28/17 19:43 99 11/28/17 16:24 97 178/115 11/28/17 16:00 Room Air 11/28/17 16:00 93 11/28/17 16:00 97.7 96 18 155/79 (104) 96 97.7 General Appearance: no apparent distress, mild distress EENT: PERRL/EOMI, normal ENT inspection, TMs normal, pharynx normal Neck: non-tender, normal alignment, supple, normal inspection, abnormal alignment Rhythm: NSR, ST Cardiovascular: normal peripheral pulses, normal rate, regular rhythm, no gallop/murmur Respiratory/Chest: chest wall non-tender, lungs clear, normal breath sounds, no respiratory distress Abdomen: normal bowel sounds Extremities: normal range of motion, non-tender Neurologic: manager pe II-XII grossly normal, no motor/sensory deficits, abnormal gait , alert, oriented x 3, responsive Intake and Output 11/28/17 11/29/17 19:00 07:00 Intake Total 740 ml 630 ml Output Total 200 ml Balance 540 ml 630 ml Free Water 300 ml 90 ml Tube Feeding 440 ml 480 ml Other 60 ml Output Urine Total 200 ml # Voids 1 Laboratory Tests Test 11/29/17 04:05 White Blood Count 8.6 K/UL (4.8-10.8) Red Blood Count 3.21 M/UL (4.20-5.40) L Hemoglobin 11.3 G/DL (12.0-16.0) L Hematocrit 31.6 % (37.0-47.0) L Mean Corpuscular Volume 99 FL (80-99) Mean Corpuscular Hemoglobin 35.3 PG (27.0-31.0) H Mean Corpuscular Hemoglobin Concent 35.8 G/DL (32.0-36.0) Red Cell Distribution Width 9.6 % (11.6-14.8) L Platelet Count 155 K/UL (150-450) Mean Platelet Volume 5.9 FL (6.5-10.1) L Neutrophils (%) (Auto) 82.0 % (45.0-75.0) H Lymphocytes (%) (Auto) 8.1 % (20.0-45.0) L Monocytes (%) (Auto) 8.2 % (1.0-10.0) Eosinophils (%) (Auto) 1.2 % (0.0-3.0) Basophils (%) (Auto) 0.5 % (0.0-2.0) Sodium Level 142 MMOL/L (136-145) Potassium Level 3.1 MMOL/L (3.5-5.1) L Chloride Level 107 MMOL/L (98-107) Carbon Dioxide Level 30 MMOL/L (21-32) Anion Gap 5 mmol/L (5-15) Blood Urea Nitrogen 14 mg/dL (7-18) Creatinine 0.7 MG/DL (0.55-1.30) Estimat Glomerular Filtration Rate mL/min (>60) Glucose Level 218 MG/DL (74-106) #H Calcium Level 11.6 MG/DL (8.5-10.1) H Phosphorus Level 2.2 MG/DL (2.5-4.9) L Magnesium Level 1.6 MG/DL (1.8-2.4) L Lupillo Palomo MD Nov 29, 2017 15:10
[2017-11-29] MEDS: Atorvastatin 20mg tab ORAL SCH (20:12)
[2017-11-29] MEDS: Spironolactone 50mg tab ORAL SCH (20:12)
[2017-11-30] VITALS (46 sets, daily range): BP systolic 93–161; BP diastolic 40–127
[2017-11-30] MEDS: D5W IV SCH ×8 (05:02→23:31)
[2017-11-30] MEDS: LABETALOL IV SCH ×8 (05:02→23:31)
[2017-11-30 05:39] LABS: BASOPHILS % (AUTO) 0.5 % (0.0-2.0); EOSINOPHILS % (AUTO) 1.9 % (0.0-3.0); HEMATOCRIT 28.7 % (37.0-47.0); HEMOGLOBIN 10.2 G/DL (12.0-16.0); LYMPHOCYTES % (AUTO) 12.9 % (20.0-45.0); MEAN CORPUSCULAR VOLUME 98 FL (80-99); MONOCYTES % (AUTO) 10.3 % (1.0-10.0); NEUTROPHILS % (AUTO) 74.5 % (45.0-75.0); PLATELET COUNT 126 K/UL (150-450); RED BLOOD COUNT 2.91 M/UL (4.20-5.40); RED CELL DISTRIBUTION WIDTH 9.7 % (11.6-14.8); WHITE BLOOD COUNT 7.8 K/UL (4.8-10.8)
[2017-11-30] MEDS: NovoLOG Insulin Flexpen SUBQ SCH ×4 (05:40→23:33)
[2017-11-30 05:44] LABS: ANION GAP 2 mmol/L (5-15); BLOOD UREA NITROGEN 17 mg/dL (7-18); CARBON DIOXIDE 33 MMOL/L (21-32); CHLORIDE 104 MMOL/L (98-107); CREATININE 0.9 MG/DL (0.55-1.30); POTASSIUM 3.5 MMOL/L (3.5-5.1); SODIUM 139 MMOL/L (136-145)
--- NOTE | 2017-11-30 08:08 | Nephrology Progress Note ---
Assessment/Plan Assessment/Plan A/P 1) HTN Urgency- resolved on labetolol gtt. Lopressor, Losartan and aldactone due to HTN and hypokalemic state though renin:samm ratio less than 30 2) S/P Fall- CT Head/MRI negative 3) Tachycardia- resolved, being managed by cardiology 4) DVT prophylaxsis with SCDs 5) Hypokalemia/Mg/Phos- replacing today 6) Encephalopathy- Patient was confused prior to admission (multiple bruises from falling at time of admission). reason for admission was confusion/ hypoglycemia - patient has been confused at home prior to hospitilization. Worsened since admission. - MRI Head negative. Holding ativan and seroquel per Neurology - Long 1 hr discussion with son again trying to explain state of his mother and confusion due to undelying intial hypoglycemic event on presentation and component of HTN encephalopathy 7) Hypercal- elevated PTH, possible P-HPT- sensipar started. Thyroid US ordered and Ca improved Subjective Date patient seen: Nov 30, 2017 Time patient seen: 08:04 ROS Limited/Unobtainable: Yes Allergies: Coded Allergies: No Known Allergies (Unverified , 11/21/17) Subjective Patient awake and more restless today Objective Last 24 Hour Vital Signs Date Time Temp Pulse Resp B/P (MAP) Pulse Ox O2 Delivery O2 Flow Rate FiO2 11/30/17 08:00 99.1 84 15 144/85 (104) 97 99.1 11/30/17 07:00 84 25 141/91 (108) 97 11/30/17 06:00 79 14 135/65 (88) 96 11/30/17 05:02 75 136/54 11/30/17 05:00 75 10 133/54 (80) 98 11/30/17 04:45 76 13 136/54 (81) 98 11/30/17 04:30 75 12 154/60 (91) 98 11/30/17 04:15 77 16 139/60 (86) 98 11/30/17 04:00 98.3 80 18 138/57 (84) 97 98.3 11/30/17 04:00 Room Air 11/30/17 04:00 76 11/30/17 03:00 77 16 114/54 (74) 99 11/30/17 02:00 74 14 116/54 (74) 99 11/30/17 01:00 72 17 104/40 (61) 99 11/30/17 00:30 74 16 116/49 (71) 98 11/30/17 00:00 71 11/30/17 00:00 Room Air 11/30/17 00:00 75 17 109/50 (69) 98 11/29/17 23:30 76 15 131/55 (80) 98 11/29/17 23:00 98.1 77 17 120/55 (76) 98 98.1 11/29/17 22:30 77 19 122/53 (76) 98 11/29/17 22:01 80 121/62 11/29/17 22:00 79 18 121/62 (81) 98 11/29/17 21:30 78 16 132/60 (84) 98 11/29/17 21:15 80 18 140/54 (82) 98 11/29/17 21:00 81 20 139/61 (87) 98 11/29/17 20:30 80 21 146/57 (86) 98 11/29/17 20:12 79 147/61 11/29/17 20:00 82 11/29/17 20:00 Room Air 11/29/17 20:00 81 25 147/61 (89) 98 11/29/17 19:39 86 142/61 11/29/17 19:30 84 22 142/61 (88) 98 11/29/17 19:00 98.6 85 20 136/63 (87) 98 98.6 11/29/17 18:30 15 122/67 (85) 97 11/29/17 18:00 22 148/57 (87) 98 11/29/17 17:30 19 150/67 (94) 98 11/29/17 17:00 20 149/59 (89) 98 11/29/17 16:54 84 142/64 11/29/17 16:00 85 11/29/17 16:00 Room Air 11/29/17 16:00 99.0 19 154/63 (93) 98 99.0 11/29/17 15:30 15 158/72 (100) 98 11/29/17 15:00 19 178/65 (102) 98 11/29/17 14:30 20 173/66 (101) 98 11/29/17 14:04 86 167/73 11/29/17 14:00 99.2 19 182/77 (112) 98 99.2 11/29/17 12:29 90 175/86 11/29/17 12:28 175/86 11/29/17 12:00 98.8 115 20 175/86 (115) 96 98.8 11/29/17 12:00 Room Air 11/29/17 12:00 89 11/29/17 11:59 90 11/29/17 09:21 159/80 11/29/17 09:19 98 159/80 11/29/17 09:19 98 159/80 11/29/17 08:42 98 Intake and Output 11/29/17 11/30/17 19:00 07:00 Intake Total 920 ml 931.5 ml Balance 920 ml 931.5 ml IV Total 300 ml 391.5 ml Tube Feeding 520 ml 480 ml Other 100 ml 60 ml # Voids 8 3 # Bowel Movements 2 Laboratory Tests 11/30/17 04:50: White Blood Count 7.8, Red Blood Count 2.91L, Hemoglobin 10.2L, Hematocrit 28.7L , Mean Corpuscular Volume 98, Mean Corpuscular Hemoglobin 34.9H, Mean Corpuscular Hemoglobin Concent 35.5, Red Cell Distribution Width 9.7L, Platelet Count 126L, Mean Platelet Volume 5.9L, Neutrophils (%) (Auto) 74.5, Lymphocytes (%) (Auto) 12.9L, Monocytes (%) (Auto) 10.3H, Eosinophils (%) (Auto) 1.9, Basophils (%) (Auto) 0.5, Sodium Level 139, Potassium Level 3.5, Chloride Level 104, Carbon Dioxide Level 33H, Anion Gap 2L, Blood Urea Nitrogen 17, Creatinine 0.9, Estimat Glomerular Filtration Rate , Glucose Level 197H, Calcium Level 11.0H Height (Feet): 5 Height (Inches): 4.00 Weight (Pounds): 115 General Appearance: mild distress, agitated EENT: normal ENT inspection Neck: normal alignment, supple Cardiovascular: normal rate, regular rhythm Respiratory/Chest: lungs clear, normal breath sounds Abdomen: non tender, soft Edema: no edema noted Arm (L), no edema noted Arm (R), no edema noted Leg (L), no edema noted Leg (R), no edema noted Pedal (L), no edema noted Pedal (R), no edema noted Generalized Vinh Winston MD Nov 30, 2017 08:08
--- NOTE | 2017-11-30 08:23 | General Progress Note ---
Assessment/Plan Assessment/Plan Assessment - HTN - hypoglycemia - mild macrocytic anemia - hypokalemia - no N/V/D Recommendations - NGTFs >> ST evaluation>> failed swallow eval on Friday, plan repeat on Friday - symptomatic treatment - DM management - zofran prn - prn transfusions - fu labs -NGTF for now Subjective ROS Limited/Unobtainable: No Allergies: Coded Allergies: No Known Allergies (Unverified , 11/21/17) Objective Last 24 Hour Vital Signs Date Time Temp Pulse Resp B/P (MAP) Pulse Ox O2 Delivery O2 Flow Rate FiO2 11/30/17 08:00 99.1 84 15 144/85 (104) 97 99.1 11/30/17 07:00 84 25 141/91 (108) 97 11/30/17 06:00 79 14 135/65 (88) 96 11/30/17 05:02 75 136/54 11/30/17 05:00 75 10 133/54 (80) 98 11/30/17 04:45 76 13 136/54 (81) 98 11/30/17 04:30 75 12 154/60 (91) 98 11/30/17 04:15 77 16 139/60 (86) 98 11/30/17 04:00 98.3 80 18 138/57 (84) 97 98.3 11/30/17 04:00 Room Air 11/30/17 04:00 76 11/30/17 03:00 77 16 114/54 (74) 99 11/30/17 02:00 74 14 116/54 (74) 99 11/30/17 01:00 72 17 104/40 (61) 99 11/30/17 00:30 74 16 116/49 (71) 98 11/30/17 00:00 71 11/30/17 00:00 Room Air 11/30/17 00:00 75 17 109/50 (69) 98 11/29/17 23:30 76 15 131/55 (80) 98 11/29/17 23:00 98.1 77 17 120/55 (76) 98 98.1 11/29/17 22:30 77 19 122/53 (76) 98 11/29/17 22:01 80 121/62 11/29/17 22:00 79 18 121/62 (81) 98 11/29/17 21:30 78 16 132/60 (84) 98 11/29/17 21:15 80 18 140/54 (82) 98 11/29/17 21:00 81 20 139/61 (87) 98 11/29/17 20:30 80 21 146/57 (86) 98 11/29/17 20:12 79 147/61 11/29/17 20:00 82 11/29/17 20:00 Room Air 11/29/17 20:00 81 25 147/61 (89) 98 11/29/17 19:39 86 142/61 11/29/17 19:30 84 22 142/61 (88) 98 11/29/17 19:00 98.6 85 20 136/63 (87) 98 98.6 11/29/17 18:30 15 122/67 (85) 97 11/29/17 18:00 22 148/57 (87) 98 11/29/17 17:30 19 150/67 (94) 98 11/29/17 17:00 20 149/59 (89) 98 11/29/17 16:54 84 142/64 11/29/17 16:00 85 11/29/17 16:00 Room Air 11/29/17 16:00 99.0 19 154/63 (93) 98 99.0 11/29/17 15:30 15 158/72 (100) 98 11/29/17 15:00 19 178/65 (102) 98 11/29/17 14:30 20 173/66 (101) 98 11/29/17 14:04 86 167/73 11/29/17 14:00 99.2 19 182/77 (112) 98 99.2 11/29/17 12:29 90 175/86 11/29/17 12:28 175/86 11/29/17 12:00 98.8 115 20 175/86 (115) 96 98.8 11/29/17 12:00 Room Air 11/29/17 12:00 89 11/29/17 11:59 90 11/29/17 09:21 159/80 11/29/17 09:19 98 159/80 11/29/17 09:19 98 159/80 11/29/17 08:42 98 Intake and Output 11/29/17 11/30/17 19:00 07:00 Intake Total 920 ml 931.5 ml Balance 920 ml 931.5 ml IV Total 300 ml 391.5 ml Tube Feeding 520 ml 480 ml Other 100 ml 60 ml # Voids 8 3 # Bowel Movements 2 Laboratory Tests 11/30/17 04:50: White Blood Count 7.8, Red Blood Count 2.91L, Hemoglobin 10.2L, Hematocrit 28.7L , Mean Corpuscular Volume 98, Mean Corpuscular Hemoglobin 34.9H, Mean Corpuscular Hemoglobin Concent 35.5, Red Cell Distribution Width 9.7L, Platelet Count 126L, Mean Platelet Volume 5.9L, Neutrophils (%) (Auto) 74.5, Lymphocytes (%) (Auto) 12.9L, Monocytes (%) (Auto) 10.3H, Eosinophils (%) (Auto) 1.9, Basophils (%) (Auto) 0.5, Sodium Level 139, Potassium Level 3.5, Chloride Level 104, Carbon Dioxide Level 33H, Anion Gap 2L, Blood Urea Nitrogen 17, Creatinine 0.9, Estimat Glomerular Filtration Rate , Glucose Level 197H, Calcium Level 11.0H Height (Feet): 5 Height (Inches): 4.00 Weight (Pounds): 115 General Appearance: lethargic EENT: normal ENT inspection Neck: supple Cardiovascular: tachycardia Respiratory/Chest: decreased breath sounds Abdomen: normal bowel sounds, non tender, soft Extremities: non-tender Mayito Alegre MD Nov 30, 2017 08:23
[2017-11-30] MEDS: Spironolactone 50mg tab ORAL SCH ×2 (08:37→20:55)
[2017-11-30] MEDS: Sensipar 30mg Tab ORAL SCH (08:38)
[2017-11-30] MEDS: Losartan 50mg tab ORAL SCH (08:38)
[2017-11-30] MEDS: Metoprolol Tartrate 12.5mg TAB ORAL SCH ×2 (08:38→20:55)
--- NOTE | 2017-11-30 09:36 | Pulmonology Progress Note ---
Assessment/Plan Assessment/Plan IMPRESSION ALOC DM HTN S/P fall hypercalemia trace pleural effusion, not significant mild anemia tachycardia PLAN respiratory stable and same oxygen minimal rate control events reviewed ICU care supportive care medications/laboratory data/nursing notes reviewed in detail note reviewed and edited care discussed with RN and RT Subjective ROS Limited/Unobtainable: Yes Allergies: Coded Allergies: No Known Allergies (Unverified , 11/21/17) Subjective transferred to ICU and placed on labetolol drip events reviewed care noted and hemodynamics reviewed Objective Last 24 Hour Vital Signs Date Time Temp Pulse Resp B/P (MAP) Pulse Ox O2 Delivery O2 Flow Rate FiO2 11/30/17 09:00 83 22 140/105 (117) 98 11/30/17 08:38 83 136/64 11/30/17 08:38 136/64 11/30/17 08:00 82 11/30/17 08:00 Room Air 11/30/17 08:00 99.1 84 15 144/85 (104) 97 99.1 11/30/17 07:00 84 25 141/91 (108) 97 11/30/17 06:00 79 14 135/65 (88) 96 11/30/17 05:02 75 136/54 11/30/17 05:00 75 10 133/54 (80) 98 11/30/17 04:45 76 13 136/54 (81) 98 11/30/17 04:30 75 12 154/60 (91) 98 11/30/17 04:15 77 16 139/60 (86) 98 11/30/17 04:00 98.3 80 18 138/57 (84) 97 98.3 11/30/17 04:00 Room Air 11/30/17 04:00 76 11/30/17 03:00 77 16 114/54 (74) 99 11/30/17 02:00 74 14 116/54 (74) 99 11/30/17 01:00 72 17 104/40 (61) 99 11/30/17 00:30 74 16 116/49 (71) 98 11/30/17 00:00 71 11/30/17 00:00 Room Air 11/30/17 00:00 75 17 109/50 (69) 98 11/29/17 23:30 76 15 131/55 (80) 98 11/29/17 23:00 98.1 77 17 120/55 (76) 98 98.1 11/29/17 22:30 77 19 122/53 (76) 98 11/29/17 22:01 80 121/62 11/29/17 22:00 79 18 121/62 (81) 98 11/29/17 21:30 78 16 132/60 (84) 98 11/29/17 21:15 80 18 140/54 (82) 98 11/29/17 21:00 81 20 139/61 (87) 98 11/29/17 20:30 80 21 146/57 (86) 98 11/29/17 20:12 79 147/61 11/29/17 20:00 82 11/29/17 20:00 Room Air 11/29/17 20:00 81 25 147/61 (89) 98 11/29/17 19:39 86 142/61 11/29/17 19:30 84 22 142/61 (88) 98 11/29/17 19:00 98.6 85 20 136/63 (87) 98 98.6 11/29/17 18:30 15 122/67 (85) 97 11/29/17 18:00 22 148/57 (87) 98 11/29/17 17:30 19 150/67 (94) 98 11/29/17 17:00 20 149/59 (89) 98 11/29/17 16:54 84 142/64 11/29/17 16:00 85 11/29/17 16:00 Room Air 11/29/17 16:00 99.0 19 154/63 (93) 98 99.0 11/29/17 15:30 15 158/72 (100) 98 11/29/17 15:00 19 178/65 (102) 98 11/29/17 14:30 20 173/66 (101) 98 11/29/17 14:04 86 167/73 11/29/17 14:00 99.2 19 182/77 (112) 98 99.2 11/29/17 12:29 90 175/86 11/29/17 12:28 175/86 11/29/17 12:00 98.8 115 20 175/86 (115) 96 98.8 11/29/17 12:00 Room Air 11/29/17 12:00 89 9/29/18 11:59 90 Intake and Output 11/29/17 11/30/17 19:00 07:00 Intake Total 920 ml 953.25 ml Balance 920 ml 953.25 ml IV Total 300 ml 413.25 ml Tube Feeding 520 ml 480 ml Other 100 ml 60 ml # Voids 8 3 # Bowel Movements 2 Objective WDWN altered stable breath sounds bilaterally without rhonchi or wheeze [id number] without MRG NABS nontender no HSM no CCE confused but awake no distress Laboratory Tests 11/30/17 04:50: White Blood Count 7.8, Red Blood Count 2.91L, Hemoglobin 10.2L, Hematocrit 28.7L , Mean Corpuscular Volume 98, Mean Corpuscular Hemoglobin 34.9H, Mean Corpuscular Hemoglobin Concent 35.5, Red Cell Distribution Width 9.7L, Platelet Count 126L, Mean Platelet Volume 5.9L, Neutrophils (%) (Auto) 74.5, Lymphocytes (%) (Auto) 12.9L, Monocytes (%) (Auto) 10.3H, Eosinophils (%) (Auto) 1.9, Basophils (%) (Auto) 0.5, Sodium Level 139, Potassium Level 3.5, Chloride Level 104, Carbon Dioxide Level 33H, Anion Gap 2L, Blood Urea Nitrogen 17, Creatinine 0.9, Estimat Glomerular Filtration Rate , Glucose Level 197H, Calcium Level 11.0H Current Medications Medications (Trade) Dose Ordered Sig/Atilio Route PRN Reason Start Time Stop Time Status Last Admin Dose Admin Acetaminophen (Tylenol) 650 mg Q4H PRN ORAL Mild Pain (Pain Scale 1-3) 11/29/17 13:58 12/21/17 13:57 Atorvastatin Calcium (Lipitor) 40 mg QHS ORAL 11/29/17 21:00 12/21/17 20:59 11/29/17 20:12 Cinacalcet (Sensipar) 30 mg DAILY ORAL 11/30/17 09:00 12/29/17 08:59 11/30/17 08:38 Dextrose (Dextrose 50%) 25 ml Q30M PRN IV Hypoglycemia 11/29/17 13:58 12/26/17 13:57 Dextrose (Dextrose 50%) 50 ml Q30M PRN IV hypoglycemia 11/29/17 13:58 12/26/17 13:57 Diphenhydramine HCl (Benadryl) 25 mg Q3H PRN IVP Itching 11/29/17 13:59 12/22/17 13:58 Famotidine (Pepcid) 40 mg DAILY ORAL 11/30/17 09:00 12/22/17 08:59 11/30/17 08:38 Folic Acid (Folate) 1 mg DAILY NG 11/30/17 09:00 12/25/17 21:29 11/30/17 08:37 Insulin Aspart (NovoLOG) EVERY 6 HOURS SUBQ 11/29/17 18:00 12/21/17 16:29 11/30/17 05:40 Labetalol HCl 200 mg/Dextrose 290 ml @ 0 mls/hr Q24H IV 11/30/17 13:57 12/29/17 13:56 11/30/17 05:02 Losartan Potassium (Cozaar) 100 mg DAILY ORAL 11/30/17 09:00 12/29/17 08:59 11/30/17 08:38 Metoprolol Tartrate (Lopressor) 37.5 mg Q12HR ORAL 11/29/17 21:00 12/25/17 20:59 11/30/17 08:38 Ondansetron HCl (Zofran) 4 mg Q6H PRN IVP Nausea & Vomiting 11/29/17 13:59 12/21/17 13:58 Potassium Phosphate 20 mm/ Sodium Chloride 281.6667 ml @ 46.944 m... ONCE ONCE IV 11/30/17 10:00 11/30/17 15:59 Spironolactone (Aldactone) 50 mg EVERY 12 HOURS ORAL 11/29/17 21:00 12/29/17 08:59 11/30/17 08:37 Romeo Smith MD Nov 30, 2017 09:36
[2017-11-30] MEDS ORDERED: Potassium Phosphate 20 MM in NS 275 ML IV ONE (10:00)
--- NOTE | 2017-11-30 11:12 | Diagnostic Imaging Report ---
EXAM: US Soft Tissues Head and Neck, Thyroid CLINICAL HISTORY: ABN LABS TECHNIQUE: Real-time ultrasound scan of the thyroid gland and soft tissues of the neck with image documentation. COMPARISON: No relevant prior studies available. FINDINGS: Left thyroid lobe: Normal in size. Multiple nodules. Largest nodule in the inferior left thyroid lobe measures maximum of 1.3 cm.. Right thyroid lobe: Normal in size. Multiple nodules. Largest in the upper right thyroid lobe measures maximum of 1.6 cm. Isthmus: Unremarkable. No enlarged or calcified nodules. IMPRESSION: Multiple thyroid nodules, largest in the left lobe measuring 1.3 cm and in the right lobe measuring 1.6 cm.
--- NOTE | 2017-11-30 13:06 | General Surgery Progress Note ---
General Surgery-Progress Note Subjective Additional Comments not as agitated today. labs noted. htn improved Objective Last 24 Hour Vital Signs Date Time Temp Pulse Resp B/P (MAP) Pulse Ox O2 Delivery O2 Flow Rate FiO2 11/30/17 12:49 81 127/66 11/30/17 12:00 98.8 79 14 127/66 (86) 97 98.8 11/30/17 12:00 Room Air 11/30/17 12:00 82 11/30/17 11:30 83 24 101/77 (85) 97 11/30/17 11:15 86 17 128/105 (113) 99 11/30/17 11:00 83 18 146/60 (88) 94 11/30/17 10:46 100 149/63 11/30/17 10:45 82 23 108/58 (75) 94 11/30/17 10:30 80 22 150/65 (93) 93 11/30/17 10:15 85 22 161/65 (97) 93 11/30/17 10:00 83 22 152/65 (94) 97 11/30/17 09:30 81 19 152/69 (96) 97 11/30/17 09:00 83 22 140/105 (117) 98 11/30/17 08:38 83 136/64 11/30/17 08:38 136/64 11/30/17 08:30 82 21 140/105 (117) 97 11/30/17 08:00 82 11/30/17 08:00 Room Air 11/30/17 08:00 99.1 84 15 144/85 (104) 97 99.1 11/30/17 07:30 84 21 156/127 (137) 97 11/30/17 07:00 84 25 141/91 (108) 97 11/30/17 06:00 79 14 135/65 (88) 96 11/30/17 05:02 75 136/54 11/30/17 05:00 75 10 133/54 (80) 98 11/30/17 04:45 76 13 136/54 (81) 98 11/30/17 04:30 75 12 154/60 (91) 98 11/30/17 04:15 77 16 139/60 (86) 98 11/30/17 04:00 98.3 80 18 138/57 (84) 97 98.3 11/30/17 04:00 Room Air 11/30/17 04:00 76 11/30/17 03:00 77 16 114/54 (74) 99 11/30/17 02:00 74 14 116/54 (74) 99 11/30/17 01:00 72 17 104/40 (61) 99 11/30/17 00:30 74 16 116/49 (71) 98 11/30/17 00:00 71 11/30/17 00:00 Room Air 11/30/17 00:00 75 17 109/50 (69) 98 11/29/17 23:30 76 15 131/55 (80) 98 11/29/17 23:00 98.1 77 17 120/55 (76) 98 98.1 11/29/17 22:30 77 19 122/53 (76) 98 11/29/17 22:01 80 121/62 11/29/17 22:00 79 18 121/62 (81) 98 11/29/17 21:30 78 16 132/60 (84) 98 11/29/17 21:15 80 18 140/54 (82) 98 11/29/17 21:00 81 20 139/61 (87) 98 11/29/17 20:30 80 21 146/57 (86) 98 11/29/17 20:12 79 147/61 11/29/17 20:00 82 11/29/17 20:00 Room Air 11/29/17 20:00 81 25 147/61 (89) 98 11/29/17 19:39 86 142/61 11/29/17 19:30 84 22 142/61 (88) 98 11/29/17 19:00 98.6 85 20 136/63 (87) 98 98.6 11/29/17 18:30 15 122/67 (85) 97 11/29/17 18:00 22 148/57 (87) 98 11/29/17 17:30 19 150/67 (94) 98 11/29/17 17:00 20 149/59 (89) 98 11/29/17 16:54 84 142/64 11/29/17 16:00 85 11/29/17 16:00 Room Air 11/29/17 16:00 99.0 19 154/63 (93) 98 99.0 11/29/17 15:30 15 158/72 (100) 98 11/29/17 15:00 19 178/65 (102) 98 11/29/17 14:30 20 173/66 (101) 98 11/29/17 14:04 86 167/73 11/29/17 14:00 99.2 19 182/77 (112) 98 99.2 I&O Intake and Output 11/29/17 11/30/17 19:00 07:00 Intake Total 920 ml 953.25 ml Balance 920 ml 953.25 ml IV Total 300 ml 413.25 ml Tube Feeding 520 ml 480 ml Other 100 ml 60 ml # Voids 8 3 # Bowel Movements 2 Drains: other Cardiovascular: RSR Respiratory: clear Abdomen: soft, non-tender, present bowel sounds Extremities: other Laboratory Tests Test 11/30/17 04:50 White Blood Count 7.8 K/UL (4.8-10.8) Red Blood Count 2.91 M/UL (4.20-5.40) L Hemoglobin 10.2 G/DL (12.0-16.0) L Hematocrit 28.7 % (37.0-47.0) L Mean Corpuscular Volume 98 FL (80-99) Mean Corpuscular Hemoglobin 34.9 PG (27.0-31.0) H Mean Corpuscular Hemoglobin Concent 35.5 G/DL (32.0-36.0) Red Cell Distribution Width 9.7 % (11.6-14.8) L Platelet Count 126 K/UL (150-450) L Mean Platelet Volume 5.9 FL (6.5-10.1) L Neutrophils (%) (Auto) 74.5 % (45.0-75.0) Lymphocytes (%) (Auto) 12.9 % (20.0-45.0) L Monocytes (%) (Auto) 10.3 % (1.0-10.0) H Eosinophils (%) (Auto) 1.9 % (0.0-3.0) Basophils (%) (Auto) 0.5 % (0.0-2.0) Sodium Level 139 MMOL/L (136-145) Potassium Level 3.5 MMOL/L (3.5-5.1) Chloride Level 104 MMOL/L (98-107) Carbon Dioxide Level 33 MMOL/L (21-32) H Anion Gap 2 mmol/L (5-15) L Blood Urea Nitrogen 17 mg/dL (7-18) Creatinine 0.9 MG/DL (0.55-1.30) Estimat Glomerular Filtration Rate mL/min (>60) Glucose Level 197 MG/DL (74-106) H Calcium Level 11.0 MG/DL (8.5-10.1) H Plan Problems: (1) Abdominal pain Assessment & Plan: c/o abdominal pain. no n/v/f/c. unsure how long has been having pain. on exam epigastric tenderness with guarding - improved labs reviewed. no leukocytosis. lfts okay etiology unknown gastritis? US reviewed. no GB noted. prior cholecystectomy KUB okay noted to have elevated Calcium level. possible primary hypercalcemia which at such low elevation unlikely to be etiology of agitation and mental status change. PTH noted. thyroid US noted with multiple nodules. -PPI -cont tube feeds -no surgical intervention planned. will follow with recs thank you for this consultation Sourav Tobias Nov 30, 2017 13:06
--- NOTE | 2017-11-30 13:58 | Neurology Progress Note ---
Interim History Interim History Interim History Ms. Bernardo feels the same as yesterday. She is awake and more alert. She however is still confused and disoriented. Her BP is now controlled on labetalol. She is being watched in the ICU. She is much more responsive. She is able to cooperate more for a neurologic exam. Review of Systems Neuro Review of Systems Unable to obtain. Objective Physical Exam Last Vital Signs Date Time Temp Pulse Resp B/P (MAP) Pulse Ox O2 Delivery O2 Flow Rate FiO2 11/30/17 12:49 81 127/66 11/30/17 12:00 98.8 14 97 98.8 11/30/17 12:00 Room Air Laboratory Tests Test 11/30/17 04:50 White Blood Count 7.8 K/UL (4.8-10.8) Red Blood Count 2.91 M/UL (4.20-5.40) L Hemoglobin 10.2 G/DL (12.0-16.0) L Hematocrit 28.7 % (37.0-47.0) L Mean Corpuscular Volume 98 FL (80-99) Mean Corpuscular Hemoglobin 34.9 PG (27.0-31.0) H Mean Corpuscular Hemoglobin Concent 35.5 G/DL (32.0-36.0) Red Cell Distribution Width 9.7 % (11.6-14.8) L Platelet Count 126 K/UL (150-450) L Mean Platelet Volume 5.9 FL (6.5-10.1) L Neutrophils (%) (Auto) 74.5 % (45.0-75.0) Lymphocytes (%) (Auto) 12.9 % (20.0-45.0) L Monocytes (%) (Auto) 10.3 % (1.0-10.0) H Eosinophils (%) (Auto) 1.9 % (0.0-3.0) Basophils (%) (Auto) 0.5 % (0.0-2.0) Sodium Level 139 MMOL/L (136-145) Potassium Level 3.5 MMOL/L (3.5-5.1) Chloride Level 104 MMOL/L (98-107) Carbon Dioxide Level 33 MMOL/L (21-32) H Anion Gap 2 mmol/L (5-15) L Blood Urea Nitrogen 17 mg/dL (7-18) Creatinine 0.9 MG/DL (0.55-1.30) Estimat Glomerular Filtration Rate mL/min (>60) Glucose Level 197 MG/DL (74-106) H Calcium Level 11.0 MG/DL (8.5-10.1) H Neurologic Exam Objective PHYSICAL EXAMINATION: GENERAL: She is a well-developed, well-nourished, Japanese lady, lying in bed, in no acute distress. HEAD: Normocephalic and atraumatic. EENT: Examination benign. NECK: No neck rigidity was observed. NEUROLOGICAL EXAMINATION: MENTAL STATUS EXAMINATION: She was awake and alert. She was oriented to self and hospital. Further mental status testing was impossible. SPEECH: She had a mild dysarthria. LANGUAGE: Could not be tested adequately even with a Japanese certified court/medical interpreter. CRANIAL NERVE EXAMINATION: II: She did blink to threat. She counted fingers. III, IV & : The external ocular movements were present.The pupils were 3 mm in diameter, equal, round, regular, and reactive sluggishly to light. V & VII: The corneal reflexes were present bilaterally. VIII: She was able to hear and had no nystagmus. IX- X: Were not tested. XI: The sternocleidomastoids and trapezii functioned. XII: The tongue was in the midline without any fasciculations or atrophy. MOTOR SYSTEM: The tone was normal in all four extremities. Examination of muscle mass revealed no focal wasting. She moved all her limbs on command and gave me excellent hand burn nurse. SENSORY EXAMINATION: She responded appropriately to light touch. She was unable to cooperate for other sensory modalities. REFLEXES: 0 at the biceps, triceps, brachioradialis, knees, and ankles. The plantar responses were flexor bilaterally. COORDINATION, STANCE & GAIT: Could not be tested. Impression/Recommendations Diagnostic Impression 1. Ms. Chelly Bernardo is a 72-year-old, [place] lady, of unknown handedness, who does have a past history of hypertension and diabetes mellitus, who was hospitalized on 11/21/2017 for an episode of severe hypoglycemia with her blood sugars in the 20s. Since she has been here, she has also been exhibiting significantly elevated blood pressures. Her mental state continues to be quite altered. 2. She feels the same as yesterday. She is awake and more alert. She however is still confused and disoriented. Her BP is now controlled on labetalol. She is being watched in the ICU. She is much more responsive. She is able to cooperate more for a neurologic exam. 3. On neurological examination, at this time, she is awake and alert. She is oriented to self and recognizes her son. Further mental status testing is impossible. She does not demonstrate any focal or lateralizing neurological findings. 4. The CT scan of the brain performed on 11/22/2017 revealed atrophy, but no acute pathology. 5. Laboratory data obtained thus far have revealed that she is mildly anemic, has a borderline low B12 level, and a low folate level but otherwise normal laboratory data. 6. The EEG done on 11/25/17 revealed a moderate metabolic encephalopathy. 7. The MRI of the brain done on 11/27/17 revealed no acute intracranial pathology. Moderate atrophy and chronic small vessel disease involving white matter was seen. 8. 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 Her encephalopathy is better. Recommendations 1. The patient's blood pressure should be kept in the physiological range. 2. Continue to correct the patient's fluids and electrolytes. 3. Folic acid 1 mg via NGT q day. 4. Vitamin B12 1000 mcg SC monthly. 5. Refrain from use of mind altering drugs. Discussed with Dr. Winston and son. Betina Osullivan M.D., M.S.P.BETINA KAY Nov 30, 2017 13:58
[2017-11-30] MEDS ORDERED: NS 275ml ONE (15:14)
[2017-11-30] MEDS ORDERED: Tubing IV Secondary IV ONE (15:22)
[2017-11-30] MEDS: Atorvastatin 20mg tab ORAL SCH (20:55)
--- NOTE | 2017-11-30 22:17 | Cardiology Progress Note ---
Assessment/Plan Status: stable Assessment/Plan Assessment: Encephalopathy Hypertension Fall/syncope Hypokalemia Hypercalcemia Diabetes Anemia Plan: Echocardiogram Monitor on telemetry due to abnormal electrolytes which can alter the QT and QRS intervals and lead to arrhythmias Speech evaluation - continue tube feeds Zofran prn BP control -Losartan aldactone, labetalol gtt, add nicardipine or nitro gtt if not controlled GI/DVT ppx Subjective Respiratory: Reports: no symptoms Gastrointestinal/Abdominal: Reports: no symptoms Genitourinary: Reports: no symptoms Subjective Heart rates normal, sinus rhythm, BP controlled, Feeds held due to vomiting, patient altered and trying to pull NGT and restraints. Objective Last 24 Hour Vital Signs Date Time Temp Pulse Resp B/P (MAP) Pulse Ox O2 Delivery O2 Flow Rate FiO2 11/30/17 22:00 70 18 134/67 (89) 100 11/30/17 21:30 73 17 93/69 (77) 97 11/30/17 21:00 74 19 140/60 (86) 96 11/30/17 20:56 73 140/60 11/30/17 20:55 73 140/60 11/30/17 20:30 74 16 137/62 (87) 97 11/30/17 20:02 73 11/30/17 20:00 97.8 75 16 137/62 (87) 98 97.8 11/30/17 20:00 Room Air 11/30/17 19:30 75 17 113/86 (95) 98 11/30/17 19:01 76 132/66 11/30/17 19:00 77 20 131/114 (120) 98 11/30/17 18:30 80 20 120/67 (84) 96 11/30/17 18:00 80 21 129/67 (87) 96 11/30/17 17:15 83 159/67 11/30/17 17:00 81 20 159/67 (97) 96 11/30/17 16:30 82 20 136/63 (87) 96 11/30/17 16:01 Room Air 11/30/17 16:00 99.1 82 19 137/63 (87) 98 99.1 11/30/17 16:00 80 11/30/17 15:30 80 21 135/58 (83) 96 11/30/17 15:01 78 15 139/59 (85) 98 11/30/17 15:00 78 127/70 11/30/17 14:30 78 20 139/59 (85) 98 11/30/17 14:00 76 14 128/82 (97) 98 11/30/17 13:30 79 14 135/61 (85) 99 11/30/17 13:00 77 14 139/58 (85) 99 11/30/17 12:49 81 127/66 11/30/17 12:00 98.8 79 14 127/66 (86) 97 98.8 11/30/17 12:00 Room Air 11/30/17 12:00 82 11/30/17 11:30 83 24 101/77 (85) 97 11/30/17 11:15 86 17 128/105 (113) 99 11/30/17 11:00 83 18 146/60 (88) 94 11/30/17 10:46 100 149/63 11/30/17 10:45 82 23 108/58 (75) 94 11/30/17 10:30 80 22 150/65 (93) 93 11/30/17 10:15 85 22 161/65 (97) 93 11/30/17 10:00 83 22 152/65 (94) 97 11/30/17 09:30 81 19 152/69 (96) 97 11/30/17 09:00 83 22 140/105 (117) 98 11/30/17 08:38 83 136/64 11/30/17 08:38 136/64 11/30/17 08:30 82 21 140/105 (117) 97 11/30/17 08:00 82 11/30/17 08:00 Room Air 11/30/17 08:00 99.1 84 15 144/85 (104) 97 99.1 11/30/17 07:30 84 21 156/127 (137) 97 11/30/17 07:00 84 25 141/91 (108) 97 11/30/17 06:00 79 14 135/65 (88) 96 11/30/17 05:02 75 136/54 11/30/17 05:00 75 10 133/54 (80) 98 11/30/17 04:45 76 13 136/54 (81) 98 11/30/17 04:30 75 12 154/60 (91) 98 11/30/17 04:15 77 16 139/60 (86) 98 11/30/17 04:00 98.3 80 18 138/57 (84) 97 98.3 11/30/17 04:00 Room Air 11/30/17 04:00 76 11/30/17 03:00 77 16 114/54 (74) 99 11/30/17 02:00 74 14 116/54 (74) 99 11/30/17 01:00 72 17 104/40 (61) 99 11/30/17 00:30 74 16 116/49 (71) 98 11/30/17 00:00 71 11/30/17 00:00 Room Air 11/30/17 00:00 75 17 109/50 (69) 98 11/29/17 23:30 76 15 131/55 (80) 98 11/29/17 23:00 98.1 77 17 120/55 (76) 98 98.1 11/29/17 22:30 77 19 122/53 (76) 98 General Appearance: mild distress, agitated EENT: PERRL/EOMI, normal ENT inspection, TMs normal, pharynx normal Neck: non-tender, normal alignment, supple, normal inspection Rhythm: NSR Cardiovascular: normal peripheral pulses, normal rate, regular rhythm Respiratory/Chest: chest wall non-tender, lungs clear, normal breath sounds, no respiratory distress, no accessory muscle use Abdomen: normal bowel sounds, non tender, no organomegaly Extremities: normal range of motion, non-tender, normal inspection, no calf tenderness, no swelling Neurologic: disoriented, unresponsiveness Intake and Output 11/29/17 11/30/17 19:00 07:00 Intake Total 920 ml 953.25 ml Balance 920 ml 953.25 ml IV Total 300 ml 413.25 ml Tube Feeding 520 ml 480 ml Other 100 ml 60 ml # Voids 8 3 # Bowel Movements 2 Laboratory Tests Test 11/30/17 04:50 White Blood Count 7.8 K/UL (4.8-10.8) Red Blood Count 2.91 M/UL (4.20-5.40) L Hemoglobin 10.2 G/DL (12.0-16.0) L Hematocrit 28.7 % (37.0-47.0) L Mean Corpuscular Volume 98 FL (80-99) Mean Corpuscular Hemoglobin 34.9 PG (27.0-31.0) H Mean Corpuscular Hemoglobin Concent 35.5 G/DL (32.0-36.0) Red Cell Distribution Width 9.7 % (11.6-14.8) L Platelet Count 126 K/UL (150-450) L Mean Platelet Volume 5.9 FL (6.5-10.1) L Neutrophils (%) (Auto) 74.5 % (45.0-75.0) Lymphocytes (%) (Auto) 12.9 % (20.0-45.0) L Monocytes (%) (Auto) 10.3 % (1.0-10.0) H Eosinophils (%) (Auto) 1.9 % (0.0-3.0) Basophils (%) (Auto) 0.5 % (0.0-2.0) Sodium Level 139 MMOL/L (136-145) Potassium Level 3.5 MMOL/L (3.5-5.1) Chloride Level 104 MMOL/L (98-107) Carbon Dioxide Level 33 MMOL/L (21-32) H Anion Gap 2 mmol/L (5-15) L Blood Urea Nitrogen 17 mg/dL (7-18) Creatinine 0.9 MG/DL (0.55-1.30) Estimat Glomerular Filtration Rate mL/min (>60) Glucose Level 197 MG/DL (74-106) H Calcium Level 11.0 MG/DL (8.5-10.1) H Lupillo Palomo MD Nov 30, 2017 22:17
[2017-12-01] VITALS (38 sets, daily range): BP systolic 92–167; BP diastolic 51–121
[2017-12-01] MEDS: LABETALOL IV SCH ×7 (01:25→21:51)
[2017-12-01] MEDS: D5W IV SCH ×7 (01:25→21:51)
[2017-12-01] MEDS: NovoLOG Insulin Flexpen SUBQ SCH ×4 (05:43→23:58)
[2017-12-01 07:47] LABS: ANION GAP 4 mmol/L (5-15); BLOOD UREA NITROGEN 11 mg/dL (7-18); CARBON DIOXIDE 33 MMOL/L (21-32); CHLORIDE 102 MMOL/L (98-107); POTASSIUM 3.7 MMOL/L (3.5-5.1); SODIUM 138 MMOL/L (136-145)
[2017-12-01 07:55] LABS: BASOPHILS % (AUTO) 0.4 % (0.0-2.0); EOSINOPHILS % (AUTO) 1.6 % (0.0-3.0); HEMATOCRIT 27.2 % (37.0-47.0); HEMOGLOBIN 9.8 G/DL (12.0-16.0); LYMPHOCYTES % (AUTO) 12.2 % (20.0-45.0); MEAN CORPUSCULAR VOLUME 98 FL (80-99); MONOCYTES % (AUTO) 4.3 % (1.0-10.0); NEUTROPHILS % (AUTO) 81.5 % (45.0-75.0); PLATELET COUNT 140 K/UL (150-450); RED BLOOD COUNT 2.78 M/UL (4.20-5.40); RED CELL DISTRIBUTION WIDTH 9.8 % (11.6-14.8); WHITE BLOOD COUNT 7.8 K/UL (4.8-10.8)
--- NOTE | 2017-12-01 08:23 | Nephrology Progress Note ---
Assessment/Plan Assessment/Plan A/P 1) HTN Urgency- resolved on labetolol gtt. Lopressor - Losartan and aldactone due to HTN. KJeep BP 120-130 and wean off labetaolol gtt 2) S/P Fall- CT Head/MRI negative 3) Tachycardia- resolved, being managed by cardiology 4) DVT prophylaxsis with SCDs 5) Hypokalemia/Mg/Phos- replace prn 6) Encephalopathy- Patient was confused prior to admission (multiple bruises from falling at time of admission). reason for admission was confusion/ hypoglycemia - patient has been confused at home prior to hospitilization. Worsened since admission. 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 Thyroid US Subjective Date patient seen: Dec 01, 2017 Time patient seen: 08:20 ROS Limited/Unobtainable: Yes Allergies: Coded Allergies: No Known Allergies (Unverified , 11/21/17) Subjective Patient awake more but remains confused Objective Last 24 Hour Vital Signs Date Time Temp Pulse Resp B/P (MAP) Pulse Ox O2 Delivery O2 Flow Rate FiO2 12/01/17 08:05 72 120/96 12/01/17 07:00 72 14 126/63 (84) 99 12/01/17 06:30 73 19 126/60 (82) 96 12/01/17 06:00 72 17 136/60 (85) 100 12/01/17 05:40 73 119/62 12/01/17 05:30 72 21 119/62 (81) 96 12/01/17 05:00 71 15 131/58 (82) 97 12/01/17 04:30 71 20 119/71 (87) 97 12/01/17 04:09 72 12/01/17 04:00 97.6 69 20 92/64 (73) 97 97.6 12/01/17 04:00 Room Air 12/01/17 03:30 69 137/63 12/01/17 03:30 69 15 136/64 (88) 97 12/01/17 03:00 70 20 137/63 (87) 97 12/01/17 02:30 70 16 130/62 (84) 97 12/01/17 02:00 70 16 133/53 (79) 98 12/01/17 01:30 70 18 128/63 (84) 98 12/01/17 01:25 72 140/59 12/01/17 01:00 70 18 140/59 (86) 99 12/01/17 00:30 69 16 137/55 (82) 98 12/01/17 00:03 67 12/01/17 00:00 Room Air 12/01/17 00:00 97.8 69 16 144/56 (85) 97 97.8 11/30/17 23:31 69 152/71 11/30/17 23:30 69 14 158/60 (92) 97 11/30/17 23:00 73 18 149/64 (92) 97 11/30/17 22:30 71 14 149/64 (92) 96 11/30/17 22:00 70 18 134/67 (89) 100 11/30/17 21:30 73 17 93/69 (77) 97 11/30/17 21:00 74 19 140/60 (86) 96 11/30/17 20:56 73 140/60 11/30/17 20:55 73 140/60 11/30/17 20:30 74 16 137/62 (87) 97 11/30/17 20:02 73 11/30/17 20:00 97.8 75 16 137/62 (87) 98 97.8 11/30/17 20:00 Room Air 11/30/17 19:30 75 17 113/86 (95) 98 11/30/17 19:01 76 132/66 11/30/17 19:00 77 20 131/114 (120) 98 11/30/17 18:30 80 20 120/67 (84) 96 11/30/17 18:00 80 21 129/67 (87) 96 11/30/17 17:15 83 159/67 11/30/17 17:00 81 20 159/67 (97) 96 11/30/17 16:30 82 20 136/63 (87) 96 11/30/17 16:01 Room Air 11/30/17 16:00 99.1 82 19 137/63 (87) 98 99.1 11/30/17 16:00 80 11/30/17 15:30 80 21 135/58 (83) 96 9/30/18 15:01 78 15 139/59 (85) 98 11/30/17 15:00 78 127/70 11/30/17 14:30 78 20 139/59 (85) 98 11/30/17 14:00 76 14 128/82 (97) 98 11/30/17 13:30 79 14 135/61 (85) 99 11/30/17 13:00 77 14 139/58 (85) 99 11/30/17 12:49 81 127/66 11/30/17 12:00 98.8 79 14 127/66 (86) 97 98.8 11/30/17 12:00 Room Air 11/30/17 12:00 82 11/30/17 11:30 83 24 101/77 (85) 97 11/30/17 11:15 86 17 128/105 (113) 99 11/30/17 11:00 83 18 146/60 (88) 94 11/30/17 10:46 100 149/63 11/30/17 10:45 82 23 108/58 (75) 94 11/30/17 10:30 80 22 150/65 (93) 93 11/30/17 10:15 85 22 161/65 (97) 93 11/30/17 10:00 83 22 152/65 (94) 97 11/30/17 09:30 81 19 152/69 (96) 97 11/30/17 09:00 83 22 140/105 (117) 98 11/30/17 08:38 83 136/64 11/30/17 08:38 136/64 11/30/17 08:30 82 21 140/105 (117) 97 Intake and Output 11/30/17 12/01/17 19:00 07:00 Intake Total 2107.470 ml 1918.25 ml Balance 2107.470 ml 1918.25 ml Free Water 120 ml IV Total 1547.470 ml 1478.25 ml Tube Feeding 440 ml 340 ml Other 100 ml # Voids 4 4 Laboratory Tests 12/01/17 06:07: White Blood Count 7.8, Red Blood Count 2.78L, Hemoglobin 9.8L, Hematocrit 27.2L , Mean Corpuscular Volume 98, Mean Corpuscular Hemoglobin 35.3H, Mean Corpuscular Hemoglobin Concent 36.2H, Red Cell Distribution Width 9.8L, Platelet Count 140L, Mean Platelet Volume 6.8, Neutrophils (%) (Auto) 81.5H, Lymphocytes (%) (Auto) 12.2L, Monocytes (%) (Auto) 4.3, Eosinophils (%) (Auto) 1.6, Basophils (%) (Auto) 0.4, Sodium Level 138, Potassium Level 3.7, Chloride Level 102, Carbon Dioxide Level 33H, Anion Gap 4L, Blood Urea Nitrogen 11, Creatinine 1.0, Estimat Glomerular Filtration Rate , Glucose Level 306#H, Calcium Level 11.0H, Ionized Calcium (Measured) [Pending] Height (Feet): 5 Height (Inches): 4.00 Weight (Pounds): 114 General Appearance: confused EENT: normal ENT inspection Neck: normal alignment, supple Cardiovascular: normal rate, regular rhythm Respiratory/Chest: lungs clear, normal breath sounds Abdomen: non tender, soft Edema: no edema noted Arm (L), no edema noted Arm (R), no edema noted Leg (L), no edema noted Leg (R), no edema noted Pedal (L), no edema noted Pedal (R), no edema noted Generalized Vinh Winston MD Dec 01, 2017 08:23
--- NOTE | 2017-12-01 08:26 | Pulmonology Progress Note ---
Assessment/Plan Assessment/Plan IMPRESSION ALOC DM HTN S/P fall hypercalemia trace pleural effusion, not significant mild anemia tachycardia PLAN respiratory without change oxygen as needed cards improved events reviewed supportive care medications/laboratory data/nursing notes reviewed in detail note reviewed and edited care discussed with RN and RT Subjective ROS Limited/Unobtainable: Yes Allergies: Coded Allergies: No Known Allergies (Unverified , 11/21/17) Subjective transferred out of ICU events reviewed care noted and hemodynamics reviewed Objective Last 24 Hour Vital Signs Date Time Temp Pulse Resp B/P (MAP) Pulse Ox O2 Delivery O2 Flow Rate FiO2 12/01/17 08:05 72 120/96 12/01/17 07:00 72 14 126/63 (84) 99 12/01/17 06:30 73 19 126/60 (82) 96 12/01/17 06:00 72 17 136/60 (85) 100 12/01/17 05:40 73 119/62 12/01/17 05:30 72 21 119/62 (81) 96 12/01/17 05:00 71 15 131/58 (82) 97 12/01/17 04:30 71 20 119/71 (87) 97 12/01/17 04:09 72 12/01/17 04:00 97.6 69 20 92/64 (73) 97 97.6 12/01/17 04:00 Room Air 12/01/17 03:30 69 137/63 12/01/17 03:30 69 15 136/64 (88) 97 12/01/17 03:00 70 20 137/63 (87) 97 12/01/17 02:30 70 16 130/62 (84) 97 12/01/17 02:00 70 16 133/53 (79) 98 12/01/17 01:30 70 18 128/63 (84) 98 12/01/17 01:25 72 140/59 12/01/17 01:00 70 18 140/59 (86) 99 12/01/17 00:30 69 16 137/55 (82) 98 12/01/17 00:03 67 12/01/17 00:00 Room Air 12/01/17 00:00 97.8 69 16 144/56 (85) 97 97.8 11/30/17 23:31 69 152/71 11/30/17 23:30 69 14 158/60 (92) 97 11/30/17 23:00 73 18 149/64 (92) 97 11/30/17 22:30 71 14 149/64 (92) 96 11/30/17 22:00 70 18 134/67 (89) 100 11/30/17 21:30 73 17 93/69 (77) 97 11/30/17 21:00 74 19 140/60 (86) 96 11/30/17 20:56 73 140/60 11/30/17 20:55 73 140/60 11/30/17 20:30 74 16 137/62 (87) 97 11/30/17 20:02 73 11/30/17 20:00 97.8 75 16 137/62 (87) 98 97.8 11/30/17 20:00 Room Air 11/30/17 19:30 75 17 113/86 (95) 98 11/30/17 19:01 76 132/66 11/30/17 19:00 77 20 131/114 (120) 98 11/30/17 18:30 80 20 120/67 (84) 96 11/30/17 18:00 80 21 129/67 (87) 96 11/30/17 17:15 83 159/67 11/30/17 17:00 81 20 159/67 (97) 96 11/30/17 16:30 82 20 136/63 (87) 96 11/30/17 16:01 Room Air 11/30/17 16:00 99.1 82 19 137/63 (87) 98 99.1 11/30/17 16:00 80 11/30/17 15:30 80 21 135/58 (83) 96 11/30/17 15:01 78 15 139/59 (85) 98 11/30/17 15:00 78 127/70 11/30/17 14:30 78 20 139/59 (85) 98 11/30/17 14:00 76 14 128/82 (97) 98 11/30/17 13:30 79 14 135/61 (85) 99 11/30/17 13:00 77 14 139/58 (85) 99 11/30/17 12:49 81 127/66 11/30/17 12:00 98.8 79 14 127/66 (86) 97 98.8 11/30/17 12:00 Room Air 11/30/17 12:00 82 11/30/17 11:30 83 24 101/77 (85) 97 11/30/17 11:15 86 17 128/105 (113) 99 11/30/17 11:00 83 18 146/60 (88) 94 11/30/17 10:46 100 149/63 11/30/17 10:45 82 23 108/58 (75) 94 11/30/17 10:30 80 22 150/65 (93) 93 11/30/17 10:15 85 22 161/65 (97) 93 11/30/17 10:00 83 22 152/65 (94) 97 11/30/17 09:30 81 19 152/69 (96) 97 11/30/17 09:00 83 22 140/105 (117) 98 11/30/17 08:38 83 136/64 11/30/17 08:38 136/64 11/30/17 08:30 82 21 140/105 (117) 97 Intake and Output 11/30/17 12/01/17 19:00 07:00 Intake Total 2107.470 ml 1918.25 ml Balance 2107.470 ml 1918.25 ml Free Water 120 ml IV Total 1547.470 ml 1478.25 ml Tube Feeding 440 ml 340 ml Other 100 ml # Voids 4 4 Objective WDWN altered and confused stable breath sounds bilaterally without rhonchi or wheeze [id number] without MRG NABS nontender no HSM no CCE no change no distress Laboratory Tests 12/01/17 06:07: White Blood Count 7.8, Red Blood Count 2.78L, Hemoglobin 9.8L, Hematocrit 27.2L , Mean Corpuscular Volume 98, Mean Corpuscular Hemoglobin 35.3H, Mean Corpuscular Hemoglobin Concent 36.2H, Red Cell Distribution Width 9.8L, Platelet Count 140L, Mean Platelet Volume 6.8, Neutrophils (%) (Auto) 81.5H, Lymphocytes (%) (Auto) 12.2L, Monocytes (%) (Auto) 4.3, Eosinophils (%) (Auto) 1.6, Basophils (%) (Auto) 0.4, Sodium Level 138, Potassium Level 3.7, Chloride Level 102, Carbon Dioxide Level 33H, Anion Gap 4L, Blood Urea Nitrogen 11, Creatinine 1.0, Estimat Glomerular Filtration Rate , Glucose Level 306#H, Calcium Level 11.0H, Ionized Calcium (Measured) [Pending] Current Medications Medications (Trade) Dose Ordered Sig/Atilio Route PRN Reason Start Time Stop Time Status Last Admin Dose Admin Acetaminophen (Tylenol) 650 mg Q4H PRN ORAL Mild Pain (Pain Scale 1-3) 11/29/17 13:58 12/21/17 13:57 11/30/17 20:57 Atorvastatin Calcium (Lipitor) 40 mg QHS ORAL 11/29/17 21:00 12/21/17 20:59 11/30/17 20:55 Cinacalcet (Sensipar) 30 mg DAILY ORAL 11/30/17 09:00 12/29/17 08:59 11/30/17 08:38 Dextrose (Dextrose 50%) 25 ml Q30M PRN IV Hypoglycemia 11/29/17 13:58 12/26/17 13:57 Dextrose (Dextrose 50%) 50 ml Q30M PRN IV hypoglycemia 11/29/17 13:58 12/26/17 13:57 Famotidine (Pepcid) 40 mg DAILY ORAL 11/30/17 09:00 12/22/17 08:59 11/30/17 08:38 Folic Acid (Folate) 1 mg DAILY NG 11/30/17 09:00 12/25/17 21:29 11/30/17 08:37 Insulin Aspart (NovoLOG) EVERY 6 HOURS SUBQ 11/29/17 18:00 12/21/17 16:29 12/01/17 05:43 Labetalol HCl 200 mg/Dextrose 290 ml @ 0 mls/hr Q24H IV 11/30/17 13:57 12/29/17 13:56 12/01/17 08:05 Losartan Potassium (Cozaar) 100 mg DAILY ORAL 11/30/17 09:00 12/29/17 08:59 11/30/17 08:38 Metoprolol Tartrate (Lopressor) 37.5 mg Q12HR ORAL 11/29/17 21:00 12/25/17 20:59 11/30/17 20:55 Ondansetron HCl (Zofran) 4 mg Q6H PRN IVP Nausea & Vomiting 11/29/17 13:59 12/21/17 13:58 11/30/17 19:01 Spironolactone (Aldactone) 50 mg EVERY 12 HOURS ORAL 11/29/17 21:00 12/29/17 08:59 11/30/17 20:55 Romeo Smith MD Dec 01, 2017 08:26
[2017-12-01] MEDS: Sensipar 30mg Tab ORAL SCH (08:38)
[2017-12-01] MEDS: Metoprolol Tartrate 12.5mg TAB ORAL SCH ×2 (08:40→20:42)
[2017-12-01] MEDS: Losartan 50mg tab ORAL SCH (08:42)
[2017-12-01] MEDS: Spironolactone 50mg tab ORAL SCH ×2 (08:42→20:41)
--- NOTE | 2017-12-01 11:05 | GI Progress Note ---
Assessment/Plan Problems: (1) Abdominal pain ICD Codes: R10.9 - Unspecified abdominal pain SNOMED: 83829117 Qualifiers: Qualified Codes: R10.13 - Epigastric pain (2) Hypoglycemia associated with type 2 diabetes mellitus ICD Codes: E11.649 - Type 2 diabetes mellitus with hypoglycemia without coma SNOMED: 03581615, 689309906 (3) Encephalopathy acute ICD Codes: G93.40 - Encephalopathy, unspecified SNOMED: 24835499, 117537106 Status: stable Status Narrative Discussed with Dr. Alegre. Assessment/Plan Assessment - HTN - hypoglycemia - mild macrocytic anemia - hypokalemia - no N/V/D - back in ICU, on labetalol gtt Recommendations - NGTFs >> ST evaluation>> failed swallow eval on Friday, plan repeat on Friday - symptomatic treatment - DM management - zofran prn - prn transfusions - fu labs The patient was seen and examined at bedside and all new and available data was reviewed in the patients chart. I agree with the above findings, impression and plan. (Patient seen earlier today. Signature stamp does not reflect patient encounter time.). - Mayito Alegre MD Subjective Subjective limited Objective Last 24 Hour Vital Signs Date Time Temp Pulse Resp B/P (MAP) Pulse Ox O2 Delivery O2 Flow Rate FiO2 12/01/17 10:00 73 15 140/60 (86) 98 12/01/17 09:00 74 18 138/57 (84) 99 12/01/17 08:51 73 12/01/17 08:42 134/87 12/01/17 08:40 73 134/87 12/01/17 08:05 72 120/96 12/01/17 08:00 Room Air 12/01/17 08:00 98.5 73 17 120/96 (104) 99 98.5 12/01/17 07:00 72 14 126/63 (84) 99 12/01/17 06:30 73 19 126/60 (82) 96 12/01/17 06:00 72 17 136/60 (85) 100 12/01/17 05:40 73 119/62 12/01/17 05:30 72 21 119/62 (81) 96 12/01/17 05:00 71 15 131/58 (82) 97 10/1/18 04:30 71 20 119/71 (87) 97 12/01/17 04:09 72 12/01/17 04:00 97.6 69 20 92/64 (73) 97 97.6 12/01/17 04:00 Room Air 12/01/17 03:30 69 137/63 12/01/17 03:30 69 15 136/64 (88) 97 12/01/17 03:00 70 20 137/63 (87) 97 12/01/17 02:30 70 16 130/62 (84) 97 12/01/17 02:00 70 16 133/53 (79) 98 12/01/17 01:30 70 18 128/63 (84) 98 12/01/17 01:25 72 140/59 12/01/17 01:00 70 18 140/59 (86) 99 12/01/17 00:30 69 16 137/55 (82) 98 12/01/17 00:03 67 12/01/17 00:00 Room Air 12/01/17 00:00 97.8 69 16 144/56 (85) 97 97.8 11/30/17 23:31 69 152/71 11/30/17 23:30 69 14 158/60 (92) 97 11/30/17 23:00 73 18 149/64 (92) 97 11/30/17 22:30 71 14 149/64 (92) 96 11/30/17 22:00 70 18 134/67 (89) 100 11/30/17 21:30 73 17 93/69 (77) 97 11/30/17 21:00 74 19 140/60 (86) 96 11/30/17 20:56 73 140/60 11/30/17 20:55 73 140/60 11/30/17 20:30 74 16 137/62 (87) 97 11/30/17 20:02 73 11/30/17 20:00 97.8 75 16 137/62 (87) 98 97.8 11/30/17 20:00 Room Air 11/30/17 19:30 75 17 113/86 (95) 98 11/30/17 19:01 76 132/66 11/30/17 19:00 77 20 131/114 (120) 98 11/30/17 18:30 80 20 120/67 (84) 96 11/30/17 18:00 80 21 129/67 (87) 96 11/30/17 17:15 83 159/67 11/30/17 17:00 81 20 159/67 (97) 96 11/30/17 16:30 82 20 136/63 (87) 96 11/30/17 16:01 Room Air 11/30/17 16:00 99.1 82 19 137/63 (87) 98 99.1 11/30/17 16:00 80 11/30/17 15:30 80 21 135/58 (83) 96 11/30/17 15:01 78 15 139/59 (85) 98 11/30/17 15:00 78 127/70 11/30/17 14:30 78 20 139/59 (85) 98 11/30/17 14:00 76 14 128/82 (97) 98 11/30/17 13:30 79 14 135/61 (85) 99 11/30/17 13:00 77 14 139/58 (85) 99 11/30/17 12:49 81 127/66 11/30/17 12:00 98.8 79 14 127/66 (86) 97 98.8 11/30/17 12:00 Room Air 11/30/17 12:00 82 11/30/17 11:30 83 24 101/77 (85) 97 11/30/17 11:15 86 17 128/105 (113) 99 Intake and Output 11/30/17 12/01/17 19:00 07:00 Intake Total 2107.470 ml 1918.25 ml Balance 2107.470 ml 1918.25 ml Free Water 120 ml IV Total 1547.470 ml 1478.25 ml Tube Feeding 440 ml 340 ml Other 100 ml # Voids 4 4 Laboratory Tests Test 12/01/17 06:07 White Blood Count 7.8 K/UL (4.8-10.8) Red Blood Count 2.78 M/UL (4.20-5.40) L Hemoglobin 9.8 G/DL (12.0-16.0) L Hematocrit 27.2 % (37.0-47.0) L Mean Corpuscular Volume 98 FL (80-99) Mean Corpuscular Hemoglobin 35.3 PG (27.0-31.0) H Mean Corpuscular Hemoglobin Concent 36.2 G/DL (32.0-36.0) H Red Cell Distribution Width 9.8 % (11.6-14.8) L Platelet Count 140 K/UL (150-450) L Mean Platelet Volume 6.8 FL (6.5-10.1) Neutrophils (%) (Auto) 81.5 % (45.0-75.0) H Lymphocytes (%) (Auto) 12.2 % (20.0-45.0) L Monocytes (%) (Auto) 4.3 % (1.0-10.0) Eosinophils (%) (Auto) 1.6 % (0.0-3.0) Basophils (%) (Auto) 0.4 % (0.0-2.0) Sodium Level 138 MMOL/L (136-145) Potassium Level 3.7 MMOL/L (3.5-5.1) Chloride Level 102 MMOL/L (98-107) Carbon Dioxide Level 33 MMOL/L (21-32) H Anion Gap 4 mmol/L (5-15) L Blood Urea Nitrogen 11 mg/dL (7-18) Creatinine 1.0 MG/DL (0.55-1.30) Estimat Glomerular Filtration Rate mL/min (>60) Glucose Level 306 MG/DL (74-106) #H Calcium Level 11.0 MG/DL (8.5-10.1) H Ionized Calcium (Measured) Pending Height (Feet): 5 Height (Inches): 4.00 Weight (Pounds): 114 General Appearance: no apparent distress, alert, confused Cardiovascular: normal rate Respiratory/Chest: normal breath sounds, no respiratory distress Abdominal Exam: soft, other - NGT Fatou Santos NP Dec 01, 2017 11:05
--- NOTE | 2017-12-01 12:41 | General Surgery Progress Note ---
General Surgery-Progress Note Subjective Additional Comments more cooperative today. no pain. no n/v/f/c. tolerating diet. on BP drip with stable bp weaning down Objective Last 24 Hour Vital Signs Date Time Temp Pulse Resp B/P (MAP) Pulse Ox O2 Delivery O2 Flow Rate FiO2 12/01/17 12:00 Room Air 12/01/17 12:00 74 15 117/64 (81) 97 12/01/17 11:00 73 25 128/71 (90) 98 12/01/17 10:00 73 15 140/60 (86) 98 12/01/17 09:00 74 18 138/57 (84) 99 12/01/17 08:51 73 12/01/17 08:42 134/87 12/01/17 08:40 73 134/87 12/01/17 08:05 72 120/96 12/01/17 08:00 Room Air 12/01/17 08:00 98.5 73 17 120/96 (104) 99 98.5 12/01/17 07:00 72 14 126/63 (84) 99 12/01/17 06:30 73 19 126/60 (82) 96 12/01/17 06:00 72 17 136/60 (85) 100 12/01/17 05:40 73 119/62 12/01/17 05:30 72 21 119/62 (81) 96 12/01/17 05:00 71 15 131/58 (82) 97 12/01/17 04:30 71 20 119/71 (87) 97 12/01/17 04:09 72 12/01/17 04:00 97.6 69 20 92/64 (73) 97 97.6 12/01/17 04:00 Room Air 12/01/17 03:30 69 137/63 12/01/17 03:30 69 15 136/64 (88) 97 12/01/17 03:00 70 20 137/63 (87) 97 12/01/17 02:30 70 16 130/62 (84) 97 12/01/17 02:00 70 16 133/53 (79) 98 12/01/17 01:30 70 18 128/63 (84) 98 12/01/17 01:25 72 140/59 12/01/17 01:00 70 18 140/59 (86) 99 12/01/17 00:30 69 16 137/55 (82) 98 12/01/17 00:03 67 12/01/17 00:00 Room Air 12/01/17 00:00 97.8 69 16 144/56 (85) 97 97.8 11/30/17 23:31 69 152/71 11/30/17 23:30 69 14 158/60 (92) 97 11/30/17 23:00 73 18 149/64 (92) 97 11/30/17 22:30 71 14 149/64 (92) 96 11/30/17 22:00 70 18 134/67 (89) 100 11/30/17 21:30 73 17 93/69 (77) 97 11/30/17 21:00 74 19 140/60 (86) 96 11/30/17 20:56 73 140/60 11/30/17 20:55 73 140/60 11/30/17 20:30 74 16 137/62 (87) 97 11/30/17 20:02 73 11/30/17 20:00 97.8 75 16 137/62 (87) 98 97.8 11/30/17 20:00 Room Air 11/30/17 19:30 75 17 113/86 (95) 98 11/30/17 19:01 76 132/66 11/30/17 19:00 77 20 131/114 (120) 98 11/30/17 18:30 80 20 120/67 (84) 96 11/30/17 18:00 80 21 129/67 (87) 96 11/30/17 17:15 83 159/67 11/30/17 17:00 81 20 159/67 (97) 96 11/30/17 16:30 82 20 136/63 (87) 96 11/30/17 16:01 Room Air 11/30/17 16:00 99.1 82 19 137/63 (87) 98 99.1 11/30/17 16:00 80 11/30/17 15:30 80 21 135/58 (83) 96 11/30/17 15:01 78 15 139/59 (85) 98 11/30/17 15:00 78 127/70 11/30/17 14:30 78 20 139/59 (85) 98 11/30/17 14:00 76 14 128/82 (97) 98 11/30/17 13:30 79 14 135/61 (85) 99 11/30/17 13:00 77 14 139/58 (85) 99 11/30/17 12:49 81 127/66 I&O Intake and Output 11/30/17 12/01/17 19:00 07:00 Intake Total 2107.470 ml 1918.25 ml Balance 2107.470 ml 1918.25 ml Free Water 120 ml IV Total 1547.470 ml 1478.25 ml Tube Feeding 440 ml 340 ml Other 100 ml # Voids 4 4 Dressing: other Wound: other Drains: other Cardiovascular: RSR Respiratory: clear Abdomen: soft, flat, non-tender, present bowel sounds Extremities: no tenderness, no cyanosis Laboratory Tests Test 12/01/17 06:07 White Blood Count 7.8 K/UL (4.8-10.8) Red Blood Count 2.78 M/UL (4.20-5.40) L Hemoglobin 9.8 G/DL (12.0-16.0) L Hematocrit 27.2 % (37.0-47.0) L Mean Corpuscular Volume 98 FL (80-99) Mean Corpuscular Hemoglobin 35.3 PG (27.0-31.0) H Mean Corpuscular Hemoglobin Concent 36.2 G/DL (32.0-36.0) H Red Cell Distribution Width 9.8 % (11.6-14.8) L Platelet Count 140 K/UL (150-450) L Mean Platelet Volume 6.8 FL (6.5-10.1) Neutrophils (%) (Auto) 81.5 % (45.0-75.0) H Lymphocytes (%) (Auto) 12.2 % (20.0-45.0) L Monocytes (%) (Auto) 4.3 % (1.0-10.0) Eosinophils (%) (Auto) 1.6 % (0.0-3.0) Basophils (%) (Auto) 0.4 % (0.0-2.0) Sodium Level 138 MMOL/L (136-145) Potassium Level 3.7 MMOL/L (3.5-5.1) Chloride Level 102 MMOL/L (98-107) Carbon Dioxide Level 33 MMOL/L (21-32) H Anion Gap 4 mmol/L (5-15) L Blood Urea Nitrogen 11 mg/dL (7-18) Creatinine 1.0 MG/DL (0.55-1.30) Estimat Glomerular Filtration Rate mL/min (>60) Glucose Level 306 MG/DL (74-106) #H Calcium Level 11.0 MG/DL (8.5-10.1) H Ionized Calcium (Measured) 1.38 mmol/L (1.10-1.35) H Plan Problems: (1) Abdominal pain Assessment & Plan: c/o abdominal pain. no n/v/f/c. unsure how long has been having pain. on exam epigastric tenderness with guarding - improved labs reviewed. no leukocytosis. lfts okay etiology unknown gastritis? US reviewed. no GB noted. prior cholecystectomy KUB okay noted to have elevated Calcium level. possible primary hypercalcemia which at such low elevation unlikely to be etiology of agitation and mental status change. PTH noted. thyroid US noted with multiple nodules. -PPI -cont tube feeds -no surgical intervention planned. -speech swallow to eval for safe PO intake. will follow with recs thank you for this consultation Sourva Tobias Dec 01, 2017 12:41
--- NOTE | 2017-12-01 18:59 | Neurology Progress Note ---
Interim History Interim History Interim History Ms. Bernardo feels better. She is calm today. She is awake and more alert. She is less confused but still disoriented. Her BP is again elevated off labetalol. She is being watched in the ICU. She is much more responsive. She is able to cooperate more for a neurologic exam. Review of Systems Neuro Review of Systems Unable to obtain. Objective Physical Exam Last Vital Signs Date Time Temp Pulse Resp B/P (MAP) Pulse Ox O2 Delivery O2 Flow Rate FiO2 12/01/17 17:00 76 21 139/83 (101) 96 12/01/17 16:00 Room Air 12/01/17 15:00 99.0 99.0 Laboratory Tests Test 12/01/17 06:07 White Blood Count 7.8 K/UL (4.8-10.8) Red Blood Count 2.78 M/UL (4.20-5.40) L Hemoglobin 9.8 G/DL (12.0-16.0) L Hematocrit 27.2 % (37.0-47.0) L Mean Corpuscular Volume 98 FL (80-99) Mean Corpuscular Hemoglobin 35.3 PG (27.0-31.0) H Mean Corpuscular Hemoglobin Concent 36.2 G/DL (32.0-36.0) H Red Cell Distribution Width 9.8 % (11.6-14.8) L Platelet Count 140 K/UL (150-450) L Mean Platelet Volume 6.8 FL (6.5-10.1) Neutrophils (%) (Auto) 81.5 % (45.0-75.0) H Lymphocytes (%) (Auto) 12.2 % (20.0-45.0) L Monocytes (%) (Auto) 4.3 % (1.0-10.0) Eosinophils (%) (Auto) 1.6 % (0.0-3.0) Basophils (%) (Auto) 0.4 % (0.0-2.0) Sodium Level 138 MMOL/L (136-145) Potassium Level 3.7 MMOL/L (3.5-5.1) Chloride Level 102 MMOL/L (98-107) Carbon Dioxide Level 33 MMOL/L (21-32) H Anion Gap 4 mmol/L (5-15) L Blood Urea Nitrogen 11 mg/dL (7-18) Creatinine 1.0 MG/DL (0.55-1.30) Estimat Glomerular Filtration Rate mL/min (>60) Glucose Level 306 MG/DL (74-106) #H Calcium Level 11.0 MG/DL (8.5-10.1) H Ionized Calcium (Measured) 1.38 mmol/L (1.10-1.35) H Neurologic Exam Objective PHYSICAL EXAMINATION: GENERAL: She is a well-developed, well-nourished, [place] lady, lying in bed, in no acute distress. HEAD: Normocephalic and atraumatic. EENT: Examination benign. NECK: No neck rigidity was observed. NEUROLOGICAL EXAMINATION: MENTAL STATUS EXAMINATION: She was awake and alert. She was oriented to self and hospital. She knew that Hannah is president of [facility]. Further mental status testing was impossible. SPEECH: She had a mild dysarthria. LANGUAGE: Could not be tested adequately even with a Thai bread dumper. CRANIAL NERVE EXAMINATION: II: She did blink to threat. She counted fingers. III, IV & : The external ocular movements were present.The pupils were 3 mm in diameter, equal, round, regular, and reactive sluggishly to light. V & VII: The corneal reflexes were present bilaterally. VIII: She was able to hear and had no nystagmus. IX- X: Were not tested. XI: The sternocleidomastoids and trapezii functioned. XII: The tongue was in the midline without any fasciculations or atrophy. MOTOR SYSTEM: The tone was normal in all four extremities. Examination of muscle mass revealed no focal wasting. 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 SENSORY EXAMINATION: She responded appropriately to light touch. She was unable to cooperate for other sensory modalities. REFLEXES: 0 at the biceps, triceps, brachioradialis, knees, and ankles. The plantar responses were flexor bilaterally. COORDINATION, STANCE & GAIT: Could not be tested. Impression/Recommendations Diagnostic Impression 1. Ms. Chelly Bernardo is a 72-year-old, [place] lady, of unknown handedness, who does have a past history of hypertension and diabetes mellitus, who was hospitalized on 11/21/2017 for an episode of severe hypoglycemia with her blood sugars in the 20s. Since she has been here, she has also been exhibiting significantly elevated blood pressures. Her mental state continues to be quite altered. 2. She feels better. She is calm today. She is awake and more alert. She is less confused but still disoriented. Her BP is again elevated off labetalol. She is being watched in the ICU. She is much more responsive. She is able to cooperate more for a neurologic exam. 3. On neurological examination, at this time, she is awake and alert. She is oriented to self. She knows the president of [employer]. Further mental status testing is impossible. She does not demonstrate any focal or lateralizing neurological findings. 4. The CT scan of the brain performed on 11/22/2017 revealed atrophy, but no acute pathology. 5. Laboratory data obtained thus far have revealed that she is mildly anemic, has a borderline low B12 level, and a low folate level but otherwise normal laboratory data. 6. The EEG done on 11/25/17 revealed a moderate metabolic encephalopathy. 7. The MRI of the brain done on 11/27/17 revealed no acute intracranial pathology. Moderate atrophy and chronic small vessel disease involving white matter was seen. 8. 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 Her encephalopathy is improving slowly. Recommendations 1. The patient's blood pressure should be kept in the physiological range. 2. Continue to correct the patient's fluids and electrolytes. 3. Folic acid 1 mg via NGT q day. 4. Vitamin B12 1000 mcg SC monthly. 5. Refrain from use of mind altering drugs. Betina Osullivan M.D., M.S.P.BETINA KAY Dec 01, 2017 18:59
[2017-12-01] MEDS: Atorvastatin 20mg tab ORAL SCH (20:41)
--- NOTE | 2017-12-01 22:52 | Cardiology Progress Note ---
Assessment/Plan Status: stable Assessment/Plan Assessment: Encephalopathy Hypertension Fall/syncope Hypokalemia Hypercalcemia Diabetes Anemia Plan: Echocardiogram Monitor on telemetry due to abnormal electrolytes which can alter the QT and QRS intervals and lead to arrhythmias Speech evaluation - continue tube feeds Zofran prn BP control -Losartan aldactone, metoprolol, labetalol gtt, add nicardipine or nitro gtt if not controlled GI/DVT ppx Subjective Cardiovascular: Reports: no symptoms Respiratory: Reports: no symptoms Gastrointestinal/Abdominal: Reports: no symptoms Genitourinary: Reports: no symptoms Subjective Heart rates normal, sinus rhythm, BP better controlled, She is altered AA0x1, tube feeds are running with no residuals. She is on low dose labetalol drip. Objective Last 24 Hour Vital Signs Date Time Temp Pulse Resp B/P (MAP) Pulse Ox O2 Delivery O2 Flow Rate FiO2 12/01/17 22:30 73 16 149/64 (92) 99 12/01/17 22:00 76 20 148/60 (89) 98 12/01/17 21:51 74 140/76 12/01/17 21:30 74 18 140/76 (97) 96 12/01/17 21:00 75 17 149/62 (91) 96 12/01/17 20:42 76 155/70 12/01/17 20:30 76 15 155/70 (98) 95 12/01/17 20:15 77 18 167/77 (107) 94 12/01/17 20:00 Room Air 12/01/17 20:00 97.8 78 19 142/77 (98) 94 97.8 12/01/17 19:45 77 19 158/118 (131) 97 12/01/17 19:38 76 158/118 12/01/17 19:30 76 16 148/121 (130) 97 12/01/17 19:12 76 12/01/17 19:00 76 18 155/80 (105) 97 12/01/17 18:00 97.9 77 17 142/75 (97) 96 97.9 12/01/17 17:00 76 21 139/83 (101) 96 12/01/17 16:00 Room Air 12/01/17 16:00 79 15 141/85 (103) 94 12/01/17 15:49 76 12/01/17 15:00 99.0 76 19 123/93 (103) 97 99.0 12/01/17 14:00 74 21 124/78 (93) 95 12/01/17 13:00 76 21 95/51 (66) 96 12/01/17 12:00 Room Air 12/01/17 12:00 76 12/01/17 12:00 74 15 117/64 (81) 97 12/01/17 11:58 74 12/01/17 11:00 73 25 128/71 (90) 98 12/01/17 10:00 73 15 140/60 (86) 98 12/01/17 09:00 74 18 138/57 (84) 99 12/01/17 08:51 73 12/01/17 08:42 134/87 12/01/17 08:40 73 134/87 12/01/17 08:05 72 120/96 12/01/17 08:00 Room Air 12/01/17 08:00 98.5 73 17 120/96 (104) 99 98.5 12/01/17 07:00 72 14 126/63 (84) 99 12/01/17 06:30 73 19 126/60 (82) 96 12/01/17 06:00 72 17 136/60 (85) 100 12/01/17 05:40 73 119/62 12/01/17 05:30 72 21 119/62 (81) 96 12/01/17 05:00 71 15 131/58 (82) 97 12/01/17 04:30 71 20 119/71 (87) 97 12/01/17 04:09 72 12/01/17 04:00 97.6 69 20 92/64 (73) 97 97.6 12/01/17 04:00 Room Air 12/01/17 03:30 69 137/63 12/01/17 03:30 69 15 136/64 (88) 97 12/01/17 03:00 70 20 137/63 (87) 97 12/01/17 02:30 70 16 130/62 (84) 97 12/01/17 02:00 70 16 133/53 (79) 98 12/01/17 01:30 70 18 128/63 (84) 98 12/01/17 01:25 72 140/59 12/01/17 01:00 70 18 140/59 (86) 99 12/01/17 00:30 69 16 137/55 (82) 98 12/01/17 00:03 67 12/01/17 00:00 Room Air 12/01/17 00:00 97.8 69 16 144/56 (85) 97 97.8 11/30/17 23:31 69 152/71 11/30/17 23:30 69 14 158/60 (92) 97 11/30/17 23:00 73 18 149/64 (92) 97 General Appearance: mild distress, agitated EENT: PERRL/EOMI, normal ENT inspection, TMs normal, pharynx normal Neck: non-tender, normal alignment, supple, normal inspection, no JVD Rhythm: NSR Cardiovascular: normal peripheral pulses, normal rate, regular rhythm Respiratory/Chest: chest wall non-tender, lungs clear, normal breath sounds, no respiratory distress, no accessory muscle use Abdomen: normal bowel sounds, non tender, soft, no organomegaly, no mass Extremities: normal range of motion, non-tender, normal inspection Neurologic: disoriented Intake and Output 11/30/17 12/01/17 19:00 07:00 Intake Total 2107.470 ml 1918.25 ml Balance 2107.470 ml 1918.25 ml Free Water 120 ml IV Total 1547.470 ml 1478.25 ml Tube Feeding 440 ml 340 ml Other 100 ml # Voids 4 4 Laboratory Tests Test 12/01/17 06:07 White Blood Count 7.8 K/UL (4.8-10.8) Red Blood Count 2.78 M/UL (4.20-5.40) L Hemoglobin 9.8 G/DL (12.0-16.0) L Hematocrit 27.2 % (37.0-47.0) L Mean Corpuscular Volume 98 FL (80-99) Mean Corpuscular Hemoglobin 35.3 PG (27.0-31.0) H Mean Corpuscular Hemoglobin Concent 36.2 G/DL (32.0-36.0) H Red Cell Distribution Width 9.8 % (11.6-14.8) L Platelet Count 140 K/UL (150-450) L Mean Platelet Volume 6.8 FL (6.5-10.1) Neutrophils (%) (Auto) 81.5 % (45.0-75.0) H Lymphocytes (%) (Auto) 12.2 % (20.0-45.0) L Monocytes (%) (Auto) 4.3 % (1.0-10.0) Eosinophils (%) (Auto) 1.6 % (0.0-3.0) Basophils (%) (Auto) 0.4 % (0.0-2.0) Sodium Level 138 MMOL/L (136-145) Potassium Level 3.7 MMOL/L (3.5-5.1) Chloride Level 102 MMOL/L (98-107) Carbon Dioxide Level 33 MMOL/L (21-32) H Anion Gap 4 mmol/L (5-15) L Blood Urea Nitrogen 11 mg/dL (7-18) Creatinine 1.0 MG/DL (0.55-1.30) Estimat Glomerular Filtration Rate mL/min (>60) Glucose Level 306 MG/DL (74-106) #H Calcium Level 11.0 MG/DL (8.5-10.1) H Ionized Calcium (Measured) 1.38 mmol/L (1.10-1.35) H Lupillo Palomo MD Dec 01, 2017 22:52
[2017-12-02] VITALS (32 sets, daily range): BP systolic 104–181; BP diastolic 49–101
[2017-12-02] MEDS: D5W IV SCH ×5 (00:01→18:05)
[2017-12-02] MEDS: LABETALOL IV SCH ×5 (00:01→18:05)
[2017-12-02] MEDS: NovoLOG Insulin Flexpen SUBQ SCH ×3 (05:38→18:18)
[2017-12-02 07:07] LABS: BASOPHILS % (AUTO) 0.6 % (0.0-2.0); EOSINOPHILS % (AUTO) 3.7 % (0.0-3.0); HEMATOCRIT 28.4 % (37.0-47.0); LYMPHOCYTES % (AUTO) 17.4 % (20.0-45.0); MEAN CORPUSCULAR VOLUME 98 FL (80-99); MONOCYTES % (AUTO) 8.7 % (1.0-10.0); NEUTROPHILS % (AUTO) 69.6 % (45.0-75.0); PLATELET COUNT 142 K/UL (150-450); RED CELL DISTRIBUTION WIDTH 9.8 % (11.6-14.8); WHITE BLOOD COUNT 6.5 K/UL (4.8-10.8)
[2017-12-02 07:26] LABS: ALANINE AMINOTRANSFERASE 18 U/L (12-78); ALBUMIN 2.2 G/DL (3.4-5.0); ALBUMIN/GLOBULIN RATIO 0.6 (1.0-2.7); ALKALINE PHOSPHATASE 80 U/L (46-116); ANION GAP 3 mmol/L (5-15); ASPARTATE AMINO TRANSFERASE 17 U/L (15-37); BILIRUBIN,TOTAL 0.4 MG/DL (0.2-1.0); BLOOD UREA NITROGEN 12 mg/dL (7-18); CALCIUM 10.9 MG/DL (8.5-10.1); CARBON DIOXIDE 32 MMOL/L (21-32); CHLORIDE 102 MMOL/L (98-107); POTASSIUM 3.9 MMOL/L (3.5-5.1); SODIUM 137 MMOL/L (136-145)
--- NOTE | 2017-12-02 08:27 | Nephrology Progress Note ---
Assessment/Plan Assessment/Plan A/P 1) HTN Urgency- off labetalol gtt - Losartan/Metoprolol and aldactone due to HTN. Keep BP 120-130 - Tx out of ICU only when off gtt for 24 hrs 2) S/P Fall- CT Head/MRI negative 3) Tachycardia- resolved, being managed by cardiology 4) DVT prophylaxsis with SCDs 5) Hypokalemia/Mg/Phos- replace prn 6) Encephalopathy- Patient was confused prior to admission (multiple bruises from falling at time of admission). reason for admission was confusion/ hypoglycemia - patient has been confused at home prior to hospitilization. Worsened since admission. - Holding ativan and seroquel per Neurology - Many discussions with son trying to explain state of his mother and confusion due to underlying initial hypoglycemic event on presentation and component of HTN encephalopathy - at this time glucose and HTN at goal. Now will need GTube for nutrition and medications. 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-HPT- sensipar Subjective Date patient seen: Dec 02, 2017 Time patient seen: 08:24 ROS Limited/Unobtainable: Yes Allergies: Coded Allergies: No Known Allergies (Unverified , 11/21/17) Subjective Patient AWAKE, BUT REMAINS CONFUSED Objective Last 24 Hour Vital Signs Date Time Temp Pulse Resp B/P (MAP) Pulse Ox O2 Delivery O2 Flow Rate FiO2 12/02/17 07:00 70 18 129/74 (92) 98 12/02/17 06:00 66 14 115/49 (71) 99 12/02/17 05:30 68 12 117/49 (71) 96 12/02/17 05:14 69 117/51 12/02/17 05:00 68 14 117/51 (73) 98 12/02/17 04:30 70 16 131/60 (83) 98 12/02/17 04:00 Room Air 12/02/17 04:00 98.5 71 16 143/72 (95) 97 98.5 12/02/17 03:30 70 16 121/59 (79) 97 12/02/17 03:05 72 12/02/17 03:00 73 16 111/83 (92) 97 12/02/17 02:05 72 122/58 12/02/17 02:00 73 20 122/58 (79) 98 12/02/17 01:30 72 17 126/56 (79) 99 12/02/17 01:00 71 17 125/66 (85) 99 12/02/17 00:30 74 17 135/58 (83) 97 12/02/17 00:01 71 125/56 12/02/17 00:00 Room Air 12/02/17 00:00 98.4 74 15 125/56 (79) 95 98.4 12/01/17 23:30 71 18 139/56 (83) 94 12/01/17 23:09 73 12/01/17 23:00 73 18 136/60 (85) 96 12/01/17 22:30 73 16 149/64 (92) 99 12/01/17 22:00 76 20 148/60 (89) 98 12/01/17 21:51 74 140/76 12/01/17 21:30 74 18 140/76 (97) 96 12/01/17 21:00 75 17 149/62 (91) 96 12/01/17 20:42 76 155/70 12/01/17 20:30 76 15 155/70 (98) 95 12/01/17 20:15 77 18 167/77 (107) 94 12/01/17 20:00 Room Air 12/01/17 20:00 97.8 78 19 142/77 (98) 94 97.8 12/01/17 19:45 77 19 158/118 (131) 97 12/01/17 19:38 76 158/118 12/01/17 19:30 76 16 148/121 (130) 97 12/01/17 19:12 76 12/01/17 19:00 76 18 155/80 (105) 97 12/01/17 18:00 97.9 77 17 142/75 (97) 96 97.9 12/01/17 17:00 76 21 139/83 (101) 96 12/01/17 16:00 Room Air 12/01/17 16:00 79 15 141/85 (103) 94 12/01/17 15:49 76 12/01/17 15:00 99.0 76 19 123/93 (103) 97 99.0 12/01/17 14:00 74 21 124/78 (93) 95 12/01/17 13:00 76 21 95/51 (66) 96 12/01/17 12:00 Room Air 12/01/17 12:00 76 12/01/17 12:00 74 15 117/64 (81) 97 12/01/17 11:58 74 12/01/17 11:00 73 25 128/71 (90) 98 12/01/17 10:00 73 15 140/60 (86) 98 12/01/17 09:00 74 18 138/57 (84) 99 12/01/17 08:51 73 12/01/17 08:42 134/87 12/01/17 08:40 73 134/87 Intake and Output 12/01/17 12/02/17 19:00 07:00 Intake Total 565.5 ml 1665.4 ml Output Total 180 ml Balance 385.5 ml 1665.4 ml Free Water 50 ml IV Total 260.5 ml 1150.4 ml Tube Feeding 255 ml 415 ml Other 100 ml Emesis 180 ml # Voids 4 3 Laboratory Tests 12/02/17 05:45: White Blood Count 6.5, Red Blood Count 2.90L, Hemoglobin 10.0L, Hematocrit 28.4L , Mean Corpuscular Volume 98, Mean Corpuscular Hemoglobin 34.7H, Mean Corpuscular Hemoglobin Concent 35.3, Red Cell Distribution Width 9.8L, Platelet Count 142L, Mean Platelet Volume 6.2L, Neutrophils (%) (Auto) 69.6, Lymphocytes (%) (Auto) 17.4L, Monocytes (%) (Auto) 8.7, Eosinophils (%) (Auto) 3.7H, Basophils (%) (Auto) 0.6, Sodium Level 137, Potassium Level 3.9, Chloride Level 102, Carbon Dioxide Level 32, Anion Gap 3L, Blood Urea Nitrogen 12, Creatinine 1.0, Estimat Glomerular Filtration Rate , Glucose Level 266H, Calcium Level 10.9H, Total Bilirubin 0.4, Aspartate Amino Transf (AST/SGOT) 17, Alanine Aminotransferase (ALT/SGPT) 18, Alkaline Phosphatase 80, Total Protein 6.0L, Albumin 2.2L, Globulin 3.8, Albumin/Globulin Ratio 0.6L Height (Feet): 5 Height (Inches): 4.00 Weight (Pounds): 115 General Appearance: confused EENT: normal ENT inspection Neck: normal alignment, supple Cardiovascular: normal rate, regular rhythm Respiratory/Chest: lungs clear, normal breath sounds Abdomen: non tender, soft Edema: no edema noted Arm (L), no edema noted Arm (R), no edema noted Leg (L), no edema noted Leg (R), no edema noted Pedal (L), no edema noted Pedal (R), no edema noted Generalized Vinh Winston MD Dec 02, 2017 08:27
[2017-12-02] MEDS: Spironolactone 50mg tab ORAL SCH ×2 (08:35→20:58)
[2017-12-02] MEDS: Sensipar 30mg Tab ORAL SCH (08:36)
[2017-12-02] MEDS: Metoprolol Tartrate 12.5mg TAB ORAL SCH ×2 (08:36→20:59)
[2017-12-02] MEDS: Losartan 50mg tab ORAL SCH (08:39)
--- NOTE | 2017-12-02 09:02 | Pulmonology Progress Note ---
Assessment/Plan Assessment/Plan IMPRESSION ALOC DM HTN S/P fall hypercalemia trace pleural effusion, not significant mild anemia tachycardia PLAN respiratory same oxygen as needed cards noted events reviewed supportive care as outlined NG feeds medications/laboratory data/nursing notes reviewed in detail note reviewed and edited care discussed with RN and RT Subjective ROS Limited/Unobtainable: Yes Allergies: Coded Allergies: No Known Allergies (Unverified , 11/21/17) Subjective still in ICU events reviewed care noted and hemodynamics reviewed Objective Last 24 Hour Vital Signs Date Time Temp Pulse Resp B/P (MAP) Pulse Ox O2 Delivery O2 Flow Rate FiO2 12/02/17 08:39 163/70 12/02/17 08:38 98.1 12/02/17 08:36 75 163/70 12/02/17 08:00 72 16 163/70 (101) 98 12/02/17 07:00 70 18 129/74 (92) 98 12/02/17 06:00 66 14 115/49 (71) 99 12/02/17 05:30 68 12 117/49 (71) 96 12/02/17 05:14 69 117/51 12/02/17 05:00 68 14 117/51 (73) 98 12/02/17 04:30 70 16 131/60 (83) 98 12/02/17 04:00 Room Air 12/02/17 04:00 98.5 71 16 143/72 (95) 97 98.5 12/02/17 03:30 70 16 121/59 (79) 97 12/02/17 03:05 72 12/02/17 03:00 73 16 111/83 (92) 97 12/02/17 02:05 72 122/58 12/02/17 02:00 73 20 122/58 (79) 98 12/02/17 01:30 72 17 126/56 (79) 99 12/02/17 01:00 71 17 125/66 (85) 99 12/02/17 00:30 74 17 135/58 (83) 97 12/02/17 00:01 71 125/56 12/02/17 00:00 Room Air 12/02/17 00:00 98.4 74 15 125/56 (79) 95 98.4 12/01/17 23:30 71 18 139/56 (83) 94 12/01/17 23:09 73 12/01/17 23:00 73 18 136/60 (85) 96 12/01/17 22:30 73 16 149/64 (92) 99 12/01/17 22:00 76 20 148/60 (89) 98 12/01/17 21:51 74 140/76 12/01/17 21:30 74 18 140/76 (97) 96 12/01/17 21:00 75 17 149/62 (91) 96 12/01/17 20:42 76 155/70 12/01/17 20:30 76 15 155/70 (98) 95 12/01/17 20:15 77 18 167/77 (107) 94 12/01/17 20:00 Room Air 12/01/17 20:00 97.8 78 19 142/77 (98) 94 97.8 12/01/17 19:45 77 19 158/118 (131) 97 12/01/17 19:38 76 158/118 12/01/17 19:30 76 16 148/121 (130) 97 12/01/17 19:12 76 12/01/17 19:00 76 18 155/80 (105) 97 12/01/17 18:00 97.9 77 17 142/75 (97) 96 97.9 12/01/17 17:00 76 21 139/83 (101) 96 12/01/17 16:00 Room Air 12/01/17 16:00 79 15 141/85 (103) 94 12/01/17 15:49 76 12/01/17 15:00 99.0 76 19 123/93 (103) 97 99.0 12/01/17 14:00 74 21 124/78 (93) 95 12/01/17 13:00 76 21 95/51 (66) 96 12/01/17 12:00 Room Air 12/01/17 12:00 76 12/01/17 12:00 74 15 117/64 (81) 97 12/01/17 11:58 74 12/01/17 11:00 73 25 128/71 (90) 98 12/01/17 10:00 73 15 140/60 (86) 98 Intake and Output 12/01/17 12/02/17 19:00 07:00 Intake Total 565.5 ml 1665.4 ml Output Total 180 ml Balance 385.5 ml 1665.4 ml Free Water 50 ml IV Total 260.5 ml 1150.4 ml Tube Feeding 255 ml 415 ml Other 100 ml Emesis 180 ml # Voids 4 3 Objective WDWN altered and confused stable breath sounds bilaterally without rhonchi or wheeze [id number] without MRG NABS nontender no HSM no CCE no change no distress Laboratory Tests 12/02/17 05:45: White Blood Count 6.5, Red Blood Count 2.90L, Hemoglobin 10.0L, Hematocrit 28.4L , Mean Corpuscular Volume 98, Mean Corpuscular Hemoglobin 34.7H, Mean Corpuscular Hemoglobin Concent 35.3, Red Cell Distribution Width 9.8L, Platelet Count 142L, Mean Platelet Volume 6.2L, Neutrophils (%) (Auto) 69.6, Lymphocytes (%) (Auto) 17.4L, Monocytes (%) (Auto) 8.7, Eosinophils (%) (Auto) 3.7H, Basophils (%) (Auto) 0.6, Sodium Level 137, Potassium Level 3.9, Chloride Level 102, Carbon Dioxide Level 32, Anion Gap 3L, Blood Urea Nitrogen 12, Creatinine 1.0, Estimat Glomerular Filtration Rate , Glucose Level 266H, Calcium Level 10.9H, Total Bilirubin 0.4, Aspartate Amino Transf (AST/SGOT) 17, Alanine Aminotransferase (ALT/SGPT) 18, Alkaline Phosphatase 80, Total Protein 6.0L, Albumin 2.2L, Globulin 3.8, Albumin/Globulin Ratio 0.6L Current Medications Medications (Trade) Dose Ordered Sig/Atilio Route PRN Reason Start Time Stop Time Status Last Admin Dose Admin Acetaminophen (Tylenol) 650 mg Q4H PRN ORAL Mild Pain (Pain Scale 1-3) 11/29/17 13:58 12/21/17 13:57 12/02/17 08:38 Atorvastatin Calcium (Lipitor) 40 mg QHS ORAL 11/29/17 21:00 12/21/17 20:59 12/01/17 20:41 Cinacalcet (Sensipar) 30 mg DAILY ORAL 11/30/17 09:00 12/29/17 08:59 12/02/17 08:36 Dextrose (Dextrose 50%) 25 ml Q30M PRN IV Hypoglycemia 11/29/17 13:58 12/26/17 13:57 Dextrose (Dextrose 50%) 50 ml Q30M PRN IV hypoglycemia 11/29/17 13:58 12/26/17 13:57 Famotidine (Pepcid) 40 mg DAILY ORAL 11/30/17 09:00 12/22/17 08:59 12/02/17 08:36 Folic Acid (Folate) 1 mg DAILY NG 11/30/17 09:00 12/25/17 21:29 12/02/17 08:35 Insulin Aspart (NovoLOG) EVERY 6 HOURS SUBQ 11/29/17 18:00 12/21/17 16:29 12/02/17 05:38 Labetalol HCl 200 mg/Dextrose 290 ml @ 0 mls/hr Q24H IV 12/01/17 13:15 12/29/17 13:56 12/02/17 05:14 Losartan Potassium (Cozaar) 100 mg DAILY ORAL 11/30/17 09:00 12/29/17 08:59 12/02/17 08:39 Metoprolol Tartrate (Lopressor) 37.5 mg Q12HR ORAL 11/29/17 21:00 12/25/17 20:59 12/02/17 08:36 Ondansetron HCl (Zofran) 4 mg Q6H PRN IVP Nausea & Vomiting 11/29/17 13:59 12/21/17 13:58 12/01/17 13:57 Spironolactone (Aldactone) 50 mg EVERY 12 HOURS ORAL 11/29/17 21:00 12/29/17 08:59 12/02/17 08:35 Romeo Smith MD Dec 02, 2017 09:02
--- NOTE | 2017-12-02 13:59 | Cardiology Progress Note ---
Assessment/Plan Status: stable Assessment/Plan Assessment: Encephalopathy Hypertension Fall/syncope Hypokalemia Hypercalcemia Diabetes Anemia Plan: Echocardiogram Monitor on telemetry due to abnormal electrolytes which can alter the QT and QRS intervals and lead to arrhythmias Speech evaluation - continue tube feeds Video swallow study today Zofran prn BP control -Losartan aldactone, metoprolol, labetalol gtt, add nicardipine or nitro gtt if not controlled GI/DVT ppx Subjective Cardiovascular: Reports: no symptoms Respiratory: Reports: no symptoms Gastrointestinal/Abdominal: Reports: no symptoms Genitourinary: Reports: no symptoms Subjective Heart rates normal, sinus rhythm, BP better controlled, She is altered AA0x1, tube feeds are running with no residuals. For video swallow study today Objective Last 24 Hour Vital Signs Date Time Temp Pulse Resp B/P (MAP) Pulse Ox O2 Delivery O2 Flow Rate FiO2 12/02/17 13:00 73 18 179/65 (103) 98 12/02/17 12:00 Room Air 12/02/17 12:00 74 19 118/96 (103) 96 12/02/17 12:00 74 12/02/17 11:00 73 15 153/76 (101) 99 12/02/17 10:00 77 20 135/87 (103) 98 12/02/17 09:00 71 16 148/66 (93) 98 12/02/17 09:00 73 12/02/17 08:39 163/70 12/02/17 08:38 98.1 12/02/17 08:36 75 163/70 12/02/17 08:00 Room Air 12/02/17 08:00 72 16 163/70 (101) 98 12/02/17 07:00 70 18 129/74 (92) 98 12/02/17 06:00 66 14 115/49 (71) 99 12/02/17 05:30 68 12 117/49 (71) 96 12/02/17 05:14 69 117/51 12/02/17 05:00 68 14 117/51 (73) 98 12/02/17 04:30 70 16 131/60 (83) 98 12/02/17 04:00 Room Air 12/02/17 04:00 98.5 71 16 143/72 (95) 97 98.5 12/02/17 03:30 70 16 121/59 (79) 97 12/02/17 03:05 72 12/02/17 03:00 73 16 111/83 (92) 97 12/02/17 02:05 72 122/58 12/02/17 02:00 73 20 122/58 (79) 98 12/02/17 01:30 72 17 126/56 (79) 99 12/02/17 01:00 71 17 125/66 (85) 99 12/02/17 00:30 74 17 135/58 (83) 97 12/02/17 00:01 71 125/56 12/02/17 00:00 Room Air 12/02/17 00:00 98.4 74 15 125/56 (79) 95 98.4 12/01/17 23:30 71 18 139/56 (83) 94 12/01/17 23:09 73 12/01/17 23:00 73 18 136/60 (85) 96 12/01/17 22:30 73 16 149/64 (92) 99 12/01/17 22:00 76 20 148/60 (89) 98 12/01/17 21:51 74 140/76 12/01/17 21:30 74 18 140/76 (97) 96 12/01/17 21:00 75 17 149/62 (91) 96 12/01/17 20:42 76 155/70 12/01/17 20:30 76 15 155/70 (98) 95 12/01/17 20:15 77 18 167/77 (107) 94 12/01/17 20:00 Room Air 12/01/17 20:00 97.8 78 19 142/77 (98) 94 97.8 12/01/17 19:45 77 19 158/118 (131) 97 12/01/17 19:38 76 158/118 12/01/17 19:30 76 16 148/121 (130) 97 12/01/17 19:12 76 12/01/17 19:00 76 18 155/80 (105) 97 12/01/17 18:00 97.9 77 17 142/75 (97) 96 97.9 12/01/17 17:00 76 21 139/83 (101) 96 12/01/17 16:00 Room Air 12/01/17 16:00 79 15 141/85 (103) 94 12/01/17 15:49 76 12/01/17 15:00 99.0 76 19 123/93 (103) 97 99.0 12/01/17 14:00 74 21 124/78 (93) 95 General Appearance: mild distress, lethargic, agitated EENT: PERRL/EOMI, normal ENT inspection, TMs normal, pharynx normal Neck: non-tender, normal alignment, supple, normal inspection, no JVD Rhythm: NSR Cardiovascular: normal peripheral pulses, normal rate, regular rhythm Respiratory/Chest: chest wall non-tender, lungs clear, normal breath sounds Abdomen: normal bowel sounds, non tender, soft, no organomegaly Extremities: normal range of motion, non-tender, normal inspection, no calf tenderness, no swelling Neurologic: site planner II-XII grossly normal, no motor/sensory deficits Intake and Output 12/01/17 12/02/17 19:00 07:00 Intake Total 565.5 ml 1665.4 ml Output Total 180 ml Balance 385.5 ml 1665.4 ml Free Water 50 ml IV Total 260.5 ml 1150.4 ml Tube Feeding 255 ml 415 ml Other 100 ml Emesis 180 ml # Voids 4 3 Laboratory Tests Test 12/02/17 05:45 White Blood Count 6.5 K/UL (4.8-10.8) Red Blood Count 2.90 M/UL (4.20-5.40) L Hemoglobin 10.0 G/DL (12.0-16.0) L Hematocrit 28.4 % (37.0-47.0) L Mean Corpuscular Volume 98 FL (80-99) Mean Corpuscular Hemoglobin 34.7 PG (27.0-31.0) H Mean Corpuscular Hemoglobin Concent 35.3 G/DL (32.0-36.0) Red Cell Distribution Width 9.8 % (11.6-14.8) L Platelet Count 142 K/UL (150-450) L Mean Platelet Volume 6.2 FL (6.5-10.1) L Neutrophils (%) (Auto) 69.6 % (45.0-75.0) Lymphocytes (%) (Auto) 17.4 % (20.0-45.0) L Monocytes (%) (Auto) 8.7 % (1.0-10.0) Eosinophils (%) (Auto) 3.7 % (0.0-3.0) H Basophils (%) (Auto) 0.6 % (0.0-2.0) Sodium Level 137 MMOL/L (136-145) Potassium Level 3.9 MMOL/L (3.5-5.1) Chloride Level 102 MMOL/L (98-107) Carbon Dioxide Level 32 MMOL/L (21-32) Anion Gap 3 mmol/L (5-15) L Blood Urea Nitrogen 12 mg/dL (7-18) Creatinine 1.0 MG/DL (0.55-1.30) Estimat Glomerular Filtration Rate mL/min (>60) Glucose Level 266 MG/DL (74-106) H Calcium Level 10.9 MG/DL (8.5-10.1) H Total Bilirubin 0.4 MG/DL (0.2-1.0) Aspartate Amino Transf (AST/SGOT) 17 U/L (15-37) Alanine Aminotransferase (ALT/SGPT) 18 U/L (12-78) Alkaline Phosphatase 80 U/L (46-116) Total Protein 6.0 G/DL (6.4-8.2) L Albumin 2.2 G/DL (3.4-5.0) L Globulin 3.8 g/dL Albumin/Globulin Ratio 0.6 (1.0-2.7) L Lupillo Palomo MD Dec 02, 2017 13:59
--- NOTE | 2017-12-02 14:13 | General Progress Note ---
Assessment/Plan Problem List: (1) Encephalopathy acute ICD Codes: G93.40 - Encephalopathy, unspecified SNOMED: [id number], [id number] Status: stable Assessment/Plan Seroquel 25 mg qhs restraints soft d/w dr. nunez Subjective Allergies: Coded Allergies: No Known Allergies (Unverified , 11/21/17) Subjective the pt has been confused not slept for the past few nights Objective Last 24 Hour Vital Signs Date Time Temp Pulse Resp B/P (MAP) Pulse Ox O2 Delivery O2 Flow Rate FiO2 12/02/17 14:00 72 13 181/74 (109) 99 12/02/17 13:00 73 18 179/65 (103) 98 12/02/17 12:00 Room Air 12/02/17 12:00 74 19 118/96 (103) 96 12/02/17 12:00 74 12/02/17 11:00 73 15 153/76 (101) 99 12/02/17 10:00 77 20 135/87 (103) 98 12/02/17 09:00 71 16 148/66 (93) 98 12/02/17 09:00 73 12/02/17 08:39 163/70 12/02/17 08:38 98.1 12/02/17 08:36 75 163/70 12/02/17 08:00 Room Air 12/02/17 08:00 72 16 163/70 (101) 98 12/02/17 07:00 70 18 129/74 (92) 98 12/02/17 06:00 66 14 115/49 (71) 99 12/02/17 05:30 68 12 117/49 (71) 96 12/02/17 05:14 69 117/51 12/02/17 05:00 68 14 117/51 (73) 98 12/02/17 04:30 70 16 131/60 (83) 98 12/02/17 04:00 Room Air 12/02/17 04:00 98.5 71 16 143/72 (95) 97 98.5 12/02/17 03:30 70 16 121/59 (79) 97 12/02/17 03:05 72 12/02/17 03:00 73 16 111/83 (92) 97 12/02/17 02:05 72 122/58 12/02/17 02:00 73 20 122/58 (79) 98 12/02/17 01:30 72 17 126/56 (79) 99 12/02/17 01:00 71 17 125/66 (85) 99 12/02/17 00:30 74 17 135/58 (83) 97 12/02/17 00:01 71 125/56 12/02/17 00:00 Room Air 12/02/17 00:00 98.4 74 15 125/56 (79) 95 98.4 12/01/17 23:30 71 18 139/56 (83) 94 12/01/17 23:09 73 12/01/17 23:00 73 18 136/60 (85) 96 12/01/17 22:30 73 16 149/64 (92) 99 12/01/17 22:00 76 20 148/60 (89) 98 12/01/17 21:51 74 140/76 12/01/17 21:30 74 18 140/76 (97) 96 12/01/17 21:00 75 17 149/62 (91) 96 12/01/17 20:42 76 155/70 12/01/17 20:30 76 15 155/70 (98) 95 12/01/17 20:15 77 18 167/77 (107) 94 12/01/17 20:00 Room Air 12/01/17 20:00 97.8 78 19 142/77 (98) 94 97.8 12/01/17 19:45 77 19 158/118 (131) 97 12/01/17 19:38 76 158/118 12/01/17 19:30 76 16 148/121 (130) 97 12/01/17 19:12 76 12/01/17 19:00 76 18 155/80 (105) 97 12/01/17 18:00 97.9 77 17 142/75 (97) 96 97.9 12/01/17 17:00 76 21 139/83 (101) 96 12/01/17 16:00 Room Air 12/01/17 16:00 79 15 141/85 (103) 94 12/01/17 15:49 76 12/01/17 15:00 99.0 76 19 123/93 (103) 97 99.0 Intake and Output 12/01/17 12/02/17 19:00 07:00 Intake Total 565.5 ml 1665.4 ml Output Total 180 ml Balance 385.5 ml 1665.4 ml Free Water 50 ml IV Total 260.5 ml 1150.4 ml Tube Feeding 255 ml 415 ml Other 100 ml Emesis 180 ml # Voids 4 3 Laboratory Tests 12/02/17 05:45: White Blood Count 6.5, Red Blood Count 2.90L, Hemoglobin 10.0L, Hematocrit 28.4L , Mean Corpuscular Volume 98, Mean Corpuscular Hemoglobin 34.7H, Mean Corpuscular Hemoglobin Concent 35.3, Red Cell Distribution Width 9.8L, Platelet Count 142L, Mean Platelet Volume 6.2L, Neutrophils (%) (Auto) 69.6, Lymphocytes (%) (Auto) 17.4L, Monocytes (%) (Auto) 8.7, Eosinophils (%) (Auto) 3.7H, Basophils (%) (Auto) 0.6, Sodium Level 137, Potassium Level 3.9, Chloride Level 102, Carbon Dioxide Level 32, Anion Gap 3L, Blood Urea Nitrogen 12, Creatinine 1.0, Estimat Glomerular Filtration Rate , Glucose Level 266H, Calcium Level 10.9H, Total Bilirubin 0.4, Aspartate Amino Transf (AST/SGOT) 17, Alanine Aminotransferase (ALT/SGPT) 18, Alkaline Phosphatase 80, Total Protein 6.0L, Albumin 2.2L, Globulin 3.8, Albumin/Globulin Ratio 0.6L Height (Feet): 5 Height (Inches): 4.00 Weight (Pounds): 115 General Appearance: no apparent distress, alert, confused Lacey Matthews MD Dec 02, 2017 14:13
--- NOTE | 2017-12-02 14:17 | GI Progress Note ---
Assessment/Plan Problems: (1) Abdominal pain ICD Codes: R10.9 - Unspecified abdominal pain SNOMED: 07429792 Qualifiers: Qualified Codes: R10.13 - Epigastric pain (2) Hypoglycemia associated with type 2 diabetes mellitus ICD Codes: E11.649 - Type 2 diabetes mellitus with hypoglycemia without coma SNOMED: 62105350, 345957055 (3) Encephalopathy acute ICD Codes: G93.40 - Encephalopathy, unspecified SNOMED: 61312619, 813326993 Status: unchanged Status Narrative Discussed with Dr. Alegre. Assessment/Plan Assessment - HTN - hypoglycemia - mild macrocytic anemia - hypokalemia - no N/V/D - back in ICU, on labetalol gtt - ST evaluation noted >> high risk for aspiration, PEG recommended Recommendations - NGTFs >> PEG if family agrees. - DM management - zofran prn - prn transfusions - fu labs The patient was seen and examined at bedside and all new and available data was reviewed in the patients chart. I agree with the above findings, impression and plan. (Patient seen earlier today. Signature stamp does not reflect patient encounter time.). - Mayito Alegre MD Subjective Subjective limited Objective Last 24 Hour Vital Signs Date Time Temp Pulse Resp B/P (MAP) Pulse Ox O2 Delivery O2 Flow Rate FiO2 12/02/17 14:00 72 13 181/74 (109) 99 12/02/17 13:00 73 18 179/65 (103) 98 12/02/17 12:00 Room Air 12/02/17 12:00 74 19 118/96 (103) 96 12/02/17 12:00 74 12/02/17 11:00 73 15 153/76 (101) 99 12/02/17 10:00 77 20 135/87 (103) 98 12/02/17 09:00 71 16 148/66 (93) 98 12/02/17 09:00 73 12/02/17 08:39 163/70 12/02/17 08:38 98.1 12/02/17 08:36 75 163/70 12/02/17 08:00 Room Air 12/02/17 08:00 72 16 163/70 (101) 98 12/02/17 07:00 70 18 129/74 (92) 98 12/02/17 06:00 66 14 115/49 (71) 99 12/02/17 05:30 68 12 117/49 (71) 96 12/02/17 05:14 69 117/51 12/02/17 05:00 68 14 117/51 (73) 98 12/02/17 04:30 70 16 131/60 (83) 98 12/02/17 04:00 Room Air 12/02/17 04:00 98.5 71 16 143/72 (95) 97 98.5 12/02/17 03:30 70 16 121/59 (79) 97 12/02/17 03:05 72 12/02/17 03:00 73 16 111/83 (92) 97 12/02/17 02:05 72 122/58 12/02/17 02:00 73 20 122/58 (79) 98 12/02/17 01:30 72 17 126/56 (79) 99 12/02/17 01:00 71 17 125/66 (85) 99 12/02/17 00:30 74 17 135/58 (83) 97 12/02/17 00:01 71 125/56 12/02/17 00:00 Room Air 12/02/17 00:00 98.4 74 15 125/56 (79) 95 98.4 12/01/17 23:30 71 18 139/56 (83) 94 12/01/17 23:09 73 12/01/17 23:00 73 18 136/60 (85) 96 12/01/17 22:30 73 16 149/64 (92) 99 12/01/17 22:00 76 20 148/60 (89) 98 12/01/17 21:51 74 140/76 12/01/17 21:30 74 18 140/76 (97) 96 12/01/17 21:00 75 17 149/62 (91) 96 12/01/17 20:42 76 155/70 12/01/17 20:30 76 15 155/70 (98) 95 12/01/17 20:15 77 18 167/77 (107) 94 12/01/17 20:00 Room Air 12/01/17 20:00 97.8 78 19 142/77 (98) 94 97.8 12/01/17 19:45 77 19 158/118 (131) 97 12/01/17 19:38 76 158/118 12/01/17 19:30 76 16 148/121 (130) 97 12/01/17 19:12 76 12/01/17 19:00 76 18 155/80 (105) 97 12/01/17 18:00 97.9 77 17 142/75 (97) 96 97.9 12/01/17 17:00 76 21 139/83 (101) 96 12/01/17 16:00 Room Air 12/01/17 16:00 79 15 141/85 (103) 94 12/01/17 15:49 76 12/01/17 15:00 99.0 76 19 123/93 (103) 97 99.0 Intake and Output 12/01/17 12/02/17 19:00 07:00 Intake Total 565.5 ml 1665.4 ml Output Total 180 ml Balance 385.5 ml 1665.4 ml Free Water 50 ml IV Total 260.5 ml 1150.4 ml Tube Feeding 255 ml 415 ml Other 100 ml Emesis 180 ml # Voids 4 3 Laboratory Tests Test 12/02/17 05:45 White Blood Count 6.5 K/UL (4.8-10.8) Red Blood Count 2.90 M/UL (4.20-5.40) L Hemoglobin 10.0 G/DL (12.0-16.0) L Hematocrit 28.4 % (37.0-47.0) L Mean Corpuscular Volume 98 FL (80-99) Mean Corpuscular Hemoglobin 34.7 PG (27.0-31.0) H Mean Corpuscular Hemoglobin Concent 35.3 G/DL (32.0-36.0) Red Cell Distribution Width 9.8 % (11.6-14.8) L Platelet Count 142 K/UL (150-450) L Mean Platelet Volume 6.2 FL (6.5-10.1) L Neutrophils (%) (Auto) 69.6 % (45.0-75.0) Lymphocytes (%) (Auto) 17.4 % (20.0-45.0) L Monocytes (%) (Auto) 8.7 % (1.0-10.0) Eosinophils (%) (Auto) 3.7 % (0.0-3.0) H Basophils (%) (Auto) 0.6 % (0.0-2.0) Sodium Level 137 MMOL/L (136-145) Potassium Level 3.9 MMOL/L (3.5-5.1) Chloride Level 102 MMOL/L (98-107) Carbon Dioxide Level 32 MMOL/L (21-32) Anion Gap 3 mmol/L (5-15) L Blood Urea Nitrogen 12 mg/dL (7-18) Creatinine 1.0 MG/DL (0.55-1.30) Estimat Glomerular Filtration Rate mL/min (>60) Glucose Level 266 MG/DL (74-106) H Calcium Level 10.9 MG/DL (8.5-10.1) H Total Bilirubin 0.4 MG/DL (0.2-1.0) Aspartate Amino Transf (AST/SGOT) 17 U/L (15-37) Alanine Aminotransferase (ALT/SGPT) 18 U/L (12-78) Alkaline Phosphatase 80 U/L (46-116) Total Protein 6.0 G/DL (6.4-8.2) L Albumin 2.2 G/DL (3.4-5.0) L Globulin 3.8 g/dL Albumin/Globulin Ratio 0.6 (1.0-2.7) L Height (Feet): 5 Height (Inches): 4.00 Weight (Pounds): 115 General Appearance: no apparent distress, alert, confused Cardiovascular: normal rate Respiratory/Chest: normal breath sounds, no respiratory distress Abdominal Exam: normal bowel sounds, non tender, soft, other - NGT Extremities: non-tender Fatou Santos NP Dec 02, 2017 14:17
--- NOTE | 2017-12-02 15:37 | General Surgery Progress Note ---
General Surgery-Progress Note Subjective Additional Comments no acute events. still confused at times. agitated at times. Objective Last 24 Hour Vital Signs Date Time Temp Pulse Resp B/P (MAP) Pulse Ox O2 Delivery O2 Flow Rate FiO2 12/02/17 15:10 76 153/65 12/02/17 15:00 73 19 153/65 (94) 100 12/02/17 14:00 72 13 181/74 (109) 99 12/02/17 13:00 73 18 179/65 (103) 98 12/02/17 12:00 Room Air 12/02/17 12:00 74 19 118/96 (103) 96 12/02/17 12:00 74 12/02/17 11:00 73 15 153/76 (101) 99 12/02/17 10:00 77 20 135/87 (103) 98 12/02/17 09:00 71 16 148/66 (93) 98 12/02/17 09:00 73 12/02/17 08:39 163/70 12/02/17 08:38 98.1 12/02/17 08:36 75 163/70 12/02/17 08:00 Room Air 12/02/17 08:00 72 16 163/70 (101) 98 12/02/17 07:00 70 18 129/74 (92) 98 12/02/17 06:00 66 14 115/49 (71) 99 12/02/17 05:30 68 12 117/49 (71) 96 12/02/17 05:14 69 117/51 12/02/17 05:00 68 14 117/51 (73) 98 12/02/17 04:30 70 16 131/60 (83) 98 12/02/17 04:00 Room Air 12/02/17 04:00 98.5 71 16 143/72 (95) 97 98.5 12/02/17 03:30 70 16 121/59 (79) 97 12/02/17 03:05 72 12/02/17 03:00 73 16 111/83 (92) 97 12/02/17 02:05 72 122/58 12/02/17 02:00 73 20 122/58 (79) 98 12/02/17 01:30 72 17 126/56 (79) 99 12/02/17 01:00 71 17 125/66 (85) 99 12/02/17 00:30 74 17 135/58 (83) 97 12/02/17 00:01 71 125/56 12/02/17 00:00 Room Air 12/02/17 00:00 98.4 74 15 125/56 (79) 95 98.4 12/01/17 23:30 71 18 139/56 (83) 94 12/01/17 23:09 73 12/01/17 23:00 73 18 136/60 (85) 96 12/01/17 22:30 73 16 149/64 (92) 99 12/01/17 22:00 76 20 148/60 (89) 98 12/01/17 21:51 74 140/76 12/01/17 21:30 74 18 140/76 (97) 96 12/01/17 21:00 75 17 149/62 (91) 96 12/01/17 20:42 76 155/70 12/01/17 20:30 76 15 155/70 (98) 95 12/01/17 20:15 77 18 167/77 (107) 94 12/01/17 20:00 Room Air 12/01/17 20:00 97.8 78 19 142/77 (98) 94 97.8 12/01/17 19:45 77 19 158/118 (131) 97 12/01/17 19:38 76 158/118 12/01/17 19:30 76 16 148/121 (130) 97 12/01/17 19:12 76 12/01/17 19:00 76 18 155/80 (105) 97 12/01/17 18:00 97.9 77 17 142/75 (97) 96 97.9 12/01/17 17:00 76 21 139/83 (101) 96 12/01/17 16:00 Room Air 12/01/17 16:00 79 15 141/85 (103) 94 12/01/17 15:49 76 I&O Intake and Output 12/01/17 12/02/17 19:00 07:00 Intake Total 565.5 ml 1665.4 ml Output Total 180 ml Balance 385.5 ml 1665.4 ml Free Water 50 ml IV Total 260.5 ml 1150.4 ml Tube Feeding 255 ml 415 ml Other 100 ml Emesis 180 ml # Voids 4 3 Dressing: other Wound: other Drains: other Cardiovascular: RSR Respiratory: clear Abdomen: soft, flat, non-tender, present bowel sounds Extremities: no tenderness, no cyanosis Laboratory Tests Test 12/02/17 05:45 White Blood Count 6.5 K/UL (4.8-10.8) Red Blood Count 2.90 M/UL (4.20-5.40) L Hemoglobin 10.0 G/DL (12.0-16.0) L Hematocrit 28.4 % (37.0-47.0) L Mean Corpuscular Volume 98 FL (80-99) Mean Corpuscular Hemoglobin 34.7 PG (27.0-31.0) H Mean Corpuscular Hemoglobin Concent 35.3 G/DL (32.0-36.0) Red Cell Distribution Width 9.8 % (11.6-14.8) L Platelet Count 142 K/UL (150-450) L Mean Platelet Volume 6.2 FL (6.5-10.1) L Neutrophils (%) (Auto) 69.6 % (45.0-75.0) Lymphocytes (%) (Auto) 17.4 % (20.0-45.0) L Monocytes (%) (Auto) 8.7 % (1.0-10.0) Eosinophils (%) (Auto) 3.7 % (0.0-3.0) H Basophils (%) (Auto) 0.6 % (0.0-2.0) Sodium Level 137 MMOL/L (136-145) Potassium Level 3.9 MMOL/L (3.5-5.1) Chloride Level 102 MMOL/L (98-107) Carbon Dioxide Level 32 MMOL/L (21-32) Anion Gap 3 mmol/L (5-15) L Blood Urea Nitrogen 12 mg/dL (7-18) Creatinine 1.0 MG/DL (0.55-1.30) Estimat Glomerular Filtration Rate mL/min (>60) Glucose Level 266 MG/DL (74-106) H Calcium Level 10.9 MG/DL (8.5-10.1) H Total Bilirubin 0.4 MG/DL (0.2-1.0) Aspartate Amino Transf (AST/SGOT) 17 U/L (15-37) Alanine Aminotransferase (ALT/SGPT) 18 U/L (12-78) Alkaline Phosphatase 80 U/L (46-116) Total Protein 6.0 G/DL (6.4-8.2) L Albumin 2.2 G/DL (3.4-5.0) L Globulin 3.8 g/dL Albumin/Globulin Ratio 0.6 (1.0-2.7) L Plan Problems: (1) Abdominal pain Assessment & Plan: c/o abdominal pain. no n/v/f/c. unsure how long has been having pain. on exam epigastric tenderness with guarding - improved labs reviewed. no leukocytosis. lfts okay etiology unknown gastritis? US reviewed. no GB noted. prior cholecystectomy KUB okay noted to have elevated Calcium level. possible primary hypercalcemia which at such low elevation unlikely to be etiology of agitation and mental status change. PTH noted. thyroid US noted with multiple nodules. -PPI -cont tube feeds -no surgical intervention planned. -speech swallow to eval for safe PO intake. -pending video swallow -consider PEG will follow with recs thank you for this consultation Sourav Tobias Dec 02, 2017 15:37
--- NOTE | 2017-12-02 20:40 | Neurology Progress Note ---
Interim History Interim History Interim History Ms. Bernardo feels "better." She is more agitated today. She is awake and alert. She is still disoriented. Her BP is again elevated on low dose labetalol. She is being watched in the ICU. She is much more responsive. She is able to cooperate more for a neurologic exam. As per Dr. Matthews she has not slept well for 3 nights. As per her nurses also she has not been sleeping well at night but has been noted to take multiple short naps during the day. Review of Systems Neuro Review of Systems Unable to obtain. Objective Physical Exam Last Vital Signs Date Time Temp Pulse Resp B/P (MAP) Pulse Ox O2 Delivery O2 Flow Rate FiO2 12/02/17 20:00 Room Air 12/02/17 20:00 98.6 77 20 138/101 (113) 98 98.6 Laboratory Tests Test 12/02/17 05:45 White Blood Count 6.5 K/UL (4.8-10.8) Red Blood Count 2.90 M/UL (4.20-5.40) L Hemoglobin 10.0 G/DL (12.0-16.0) L Hematocrit 28.4 % (37.0-47.0) L Mean Corpuscular Volume 98 FL (80-99) Mean Corpuscular Hemoglobin 34.7 PG (27.0-31.0) H Mean Corpuscular Hemoglobin Concent 35.3 G/DL (32.0-36.0) Red Cell Distribution Width 9.8 % (11.6-14.8) L Platelet Count 142 K/UL (150-450) L Mean Platelet Volume 6.2 FL (6.5-10.1) L Neutrophils (%) (Auto) 69.6 % (45.0-75.0) Lymphocytes (%) (Auto) 17.4 % (20.0-45.0) L Monocytes (%) (Auto) 8.7 % (1.0-10.0) Eosinophils (%) (Auto) 3.7 % (0.0-3.0) H Basophils (%) (Auto) 0.6 % (0.0-2.0) Sodium Level 137 MMOL/L (136-145) Potassium Level 3.9 MMOL/L (3.5-5.1) Chloride Level 102 MMOL/L (98-107) Carbon Dioxide Level 32 MMOL/L (21-32) Anion Gap 3 mmol/L (5-15) L Blood Urea Nitrogen 12 mg/dL (7-18) Creatinine 1.0 MG/DL (0.55-1.30) Estimat Glomerular Filtration Rate mL/min (>60) Glucose Level 266 MG/DL (74-106) H Calcium Level 10.9 MG/DL (8.5-10.1) H Total Bilirubin 0.4 MG/DL (0.2-1.0) Aspartate Amino Transf (AST/SGOT) 17 U/L (15-37) Alanine Aminotransferase (ALT/SGPT) 18 U/L (12-78) Alkaline Phosphatase 80 U/L (46-116) Total Protein 6.0 G/DL (6.4-8.2) L Albumin 2.2 G/DL (3.4-5.0) L Globulin 3.8 g/dL Albumin/Globulin Ratio 0.6 (1.0-2.7) L Neurologic Exam Objective PHYSICAL EXAMINATION: GENERAL: She is a well-developed, well-nourished, [place] lady, lying in bed, in no acute distress. HEAD: Normocephalic and atraumatic. EENT: Examination benign. NECK: No neck rigidity was observed. NEUROLOGICAL EXAMINATION: MENTAL STATUS EXAMINATION: She was awake and alert. She was oriented to self and hospital. Further mental status testing was impossible. SPEECH: She had a mild dysarthria. LANGUAGE: Could not be tested adequately. CRANIAL NERVE EXAMINATION: II: She did blink to threat. She counted fingers. III, IV & : The external ocular movements were present.The pupils were 3 mm in diameter, equal, round, regular, and reactive sluggishly to light. V & VII: The corneal reflexes were present bilaterally. VIII: She was able to hear and had no nystagmus. IX- X: Were not tested. XI: The sternocleidomastoids and trapezii functioned. XII: The tongue was in the midline without any fasciculations or atrophy. MOTOR SYSTEM: The tone was normal in all four extremities. Examination of muscle mass revealed no focal wasting. She moved all her limbs on command and gave me excellent hand architectural inspector. SENSORY EXAMINATION: She responded appropriately to light touch. She was unable to cooperate for other sensory modalities. REFLEXES: 0 at the biceps, triceps, brachioradialis, knees, and ankles. The plantar responses were flexor bilaterally. COORDINATION, STANCE & GAIT: Could not be tested. Impression/Recommendations Diagnostic Impression 1. Ms. Chelly Bernardo is a 72-year-old, [place] lady, of unknown handedness, who does have a past history of hypertension and diabetes mellitus, who was hospitalized on 11/21/2017 for an episode of severe hypoglycemia with her blood sugars in the 20s. Since she has been here, she has also been exhibiting significantly elevated blood pressures. Her mental state continues to be quite altered. 2. She feels "better." She is more agitated today. She is awake and alert. She is still disoriented. Her BP is again elevated on low dose labetalol. She is being watched in the ICU. She is much more responsive. She is able to cooperate better for a neurologic exam. As per Dr. Matthews she has not slept well for 3 nights. As per her nurses also she has not been sleeping well at night but has been noted to take multiple short naps during the day. 3. On neurological examination, at this time, she is awake and alert. She is oriented to self only. She is still disorganized. Further mental status testing is impossible. She does not demonstrate any focal or lateralizing neurological findings. 4. The CT scan of the brain performed on 11/22/2017 revealed atrophy, but no acute pathology. 5. Laboratory data obtained thus far have revealed that she is mildly anemic, has a borderline low B12 level, and a low folate level but otherwise normal laboratory data. 6. The EEG done on 11/25/17 revealed a moderate metabolic encephalopathy. 7. The MRI of the brain done on 11/27/17 revealed no acute intracranial pathology. Moderate atrophy and chronic small vessel disease involving white matter was seen. 8. The patient's history, neurological examination, imaging studies, and laboratory data are most compatible with an encephalopathy most probably due to a hypoglycemic brain insult, and significant hypertension. Her encephalopathy is improving slowly with some waxing and waning. 9. She is not sleeping well at night. Recommendations 1. The patient's blood pressure should be kept in the physiological range. 2. Continue to correct the patient's fluids and electrolytes. 3. Folic acid 1 mg via NGT q day. 4. Vitamin B12 1000 mcg SC monthly. 5. Agree with Dr. Matthews that she may benefit from Seroquel 25 mg q HS for her agitated insomnia. Betina Osullivan M.D., M.S.Amarilys. BETINA OSULLIVAN Dec 02, 2017 20:39
[2017-12-02] MEDS: Atorvastatin 20mg tab ORAL SCH (21:00)
[2017-12-03] VITALS (28 sets, daily range): BP systolic 82–160; BP diastolic 42–91
[2017-12-03] MEDS: NovoLOG Insulin Flexpen SUBQ SCH ×4 (00:03→18:09)
[2017-12-03] MEDS: LABETALOL IV SCH ×5 (00:09→06:38)
[2017-12-03] MEDS: D5W IV SCH ×5 (00:09→06:38)
[2017-12-03 05:22] LABS: BASOPHILS % (AUTO) 0.2 % (0.0-2.0); EOSINOPHILS % (AUTO) 1.3 % (0.0-3.0); HEMOGLOBIN 9.7 G/DL (12.0-16.0); LYMPHOCYTES % (AUTO) 10.8 % (20.0-45.0); MEAN CORPUSCULAR VOLUME 97 FL (80-99); MONOCYTES % (AUTO) 10.4 % (1.0-10.0); NEUTROPHILS % (AUTO) 77.3 % (45.0-75.0); PLATELET COUNT 176 K/UL (150-450); RED CELL DISTRIBUTION WIDTH 9.3 % (11.6-14.8); WHITE BLOOD COUNT 9.1 K/UL (4.8-10.8)
[2017-12-03 05:47] LABS: ALANINE AMINOTRANSFERASE 15 U/L (12-78); ALBUMIN 2.2 G/DL (3.4-5.0); ALBUMIN/GLOBULIN RATIO 0.6 (1.0-2.7); ALKALINE PHOSPHATASE 72 U/L (46-116); ANION GAP 3 mmol/L (5-15); ASPARTATE AMINO TRANSFERASE 11 U/L (15-37); BILIRUBIN,TOTAL 0.4 MG/DL (0.2-1.0); BLOOD UREA NITROGEN 11 mg/dL (7-18); CALCIUM 10.3 MG/DL (8.5-10.1); CARBON DIOXIDE 33 MMOL/L (21-32); CHLORIDE 102 MMOL/L (98-107); POTASSIUM 3.6 MMOL/L (3.5-5.1); SODIUM 138 MMOL/L (136-145)
[2017-12-03] MEDS ORDERED: fentaNYL 100 mcg/2 mL IV PRN (06:45)
[2017-12-03] MEDS ORDERED: DiphenhydrAMINE 50mg/ml Inj IVP PRN (06:45)
[2017-12-03] MEDS ORDERED: Midazolam 2mg/2ml Inj IVP PRN (06:45)
[2017-12-03] MEDS ORDERED: Atropine Inj 1mg/10ml Syr IV PRN (06:45)
--- NOTE | 2017-12-03 06:48 | Anethesia Preoperative Eval ---
Anesthesia Pre-op PMH/ROS General Date of Evaluation: Dec 03, 2017 Time of Evaluation: 06:44 Anesthesiologist: parth ASA Score: ASA 4 Mallampati Score Class I : Soft palate, uvula, fauces, pillars visible Class II: Soft palate, uvula, fauces visible Class III: Soft palate, base of uvula visible Class IV: Only hard plate visible Mallampati Classification: Class II Surgeon: mahsa Diagnosis: dysphagia Surgical Procedure: peg Anesthesia History: none Social History: smoking - nonsmoker Family History: no anesthesia problems Allergies: Coded Allergies: No Known Allergies (Unverified , 11/21/17) Medications: see eMAR Past Medical History Cardiovascular: Reports: HTN Endocrine: Reports: DM Hematology/Immune: Reports: anemia Anesthesia Pre-op Phys. Exam Physician Exam Last Vital Signs Date Time Temp Pulse Resp B/P (MAP) Pulse Ox O2 Delivery O2 Flow Rate FiO2 12/03/17 06:38 67 123/47 12/03/17 06:00 19 99 12/03/17 04:00 Room Air 12/03/17 04:00 98.3 98.3 Constitutional: NAD Neurologic: CN 2-12 intact Cardiovascular: RRR Respiratory: CTA Gastrointestinal: S/NT/ND Airway Exam Mallampati Score: Class II MO: limited Neck: flexible TMD: 2fb ROM: limited Teeth: missing Anesthesia Pre-op A/P Labs Hematology Test 12/03/17 05:00 White Blood Count 9.1 K/UL (4.8-10.8) Red Blood Count 2.80 M/UL (4.20-5.40) L Hemoglobin 9.7 G/DL (12.0-16.0) L Hematocrit 27.0 % (37.0-47.0) L Mean Corpuscular Volume 97 FL (80-99) Mean Corpuscular Hemoglobin 34.6 PG (27.0-31.0) H Mean Corpuscular Hemoglobin Concent 35.8 G/DL (32.0-36.0) Red Cell Distribution Width 9.3 % (11.6-14.8) L Platelet Count 176 K/UL (150-450) Mean Platelet Volume 5.9 FL (6.5-10.1) L Neutrophils (%) (Auto) 77.3 % (45.0-75.0) H Lymphocytes (%) (Auto) 10.8 % (20.0-45.0) L Monocytes (%) (Auto) 10.4 % (1.0-10.0) H Eosinophils (%) (Auto) 1.3 % (0.0-3.0) Basophils (%) (Auto) 0.2 % (0.0-2.0) Coagulation Test 12/03/17 05:00 Prothrombin Time 10.7 SEC (9.30-11.50) Prothromb Time International Ratio 1.0 (0.9-1.1) Activated Partial Thromboplast Time 27 SEC (23-33) Chemistry Test 12/03/17 05:00 Sodium Level 138 MMOL/L (136-145) Potassium Level 3.6 MMOL/L (3.5-5.1) Chloride Level 102 MMOL/L (98-107) Carbon Dioxide Level 33 MMOL/L (21-32) H Anion Gap 3 mmol/L (5-15) L Blood Urea Nitrogen 11 mg/dL (7-18) Creatinine 1.0 MG/DL (0.55-1.30) Estimat Glomerular Filtration Rate mL/min (>60) Glucose Level 257 MG/DL (74-106) H Calcium Level 10.3 MG/DL (8.5-10.1) H Total Bilirubin 0.4 MG/DL (0.2-1.0) Aspartate Amino Transf (AST/SGOT) 11 U/L (15-37) L Alanine Aminotransferase (ALT/SGPT) 15 U/L (12-78) Alkaline Phosphatase 72 U/L (46-116) Total Protein 5.6 G/DL (6.4-8.2) L Albumin 2.2 G/DL (3.4-5.0) L Globulin 3.4 g/dL Albumin/Globulin Ratio 0.6 (1.0-2.7) L Risk Assessment & Plan Assessment: asa3 Plan: mac Status Change Before Surgery: No Pre-Antibiotics Drug: cefoxitin 1gm Given Within 1 Hr of Incision: Yes Time Given: 08:00 Park Hebert MD Dec 03, 2017 06:48
[2017-12-03] MEDS ORDERED: Lidocaine 1% MPF 10mg/ml 5ml ONE (07:30)
[2017-12-03] MEDS ORDERED: Propofol 200mg/20ml IV ONE (07:30)
[2017-12-03] MEDS ORDERED: cefOXitin 1gm Inj ONE (07:30)
--- NOTE | 2017-12-03 07:46 | Pre-Procedure Note/Attestation ---
Pre-Procedure Note/Attestation Complete Prior to Procedure Procedure Narrative: esophagogastroduodenoscopy and peg placement Indications for Procedure Pre-Operative Diagnosis: dysphagia Attestation I attest that I discussed the nature of the procedure; its benefits; risks and complications; and alternatives (and the risks and benefits of such alternatives ), prior to the procedure, with the patient (or the patient's legal b2b outside sales representative). I attest that, if there was a reasonable possibility of needing a blood transfusion, the patient (or the patient's legal b2b outside sales representative) was given the [facility] standardized written summary, pursuant to the [place] Blood Safety Act ([place] Health and Safety Code # 1645, as amended). I attest that I re-evaluated the patient just prior to the surgery and that there has been no change in the patient's H&P, except as documented below: Mayito Alegre MD Dec 03, 2017 07:46
--- NOTE | 2017-12-03 07:47 | General Progress Note ---
Assessment/Plan Assessment/Plan Assessment - HTN - hypoglycemia - mild macrocytic anemia - hypokalemia - no N/V/D Recommendations - NGTFs >> ST evaluation>> failed swallow eval on Friday, plan peg for today - symptomatic treatment - DM management - zofran prn - prn transfusions - fu labs Subjective ROS Limited/Unobtainable: No Allergies: Coded Allergies: No Known Allergies (Unverified , 11/21/17) Objective Last 24 Hour Vital Signs Date Time Temp Pulse Resp B/P (MAP) Pulse Ox O2 Delivery O2 Flow Rate FiO2 12/03/17 07:00 67 16 135/51 (79) 98 12/03/17 07:00 68 13 135/51 (79) 100 12/03/17 06:38 67 123/47 12/03/17 06:30 67 16 122/47 (72) 99 12/03/17 06:00 67 19 129/50 (76) 99 12/03/17 05:30 66 12 109/42 (64) 99 12/03/17 05:00 67 14 134/56 (82) 99 12/03/17 04:30 70 16 133/56 (81) 99 12/03/17 04:22 66 132/64 12/03/17 04:00 Room Air 12/03/17 04:00 70 12/03/17 04:00 98.3 70 20 132/64 (86) 98 98.3 12/03/17 03:30 66 15 123/48 (73) 96 12/03/17 03:00 67 12 132/49 (76) 96 12/03/17 02:30 72 15 140/64 (89) 98 12/03/17 02:28 71 133/86 12/03/17 02:00 69 16 133/86 (102) 98 12/03/17 01:32 71 131/63 12/03/17 01:30 71 17 131/63 (85) 98 12/03/17 01:00 72 19 134/91 (105) 99 12/03/17 00:30 71 16 139/59 (85) 99 12/03/17 00:09 72 150/68 12/03/17 00:00 Room Air 12/03/17 00:00 70 12/03/17 00:00 98.7 71 19 150/68 (95) 98 98.7 12/02/17 23:30 69 16 140/72 (94) 98 12/02/17 23:00 74 20 150/68 (95) 98 12/02/17 22:00 76 20 133/76 (95) 98 12/02/17 21:00 78 17 147/64 (91) 96 12/02/17 20:59 76 166/61 12/02/17 20:30 78 19 166/61 (96) 98 12/02/17 20:00 Room Air 12/02/17 20:00 98.6 77 20 138/101 (113) 98 98.6 12/02/17 20:00 77 12/02/17 19:30 80 17 158/63 (94) 98 12/02/17 19:00 79 18 104/64 (77) 99 12/02/17 18:05 76 133/90 12/02/17 18:00 24 133/90 (104) 100 12/02/17 17:00 75 25 174/65 (101) 98 12/02/17 16:00 74 12/02/17 16:00 98.4 78 22 152/77 (102) 98 98.4 12/02/17 16:00 Room Air 12/02/17 15:10 76 153/65 12/02/17 15:00 73 19 153/65 (94) 100 12/02/17 14:00 72 13 181/74 (109) 99 12/02/17 13:00 73 18 179/65 (103) 98 12/02/17 12:00 Room Air 12/02/17 12:00 98.7 74 19 118/96 (103) 96 98.7 12/02/17 12:00 74 12/02/17 11:00 73 15 153/76 (101) 99 12/02/17 10:00 77 20 135/87 (103) 98 12/02/17 09:00 71 16 148/66 (93) 98 12/02/17 09:00 73 12/02/17 08:39 163/70 12/02/17 08:38 98.1 12/02/17 08:36 75 163/70 12/02/17 08:00 Room Air 12/02/17 08:00 98.1 72 16 163/70 (101) 98 98.1 Intake and Output 12/02/17 12/03/17 19:00 07:00 Intake Total 1497.0 ml 2144 ml Balance 1497.0 ml 2144 ml Intake Oral 0 ml Free Water 50 ml IV Total 957.0 ml 1914 ml Tube Feeding 540 ml 180 ml # Voids 8 3 Laboratory Tests 12/03/17 05:00: White Blood Count 9.1, Red Blood Count 2.80L, Hemoglobin 9.7L, Hematocrit 27.0L , Mean Corpuscular Volume 97, Mean Corpuscular Hemoglobin 34.6H, Mean Corpuscular Hemoglobin Concent 35.8, Red Cell Distribution Width 9.3L, Platelet Count 176, Mean Platelet Volume 5.9L, Neutrophils (%) (Auto) 77.3H, Lymphocytes (%) (Auto) 10.8L, Monocytes (%) (Auto) 10.4H, Eosinophils (%) (Auto) 1.3, Basophils (%) (Auto) 0.2, Prothrombin Time 10.7, Prothromb Time International Ratio 1.0, Activated Partial Thromboplast Time 27, Sodium Level 138, Potassium Level 3.6, Chloride Level 102, Carbon Dioxide Level 33H, Anion Gap 3L, Blood Urea Nitrogen 11, Creatinine 1.0, Estimat Glomerular Filtration Rate , Glucose Level 257H, Calcium Level 10.3H, Total Bilirubin 0.4, Aspartate Amino Transf ( AST/SGOT) 11L, Alanine Aminotransferase (ALT/SGPT) 15, Alkaline Phosphatase 72, Total Protein 5.6L, Albumin 2.2L, Globulin 3.4, Albumin/Globulin Ratio 0.6L Height (Feet): 5 Height (Inches): 3.00 Weight (Pounds): 124 General Appearance: lethargic EENT: normal ENT inspection Neck: supple Cardiovascular: normal rate Respiratory/Chest: decreased breath sounds Abdomen: normal bowel sounds, non tender, soft Extremities: non-tender Mayito Alegre MD Dec 03, 2017 07:47
[2017-12-03] MEDS ORDERED: cefOXitin 1gm Inj IVP ONE (08:00)
[2017-12-03] MEDS: Losartan 50mg tab ORAL SCH (08:30)
[2017-12-03] MEDS: Metoprolol Tartrate 12.5mg TAB ORAL SCH (08:31)
[2017-12-03] MEDS: Sensipar 30mg Tab ORAL SCH (08:32)
[2017-12-03] MEDS: Spironolactone 50mg tab ORAL SCH (08:32)
--- NOTE | 2017-12-03 08:33 | Endoscopy Procedure Note ---
Endoscopy Procedure Note General Indication for Procedure: dysphagia Procedures Performed: EGD, PEG Operative Findings/Diagnosis: same Specimen: none Pt Tolerated Procedure Well: Yes Estimated Blood Loss: none Anesthesia Anesthesiologist: tyrone Anesthesia: MAC Inserted Devices Implant(s) used?: No GI Core Measures 50 yrs or older w/o bx or poly: Not Applicable 10yrs. F/U not recommended: Not Applicable Mayito Alegre MD Dec 03, 2017 08:33
--- NOTE | 2017-12-03 08:49 | Nephrology Progress Note ---
Assessment/Plan Assessment/Plan A/P 1) HTN Urgency- off labetalol gtt. Transfer to [facility] - Losartan/Metoprolol and Minoxidil added - Tx out of ICU today 2) S/P Fall- CT Head/MRI negative 3) Tachycardia- resolved 4) DVT prophylaxsis with SCDs 5) Hypokalemia/Mg/Phos- replace prn 6) Encephalopathy- Patient was confused prior to admission (multiple bruises from falling at time of admission). reason for admission was confusion/ hypoglycemia - patient has been confused at home prior to hospitilization. Worsened since admission. - prn seroquel at nite if needed with Neurology permisson - Many discussions with son trying to explain state of his mother and confusion due to underlying initial hypoglycemic event on presentation and component of HTN encephalopathy - at this time glucose and HTN at goal. GTube placed for nutrition and medications. 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-HPT- sensipar Subjective Date patient seen: Dec 03, 2017 Time patient seen: 08:44 ROS Limited/Unobtainable: Yes Allergies: Coded Allergies: No Known Allergies (Unverified , 11/21/17) Subjective Patient remains confused but more awake Objective Last 24 Hour Vital Signs Date Time Temp Pulse Resp B/P (MAP) Pulse Ox O2 Delivery O2 Flow Rate FiO2 12/03/17 08:31 70 132/61 12/03/17 08:30 135/55 12/03/17 07:00 67 16 135/51 (79) 98 12/03/17 07:00 68 13 135/51 (79) 100 12/03/17 06:38 67 123/47 12/03/17 06:30 67 16 122/47 (72) 99 12/03/17 06:00 67 19 129/50 (76) 99 12/03/17 05:30 66 12 109/42 (64) 99 12/03/17 05:00 67 14 134/56 (82) 99 12/03/17 04:30 70 16 133/56 (81) 99 12/03/17 04:22 66 132/64 12/03/17 04:00 Room Air 12/03/17 04:00 70 12/03/17 04:00 98.3 70 20 132/64 (86) 98 98.3 12/03/17 03:30 66 15 123/48 (73) 96 12/03/17 03:00 67 12 132/49 (76) 96 12/03/17 02:30 72 15 140/64 (89) 98 12/03/17 02:28 71 133/86 12/03/17 02:00 69 16 133/86 (102) 98 12/03/17 01:32 71 131/63 12/03/17 01:30 71 17 131/63 (85) 98 12/03/17 01:00 72 19 134/91 (105) 99 12/03/17 00:30 71 16 139/59 (85) 99 12/03/17 00:09 72 150/68 12/03/17 00:00 Room Air 12/03/17 00:00 70 12/03/17 00:00 98.7 71 19 150/68 (95) 98 98.7 12/02/17 23:30 69 16 140/72 (94) 98 12/02/17 23:00 74 20 150/68 (95) 98 12/02/17 22:00 76 20 133/76 (95) 98 12/02/17 21:00 78 17 147/64 (91) 96 12/02/17 20:59 76 166/61 12/02/17 20:30 78 19 166/61 (96) 98 12/02/17 20:00 Room Air 12/02/17 20:00 98.6 77 20 138/101 (113) 98 98.6 12/02/17 20:00 77 12/02/17 19:30 80 17 158/63 (94) 98 12/02/17 19:00 79 18 104/64 (77) 99 12/02/17 18:05 76 133/90 12/02/17 18:00 24 133/90 (104) 100 12/02/17 17:00 75 25 174/65 (101) 98 12/02/17 16:00 74 12/02/17 16:00 98.4 78 22 152/77 (102) 98 98.4 12/02/17 16:00 Room Air 12/02/17 15:10 76 153/65 12/02/17 15:00 73 19 153/65 (94) 100 12/02/17 14:00 72 13 181/74 (109) 99 12/02/17 13:00 73 18 179/65 (103) 98 12/02/17 12:00 Room Air 12/02/17 12:00 98.7 74 19 118/96 (103) 96 98.7 12/02/17 12:00 74 12/02/17 11:00 73 15 153/76 (101) 99 12/02/17 10:00 77 20 135/87 (103) 98 12/02/17 09:00 71 16 148/66 (93) 98 12/02/17 09:00 73 Intake and Output 12/02/17 12/03/17 19:00 07:00 Intake Total 1497.0 ml 2144 ml Balance 1497.0 ml 2144 ml Intake Oral 0 ml Free Water 50 ml IV Total 957.0 ml 1914 ml Tube Feeding 540 ml 180 ml # Voids 8 3 Laboratory Tests 12/03/17 05:00: White Blood Count 9.1, Red Blood Count 2.80L, Hemoglobin 9.7L, Hematocrit 27.0L , Mean Corpuscular Volume 97, Mean Corpuscular Hemoglobin 34.6H, Mean Corpuscular Hemoglobin Concent 35.8, Red Cell Distribution Width 9.3L, Platelet Count 176, Mean Platelet Volume 5.9L, Neutrophils (%) (Auto) 77.3H, Lymphocytes (%) (Auto) 10.8L, Monocytes (%) (Auto) 10.4H, Eosinophils (%) (Auto) 1.3, Basophils (%) (Auto) 0.2, Prothrombin Time 10.7, Prothromb Time International Ratio 1.0, Activated Partial Thromboplast Time 27, Sodium Level 138, Potassium Level 3.6, Chloride Level 102, Carbon Dioxide Level 33H, Anion Gap 3L, Blood Urea Nitrogen 11, Creatinine 1.0, Estimat Glomerular Filtration Rate , Glucose Level 257H, Calcium Level 10.3H, Total Bilirubin 0.4, Aspartate Amino Transf ( AST/SGOT) 11L, Alanine Aminotransferase (ALT/SGPT) 15, Alkaline Phosphatase 72, Total Protein 5.6L, Albumin 2.2L, Globulin 3.4, Albumin/Globulin Ratio 0.6L Height (Feet): 5 Height (Inches): 3.00 Weight (Pounds): 124 General Appearance: confused EENT: normal ENT inspection Neck: normal alignment, supple Cardiovascular: normal rate, regular rhythm Respiratory/Chest: lungs clear, normal breath sounds Abdomen: non tender, soft Edema: no edema noted Arm (L), no edema noted Arm (R), no edema noted Leg (L), no edema noted Leg (R), no edema noted Pedal (L), no edema noted Pedal (R), no edema noted Generalized Vinh Winston MD Dec 03, 2017 08:49
[2017-12-03] MEDS ORDERED: Metoprolol Tartrate 50mg tab ORAL SCH (09:00)
--- NOTE | 2017-12-03 09:32 | Immediate Post-Op Evaluation ---
Immediate Post-Op Evalulation Immediate Post-Op Evalulation Procedure: egd/peg Date of Evaluation: Dec 03, 2017 Time of Evaluation: 08:27 IV Fluids: 30ml 0.9ns Blood Products: none Estimated Blood Loss: negligible Blood Pressure Systolic: 135 Blood Pressure Diastolic: 59 Pulse Rate: 70 Respiratory Rate: 18 O2 Sat by Pulse Oximetry: 100 Temperature (Fahrenheit): 98.7 Pain Score (1-10): 0 Nausea: No Vomiting: No Complications none Patient Status: awake, reacts, patent Hydration Status: adequate Drug: cefoxitin 1gm Given Within 1 Hr of Incision: Yes Time Given: 08:00 Park Hebert MD Dec 03, 2017 09:32
--- NOTE | 2017-12-03 09:34 | 48 Hour Post Anesthesia Eval ---
Post Anesthesia Evaluation Procedure: egd/peg Date of Evaluation: Dec 03, 2017 Time of Evaluation: 08:29 Blood Pressure Systolic: 133 0: 60 Pulse Rate: 69 Respiratory Rate: 18 Temperature (Fahrenheit): 98.7 O2 Sat by Pulse Oximetry: 100 Airway: patent Nausea: No Vomiting: No Pain Intensity: 0 Hydration Status: adequate Cardiopulmonary Status: stable Mental Status/LOC: patient returned to baseline Post-Anesthesia Complications: none Follow-up care needed: N/A Park Hebert MD Dec 03, 2017 09:34
[2017-12-03] MEDS ORDERED: HydrALAZINE 25mg tab ORAL SCH (12:00)
[2017-12-03] MEDS ORDERED: HydrALAZINE 25mg tab GT SCH (12:00)
--- NOTE | 2017-12-03 13:50 | General Progress Note ---
Assessment/Plan Problem List: (1) Encephalopathy acute ICD Codes: G93.40 - Encephalopathy, unspecified SNOMED: [id number], [id number] Assessment/Plan dc Seroquel 25 mg qhs restraints soft d/w dr. nunez d/w dr. Hare Subjective Date patient seen: Dec 03, 2017 Neurologic/Psychiatric: Reports: anxiety Allergies: Coded Allergies: No Known Allergies (Unverified , 11/21/17) Subjective the pt slept last night however seroquel was dced Objective Last 24 Hour Vital Signs Date Time Temp Pulse Resp B/P (MAP) Pulse Ox O2 Delivery O2 Flow Rate FiO2 12/03/17 13:16 160/59 12/03/17 13:00 75 19 160/59 (92) 100 12/03/17 12:00 Room Air 12/03/17 12:00 73 12/03/17 12:00 74 14 153/59 (90) 100 12/03/17 11:29 129/99 12/03/17 11:00 75 20 150/69 (96) 100 12/03/17 10:00 72 18 148/66 (93) 100 12/03/17 09:34 209.7 69 18 100 12/03/17 09:32 209.7 70 18 100 12/03/17 09:00 71 17 142/76 (98) 100 12/03/17 08:31 70 132/61 12/03/17 08:30 135/55 12/03/17 08:00 Room Air 12/03/17 08:00 98.7 21 133/60 (84) 100 98.7 12/03/17 08:00 67 12/03/17 07:00 67 16 135/51 (79) 98 12/03/17 07:00 68 13 135/51 (79) 100 12/03/17 06:38 67 123/47 12/03/17 06:30 67 16 122/47 (72) 99 12/03/17 06:00 67 19 129/50 (76) 99 12/03/17 05:30 66 12 109/42 (64) 99 12/03/17 05:00 67 14 134/56 (82) 99 12/03/17 04:30 70 16 133/56 (81) 99 12/03/17 04:22 66 132/64 12/03/17 04:00 Room Air 12/03/17 04:00 70 12/03/17 04:00 98.3 70 20 132/64 (86) 98 98.3 12/03/17 03:30 66 15 123/48 (73) 96 12/03/17 03:00 67 12 132/49 (76) 96 12/03/17 02:30 72 15 140/64 (89) 98 12/03/17 02:28 71 133/86 12/03/17 02:00 69 16 133/86 (102) 98 12/03/17 01:32 71 131/63 12/03/17 01:30 71 17 131/63 (85) 98 12/03/17 01:00 72 19 134/91 (105) 99 12/03/17 00:30 71 16 139/59 (85) 99 12/03/17 00:09 72 150/68 12/03/17 00:00 Room Air 12/03/17 00:00 70 12/03/17 00:00 98.7 71 19 150/68 (95) 98 98.7 12/02/17 23:30 69 16 140/72 (94) 98 12/02/17 23:00 74 20 150/68 (95) 98 12/02/17 22:00 76 20 133/76 (95) 98 12/02/17 21:00 78 17 147/64 (91) 96 12/02/17 20:59 76 166/61 12/02/17 20:30 78 19 166/61 (96) 98 12/02/17 20:00 Room Air 12/02/17 20:00 98.6 77 20 138/101 (113) 98 98.6 12/02/17 20:00 77 12/02/17 19:30 80 17 158/63 (94) 98 12/02/17 19:00 79 18 104/64 (77) 99 12/02/17 18:05 76 133/90 12/02/17 18:00 24 133/90 (104) 100 12/02/17 17:00 75 25 174/65 (101) 98 12/02/17 16:00 74 12/02/17 16:00 98.4 78 22 152/77 (102) 98 98.4 12/02/17 16:00 Room Air 12/02/17 15:10 76 153/65 12/02/17 15:00 73 19 153/65 (94) 100 12/02/17 14:00 72 13 181/74 (109) 99 Intake and Output 12/02/17 12/03/17 19:00 07:00 Intake Total 1497.0 ml 2144 ml Balance 1497.0 ml 2144 ml Intake Oral 0 ml Free Water 50 ml IV Total 957.0 ml 1914 ml Tube Feeding 540 ml 180 ml # Voids 8 3 Laboratory Tests 12/03/17 05:00: White Blood Count 9.1, Red Blood Count 2.80L, Hemoglobin 9.7L, Hematocrit 27.0L , Mean Corpuscular Volume 97, Mean Corpuscular Hemoglobin 34.6H, Mean Corpuscular Hemoglobin Concent 35.8, Red Cell Distribution Width 9.3L, Platelet Count 176, Mean Platelet Volume 5.9L, Neutrophils (%) (Auto) 77.3H, Lymphocytes (%) (Auto) 10.8L, Monocytes (%) (Auto) 10.4H, Eosinophils (%) (Auto) 1.3, Basophils (%) (Auto) 0.2, Prothrombin Time 10.7, Prothromb Time International Ratio 1.0, Activated Partial Thromboplast Time 27, Sodium Level 138, Potassium Level 3.6, Chloride Level 102, Carbon Dioxide Level 33H, Anion Gap 3L, Blood Urea Nitrogen 11, Creatinine 1.0, Estimat Glomerular Filtration Rate , Glucose Level 257H, Calcium Level 10.3H, Total Bilirubin 0.4, Aspartate Amino Transf ( AST/SGOT) 11L, Alanine Aminotransferase (ALT/SGPT) 15, Alkaline Phosphatase 72, Total Protein 5.6L, Albumin 2.2L, Globulin 3.4, Albumin/Globulin Ratio 0.6L Height (Feet): 5 Height (Inches): 3.00 Weight (Pounds): 124 General Appearance: no apparent distress, alert Lacey Matthews MD Dec 03, 2017 13:50
[2017-12-03] MEDS ORDERED: Minoxidil 2.5mg tab GT SCH ×2 (14:00)
[2017-12-03] MEDS ORDERED: Minoxidil 2.5mg tab ORAL SCH (14:00)
--- NOTE | 2017-12-03 17:21 | General Surgery Progress Note ---
General Surgery-Progress Note Subjective Additional Comments s/p PEG placement. starting tube feeds. Objective Last 24 Hour Vital Signs Date Time Temp Pulse Resp B/P (MAP) Pulse Ox O2 Delivery O2 Flow Rate FiO2 12/03/17 17:00 87 23 122/49 (73) 100 12/03/17 16:00 81 12/03/17 16:00 Room Air 12/03/17 16:00 97.5 25 118/56 (76) 100 97.5 12/03/17 15:00 81 17 136/55 (82) 99 12/03/17 14:00 79 21 141/60 (87) 100 12/03/17 13:16 160/59 12/03/17 13:00 75 19 160/59 (92) 100 12/03/17 12:00 Room Air 12/03/17 12:00 73 12/03/17 12:00 98.1 74 14 153/59 (90) 100 98.1 12/03/17 11:29 129/99 12/03/17 11:00 75 20 150/69 (96) 100 12/03/17 10:00 72 18 148/66 (93) 100 12/03/17 09:34 209.7 69 18 100 12/03/17 09:32 209.7 70 18 100 12/03/17 09:00 71 17 142/76 (98) 100 12/03/17 08:31 70 132/61 12/03/17 08:30 135/55 12/03/17 08:00 Room Air 12/03/17 08:00 98.7 21 133/60 (84) 100 98.7 12/03/17 08:00 67 12/03/17 07:00 67 16 135/51 (79) 98 12/03/17 07:00 68 13 135/51 (79) 100 12/03/17 06:38 67 123/47 12/03/17 06:30 67 16 122/47 (72) 99 12/03/17 06:00 67 19 129/50 (76) 99 12/03/17 05:30 66 12 109/42 (64) 99 12/03/17 05:00 67 14 134/56 (82) 99 12/03/17 04:30 70 16 133/56 (81) 99 12/03/17 04:22 66 132/64 12/03/17 04:00 Room Air 12/03/17 04:00 70 12/03/17 04:00 98.3 70 20 132/64 (86) 98 98.3 12/03/17 03:30 66 15 123/48 (73) 96 12/03/17 03:00 67 12 132/49 (76) 96 12/03/17 02:30 72 15 140/64 (89) 98 12/03/17 02:28 71 133/86 12/03/17 02:00 69 16 133/86 (102) 98 12/03/17 01:32 71 131/63 12/03/17 01:30 71 17 131/63 (85) 98 12/03/17 01:00 72 19 134/91 (105) 99 12/03/17 00:30 71 16 139/59 (85) 99 12/03/17 00:09 72 150/68 12/03/17 00:00 Room Air 12/03/17 00:00 70 12/03/17 00:00 98.7 71 19 150/68 (95) 98 98.7 12/02/17 23:30 69 16 140/72 (94) 98 12/02/17 23:00 74 20 150/68 (95) 98 12/02/17 22:00 76 20 133/76 (95) 98 12/02/17 21:00 78 17 147/64 (91) 96 12/02/17 20:59 76 166/61 12/02/17 20:30 78 19 166/61 (96) 98 12/02/17 20:00 Room Air 12/02/17 20:00 98.6 77 20 138/101 (113) 98 98.6 12/02/17 20:00 77 12/02/17 19:30 80 17 158/63 (94) 98 12/02/17 19:00 79 18 104/64 (77) 99 12/02/17 18:05 76 133/90 12/02/17 18:00 24 133/90 (104) 100 I&O Intake and Output 12/02/17 12/03/17 19:00 07:00 Intake Total 1497.0 ml 2144 ml Balance 1497.0 ml 2144 ml Intake Oral 0 ml Free Water 50 ml IV Total 957.0 ml 1914 ml Tube Feeding 540 ml 180 ml # Voids 8 3 Wound: clean, dry Drains: other Cardiovascular: RSR Respiratory: clear Abdomen: soft, non-tender, present bowel sounds Extremities: no cyanosis Laboratory Tests Test 12/03/17 05:00 White Blood Count 9.1 K/UL (4.8-10.8) Red Blood Count 2.80 M/UL (4.20-5.40) L Hemoglobin 9.7 G/DL (12.0-16.0) L Hematocrit 27.0 % (37.0-47.0) L Mean Corpuscular Volume 97 FL (80-99) Mean Corpuscular Hemoglobin 34.6 PG (27.0-31.0) H Mean Corpuscular Hemoglobin Concent 35.8 G/DL (32.0-36.0) Red Cell Distribution Width 9.3 % (11.6-14.8) L Platelet Count 176 K/UL (150-450) Mean Platelet Volume 5.9 FL (6.5-10.1) L Neutrophils (%) (Auto) 77.3 % (45.0-75.0) H Lymphocytes (%) (Auto) 10.8 % (20.0-45.0) L Monocytes (%) (Auto) 10.4 % (1.0-10.0) H Eosinophils (%) (Auto) 1.3 % (0.0-3.0) Basophils (%) (Auto) 0.2 % (0.0-2.0) Prothrombin Time 10.7 SEC (9.30-11.50) Prothromb Time International Ratio 1.0 (0.9-1.1) Activated Partial Thromboplast Time 27 SEC (23-33) Sodium Level 138 MMOL/L (136-145) Potassium Level 3.6 MMOL/L (3.5-5.1) Chloride Level 102 MMOL/L (98-107) Carbon Dioxide Level 33 MMOL/L (21-32) H Anion Gap 3 mmol/L (5-15) L Blood Urea Nitrogen 11 mg/dL (7-18) Creatinine 1.0 MG/DL (0.55-1.30) Estimat Glomerular Filtration Rate mL/min (>60) Glucose Level 257 MG/DL (74-106) H Calcium Level 10.3 MG/DL (8.5-10.1) H Total Bilirubin 0.4 MG/DL (0.2-1.0) Aspartate Amino Transf (AST/SGOT) 11 U/L (15-37) L Alanine Aminotransferase (ALT/SGPT) 15 U/L (12-78) Alkaline Phosphatase 72 U/L (46-116) Total Protein 5.6 G/DL (6.4-8.2) L Albumin 2.2 G/DL (3.4-5.0) L Globulin 3.4 g/dL Albumin/Globulin Ratio 0.6 (1.0-2.7) L Plan Problems: (1) Abdominal pain Assessment & Plan: c/o abdominal pain. no n/v/f/c. unsure how long has been having pain. on exam epigastric tenderness with guarding - improved labs reviewed. no leukocytosis. lfts okay etiology unknown gastritis? US reviewed. no GB noted. prior cholecystectomy KUB okay noted to have elevated Calcium level. possible primary hypercalcemia which at such low elevation unlikely to be etiology of agitation and mental status change. PTH noted. thyroid US noted with multiple nodules. -PPI -no surgical intervention planned. -s/p PEG -feeds as tolerated will follow with recs thank you for this consultation Sourav Tobias Dec 03, 2017 17:21
--- NOTE | 2017-12-03 17:30 | Procedure Note ---
DATE OF PROCEDURE: 12/03/2017 SURGEON: Mayito Alegre M.D. PROCEDURE: Upper endoscopy with PEG placement. ANESTHESIA: Per Dr. March. INSTRUMENT: Olympus adult flexible upper endoscope. INDICATION: Dysphagia and failure to thrive. REASON FOR PROCEDURE: The procedure, risks, benefits, and possible consequences, including hemorrhage, aspiration, perforation and infection, and alternative treatments, were explained to the patient/legal guardian by Dr. Mayito Alegre and the patient/legal guardian understood and accepted these risks. DESCRIPTION OF PROCEDURE: After informed consent was obtained and the patient was adequately sedated, Olympus upper endoscope was advanced from mouth into the second portion of duodenum and retroflexion was performed in the stomach. The patient had diffuse gastritis. Then, under endoscopic guidance and under sterile condition, a 20-K[place] pull type of G-tube was successfully placed in the epigastric area. The distance from the tip of the tube to skin was about 2.5 cm in size. The patient tolerated the procedure well without any complication. SUMMARY OF FINDINGS: Status post successful PEG placement. RECOMMENDATIONS: 1. Abdominal binder. 2. Elevate the head of the bed at all times. 3. G-tube flush. 4. G-tube care. 5. Start tube feeding later today. Mayito Alegre M.D. DR: MARIA ESTHER JOB#: [id number] CC:
--- NOTE | 2017-12-03 18:43 | Neurology Progress Note ---
Interim History Interim History Interim History Ms. Bernardo is subdued. She was sedated for her G-tube. She is calm. She is awake but not alert. She is still disoriented. Her BP is running low. She is being watched in the ICU. As per her nurse she has been sedate today. Review of Systems Neuro Review of Systems Unable to obtain. Objective Physical Exam Last Vital Signs Date Time Temp Pulse Resp B/P (MAP) Pulse Ox O2 Delivery O2 Flow Rate FiO2 12/03/17 18:06 107/56 12/03/17 18:00 84 27 100 12/03/17 16:00 Room Air 12/03/17 16:00 97.5 97.5 Laboratory Tests Test 12/03/17 05:00 White Blood Count 9.1 K/UL (4.8-10.8) Red Blood Count 2.80 M/UL (4.20-5.40) L Hemoglobin 9.7 G/DL (12.0-16.0) L Hematocrit 27.0 % (37.0-47.0) L Mean Corpuscular Volume 97 FL (80-99) Mean Corpuscular Hemoglobin 34.6 PG (27.0-31.0) H Mean Corpuscular Hemoglobin Concent 35.8 G/DL (32.0-36.0) Red Cell Distribution Width 9.3 % (11.6-14.8) L Platelet Count 176 K/UL (150-450) Mean Platelet Volume 5.9 FL (6.5-10.1) L Neutrophils (%) (Auto) 77.3 % (45.0-75.0) H Lymphocytes (%) (Auto) 10.8 % (20.0-45.0) L Monocytes (%) (Auto) 10.4 % (1.0-10.0) H Eosinophils (%) (Auto) 1.3 % (0.0-3.0) Basophils (%) (Auto) 0.2 % (0.0-2.0) Prothrombin Time 10.7 SEC (9.30-11.50) Prothromb Time International Ratio 1.0 (0.9-1.1) Activated Partial Thromboplast Time 27 SEC (23-33) Sodium Level 138 MMOL/L (136-145) Potassium Level 3.6 MMOL/L (3.5-5.1) Chloride Level 102 MMOL/L (98-107) Carbon Dioxide Level 33 MMOL/L (21-32) H Anion Gap 3 mmol/L (5-15) L Blood Urea Nitrogen 11 mg/dL (7-18) Creatinine 1.0 MG/DL (0.55-1.30) Estimat Glomerular Filtration Rate mL/min (>60) Glucose Level 257 MG/DL (74-106) H Calcium Level 10.3 MG/DL (8.5-10.1) H Total Bilirubin 0.4 MG/DL (0.2-1.0) Aspartate Amino Transf (AST/SGOT) 11 U/L (15-37) L Alanine Aminotransferase (ALT/SGPT) 15 U/L (12-78) Alkaline Phosphatase 72 U/L (46-116) Total Protein 5.6 G/DL (6.4-8.2) L Albumin 2.2 G/DL (3.4-5.0) L Globulin 3.4 g/dL Albumin/Globulin Ratio 0.6 (1.0-2.7) L Neurologic Exam Objective PHYSICAL EXAMINATION: GENERAL: She is a well-developed, well-nourished, [place] lady, lying in bed, in no acute distress. HEAD: Normocephalic and atraumatic. EENT: Examination benign. NECK: No neck rigidity was observed. NEUROLOGICAL EXAMINATION: MENTAL STATUS EXAMINATION: She was awake but not alert. She was oriented to self and hospital. Further mental status testing was impossible. SPEECH: She had a mild dysarthria. LANGUAGE: Could not be tested adequately. CRANIAL NERVE EXAMINATION: II: She did blink to threat. She counted fingers. III, IV & : The external ocular movements were present.The pupils were 3 mm in diameter, equal, round, regular, and reactive sluggishly to light. V & VII: The corneal reflexes were present bilaterally. VIII: She was able to hear and had no nystagmus. IX- X: Were not tested. XI: The sternocleidomastoids and trapezii functioned. XII: The tongue was in the midline without any fasciculations or atrophy. MOTOR SYSTEM: The tone was normal in all four extremities. Examination of muscle mass revealed no focal wasting. 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 SENSORY EXAMINATION: She responded appropriately to deep pain. She was unable to cooperate for other sensory modalities. REFLEXES: 0 at the biceps, triceps, brachioradialis, knees, and ankles. The plantar responses were flexor bilaterally. COORDINATION, STANCE & GAIT: Could not be tested. Impression/Recommendations Diagnostic Impression 1. Ms. Chelly Bernardo is a 72-year-old, [place] lady, of unknown handedness, who does have a past history of hypertension and diabetes mellitus, who was hospitalized on 11/21/2017 for an episode of severe hypoglycemia with her blood sugars in the 20s. Since she has been here, she has also been exhibiting significantly elevated blood pressures. Her mental state continues to be quite altered. 2. She is subdued. She was sedated for her G-tube. She is calm. She is awake but not alert. She is still disoriented. Her BP is running low. She is being watched in the ICU. As per her nurse she has been sedate today. 3. On neurological examination, at this time, she is awake but not alert. She was sedated earlier for her G-tube. She is oriented to self only. She is still disorganized. Further mental status testing is impossible. She does not demonstrate any focal or lateralizing neurological findings. 4. The CT scan of the brain performed on 11/22/2017 revealed atrophy, but no acute pathology. 5. Laboratory data obtained thus far have revealed that she is mildly anemic, has a borderline low B12 level, and a low folate level but otherwise normal laboratory data. 6. The EEG done on 11/25/17 revealed a moderate metabolic encephalopathy. 7. The MRI of the brain done on 11/27/17 revealed no acute intracranial pathology. Moderate atrophy and chronic small vessel disease involving white matter was seen. 8. The patient's history, neurological examination, imaging studies, and laboratory data are most compatible with an encephalopathy most probably due to a hypoglycemic brain insult, and significant hypertension. Her encephalopathy is waxing and waning. It is worse today due to sedation for her G-tube. Recommendations 1. The patient's blood pressure should be kept in the physiological range. 2. Continue to correct the patient's fluids and electrolytes. 3. Folic acid 1 mg via NGT q day. 4. Vitamin B12 1000 mcg SC monthly. Betina Osullivan M.D., M.S.P.H. BETINA OSULLIVAN Dec 03, 2017 18:43
--- NOTE | 2017-12-03 19:14 | Pulmonology Progress Note ---
Assessment/Plan Assessment/Plan IMPRESSION ALOC DM HTN S/P fall hypercalemia trace pleural effusion, not significant mild anemia tachycardia PLAN respiratory same without change oxygen as needed cards noted events reviewed supportive care reviewed; events notes NG feeds as tolerated medications/laboratory data/nursing notes reviewed in detail note reviewed and edited care discussed with RN and RT Subjective Allergies: Coded Allergies: No Known Allergies (Unverified , 11/21/17) Subjective still in ICU events reviewed no distress Objective Last 24 Hour Vital Signs Date Time Temp Pulse Resp B/P (MAP) Pulse Ox O2 Delivery O2 Flow Rate FiO2 12/03/17 18:06 107/56 12/03/17 18:00 84 27 104/48 (66) 100 12/03/17 17:00 87 23 122/49 (73) 100 12/03/17 16:00 81 12/03/17 16:00 Room Air 12/03/17 16:00 97.5 25 118/56 (76) 100 97.5 12/03/17 15:00 81 17 136/55 (82) 99 12/03/17 14:00 79 21 141/60 (87) 100 12/03/17 13:16 160/59 12/03/17 13:00 75 19 160/59 (92) 100 12/03/17 12:00 Room Air 12/03/17 12:00 73 12/03/17 12:00 98.1 74 14 153/59 (90) 100 98.1 12/03/17 11:29 129/99 12/03/17 11:00 75 20 150/69 (96) 100 12/03/17 10:00 72 18 148/66 (93) 100 12/03/17 09:34 209.7 69 18 100 12/03/17 09:32 209.7 70 18 100 12/03/17 09:00 71 17 142/76 (98) 100 12/03/17 08:31 70 132/61 12/03/17 08:30 135/55 12/03/17 08:00 Room Air 12/03/17 08:00 98.7 21 133/60 (84) 100 98.7 12/03/17 08:00 67 12/03/17 07:00 67 16 135/51 (79) 98 12/03/17 07:00 68 13 135/51 (79) 100 12/03/17 06:38 67 123/47 12/03/17 06:30 67 16 122/47 (72) 99 12/03/17 06:00 67 19 129/50 (76) 99 12/03/17 05:30 66 12 109/42 (64) 99 12/03/17 05:00 67 14 134/56 (82) 99 12/03/17 04:30 70 16 133/56 (81) 99 12/03/17 04:22 66 132/64 12/03/17 04:00 Room Air 12/03/17 04:00 70 12/03/17 04:00 98.3 70 20 132/64 (86) 98 98.3 12/03/17 03:30 66 15 123/48 (73) 96 12/03/17 03:00 67 12 132/49 (76) 96 12/03/17 02:30 72 15 140/64 (89) 98 12/03/17 02:28 71 133/86 12/03/17 02:00 69 16 133/86 (102) 98 12/03/17 01:32 71 131/63 12/03/17 01:30 71 17 131/63 (85) 98 12/03/17 01:00 72 19 134/91 (105) 99 12/03/17 00:30 71 16 139/59 (85) 99 12/03/17 00:09 72 150/68 12/03/17 00:00 Room Air 12/03/17 00:00 70 12/03/17 00:00 98.7 71 19 150/68 (95) 98 98.7 12/02/17 23:30 69 16 140/72 (94) 98 12/02/17 23:00 74 20 150/68 (95) 98 12/02/17 22:00 76 20 133/76 (95) 98 12/02/17 21:00 78 17 147/64 (91) 96 12/02/17 20:59 76 166/61 12/02/17 20:30 78 19 166/61 (96) 98 12/02/17 20:00 Room Air 12/02/17 20:00 98.6 77 20 138/101 (113) 98 98.6 12/02/17 20:00 77 12/02/17 19:30 80 17 158/63 (94) 98 Intake and Output 12/02/17 12/03/17 19:00 07:00 Intake Total 1497.0 ml 2144 ml Balance 1497.0 ml 2144 ml Intake Oral 0 ml Free Water 50 ml IV Total 957.0 ml 1914 ml Tube Feeding 540 ml 180 ml # Voids 8 3 Objective WDWN altered and confused stable breath sounds bilaterally without rhonchi or wheeze [id number] without MRG NABS nontender no HSM no CCE no change no distress Laboratory Tests 12/03/17 05:00: White Blood Count 9.1, Red Blood Count 2.80L, Hemoglobin 9.7L, Hematocrit 27.0L , Mean Corpuscular Volume 97, Mean Corpuscular Hemoglobin 34.6H, Mean Corpuscular Hemoglobin Concent 35.8, Red Cell Distribution Width 9.3L, Platelet Count 176, Mean Platelet Volume 5.9L, Neutrophils (%) (Auto) 77.3H, Lymphocytes (%) (Auto) 10.8L, Monocytes (%) (Auto) 10.4H, Eosinophils (%) (Auto) 1.3, Basophils (%) (Auto) 0.2, Prothrombin Time 10.7, Prothromb Time International Ratio 1.0, Activated Partial Thromboplast Time 27, Sodium Level 138, Potassium Level 3.6, Chloride Level 102, Carbon Dioxide Level 33H, Anion Gap 3L, Blood Urea Nitrogen 11, Creatinine 1.0, Estimat Glomerular Filtration Rate , Glucose Level 257H, Calcium Level 10.3H, Total Bilirubin 0.4, Aspartate Amino Transf ( AST/SGOT) 11L, Alanine Aminotransferase (ALT/SGPT) 15, Alkaline Phosphatase 72, Total Protein 5.6L, Albumin 2.2L, Globulin 3.4, Albumin/Globulin Ratio 0.6L Current Medications Medications (Trade) Dose Ordered Sig/Atilio Route PRN Reason Start Time Stop Time Status Last Admin Dose Admin Acetaminophen (Tylenol) 650 mg Q4H PRN ORAL Mild Pain (Pain Scale 1-3) 11/29/17 13:58 12/21/17 13:57 12/02/17 08:38 Atorvastatin Calcium (Lipitor) 40 mg QHS ORAL 11/29/17 21:00 12/21/17 20:59 12/02/17 21:00 Cinacalcet (Sensipar) 30 mg DAILY ORAL 11/30/17 09:00 12/29/17 08:59 12/03/17 08:32 Clonidine HCl (Catapres Tab) 0.1 mg EVERY 6 HOURS GT 12/03/17 12:00 01/02/18 11:59 12/03/17 18:06 Dextrose (Dextrose 50%) 25 ml Q30M PRN IV Hypoglycemia 11/29/17 13:58 12/26/17 13:57 Dextrose (Dextrose 50%) 50 ml Q30M PRN IV hypoglycemia 11/29/17 13:58 12/26/17 13:57 Famotidine (Pepcid) 40 mg DAILY ORAL 11/30/17 09:00 12/22/17 08:59 12/03/17 08:32 Folic Acid (Folate) 1 mg DAILY NG 11/30/17 09:00 12/25/17 21:29 12/03/17 08:32 Hydralazine HCl (Apresoline) 10 mg Q4H PRN IV For High Blood Pressure 12/03/17 10:58 01/02/18 10:57 Insulin Aspart (NovoLOG) EVERY 6 HOURS SUBQ 11/29/17 18:00 12/21/17 16:29 12/03/17 18:09 Losartan Potassium (Cozaar) 100 mg DAILY GT 12/04/17 09:00 12/29/17 08:59 Metformin HCl (Glucophage) 850 mg TID GT 12/03/17 09:00 01/02/18 08:59 12/03/17 18:06 Metoprolol Tartrate (Lopressor) 50 mg Q12HR GT 12/03/17 21:00 12/25/17 20:59 Minoxidil (Loniten) 2.5 mg Q8HR GT 12/03/17 14:00 01/02/18 13:59 12/03/17 13:16 Ondansetron HCl (Zofran) 4 mg Q6H PRN IVP Nausea & Vomiting 11/29/17 13:59 12/21/17 13:58 12/01/17 13:57 Romeo Smith MD Dec 03, 2017 19:14
[2017-12-03] MEDS: Metoprolol Tartrate 50mg tab GT SCH (21:00)
[2017-12-03] MEDS ORDERED: Metoprolol Tartrate 50mg tab GT SCH (21:00)
[2017-12-03] MEDS: Atorvastatin 20mg tab ORAL SCH (21:17)
[2017-12-03] MEDS: Minoxidil 2.5mg tab GT SCH ×2 (21:18→21:19)
[2017-12-04] VITALS (7 sets, daily range): BP systolic 100–164; BP diastolic 60–83
[2017-12-04] MEDS: NovoLOG Insulin Flexpen SUBQ SCH ×4 (00:19→18:00)
[2017-12-04] MEDS: Minoxidil 2.5mg tab GT SCH (05:16)
--- NOTE | 2017-12-04 08:42 | Pulmonology Progress Note ---
Assessment/Plan Assessment/Plan IMPRESSION ALOC DM HTN S/P fall hypercalemia trace pleural effusion, not significant mild anemia tachycardia PLAN respiratory care reviewed oxygen at low flow; may dc cards noted events reviewed supportive care BP support medications/laboratory data/nursing notes reviewed in detail note reviewed and edited care discussed with RN and RT Subjective ROS Limited/Unobtainable: Yes Allergies: Coded Allergies: No Known Allergies (Unverified , 11/21/17) Subjective out of ICU events reviewed no distress Objective Last 24 Hour Vital Signs Date Time Temp Pulse Resp B/P (MAP) Pulse Ox O2 Delivery O2 Flow Rate FiO2 12/04/17 08:35 84 12/04/17 06:00 108/69 12/04/17 05:16 127/67 12/04/17 04:00 91 12/04/17 04:00 Room Air 12/04/17 04:00 98.4 86 22 127/67 (87) 97 98.4 12/04/17 00:00 86 12/04/17 00:00 100/60 12/04/17 00:00 98.4 80 22 100/60 (73) 95 98.4 12/04/17 00:00 Room Air 12/03/17 21:19 90/60 12/03/17 21:12 99 Nasal Cannula 2.0 28 12/03/17 21:12 Nasal Cannula 2.0 28 12/03/17 21:00 83 95/60 12/03/17 20:00 98.1 85 24 95/60 (72) 96 98.1 12/03/17 20:00 Room Air 12/03/17 20:00 85 12/03/17 19:00 83 22 100/49 (66) 100 12/03/17 18:06 107/56 12/03/17 18:00 84 27 104/48 (66) 100 12/03/17 17:00 87 23 122/49 (73) 100 12/03/17 16:00 81 12/03/17 16:00 Room Air 12/03/17 16:00 97.5 25 118/56 (76) 100 97.5 12/03/17 15:00 81 17 136/55 (82) 99 12/03/17 14:00 79 21 141/60 (87) 100 12/03/17 13:16 160/59 10/3/18 13:00 75 19 160/59 (92) 100 12/03/17 12:00 Room Air 12/03/17 12:00 73 12/03/17 12:00 98.1 74 14 153/59 (90) 100 98.1 12/03/17 11:29 129/99 12/03/17 11:00 75 20 150/69 (96) 100 12/03/17 10:00 72 18 148/66 (93) 100 12/03/17 09:34 209.7 69 18 100 12/03/17 09:32 209.7 70 18 100 12/03/17 09:00 71 17 142/76 (98) 100 Intake and Output 12/03/17 12/04/17 19:00 07:00 Intake Total 120 ml 590 ml Balance 120 ml 590 ml Intake Oral 0 ml Free Water 50 ml Tube Feeding 120 ml 540 ml # Voids 11 2 # Bowel Movements 1 Objective WDWN altered and confused stable breath sounds bilaterally without rhonchi or wheeze [id number] without MRG NABS nontender no HSM no CCE no change no distress Current Medications Medications (Trade) Dose Ordered Sig/Atilio Route PRN Reason Start Time Stop Time Status Last Admin Dose Admin Acetaminophen (Tylenol) 650 mg Q4H PRN ORAL Mild Pain (Pain Scale 1-3) 12/03/17 20:30 12/21/17 20:29 Atorvastatin Calcium (Lipitor) 40 mg QHS ORAL 12/03/17 21:00 12/21/17 20:59 12/03/17 21:17 Cinacalcet (Sensipar) 30 mg DAILY ORAL 12/04/17 09:00 12/29/17 08:59 Clonidine HCl (Catapres Tab) 0.1 mg EVERY 6 HOURS GT 12/04/17 00:00 01/02/18 11:59 Dextrose (Dextrose 50%) 25 ml Q30M PRN IV Hypoglycemia 12/03/17 20:30 12/26/17 13:57 Dextrose (Dextrose 50%) 50 ml Q30M PRN IV hypoglycemia 12/03/17 20:30 12/26/17 13:57 Famotidine (Pepcid) 40 mg DAILY ORAL 12/04/17 09:00 12/22/17 08:59 Folic Acid (Folate) 1 mg DAILY NG 12/04/17 09:00 12/25/17 21:29 Hydralazine HCl (Apresoline) 10 mg Q4H PRN IV For High Blood Pressure 12/03/17 20:30 01/02/18 20:29 Insulin Aspart (NovoLOG) EVERY 6 HOURS SUBQ 12/04/17 00:00 12/21/17 16:29 12/04/17 05:18 Losartan Potassium (Cozaar) 100 mg DAILY GT 12/04/17 09:00 12/29/17 08:59 Metformin HCl (Glucophage) 850 mg TID GT 12/04/17 09:00 01/02/18 08:59 Metoprolol Tartrate (Lopressor) 50 mg Q12HR GT 12/03/17 21:00 12/25/17 20:59 Minoxidil (Loniten) 2.5 mg Q8HR GT 12/03/17 22:00 01/02/18 13:59 12/04/17 05:16 Ondansetron HCl (Zofran) 4 mg Q6H PRN IVP Nausea & Vomiting 12/03/17 20:30 01/02/18 20:29 Romeo Smith MD Dec 04, 2017 08:42
[2017-12-04] MEDS: Losartan 50mg tab GT SCH (08:49)
[2017-12-04] MEDS: Metoprolol Tartrate 50mg tab GT SCH ×3 (08:50→21:30)
[2017-12-04] MEDS ORDERED: Losartan 50mg tab GT SCH (09:00)
[2017-12-04] MEDS: Sensipar 30mg Tab ORAL SCH (09:00)
--- NOTE | 2017-12-04 09:25 | Nephrology Progress Note ---
Assessment/Plan Assessment/Plan A/P 1) HTN Urgency- resolved. BP at goal. DC Minoxidil 2) S/P Fall- CT Head/MRI negative 3) Tachycardia- resolved 4) DVT prophylaxsis with SCDs 5) Encephalopathy- Patient was confused prior to admission (multiple bruises from falling at time of admission). reason for admission was confusion/ hypoglycemia - patient has metabolic encephalopathy due to prolonged hypoglycemic events prior to hospitilization. BP very well controlled The degree of recovery is difficult to predict. There has been slow improvement - DC to SNF 6) Hypercal- elevated PTH, possible P-HPT- sensipar. Monitor Ca level Subjective Date patient seen: Dec 04, 2017 Time patient seen: 09:21 ROS Limited/Unobtainable: Yes Allergies: Coded Allergies: No Known Allergies (Unverified , 11/21/17) Subjective Patient confused but answering questions today Objective Last 24 Hour Vital Signs Date Time Temp Pulse Resp B/P (MAP) Pulse Ox O2 Delivery O2 Flow Rate FiO2 12/04/17 08:50 92 119/66 12/04/17 08:49 119/66 12/04/17 08:35 84 12/04/17 06:00 108/69 12/04/17 05:16 127/67 12/04/17 04:00 91 12/04/17 04:00 Room Air 12/04/17 04:00 98.4 86 22 127/67 (87) 97 98.4 12/04/17 00:00 86 12/04/17 00:00 100/60 12/04/17 00:00 98.4 80 22 100/60 (73) 95 98.4 12/04/17 00:00 Room Air 12/03/17 21:19 90/60 12/03/17 21:12 99 Nasal Cannula 2.0 28 12/03/17 21:12 Nasal Cannula 2.0 28 12/03/17 21:00 83 95/60 12/03/17 20:00 98.1 85 24 95/60 (72) 96 98.1 12/03/17 20:00 Room Air 12/03/17 20:00 85 12/03/17 19:00 83 22 100/49 (66) 100 12/03/17 18:06 107/56 12/03/17 18:00 84 27 104/48 (66) 100 12/03/17 17:00 87 23 122/49 (73) 100 12/03/17 16:00 81 12/03/17 16:00 Room Air 12/03/17 16:00 97.5 25 118/56 (76) 100 97.5 12/03/17 15:00 81 17 136/55 (82) 99 12/03/17 14:00 79 21 141/60 (87) 100 12/03/17 13:16 160/59 12/03/17 13:00 75 19 160/59 (92) 100 12/03/17 12:00 Room Air 12/03/17 12:00 73 12/03/17 12:00 98.1 74 14 153/59 (90) 100 98.1 12/03/17 11:29 129/99 12/03/17 11:00 75 20 150/69 (96) 100 12/03/17 10:00 72 18 148/66 (93) 100 12/03/17 09:34 209.7 69 18 100 12/03/17 09:32 209.7 70 18 100 Intake and Output 12/03/17 12/04/17 19:00 07:00 Intake Total 120 ml 590 ml Balance 120 ml 590 ml Intake Oral 0 ml Free Water 50 ml Tube Feeding 120 ml 540 ml # Voids 11 2 # Bowel Movements 1 Height (Feet): 5 Height (Inches): 3.00 Weight (Pounds): 123 General Appearance: confused EENT: normal ENT inspection Neck: normal alignment, supple Cardiovascular: normal rate, regular rhythm Respiratory/Chest: normal breath sounds Abdomen: non tender, soft Edema: no edema noted Arm (L), no edema noted Arm (R), no edema noted Leg (L), no edema noted Leg (R), no edema noted Pedal (L), no edema noted Pedal (R), no edema noted Generalized Vinh Winston MD Dec 04, 2017 09:25
--- NOTE | 2017-12-04 10:52 | GI Progress Note ---
Assessment/Plan Problems: (1) Abdominal pain ICD Codes: R10.9 - Unspecified abdominal pain SNOMED: 06356946 Qualifiers: Qualified Codes: R10.13 - Epigastric pain (2) Hypoglycemia associated with type 2 diabetes mellitus ICD Codes: E11.649 - Type 2 diabetes mellitus with hypoglycemia without coma SNOMED: 81351278, 489976042 (3) Encephalopathy acute ICD Codes: G93.40 - Encephalopathy, unspecified SNOMED: 68021473, 957398659 Status: unchanged Status Narrative Discussed with Dr. Alegre. Assessment/Plan Assessment - HTN - hypoglycemia - mild macrocytic anemia - hypokalemia - no N/V/D - s/p PEG Recommendations - GTFs per RD to goal - DM management - zofran prn - prn transfusions - no labs per primary The patient was seen and examined at bedside and all new and available data was reviewed in the patients chart. I agree with the above findings, impression and plan. (Patient seen earlier today. Signature stamp does not reflect patient encounter time.). - Mayito Alegre MD Subjective Subjective limited Objective Last 24 Hour Vital Signs Date Time Temp Pulse Resp B/P (MAP) Pulse Ox O2 Delivery O2 Flow Rate FiO2 12/04/17 08:50 92 119/66 12/04/17 08:49 119/66 12/04/17 08:35 84 12/04/17 08:00 98.0 92 18 119/66 (83) 97 98.0 12/04/17 08:00 Room Air 12/04/17 06:00 108/69 12/04/17 05:16 127/67 12/04/17 04:00 91 12/04/17 04:00 Room Air 12/04/17 04:00 98.4 86 22 127/67 (87) 97 98.4 12/04/17 00:00 86 12/04/17 00:00 100/60 12/04/17 00:00 98.4 80 22 100/60 (73) 95 98.4 12/04/17 00:00 Room Air 12/03/17 21:19 90/60 12/03/17 21:12 99 Nasal Cannula 2.0 28 12/03/17 21:12 Nasal Cannula 2.0 28 12/03/17 21:00 83 95/60 12/03/17 20:00 98.1 85 24 95/60 (72) 96 98.1 12/03/17 20:00 Room Air 12/03/17 20:00 85 12/03/17 19:00 83 22 100/49 (66) 100 12/03/17 18:06 107/56 12/03/17 18:00 84 27 104/48 (66) 100 12/03/17 17:00 87 23 122/49 (73) 100 12/03/17 16:00 81 12/03/17 16:00 Room Air 12/03/17 16:00 97.5 25 118/56 (76) 100 97.5 12/03/17 15:00 81 17 136/55 (82) 99 12/03/17 14:00 79 21 141/60 (87) 100 12/03/17 13:16 160/59 12/03/17 13:00 75 19 160/59 (92) 100 12/03/17 12:00 Room Air 12/03/17 12:00 73 12/03/17 12:00 98.1 74 14 153/59 (90) 100 98.1 12/03/17 11:29 129/99 12/03/17 11:00 75 20 150/69 (96) 100 Intake and Output 12/03/17 12/04/17 19:00 07:00 Intake Total 120 ml 590 ml Balance 120 ml 590 ml Intake Oral 0 ml Free Water 50 ml Tube Feeding 120 ml 540 ml # Voids 11 2 # Bowel Movements 1 Height (Feet): 5 Height (Inches): 3.00 Weight (Pounds): 123 General Appearance: alert, confused Cardiovascular: normal rate Respiratory/Chest: normal breath sounds, no respiratory distress Abdominal Exam: normal bowel sounds, non tender, soft Fatou Santos [employer] DESIGNER Dec 04, 2017 10:52
--- NOTE | 2017-12-04 12:04 | Neurology Progress Note ---
Interim History Interim History Interim History Ms. Bernardo is awake and alert today. She is calm now but was agitated earlier as per her nurse. She is still disoriented. Her BP is well controlled. She has been transferred out of the ICU. She is able to follow commands better today. Review of Systems Neuro Review of Systems Unable to obtain. Objective Physical Exam Last Vital Signs Date Time Temp Pulse Resp B/P (MAP) Pulse Ox O2 Delivery O2 Flow Rate FiO2 12/04/17 08:50 92 119/66 12/04/17 08:00 98.0 18 97 98.0 12/04/17 08:00 Room Air 12/03/17 21:12 2.0 28 Neurologic Exam Objective PHYSICAL EXAMINATION: GENERAL: She is a well-developed, well-nourished, [place] lady, lying in bed, in no acute distress. HEAD: Normocephalic and atraumatic. EENT: Examination benign. NECK: No neck rigidity was observed. NEUROLOGICAL EXAMINATION: MENTAL STATUS EXAMINATION: She was awake and alert. She was oriented to self, hospital and December only. Further mental status testing was impossible. SPEECH: She had a mild dysarthria. LANGUAGE: Could not be tested adequately. CRANIAL NERVE EXAMINATION: II: She did blink to threat. She counted fingers. III, IV & : The external ocular movements were present.The pupils were 3 mm in diameter, equal, round, regular, and reactive sluggishly to light. V & VII: The corneal reflexes were present bilaterally. VIII: She was able to hear and had no nystagmus. IX- X: Were not tested. XI: The sternocleidomastoids and trapezii functioned. XII: The tongue was in the midline without any fasciculations or atrophy. MOTOR SYSTEM: The tone was normal in all four extremities. Examination of muscle mass revealed no focal wasting. 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 SENSORY EXAMINATION: She responded appropriately to deep pain. She was unable to cooperate for other sensory modalities. REFLEXES: 0 at the biceps, triceps, brachioradialis, knees, and ankles. The plantar responses were flexor bilaterally. COORDINATION, STANCE & GAIT: Could not be tested. Impression/Recommendations Diagnostic Impression 1. Ms. Chelly Bernardo is a 72-year-old, [place] lady, of unknown handedness, who does have a past history of hypertension and diabetes mellitus, who was hospitalized on 11/21/2017 for an episode of severe hypoglycemia with her blood sugars in the 20s. Since she has been here, she has also been exhibiting significantly elevated blood pressures. Her mental state continued to be quite altered. 2. She is awake and alert today. She is calm now but was agitated earlier as per her nurse. She is still disoriented. Her BP is well controlled. She has been transferred out of the ICU. She is able to follow commands better today. 3. On neurological examination, at this time, she is awake and alert. She is oriented to self, hospital and December only. She is still disorganized. Further mental status testing is impossible. She does not demonstrate any focal or lateralizing neurological findings. 4. The CT scan of the brain performed on 11/22/2017 revealed atrophy, but no acute pathology. 5. Laboratory data obtained thus far have revealed that she is mildly anemic, has a borderline low B12 level, and a low folate level but otherwise normal laboratory data. 6. The EEG done on 11/25/17 revealed a moderate metabolic encephalopathy. 7. The MRI of the brain done on 11/27/17 revealed no acute intracranial pathology. Moderate atrophy and chronic small vessel disease involving white matter was seen. 8. The patient's history, neurological examination, imaging studies, and laboratory data are most compatible with an encephalopathy most probably due to a hypoglycemic brain insult, and significant hypertension. Her encephalopathy is waxing and waning. She is less encephalopathic today. Recommendations 1. The patient's blood pressure should be kept in the physiological range. 2. Continue to correct the patient's fluids and electrolytes. 3. Folic acid 1 mg via NGT q day. 4. Vitamin B12 1000 mcg SC monthly. 5. Out of bed in chair. 6. Mobilize with PT/OT. Betina Osullivan M.D., M.S.P.Ngoc. BETINA OSULLIVAN Dec 04, 2017 12:04
--- NOTE | 2017-12-04 14:56 | General Surgery Progress Note ---
General Surgery-Progress Note Subjective Additional Comments tolerating feeds. resting comfortable. not very agitated today. no pain Objective Last 24 Hour Vital Signs Date Time Temp Pulse Resp B/P (MAP) Pulse Ox O2 Delivery O2 Flow Rate FiO2 12/04/17 13:30 94 12/04/17 12:00 Room Air 12/04/17 12:00 98.0 92 19 130/64 (86) 96 98.0 12/04/17 12:00 130/64 12/04/17 08:50 92 119/66 12/04/17 08:49 119/66 12/04/17 08:35 84 12/04/17 08:00 98.0 92 18 119/66 (83) 97 98.0 12/04/17 08:00 Room Air 12/04/17 06:00 108/69 12/04/17 05:16 127/67 12/04/17 04:00 91 12/04/17 04:00 Room Air 12/04/17 04:00 98.4 86 22 127/67 (87) 97 98.4 12/04/17 00:00 86 12/04/17 00:00 100/60 12/04/17 00:00 98.4 80 22 100/60 (73) 95 98.4 12/04/17 00:00 Room Air 12/03/17 21:19 90/60 12/03/17 21:12 99 Nasal Cannula 2.0 28 12/03/17 21:12 Nasal Cannula 2.0 28 12/03/17 21:00 83 95/60 12/03/17 20:00 98.1 85 24 95/60 (72) 96 98.1 12/03/17 20:00 Room Air 12/03/17 20:00 85 12/03/17 19:00 83 22 100/49 (66) 100 12/03/17 18:06 107/56 12/03/17 18:00 84 27 104/48 (66) 100 12/03/17 17:00 87 23 122/49 (73) 100 12/03/17 16:00 81 12/03/17 16:00 Room Air 12/03/17 16:00 97.5 25 118/56 (76) 100 97.5 12/03/17 15:00 81 17 136/55 (82) 99 I&O Intake and Output 12/03/17 12/04/17 19:00 07:00 Intake Total 120 ml 590 ml Balance 120 ml 590 ml Intake Oral 0 ml Free Water 50 ml Tube Feeding 120 ml 540 ml # Voids 11 2 # Bowel Movements 1 Drains: other Cardiovascular: RSR Respiratory: clear Abdomen: soft, flat, non-tender, present bowel sounds Extremities: other Plan Problems: (1) Abdominal pain Assessment & Plan: c/o abdominal pain. no n/v/f/c. unsure how long has been having pain. on exam epigastric tenderness with guarding - improved labs reviewed. no leukocytosis. lfts okay etiology unknown gastritis? US reviewed. no GB noted. prior cholecystectomy KUB okay noted to have elevated Calcium level. possible primary hypercalcemia which at such low elevation unlikely to be etiology of agitation and mental status change. PTH noted. thyroid US noted with multiple nodules. -PPI -no surgical intervention planned. -s/p PEG -feeds as tolerated will follow with recs okay to d/c from surgical standpoint thank you for this consultation Sourav Tobias Dec 04, 2017 14:56
[2017-12-04] MEDS ORDERED: LORazepam Inj 2mg/ml 1ml IM SCH (19:00)
[2017-12-04] MEDS ORDERED: Labetalol 5mg/ml 20ml vial IV SCH (19:00)
[2017-12-04] MEDS: Atorvastatin 20mg tab ORAL SCH (21:00)
[2017-12-04] MEDS: Labetalol 5mg/ml 20ml vial IV SCH (21:31)
--- NOTE | 2017-12-04 22:21 | General Progress Note ---
Assessment/Plan Problem List: (1) Encephalopathy acute ICD Codes: G93.40 - Encephalopathy, unspecified SNOMED: 95588482, [id number] Status: progressing Assessment/Plan dc Seroquel 25 mg qhs restraints soft d/w dr. nunez d/w dr. Hare Subjective Date patient seen: Dec 04, 2017 Neurologic/Psychiatric: Reports: anxiety, depressed, emotional problems Allergies: Coded Allergies: No Known Allergies (Unverified , 11/21/17) Subjective the pt was more agitated today and has waxing and waning of consciousness still disorganized Objective Last 24 Hour Vital Signs Date Time Temp Pulse Resp B/P (MAP) Pulse Ox O2 Delivery O2 Flow Rate FiO2 12/04/17 21:31 90 164/80 12/04/17 21:31 164/80 12/04/17 21:00 90 164/80 12/04/17 19:24 Room Air 12/04/17 19:24 95 Room Air 12/04/17 17:31 123/72 12/04/17 16:20 83 12/04/17 16:00 98.2 90 19 123/72 (89) 95 98.2 12/04/17 16:00 Room Air 12/04/17 13:30 94 12/04/17 12:00 Room Air 12/04/17 12:00 98.0 92 19 130/64 (86) 96 98.0 12/04/17 12:00 130/64 12/04/17 08:50 92 119/66 12/04/17 08:49 119/66 12/04/17 08:35 84 12/04/17 08:00 98.0 92 18 119/66 (83) 97 98.0 12/04/17 08:00 Room Air 12/04/17 06:00 108/69 12/04/17 05:16 127/67 12/04/17 04:00 91 12/04/17 04:00 Room Air 12/04/17 04:00 98.4 86 22 127/67 (87) 97 98.4 12/04/17 00:00 86 12/04/17 00:00 100/60 12/04/17 00:00 98.4 80 22 100/60 (73) 95 98.4 12/04/17 00:00 Room Air Intake and Output 12/03/17 12/04/17 19:00 07:00 Intake Total 120 ml 590 ml Balance 120 ml 590 ml Intake Oral 0 ml Free Water 50 ml Tube Feeding 120 ml 540 ml # Voids 11 2 # Bowel Movements 1 Height (Feet): 5 Height (Inches): 3.00 Weight (Pounds): 123 General Appearance: alert, agitated Lacey Matthews MD Dec 04, 2017 22:21
--- NOTE | 2017-12-04 22:41 | Cardiology Progress Note ---
Assessment/Plan Status: stable Assessment/Plan Assessment: Encephalopathy Hypertension Fall/syncope Hypokalemia Hypercalcemia Diabetes Anemia Plan: Echocardiogram Monitor on telemetry due to abnormal electrolytes which can alter the QT and QRS intervals and lead to arrhythmias s/p PEG Zofran prn BP control -Losartan aldactone, metoprolol, GI/DVT ppx Dispo planning Subjective Cardiovascular: Reports: no symptoms Respiratory: Reports: no symptoms Gastrointestinal/Abdominal: Reports: no symptoms Genitourinary: Reports: no symptoms Subjective Heart rates normal, sinus rhythm, BP better controlled, She is in MAXIME, on restraints, mental status improved, more alert. PEG tube in place. Objective Last 24 Hour Vital Signs Date Time Temp Pulse Resp B/P (MAP) Pulse Ox O2 Delivery O2 Flow Rate FiO2 12/04/17 21:31 90 164/80 12/04/17 21:31 164/80 12/04/17 21:00 90 164/80 12/04/17 20:00 97.5 93 20 164/80 (108) 95 97.5 12/04/17 20:00 93 12/04/17 19:24 Room Air 12/04/17 19:24 95 Room Air 12/04/17 17:31 123/72 12/04/17 16:20 83 12/04/17 16:00 98.2 90 19 123/72 (89) 95 98.2 12/04/17 16:00 Room Air 12/04/17 13:30 94 12/04/17 12:00 Room Air 12/04/17 12:00 98.0 92 19 130/64 (86) 96 98.0 12/04/17 12:00 130/64 12/04/17 08:50 92 119/66 12/04/17 08:49 119/66 12/04/17 08:35 84 12/04/17 08:00 98.0 92 18 119/66 (83) 97 98.0 12/04/17 08:00 Room Air 12/04/17 06:00 108/69 12/04/17 05:16 127/67 12/04/17 04:00 91 12/04/17 04:00 Room Air 12/04/17 04:00 98.4 86 22 127/67 (87) 97 98.4 12/04/17 00:00 86 12/04/17 00:00 100/60 12/04/17 00:00 98.4 80 22 100/60 (73) 95 98.4 12/04/17 00:00 Room Air General Appearance: no apparent distress, alert EENT: PERRL/EOMI, normal ENT inspection, TMs normal, pharynx normal Neck: non-tender, normal alignment, supple, normal inspection, no JVD Rhythm: NSR Cardiovascular: normal peripheral pulses, normal rate Respiratory/Chest: chest wall non-tender, lungs clear, normal breath sounds, no respiratory distress, no accessory muscle use Abdomen: normal bowel sounds, non tender, soft, no organomegaly, no mass Extremities: normal range of motion, non-tender, normal inspection, no calf tenderness 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
[2017-12-05] VITALS (7 sets, daily range): BP systolic 115–170; BP diastolic 60–87
[2017-12-05] MEDS: Labetalol 5mg/ml 20ml vial IV SCH ×6 (01:00→21:16)
[2017-12-05] MEDS ORDERED: cloNIDine 0.2mg Tab ORAL SCH ×2 (06:00→06:16)
[2017-12-05] MEDS: NovoLOG Insulin Flexpen SUBQ SCH ×4 (06:00→17:22)
[2017-12-05 08:03] LABS: BASOPHILS % (AUTO) 0.3 % (0.0-2.0); EOSINOPHILS % (AUTO) 0.3 % (0.0-3.0); HEMOGLOBIN 10.8 G/DL (12.0-16.0); LYMPHOCYTES % (AUTO) 8.8 % (20.0-45.0); MEAN CORPUSCULAR VOLUME 97 FL (80-99); MONOCYTES % (AUTO) 5.9 % (1.0-10.0); NEUTROPHILS % (AUTO) 84.7 % (45.0-75.0); PLATELET COUNT 241 K/UL (150-450); RED BLOOD COUNT 3.19 M/UL (4.20-5.40); RED CELL DISTRIBUTION WIDTH 9.9 % (11.6-14.8); WHITE BLOOD COUNT 10.7 K/UL (4.8-10.8)
--- NOTE | 2017-12-05 08:03 | Pulmonology Progress Note ---
Assessment/Plan Assessment/Plan IMPRESSION ALOC DM HTN S/P fall hypercalemia trace pleural effusion, not significant mild anemia tachycardia PLAN respiratory care noted oxygen as is cards noted events reviewed supportive care BP support noted medications/laboratory data/nursing notes reviewed in detail note reviewed and edited care discussed with RN and RT Subjective Allergies: Coded Allergies: No Known Allergies (Unverified , 11/21/17) Subjective hemodynamics noted no distress Objective Last 24 Hour Vital Signs Date Time Temp Pulse Resp B/P (MAP) Pulse Ox O2 Delivery O2 Flow Rate FiO2 12/05/17 06:31 136/58 12/05/17 05:11 99 134/60 12/05/17 05:10 134/60 12/05/17 04:00 98.2 107 18 134/60 (84) 95 98.2 12/05/17 04:00 Room Air 12/05/17 03:33 107 12/05/17 01:00 96 118/67 12/05/17 01:00 118/67 12/05/17 00:00 Room Air 12/05/17 00:00 98.2 97 18 140/76 (97) 97 98.2 12/04/17 23:00 97.9 95 18 136/83 (100) 95 97.9 12/04/17 21:31 90 164/80 12/04/17 21:31 164/80 12/04/17 21:00 90 164/80 12/04/17 20:26 91 12/04/17 20:00 Room Air 12/04/17 20:00 97.5 93 20 164/80 (108) 95 97.5 12/04/17 20:00 93 12/04/17 19:24 Room Air 12/04/17 19:24 95 Room Air 12/04/17 17:31 123/72 12/04/17 16:20 83 12/04/17 16:00 98.2 90 19 123/72 (89) 95 98.2 12/04/17 16:00 Room Air 12/04/17 13:30 94 12/04/17 12:00 Room Air 12/04/17 12:00 98.0 92 19 130/64 (86) 96 98.0 12/04/17 12:00 130/64 12/04/17 08:50 92 119/66 12/04/17 08:49 119/66 12/04/17 08:35 84 Intake and Output 12/04/17 12/05/17 19:00 07:00 Intake Total 90 ml Balance 90 ml Tube Feeding 90 ml # Voids 2 2 Objective WDWN altered and confused stable breath sounds bilaterally without rhonchi or wheeze [id number] without MRG NABS nontender no HSM no CCE no change no distress reviewed and examined Laboratory Tests 12/05/17 06:50: White Blood Count [Pending], Red Blood Count [Pending], Hemoglobin [Pending], Hematocrit [Pending], Mean Corpuscular Volume [Pending], Mean Corpuscular Hemoglobin [Pending], Mean Corpuscular Hemoglobin Concent [Pending], Red Cell Distribution Width [Pending], Platelet Count [Pending], Mean Platelet Volume [ Pending], Neutrophils (%) (Auto) [Pending], Lymphocytes (%) (Auto) [Pending], Monocytes (%) (Auto) [Pending], Eosinophils (%) (Auto) [Pending], Basophils (%) (Auto) [Pending], Sodium Level [Pending], Potassium Level [Pending], Chloride Level [Pending], Carbon Dioxide Level [Pending], Blood Urea Nitrogen [Pending], Creatinine [Pending], Estimat Glomerular Filtration Rate [Pending], Glucose Level [Pending], Calcium Level [Pending] Current Medications Medications (Trade) Dose Ordered Sig/Atilio Route PRN Reason Start Time Stop Time Status Last Admin Dose Admin Acetaminophen (Tylenol) 650 mg Q4H PRN ORAL Mild Pain (Pain Scale 1-3) 12/03/17 20:30 12/21/17 20:29 Atorvastatin Calcium (Lipitor) 40 mg QHS ORAL 12/03/17 21:00 12/21/17 20:59 12/03/17 21:17 Cinacalcet (Sensipar) 30 mg DAILY ORAL 12/04/17 09:00 12/29/17 08:59 12/04/17 09:00 Clonidine HCl (Catapres tab) 0.2 mg EVERY 8 HOURS ORAL 12/05/17 06:16 01/04/18 06:15 12/05/17 06:31 Dextrose (Dextrose 50%) 25 ml Q30M PRN IV Hypoglycemia 12/03/17 20:30 12/26/17 13:57 Dextrose (Dextrose 50%) 50 ml Q30M PRN IV hypoglycemia 12/03/17 20:30 12/26/17 13:57 Famotidine (Pepcid) 40 mg DAILY ORAL 12/04/17 09:00 12/22/17 08:59 12/04/17 09:00 Folic Acid (Folate) 1 mg DAILY NG 12/04/17 09:00 12/25/17 21:29 12/04/17 09:00 Hydralazine HCl (Apresoline) 10 mg Q4H IV 12/04/17 21:00 01/03/18 20:59 12/05/17 05:10 Hydralazine HCl (Apresoline) 10 mg Q4H PRN IV For High Blood Pressure 12/03/17 20:30 01/02/18 20:29 Insulin Aspart (NovoLOG) EVERY 6 HOURS SUBQ 12/04/17 00:00 12/21/17 16:29 12/04/17 18:00 Labetalol HCl (Normodyne) 4 mg Q4H IV 12/04/17 21:00 01/03/18 20:59 12/05/17 05:11 Lorazepam (Ativan 2mg/ml 1ml) 1 mg Q4H PRN IM Agitation 12/04/17 19:15 12/11/17 19:14 Losartan Potassium (Cozaar) 100 mg DAILY GT 12/04/17 09:00 12/29/17 08:59 Metformin HCl (Glucophage) 850 mg TID GT 12/04/17 09:00 01/02/18 08:59 12/04/17 12:45 Metoprolol Tartrate (Lopressor) 50 mg Q12HR GT 12/03/17 21:00 12/25/17 20:59 Ondansetron HCl (Zofran) 4 mg Q6H PRN IVP Nausea & Vomiting 12/03/17 20:30 01/02/18 20:29 Quetiapine Fumarate (SEROquel) 25 mg DAILYPRN PRN ORAL For Anxiety 12/04/17 12:26 01/03/18 12:25 12/04/17 12:44 Romeo Smith MD Dec 05, 2017 08:03
[2017-12-05 08:04] LABS: ANION GAP 4 mmol/L (5-15); BLOOD UREA NITROGEN 23 mg/dL (7-18); CARBON DIOXIDE 32 MMOL/L (21-32); CHLORIDE 102 MMOL/L (98-107); CREATININE 1.1 MG/DL (0.55-1.30); SODIUM 138 MMOL/L (136-145)
--- NOTE | 2017-12-05 08:24 | Nephrology Progress Note ---
Assessment/Plan Assessment/Plan A/P 1) HTN Urgency- resolved. 2) S/P Fall- CT Head/MRI negative 3) Tachycardia- resolved 4) DVT prophylaxsis with SCDs 5) Encephalopathy- Patient was confused prior to admission (multiple bruises from falling at time of admission). reason for admission was confusion/ hypoglycemia - patient has metabolic encephalopathy due to prolonged hypoglycemic events prior to hospitilization. BP very well controlled The degree of recovery is difficult to predict. There has been slow improvement 6) Hypercal- elevated PTH, possible P-HPT- AM labs pending Patient pulled GTube yesterday nite despite being on soft restraints. CT ABD pel to assess if closed site. Will call son today with plan of action moving forward. This will be a long recovery with many hurdles. She will need sedation prn and nightly seroquel. Will need neuro input and assistance. Meds changed to IV for the time being until GTube placed back Subjective Date patient seen: Dec 05, 2017 Time patient seen: 08:05 ROS Limited/Unobtainable: Yes Allergies: Coded Allergies: No Known Allergies (Unverified , 11/21/17) Subjective Patient confused/ Pulled GTube. Did receive a dose of ativan IM Objective Last 24 Hour Vital Signs Date Time Temp Pulse Resp B/P (MAP) Pulse Ox O2 Delivery O2 Flow Rate FiO2 12/05/17 06:31 136/58 12/05/17 05:11 99 134/60 12/05/17 05:10 134/60 12/05/17 04:00 98.2 107 18 134/60 (84) 95 98.2 12/05/17 04:00 Room Air 12/05/17 03:33 107 12/05/17 01:00 96 118/67 12/05/17 01:00 118/67 12/05/17 00:00 Room Air 12/05/17 00:00 98.2 97 18 140/76 (97) 97 98.2 12/04/17 23:00 97.9 95 18 136/83 (100) 95 97.9 12/04/17 21:31 90 164/80 12/04/17 21:31 164/80 12/04/17 21:00 90 164/80 12/04/17 20:26 91 12/04/17 20:00 Room Air 12/04/17 20:00 97.5 93 20 164/80 (108) 95 97.5 12/04/17 20:00 93 12/04/17 19:24 Room Air 12/04/17 19:24 95 Room Air 12/04/17 17:31 123/72 12/04/17 16:20 83 12/04/17 16:00 98.2 90 19 123/72 (89) 95 98.2 12/04/17 16:00 Room Air 12/04/17 13:30 94 12/04/17 12:00 Room Air 12/04/17 12:00 98.0 92 19 130/64 (86) 96 98.0 12/04/17 12:00 130/64 12/04/17 08:50 92 119/66 12/04/17 08:49 119/66 12/04/17 08:35 84 Intake and Output 12/04/17 12/05/17 19:00 07:00 Intake Total 90 ml Balance 90 ml Tube Feeding 90 ml # Voids 2 2 Laboratory Tests 12/05/17 06:50: White Blood Count 10.7, Red Blood Count 3.19L, Hemoglobin 10.8L, Hematocrit 31.0L, Mean Corpuscular Volume 97, Mean Corpuscular Hemoglobin 33.9H, Mean Corpuscular Hemoglobin Concent 34.8, Red Cell Distribution Width 9.9L, Platelet Count 241, Mean Platelet Volume 5.1L, Neutrophils (%) (Auto) 84.7H, Lymphocytes (%) (Auto) 8.8L, Monocytes (%) (Auto) 5.9, Eosinophils (%) (Auto) 0.3, Basophils (%) (Auto) 0.3, Sodium Level [Pending], Potassium Level [Pending], Chloride Level [Pending], Carbon Dioxide Level [Pending], Blood Urea Nitrogen [ Pending], Creatinine [Pending], Estimat Glomerular Filtration Rate [Pending], Glucose Level [Pending], Calcium Level [Pending] Height (Feet): 5 Height (Inches): 3.00 Weight (Pounds): 123 General Appearance: confused EENT: normal ENT inspection Cardiovascular: normal rate, regular rhythm Respiratory/Chest: normal breath sounds Abdomen: non tender, soft Edema: no edema noted Arm (L), no edema noted Arm (R), no edema noted Leg (L), no edema noted Leg (R), no edema noted Pedal (L), no edema noted Pedal (R), no edema noted Generalized Vinh Winston MD Dec 05, 2017 08:24
[2017-12-05] MEDS: Metoprolol Tartrate 50mg tab GT SCH (08:51)
[2017-12-05] MEDS: Losartan 50mg tab GT SCH (08:51)
[2017-12-05] MEDS: Sensipar 30mg Tab ORAL SCH (08:52)
--- NOTE | 2017-12-05 11:24 | Diagnostic Imaging Report ---
Indication: Status post gastrostomy tube Technique: Supine view of the abdomen after injection of water-soluble contrast into the gastrostomy Comparison: 11/26/2017 Findings: Interim removal of previously demonstrated nasogastric tube. Contrast from prior swallowing study is seen within the colon. Injected contrast from this exam opacifies the peritoneal space. Their may be a small amount of contrast within the gastric lumen, but this cannot be stated for certain Impression: Evidence of malposition of gastrostomy tube, with injection of contrast into the peritoneal space This agrees with the preliminary interpretation provided overnight by [facility] teleradiology service.
--- NOTE | 2017-12-05 11:43 | Diagnostic Imaging Report ---
Indication: Status post readjustment of previously malpositioned gastrostomy Technique: Supine view of the abdomen after injection of water-soluble contrast into gastrostomy Comparison: 12/04/2017 Findings: Months and perhaps most of the injected contrast opacifies the gastric lumen. However, a significant amount of extraluminal probably intraperitoneal contrast is again demonstrated. Again demonstrated is contrast within the colon from prior swallowing study. Impression: Evidence of persistent malposition of gastrostomy, with considerable contrast opacifying the peritoneal space Findings previously discussed by phone with Dr. Winston, who indicates a CT scan has been ordered
--- NOTE | 2017-12-05 11:55 | GI Progress Note ---
Assessment/Plan Problems: (1) Abdominal pain ICD Codes: R10.9 - Unspecified abdominal pain SNOMED: 51481212 Qualifiers: Qualified Codes: R10.13 - Epigastric pain (2) Hypoglycemia associated with type 2 diabetes mellitus ICD Codes: E11.649 - Type 2 diabetes mellitus with hypoglycemia without coma SNOMED: 21038606, 535195286 (3) Encephalopathy acute ICD Codes: G93.40 - Encephalopathy, unspecified SNOMED: 40727479, 304102525 Status: stable Status Narrative Discussed with Dr. Alegre. Assessment/Plan Assessment - HTN - hypoglycemia - mild macrocytic anemia - hypokalemia - no N/V/D - s/p PEG >> patient pulled out, changed today pending KUB confirmation for placement >> failed x2 Recommendations - patient needs to be scheduled for another PEG next friday. - surgery follows >> monitor for s/sx of peritonitis over the weekend - insert NGT, start feeds, NPO @ MN day prior procedure. - DM management - BP management - zofran prn - prn transfusions The patient was seen and examined at bedside and all new and available data was reviewed in the patients chart. I agree with the above findings, impression and plan. (Patient seen earlier today. Signature stamp does not reflect patient encounter time.). - Mayito Alegre MD Subjective Subjective limited Objective Last 24 Hour Vital Signs Date Time Temp Pulse Resp B/P (MAP) Pulse Ox O2 Delivery O2 Flow Rate FiO2 12/05/17 09:50 144/73 12/05/17 09:49 61 144/73 12/05/17 08:00 97.4 61 19 144/73 (96) 96 97.4 12/05/17 08:00 96 12/05/17 08:00 Room Air 12/05/17 06:31 136/58 12/05/17 05:11 99 134/60 12/05/17 05:10 134/60 12/05/17 04:00 98.2 107 18 134/60 (84) 95 98.2 12/05/17 04:00 Room Air 12/05/17 03:33 107 12/05/17 01:00 96 118/67 12/05/17 01:00 118/67 12/05/17 00:00 Room Air 12/05/17 00:00 98.2 97 18 140/76 (97) 97 98.2 12/04/17 23:00 97.9 95 18 136/83 (100) 95 97.9 12/04/17 21:31 90 164/80 12/04/17 21:31 164/80 12/04/17 21:00 90 164/80 12/04/17 20:26 91 12/04/17 20:00 Room Air 12/04/17 20:00 97.5 93 20 164/80 (108) 95 97.5 12/04/17 20:00 93 12/04/17 19:24 Room Air 12/04/17 19:24 95 Room Air 12/04/17 17:31 123/72 12/04/17 16:20 83 12/04/17 16:00 98.2 90 19 123/72 (89) 95 98.2 12/04/17 16:00 Room Air 12/04/17 13:30 94 12/04/17 12:00 Room Air 12/04/17 12:00 98.0 92 19 130/64 (86) 96 98.0 12/04/17 12:00 130/64 Intake and Output 12/04/17 12/05/17 19:00 07:00 Intake Total 90 ml Balance 90 ml Tube Feeding 90 ml # Voids 2 2 Laboratory Tests Test 12/05/17 06:50 White Blood Count 10.7 K/UL (4.8-10.8) Red Blood Count 3.19 M/UL (4.20-5.40) L Hemoglobin 10.8 G/DL (12.0-16.0) L Hematocrit 31.0 % (37.0-47.0) L Mean Corpuscular Volume 97 FL (80-99) Mean Corpuscular Hemoglobin 33.9 PG (27.0-31.0) H Mean Corpuscular Hemoglobin Concent 34.8 G/DL (32.0-36.0) Red Cell Distribution Width 9.9 % (11.6-14.8) L Platelet Count 241 K/UL (150-450) Mean Platelet Volume 5.1 FL (6.5-10.1) L Neutrophils (%) (Auto) 84.7 % (45.0-75.0) H Lymphocytes (%) (Auto) 8.8 % (20.0-45.0) L Monocytes (%) (Auto) 5.9 % (1.0-10.0) Eosinophils (%) (Auto) 0.3 % (0.0-3.0) Basophils (%) (Auto) 0.3 % (0.0-2.0) Sodium Level 138 MMOL/L (136-145) Potassium Level 4.0 MMOL/L (3.5-5.1) Chloride Level 102 MMOL/L (98-107) Carbon Dioxide Level 32 MMOL/L (21-32) Anion Gap 4 mmol/L (5-15) L Blood Urea Nitrogen 23 mg/dL (7-18) H Creatinine 1.1 MG/DL (0.55-1.30) Estimat Glomerular Filtration Rate mL/min (>60) Glucose Level 150 MG/DL (74-106) H Calcium Level 11.0 MG/DL (8.5-10.1) H Height (Feet): 5 Height (Inches): 3.00 Weight (Pounds): 112 General Appearance: alert, confused Cardiovascular: normal rate Respiratory/Chest: no respiratory distress Abdominal Exam: GT site - GT replaced, pending KUB for placement Fatou Santos NP Dec 05, 2017 11:55
[2017-12-05] MEDS ORDERED: Morphine Sulfate 2mg/ml Inj IVP PRN (12:28)
[2017-12-05] MEDS ORDERED: Labetalol 5mg/ml 20ml vial IV ONE (12:30)
[2017-12-05] MEDS: cloNIDine 0.2mg Tab GT SCH ×2 (13:24→22:00)
--- NOTE | 2017-12-05 14:49 | Diagnostic Imaging Report ---
Indication: Suspected malposition of gastrostomy tube after replacement Technique: Supine view of the abdomen after injection of water-soluble contrast into gastrostomy Comparison: 5 hours earlier Findings: On a small amount of injected contrast opacifies the stomach. Most appears to spill into what is probably the peritoneal space, outlines the outside wall of the stomach. I lucencies surrounding the gastrostomy balloon, and it may be in the gastric wall. A small amount of contrast does enter the stomach. The bowel gas pattern is unremarkable.. Impression: Persistent malposition of gastrostomy tube. This critical value finding was phoned to Dr. Alegre at the time of interpretation
--- NOTE | 2017-12-05 15:45 | Neurology Progress Note ---
Interim History Interim History Interim History Ms. Bernardo is awake and alert. She however is still inappropriate with her bed clothes not covering her well. She is calm. She is still disoriented. Her BP is well controlled. She is able to follow commands better but still not perfectly. Objective Physical Exam Last Vital Signs Date Time Temp Pulse Resp B/P (MAP) Pulse Ox O2 Delivery O2 Flow Rate FiO2 12/05/17 13:00 107 115/66 (82) 12/05/17 12:00 97.1 20 96 97.1 12/05/17 08:00 Room Air 12/03/17 21:12 2.0 28 Laboratory Tests Test 12/05/17 06:50 White Blood Count 10.7 K/UL (4.8-10.8) Red Blood Count 3.19 M/UL (4.20-5.40) L Hemoglobin 10.8 G/DL (12.0-16.0) L Hematocrit 31.0 % (37.0-47.0) L Mean Corpuscular Volume 97 FL (80-99) Mean Corpuscular Hemoglobin 33.9 PG (27.0-31.0) H Mean Corpuscular Hemoglobin Concent 34.8 G/DL (32.0-36.0) Red Cell Distribution Width 9.9 % (11.6-14.8) L Platelet Count 241 K/UL (150-450) Mean Platelet Volume 5.1 FL (6.5-10.1) L Neutrophils (%) (Auto) 84.7 % (45.0-75.0) H Lymphocytes (%) (Auto) 8.8 % (20.0-45.0) L Monocytes (%) (Auto) 5.9 % (1.0-10.0) Eosinophils (%) (Auto) 0.3 % (0.0-3.0) Basophils (%) (Auto) 0.3 % (0.0-2.0) Sodium Level 138 MMOL/L (136-145) Potassium Level 4.0 MMOL/L (3.5-5.1) Chloride Level 102 MMOL/L (98-107) Carbon Dioxide Level 32 MMOL/L (21-32) Anion Gap 4 mmol/L (5-15) L Blood Urea Nitrogen 23 mg/dL (7-18) H Creatinine 1.1 MG/DL (0.55-1.30) Estimat Glomerular Filtration Rate mL/min (>60) Glucose Level 150 MG/DL (74-106) H Calcium Level 11.0 MG/DL (8.5-10.1) H Neurologic Exam Objective PHYSICAL EXAMINATION: GENERAL: She is a well-developed, well-nourished, [place] lady, lying in bed, in no acute distress. HEAD: Normocephalic and atraumatic. EENT: Examination benign. NECK: No neck rigidity was observed. NEUROLOGICAL EXAMINATION: MENTAL STATUS EXAMINATION: She was awake and alert. She was oriented to self, hospital and December only. Further mental status testing was impossible. SPEECH: She had a mild dysarthria. LANGUAGE: Could not be tested adequately. CRANIAL NERVE EXAMINATION: II: She did blink to threat. She counted fingers. III, IV & : The external ocular movements were present.The pupils were 3 mm in diameter, equal, round, regular, and reactive sluggishly to light. V & VII: The corneal reflexes were present bilaterally. VIII: She was able to hear and had no nystagmus. IX- X: Were not tested. XI: The sternocleidomastoids and trapezii functioned. XII: The tongue was in the midline without any fasciculations or atrophy. MOTOR SYSTEM: The tone was normal in all four extremities. Examination of muscle mass revealed no focal wasting. 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 SENSORY EXAMINATION: She responded appropriately to deep pain. She was unable to cooperate for other sensory modalities. REFLEXES: 0 at the biceps, triceps, brachioradialis, knees, and ankles. The plantar responses were flexor bilaterally. COORDINATION, STANCE & GAIT: Could not be tested. Impression/Recommendations Diagnostic Impression 1. Ms. Chelly Bernardo is a 72-year-old, [place] lady, of unknown handedness, who does have a past history of hypertension and diabetes mellitus, who was hospitalized on 11/21/2017 for an episode of severe hypoglycemia with her blood sugars in the 20s. Since she has been here, she has also been exhibiting significantly elevated blood pressures. Her mental state continued to be quite altered. 2. She is awake and alert. She however is still inappropriate with her bed clothes not covering her well. She is calm. She is still disoriented. Her BP is well controlled. She is able to follow commands better but still not perfectly. 3. On neurological examination, at this time, she is awake and alert. She is oriented to self, hospital and October only. She is still disorganized. Further mental status testing is impossible. She does not demonstrate any focal or lateralizing neurological findings. 4. The CT scan of the brain performed on 11/22/2017 revealed atrophy, but no acute pathology. 5. Laboratory data obtained thus far have revealed that she is mildly anemic, has a borderline low B12 level, and a low folate level but otherwise normal laboratory data. 6. The EEG done on 11/25/17 revealed a moderate metabolic encephalopathy. 7. The MRI of the brain done on 11/27/17 revealed no acute intracranial pathology. Moderate atrophy and chronic small vessel disease involving white matter was seen. 8. Her blood pressures are still fluctuating significantly. 9. The patient's history, neurological examination, imaging studies, and laboratory data are most compatible with an encephalopathy most probably due to a hypoglycemic brain insult, and significant hypertension. Her encephalopathy is waxing and waning. She is less encephalopathic. 10. Even though her electrolytes, blood sugars and blood pressures have been better controlled she is still significantly encephalopathic. 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 Recommendations 1. Continue to keep blood pressure in the physiological range. 2. Continue to keep patient's fluids and electrolytes balanced. 3. Folic acid 1 mg via NGT q day. 4. Vitamin B12 1000 mcg SC monthly. 5. Out of bed in chair. 6. Mobilize with PT/OT. Betina Osullivan M.D., M.S.P.Ngoc. BETINA OSULLIVAN Dec 05, 2017 15:45
--- NOTE | 2017-12-05 16:12 | Cardiology Progress Note ---
Assessment/Plan Status: stable Assessment/Plan Assessment: Encephalopathy Hypertension Fall/syncope Hypokalemia Hypercalcemia Diabetes Anemia Plan: Echocardiogram Monitor on telemetry due to abnormal electrolytes which can alter the QT and QRS intervals and lead to arrhythmias s/p PEG Zofran prn BP control -Losartan aldactone, metoprolol, GI/DVT ppx Dispo planning Subjective Cardiovascular: Reports: no symptoms Respiratory: Reports: no symptoms Gastrointestinal/Abdominal: Reports: no symptoms Genitourinary: Reports: no symptoms Subjective Heart rates normal, sinus rhythm, BP better controlled, She is in MAXIME, on restraints, mental status improved, more alert. Patient removed PEG tube, replaced by GI, NGT placed for feeds, transferred to floors Objective Last 24 Hour Vital Signs Date Time Temp Pulse Resp B/P (MAP) Pulse Ox O2 Delivery O2 Flow Rate FiO2 12/05/17 13:00 107 115/66 (82) 12/05/17 13:00 107 115/65 12/05/17 13:00 115/66 12/05/17 12:21 170/87 12/05/17 12:21 106 170/87 12/05/17 12:00 97.1 106 20 170/87 (114) 96 97.1 12/05/17 09:50 144/73 12/05/17 09:49 61 144/73 12/05/17 08:00 97.4 61 19 144/73 (96) 96 97.4 12/05/17 08:00 96 12/05/17 08:00 Room Air 12/05/17 06:31 136/58 12/05/17 05:11 99 134/60 12/05/17 05:10 134/60 12/05/17 04:00 98.2 107 18 134/60 (84) 95 98.2 12/05/17 04:00 Room Air 12/05/17 03:33 107 12/05/17 01:00 96 118/67 12/05/17 01:00 118/67 12/05/17 00:00 Room Air 12/05/17 00:00 98.2 97 18 140/76 (97) 97 98.2 12/04/17 23:00 97.9 95 18 136/83 (100) 95 97.9 12/04/17 21:31 90 164/80 12/04/17 21:31 164/80 12/04/17 21:00 90 164/80 12/04/17 20:26 91 12/04/17 20:00 Room Air 12/04/17 20:00 97.5 93 20 164/80 (108) 95 97.5 12/04/17 20:00 93 12/04/17 19:24 Room Air 12/04/17 19:24 95 Room Air 12/04/17 17:31 123/72 12/04/17 16:20 83 General Appearance: no apparent distress, alert EENT: PERRL/EOMI, TMs normal, pharynx normal Neck: non-tender, normal alignment, supple, normal inspection, no JVD Rhythm: NSR Cardiovascular: normal peripheral pulses, normal rate, regular rhythm Respiratory/Chest: chest wall non-tender, lungs clear, normal breath sounds, no respiratory distress Abdomen: normal bowel sounds, non tender, soft, no organomegaly, no mass Extremities: normal range of motion, non-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 Intake and Output 12/04/17 12/05/17 19:00 07:00 Intake Total 90 ml Balance 90 ml Tube Feeding 90 ml # Voids 2 2 Laboratory Tests Test 12/05/17 06:50 White Blood Count 10.7 K/UL (4.8-10.8) Red Blood Count 3.19 M/UL (4.20-5.40) L Hemoglobin 10.8 G/DL (12.0-16.0) L Hematocrit 31.0 % (37.0-47.0) L Mean Corpuscular Volume 97 FL (80-99) Mean Corpuscular Hemoglobin 33.9 PG (27.0-31.0) H Mean Corpuscular Hemoglobin Concent 34.8 G/DL (32.0-36.0) Red Cell Distribution Width 9.9 % (11.6-14.8) L Platelet Count 241 K/UL (150-450) Mean Platelet Volume 5.1 FL (6.5-10.1) L Neutrophils (%) (Auto) 84.7 % (45.0-75.0) H Lymphocytes (%) (Auto) 8.8 % (20.0-45.0) L Monocytes (%) (Auto) 5.9 % (1.0-10.0) Eosinophils (%) (Auto) 0.3 % (0.0-3.0) Basophils (%) (Auto) 0.3 % (0.0-2.0) Sodium Level 138 MMOL/L (136-145) Potassium Level 4.0 MMOL/L (3.5-5.1) Chloride Level 102 MMOL/L (98-107) Carbon Dioxide Level 32 MMOL/L (21-32) Anion Gap 4 mmol/L (5-15) L Blood Urea Nitrogen 23 mg/dL (7-18) H Creatinine 1.1 MG/DL (0.55-1.30) Estimat Glomerular Filtration Rate mL/min (>60) Glucose Level 150 MG/DL (74-106) H Calcium Level 11.0 MG/DL (8.5-10.1) H Lupillo Palomo MD Dec 05, 2017 16:12
--- NOTE | 2017-12-05 16:13 | General Surgery Progress Note ---
General Surgery-Progress Note Subjective Additional Comments pulled out G tube. contrast extrav on xray. currently stable. Objective Last 24 Hour Vital Signs Date Time Temp Pulse Resp B/P (MAP) Pulse Ox O2 Delivery O2 Flow Rate FiO2 12/05/17 13:00 107 115/66 (82) 12/05/17 13:00 107 115/65 12/05/17 13:00 115/66 12/05/17 12:21 170/87 12/05/17 12:21 106 170/87 12/05/17 12:00 97.1 106 20 170/87 (114) 96 97.1 12/05/17 09:50 144/73 12/05/17 09:49 61 144/73 12/05/17 08:00 97.4 61 19 144/73 (96) 96 97.4 12/05/17 08:00 96 12/05/17 08:00 Room Air 12/05/17 06:31 136/58 12/05/17 05:11 99 134/60 12/05/17 05:10 134/60 12/05/17 04:00 98.2 107 18 134/60 (84) 95 98.2 12/05/17 04:00 Room Air 12/05/17 03:33 107 12/05/17 01:00 96 118/67 12/05/17 01:00 118/67 12/05/17 00:00 Room Air 12/05/17 00:00 98.2 97 18 140/76 (97) 97 98.2 12/04/17 23:00 97.9 95 18 136/83 (100) 95 97.9 12/04/17 21:31 90 164/80 12/04/17 21:31 164/80 12/04/17 21:00 90 164/80 12/04/17 20:26 91 12/04/17 20:00 Room Air 12/04/17 20:00 97.5 93 20 164/80 (108) 95 97.5 12/04/17 20:00 93 12/04/17 19:24 Room Air 12/04/17 19:24 95 Room Air 12/04/17 17:31 123/72 12/04/17 16:20 83 I&O Intake and Output 12/04/17 12/05/17 19:00 07:00 Intake Total 90 ml Balance 90 ml Tube Feeding 90 ml # Voids 2 2 Dressing: dry Wound: clean Drains: none Cardiovascular: RSR Respiratory: clear Abdomen: soft, distended, present bowel sounds Extremities: other Laboratory Tests Test 12/05/17 06:50 White Blood Count 10.7 K/UL (4.8-10.8) Red Blood Count 3.19 M/UL (4.20-5.40) L Hemoglobin 10.8 G/DL (12.0-16.0) L Hematocrit 31.0 % (37.0-47.0) L Mean Corpuscular Volume 97 FL (80-99) Mean Corpuscular Hemoglobin 33.9 PG (27.0-31.0) H Mean Corpuscular Hemoglobin Concent 34.8 G/DL (32.0-36.0) Red Cell Distribution Width 9.9 % (11.6-14.8) L Platelet Count 241 K/UL (150-450) Mean Platelet Volume 5.1 FL (6.5-10.1) L Neutrophils (%) (Auto) 84.7 % (45.0-75.0) H Lymphocytes (%) (Auto) 8.8 % (20.0-45.0) L Monocytes (%) (Auto) 5.9 % (1.0-10.0) Eosinophils (%) (Auto) 0.3 % (0.0-3.0) Basophils (%) (Auto) 0.3 % (0.0-2.0) Sodium Level 138 MMOL/L (136-145) Potassium Level 4.0 MMOL/L (3.5-5.1) Chloride Level 102 MMOL/L (98-107) Carbon Dioxide Level 32 MMOL/L (21-32) Anion Gap 4 mmol/L (5-15) L Blood Urea Nitrogen 23 mg/dL (7-18) H Creatinine 1.1 MG/DL (0.55-1.30) Estimat Glomerular Filtration Rate mL/min (>60) Glucose Level 150 MG/DL (74-106) H Calcium Level 11.0 MG/DL (8.5-10.1) H Plan Problems: (1) Abdominal pain Assessment & Plan: c/o abdominal pain. no n/v/f/c. unsure how long has been having pain. on exam epigastric tenderness with guarding - improved labs reviewed. no leukocytosis. lfts okay etiology unknown gastritis? US reviewed. no GB noted. prior cholecystectomy KUB okay noted to have elevated Calcium level. possible primary hypercalcemia which at such low elevation unlikely to be etiology of agitation and mental status change. PTH noted. thyroid US noted with multiple nodules. patient pulled out recently placed PEG. contrast noted extrav on kub. currently stable. ng tube placed and decompressing concerning and needs to be monitored closely. if shows any early signs of deterioration will need laparoscopy to repair npo IV fluids IV Abx NG tube thank you for this consultation Sourav Tobias Dec 05, 2017 16:13
[2017-12-05] MEDS: D5NS 1,000 ML IV SCH (17:14)
[2017-12-05] MEDS: Piperacillin/Tazobactam 3.375 GM in NS 110 ML IVPB SCH (17:14)
--- NOTE | 2017-12-05 17:27 | Diagnostic Imaging Report ---
Indication: Post nasogastric tube placement Technique: Supine view of the abdomen Comparison: 2 hours earlier Findings: Interim removal of previously demonstrated gastrostomy tube. Interim placement of a nasogastric tube in satisfactory position, either coiled in the gastric antrum, or, less likely, is across the pylorus and into the distal duodenum. Again demonstrated is contrast within the colon. Contrast within the bladder likely reflects uptake and excretion by the kidneys of previously extravasated intraperitoneal water-soluble contrast. Bowel gas pattern is unremarkable Impression: Satisfactory position of nasogastric tube Other findings as noted
[2017-12-05] MEDS ORDERED: Metoprolol Tartrate 50mg tab NG SCH (21:00)
[2017-12-05] MEDS: LORazepam Inj 2mg/ml 1ml IM PRN (21:20)
--- NOTE | 2017-12-05 22:52 | Diagnostic Imaging Report ---
History: NGT Exam: XR ABDOMEN single image Comparison: 12/05/2017 FINDINGS/IMPRESSION: Nasogastric tube tip either distal stomach or first portion of the duodenum.
--- NOTE | 2017-12-05 23:21 | General Progress Note ---
Assessment/Plan Problem List: (1) Encephalopathy acute ICD Codes: G93.40 - Encephalopathy, unspecified SNOMED: 60602132, 111179487 Status: unchanged Assessment/Plan restraints cassius d/w dr. nunez d/w dr. Hare Subjective Neurologic/Psychiatric: Reports: anxiety Allergies: Coded Allergies: No Known Allergies (Unverified , 11/21/17) Subjective the pt was agitated today and pulled out he gutbe last night. the pt is not any sedatives. Objective Last 24 Hour Vital Signs Date Time Temp Pulse Resp B/P (MAP) Pulse Ox O2 Delivery O2 Flow Rate FiO2 12/05/17 21:16 103 135/75 12/05/17 21:15 135/75 12/05/17 20:00 97.8 103 20 135/75 (95) 97 97.8 12/05/17 17:15 107 121/79 12/05/17 17:15 121/79 12/05/17 16:00 97.4 107 20 121/79 (93) 97 97.4 12/05/17 16:00 102 12/05/17 13:00 107 115/66 (82) 12/05/17 13:00 107 115/65 12/05/17 13:00 115/66 12/05/17 12:21 170/87 12/05/17 12:21 106 170/87 12/05/17 12:00 108 12/05/17 12:00 97.1 106 20 170/87 (114) 96 97.1 12/05/17 09:50 144/73 12/05/17 09:49 61 144/73 12/05/17 08:00 97.4 61 19 144/73 (96) 96 97.4 12/05/17 08:00 96 12/05/17 08:00 Room Air 12/05/17 06:31 136/58 12/05/17 05:11 99 134/60 12/05/17 05:10 134/60 12/05/17 04:00 98.2 107 18 134/60 (84) 95 98.2 12/05/17 04:00 Room Air 12/05/17 03:33 107 12/05/17 01:00 96 118/67 12/05/17 01:00 118/67 12/05/17 00:00 Room Air 12/05/17 00:00 98.2 97 18 140/76 (97) 97 98.2 Intake and Output 12/04/17 12/05/17 19:00 07:00 Intake Total 90 ml Balance 90 ml Tube Feeding 90 ml # Voids 2 2 Laboratory Tests 12/05/17 06:50: White Blood Count 10.7, Red Blood Count 3.19L, Hemoglobin 10.8L, Hematocrit 31.0L, Mean Corpuscular Volume 97, Mean Corpuscular Hemoglobin 33.9H, Mean Corpuscular Hemoglobin Concent 34.8, Red Cell Distribution Width 9.9L, Platelet Count 241, Mean Platelet Volume 5.1L, Neutrophils (%) (Auto) 84.7H, Lymphocytes (%) (Auto) 8.8L, Monocytes (%) (Auto) 5.9, Eosinophils (%) (Auto) 0.3, Basophils (%) (Auto) 0.3, Sodium Level 138, Potassium Level 4.0, Chloride Level 102, Carbon Dioxide Level 32, Anion Gap 4L, Blood Urea Nitrogen 23H, Creatinine 1.1, Estimat Glomerular Filtration Rate , Glucose Level 150H, Calcium Level 11.0H Height (Feet): 5 Height (Inches): 3.00 Weight (Pounds): 112 General Appearance: no apparent distress, alert, confused, agitated Lacey Matthews MD Dec 05, 2017 23:21
[2017-12-06] VITALS (8 sets, daily range): BP systolic 148–176; BP diastolic 70–94
[2017-12-06] MEDS: Labetalol 5mg/ml 20ml vial IV SCH ×6 (01:00→21:27)
[2017-12-06] MEDS: Piperacillin/Tazobactam 3.375 GM in NS 110 ML IVPB SCH ×3 (01:02→17:23)
[2017-12-06] MEDS: NovoLOG Insulin Flexpen SUBQ SCH ×4 (01:02→17:29)
[2017-12-06] MEDS: cloNIDine 0.2mg Tab GT SCH ×3 (04:40→21:32)
[2017-12-06] MEDS: D5NS 1,000 ML IV SCH ×2 (06:11→20:25)
--- NOTE | 2017-12-06 08:01 | Nephrology Progress Note ---
Assessment/Plan Assessment/Plan A/P 1) HTN Urgency- resolved. Back on IV scheduled medications 2) S/P Fall- CT Head/MRI negative 3) Tachycardia- being managed by cardiology 4) DVT prophylaxsis with SCDs 5) Encephalopathy- Patient was confused prior to admission (multiple bruises from falling at time of admission). reason for admission was confusion/ hypoglycemia - patient has metabolic encephalopathy due to prolonged hypoglycemic events prior to hospitilization. BP very well controlled The degree of recovery is difficult to predict. 6) Hypercal- elevated PTH, sensipar once GTube replaced. May need calcitonin Patient pulled GTube despite being on soft restraints and sedated. Monitor over weekend for any sign of infection. GI and Gen Surgery to discuss Friday course of action how to proceed with GTube if suregry not required over the weekend Subjective Date patient seen: Dec 06, 2017 Time patient seen: 07:57 ROS Limited/Unobtainable: Yes Allergies: Coded Allergies: No Known Allergies (Unverified , 11/21/17) Subjective Patient confused/ Pulled GTube. NG in place now Objective Last 24 Hour Vital Signs Date Time Temp Pulse Resp B/P (MAP) Pulse Ox O2 Delivery O2 Flow Rate FiO2 12/06/17 04:35 160/83 12/06/17 04:34 99 160/83 12/06/17 04:00 97 12/06/17 04:00 97.0 99 22 160/83 (108) 94 97.0 12/06/17 01:01 148/70 12/06/17 01:00 97 148/70 12/06/17 00:00 97 12/06/17 00:00 97.9 97 20 148/70 (96) 96 97.9 12/05/17 22:00 135/75 12/05/17 21:16 103 135/75 12/05/17 21:15 135/75 12/05/17 21:00 Room Air 12/05/17 20:00 97.8 103 20 135/75 (95) 97 97.8 12/05/17 20:00 104 12/05/17 17:15 107 121/79 12/05/17 17:15 121/79 12/05/17 16:00 97.4 107 20 121/79 (93) 97 97.4 12/05/17 16:00 102 12/05/17 13:00 107 115/66 (82) 12/05/17 13:00 107 115/65 12/05/17 13:00 115/66 12/05/17 12:21 170/87 12/05/17 12:21 106 170/87 12/05/17 12:00 108 12/05/17 12:00 97.1 106 20 170/87 (114) 96 97.1 12/05/17 09:50 144/73 12/05/17 09:49 61 144/73 12/05/17 08:00 97.4 61 19 144/73 (96) 96 97.4 12/05/17 08:00 96 12/05/17 08:00 Room Air Intake and Output 12/05/17 12/06/17 19:00 07:00 Intake Total 75 ml 552 ml Balance 75 ml 552 ml IV Total 75 ml 552 ml # Voids 10 3 # Bowel Movements 1 Height (Feet): 5 Height (Inches): 3.00 Weight (Pounds): 113 General Appearance: confused EENT: normal ENT inspection Cardiovascular: normal rate, regular rhythm Respiratory/Chest: lungs clear, normal breath sounds Abdomen: non tender, soft Edema: no edema noted Arm (L), no edema noted Arm (R), no edema noted Leg (L), no edema noted Leg (R), no edema noted Pedal (L), no edema noted Pedal (R), no edema noted Generalized Vinh Winston MD Dec 06, 2017 08:01
[2017-12-06] MEDS ORDERED: Losartan 50mg tab NG SCH (09:00)
[2017-12-06 11:18] LABS: HEMATOCRIT 30.4 % (37.0-47.0); HEMOGLOBIN 10.5 G/DL (12.0-16.0); MEAN CORPUSCULAR VOLUME 98 FL (80-99); PLATELET COUNT 268 K/UL (150-450); RED BLOOD COUNT 3.11 M/UL (4.20-5.40); RED CELL DISTRIBUTION WIDTH 9.9 % (11.6-14.8); WHITE BLOOD COUNT 8.1 K/UL (4.8-10.8)
--- NOTE | 2017-12-06 11:21 | General Surgery Progress Note ---
General Surgery-Progress Note Subjective Additional Comments no acute events. comfortable. Objective Last 24 Hour Vital Signs Date Time Temp Pulse Resp B/P (MAP) Pulse Ox O2 Delivery O2 Flow Rate FiO2 12/06/17 09:00 Room Air 12/06/17 08:27 162/79 12/06/17 08:25 88 162/79 12/06/17 08:00 89 12/06/17 08:00 97.7 88 17 162/79 (106) 95 97.7 12/06/17 04:35 160/83 12/06/17 04:34 99 160/83 12/06/17 04:00 97 12/06/17 04:00 97.0 99 22 160/83 (108) 94 97.0 12/06/17 01:01 148/70 12/06/17 01:00 97 148/70 12/06/17 00:00 97 12/06/17 00:00 97.9 97 20 148/70 (96) 96 97.9 12/05/17 22:00 135/75 12/05/17 21:16 103 135/75 12/05/17 21:15 135/75 12/05/17 21:00 Room Air 12/05/17 20:00 97.8 103 20 135/75 (95) 97 97.8 12/05/17 20:00 104 12/05/17 17:15 107 121/79 12/05/17 17:15 121/79 12/05/17 16:00 97.4 107 20 121/79 (93) 97 97.4 12/05/17 16:00 102 12/05/17 13:00 107 115/66 (82) 12/05/17 13:00 107 115/65 12/05/17 13:00 115/66 12/05/17 12:21 170/87 12/05/17 12:21 106 170/87 12/05/17 12:00 108 12/05/17 12:00 97.1 106 20 170/87 (114) 96 97.1 I&O Intake and Output 12/05/17 12/06/17 19:00 07:00 Intake Total 75 ml 552 ml Balance 75 ml 552 ml IV Total 75 ml 552 ml # Voids 10 3 # Bowel Movements 1 Dressing: dry Wound: clean Drains: other Cardiovascular: RSR Respiratory: clear Abdomen: soft, flat, non-tender, present bowel sounds Extremities: other Laboratory Tests Test 12/06/17 10:40 White Blood Count Pending Red Blood Count Pending Hemoglobin Pending Hematocrit Pending Mean Corpuscular Volume Pending Mean Corpuscular Hemoglobin Pending Mean Corpuscular Hemoglobin Concent Pending Red Cell Distribution Width Pending Platelet Count Pending Mean Platelet Volume Pending Neutrophils (%) (Auto) Pending Lymphocytes (%) (Auto) Pending Monocytes (%) (Auto) Pending Eosinophils (%) (Auto) Pending Basophils (%) (Auto) Pending Sodium Level Pending Potassium Level Pending Chloride Level Pending Carbon Dioxide Level Pending Blood Urea Nitrogen Pending Creatinine Pending Estimat Glomerular Filtration Rate Pending Glucose Level Pending Calcium Level Pending Plan Problems: (1) Abdominal pain Assessment & Plan: c/o abdominal pain. no n/v/f/c. unsure how long has been having pain. on exam epigastric tenderness with guarding - improved labs reviewed. no leukocytosis. lfts okay etiology unknown gastritis? US reviewed. no GB noted. prior cholecystectomy KUB okay noted to have elevated Calcium level. possible primary hypercalcemia which at such low elevation unlikely to be etiology of agitation and mental status change. PTH noted. thyroid US noted with multiple nodules. patient pulled out recently placed PEG. contrast noted extrav on kub. currently stable. ng tube placed and decompressing concerning and needs to be monitored closely. if shows any early signs of deterioration will need laparoscopy to repair npo IV fluids IV Abx NG tube thank you for this consultation Sourav Tobias Dec 06, 2017 11:21
[2017-12-06 11:27] LABS: ANION GAP 6 mmol/L (5-15); CALCIUM 11.4 MG/DL (8.5-10.1); CARBON DIOXIDE 28 MMOL/L (21-32); CHLORIDE 108 MMOL/L (98-107); POTASSIUM 3.1 MMOL/L (3.5-5.1); SODIUM 142 MMOL/L (136-145)
[2017-12-06 11:40] LABS: BLOOD UREA NITROGEN 20 mg/dL (7-18)
--- NOTE | 2017-12-06 11:55 | Diagnostic Imaging Report ---
INDICATION: Abdominal pain COMPARISON: Radiograph of abdomen dated 12/05/17 FINDINGS: Single frontal view of the abdomen demonstrates stable oral contrast within the colon. Large amount contrast is seen in the bladder, likely related to recent CT. Nasogastric tube in gastric cavity. Status post cholecystectomy. No evidence of organomegaly, abnormal calcifications or obvious soft tissue masses. The osseous structures are intact. IMPRESSION: No significant change. Stable nasogastric tube. Unchanged oral contrast seen throughout the colon.
--- NOTE | 2017-12-06 13:29 | General Progress Note ---
Assessment/Plan Assessment/Plan (1) Abdominal pain ICD Codes: R10.9 - Unspecified abdominal pain SNOMED: 52024113 Qualifiers: Qualified Codes: R10.13 - Epigastric pain (2) Hypoglycemia associated with type 2 diabetes mellitus ICD Codes: E11.649 - Type 2 diabetes mellitus with hypoglycemia without coma SNOMED: 46483099, 961779015 (3) Encephalopathy acute ICD Codes: G93.40 - Encephalopathy, unspecified SNOMED: 62127505, 600912341 Status: stable Status Narrative Discussed with Dr. Alegre. Assessment/Plan Assessment - HTN - hypoglycemia - mild macrocytic anemia - hypokalemia - no N/V/D - s/p PEG >> patient pulled out Recommendations - patient needs to be scheduled for another PEG next friday. - surgery follows >> monitor for s/sx of peritonitis over the weekend - insert NGT, start feeds, NPO @ MN day prior procedure. - DM management - BP management - zofran prn - prn transfusions Subjective Allergies: Coded Allergies: No Known Allergies (Unverified , 11/21/17) Subjective confused restrained (+) NGT d/w RN Objective Last 24 Hour Vital Signs Date Time Temp Pulse Resp B/P (MAP) Pulse Ox O2 Delivery O2 Flow Rate FiO2 12/06/17 11:36 153/78 12/06/17 09:00 Room Air 12/06/17 08:27 162/79 12/06/17 08:25 88 162/79 12/06/17 08:00 89 12/06/17 08:00 97.7 88 17 162/79 (106) 95 97.7 12/06/17 04:35 160/83 12/06/17 04:34 99 160/83 12/06/17 04:00 97 12/06/17 04:00 97.0 99 22 160/83 (108) 94 97.0 12/06/17 01:01 148/70 12/06/17 01:00 97 148/70 12/06/17 00:00 97 12/06/17 00:00 97.9 97 20 148/70 (96) 96 97.9 12/05/17 22:00 135/75 12/05/17 21:16 103 135/75 12/05/17 21:15 135/75 12/05/17 21:00 Room Air 12/05/17 20:00 97.8 103 20 135/75 (95) 97 97.8 12/05/17 20:00 104 12/05/17 17:15 107 121/79 12/05/17 17:15 121/79 12/05/17 16:00 97.4 107 20 121/79 (93) 97 97.4 12/05/17 16:00 102 Intake and Output 12/05/17 12/06/17 19:00 07:00 Intake Total 75 ml 552 ml Balance 75 ml 552 ml IV Total 75 ml 552 ml # Voids 10 3 # Bowel Movements 1 Laboratory Tests 12/06/17 10:40: White Blood Count 8.1, Red Blood Count 3.11L, Hemoglobin 10.5L, Hematocrit 30.4L , Mean Corpuscular Volume 98, Mean Corpuscular Hemoglobin 33.9H, Mean Corpuscular Hemoglobin Concent 34.6, Red Cell Distribution Width 9.9L, Platelet Count 268, Mean Platelet Volume 5.2L, Neutrophils (%) (Auto) , Lymphocytes (%) ( Auto) , Monocytes (%) (Auto) , Eosinophils (%) (Auto) , Basophils (%) (Auto) , Differential Total Cells Counted 100, Neutrophils % (Manual) 74, Lymphocytes % ( Manual) 10L, Monocytes % (Manual) 4, Eosinophils % (Manual) 0, Basophils % ( Manual) 0, Band Neutrophils 12H, Platelet Estimate Adequate, Platelet Morphology Normal, Red Blood Cell Morphology Normal, Sodium Level 142, Potassium Level 3.1L, Chloride Level 108H, Carbon Dioxide Level 28, Anion Gap 6 , Blood Urea Nitrogen 20H, Creatinine 1.0, Estimat Glomerular Filtration Rate , Glucose Level 212H, Calcium Level 11.4H Height (Feet): 5 Height (Inches): 3.00 Weight (Pounds): 113 Objective Elderly woman NCAT, (+) NGT supple CTA RRR abd soft, (+) closing prior GT site no edema Neuro confused , restrained Radhames Harding MD Dec 06, 2017 13:29
[2017-12-06] MEDS: LORazepam Inj 2mg/ml 1ml IM PRN (13:59)
[2017-12-06] MEDS ORDERED: NS 275ml ONE (15:13)
--- NOTE | 2017-12-06 15:34 | Pulmonology Progress Note ---
Assessment/Plan Assessment/Plan Assessment/Plan IMPRESSION ALOC DM HTN S/P fall hypercalemia trace pleural effusion, not significant mild anemia tachycardia Labs noted PLAN respiratory care noted oxygen as is cards noted events reviewed supportive care BP support noted medications/laboratory data/nursing notes reviewed in detail note reviewed and edited care discussed with RN and RT Subjective Allergies: Coded Allergies: No Known Allergies (Unverified , 11/21/17) Subjective hemodynamics noted no distress Objective Last 24 Hour Vital Signs Date Time Temp Pulse Resp B/P (MAP) Pulse Ox O2 Delivery O2 Flow Rate FiO2 12/05/17 06:31 136/58 12/05/17 05:11 99 134/60 12/05/17 05:10 134/60 12/05/17 04:00 98.2 107 18 134/60 (84) 95 98.2 12/05/17 04:00 Room Air 12/05/17 03:33 107 12/05/17 01:00 96 118/67 12/05/17 01:00 118/67 12/05/17 00:00 Room Air 12/05/17 00:00 98.2 97 18 140/76 (97) 97 98.2 12/04/17 23:00 97.9 95 18 136/83 (100) 95 97.9 12/04/17 21:31 90 164/80 12/04/17 21:31 164/80 12/04/17 21:00 90 164/80 12/04/17 20:26 91 12/04/17 20:00 Room Air 12/04/17 20:00 97.5 93 20 164/80 (108) 95 97.5 12/04/17 20:00 93 12/04/17 19:24 Room Air 12/04/17 19:24 95 Room Air 12/04/17 17:31 123/72 12/04/17 16:20 83 12/04/17 16:00 98.2 90 19 123/72 (89) 95 98.2 12/04/17 16:00 Room Air 12/04/17 13:30 94 12/04/17 12:00 Room Air 12/04/17 12:00 98.0 92 19 130/64 (86) 96 98.0 12/04/17 12:00 130/64 12/04/17 08:50 92 119/66 12/04/17 08:49 119/66 10/4/18 08:35 84 Intake and Output 12/04/17 12/05/17 19:00 07:00 Intake Total 90 ml Balance 90 ml Tube Feeding 90 ml # Voids 2 2 Objective WDWN altered and confused stable breath sounds bilaterally without rhonchi or wheeze [id number] without MRG NABS nontender no HSM no CCE no change no distress reviewed and examined Laboratory Tests 12/05/17 06:50: White Blood Count [Pending], Red Blood Count [Pending], Hemoglobin [Pending], Hematocrit [Pending], Mean Corpuscular Volume [Pending], Mean Corpuscular Hemoglobin [Pending], Mean Corpuscular Hemoglobin Concent [Pending], Red Cell Distribution Width [Pending], Platelet Count [Pending], Mean Platelet Volume [ Pending], Neutrophils (%) (Auto) [Pending], Lymphocytes (%) (Auto) [Pending], Monocytes (%) (Auto) [Pending], Eosinophils (%) (Auto) [Pending], Basophils (%) (Auto) [Pending], Sodium Level [Pending], Potassium Level [Pending], Chloride Level [Pending], Carbon Dioxide Level [Pending], Blood Urea Nitrogen [Pending], Creatinine [Pending], Estimat Glomerular Filtration Rate [Pending], Glucose Level [Pending], Calcium Level [Pending] Current Medications Medications (Trade) Dose Ordered Sig/Atilio Route PRN Reason Start Time Stop Time Status Last Admin Dose Admin Acetaminophen (Tylenol) 650 mg Q4H PRN ORAL Mild Pain (Pain Scale 1-3) 12/03/17 20:30 12/21/17 20:29 Atorvastatin Calcium (Lipitor) 40 mg QHS ORAL 12/03/17 21:00 12/21/17 20:59 12/03/17 21:17 Cinacalcet (Sensipar) 30 mg DAILY ORAL 12/04/17 09:00 12/29/17 08:59 12/04/17 09:00 Clonidine HCl (Catapres tab) 0.2 mg EVERY 8 HOURS ORAL 12/05/17 06:16 01/04/18 06:15 12/05/17 06:31 Dextrose (Dextrose 50%) 25 ml Q30M PRN IV Hypoglycemia 12/03/17 20:30 12/26/17 13:57 Dextrose (Dextrose 50%) 50 ml Q30M PRN IV hypoglycemia 12/03/17 20:30 12/26/17 13:57 Famotidine (Pepcid) 40 mg DAILY ORAL 12/04/17 09:00 12/22/17 08:59 12/04/17 09:00 Folic Acid (Folate) 1 mg DAILY NG 12/04/17 09:00 12/25/17 21:29 12/04/17 09:00 Hydralazine HCl (Apresoline) 10 mg Q4H IV 12/04/17 21:00 01/03/18 20:59 12/05/17 05:10 Hydralazine HCl (Apresoline) 10 mg Q4H PRN IV For High Blood Pressure 12/03/17 20:30 01/02/18 20:29 Insulin Aspart (NovoLOG) EVERY 6 HOURS SUBQ 12/04/17 00:00 12/21/17 16:29 12/04/17 18:00 Labetalol HCl (Normodyne) 4 mg Q4H IV 12/04/17 21:00 01/03/18 20:59 12/05/17 05:11 Lorazepam (Ativan 2mg/ml 1ml) 1 mg Q4H PRN IM Agitation 12/04/17 19:15 12/11/17 19:14 Losartan Potassium (Cozaar) 100 mg DAILY GT 12/04/17 09:00 12/29/17 08:59 Metformin HCl (Glucophage) 850 mg TID GT 12/04/17 09:00 01/02/18 08:59 12/04/17 12:45 Metoprolol Tartrate (Lopressor) 50 mg Q12HR GT 12/03/17 21:00 12/25/17 20:59 Ondansetron HCl (Zofran) 4 mg Q6H PRN IVP Nausea & Vomiting 12/03/17 20:30 01/02/18 20:29 Quetiapine Fumarate (SEROquel) 25 mg DAILYPRN PRN ORAL For Anxiety 12/04/17 12:26 01/03/18 12:25 12/04/17 12:44 Subjective ROS Limited/Unobtainable: No Allergies: Coded Allergies: No Known Allergies (Unverified , 11/21/17) Objective Last 24 Hour Vital Signs Date Time Temp Pulse Resp B/P (MAP) Pulse Ox O2 Delivery O2 Flow Rate FiO2 12/06/17 14:31 101 168/90 12/06/17 14:07 168/90 12/06/17 14:07 97.7 101 20 168/90 (116) 97 97.7 12/06/17 14:00 168/90 12/06/17 12:00 97.9 97 18 158/76 (103) 96 97.9 12/06/17 12:00 99 12/06/17 11:36 153/78 12/06/17 09:00 Room Air 12/06/17 08:27 162/79 12/06/17 08:25 88 162/79 12/06/17 08:00 89 12/06/17 08:00 97.7 88 17 162/79 (106) 95 97.7 12/06/17 04:35 160/83 12/06/17 04:34 99 160/83 12/06/17 04:00 97 12/06/17 04:00 97.0 99 22 160/83 (108) 94 97.0 12/06/17 01:01 148/70 12/06/17 01:00 97 148/70 12/06/17 00:00 97 12/06/17 00:00 97.9 97 20 148/70 (96) 96 97.9 12/05/17 22:00 135/75 12/05/17 21:16 103 135/75 12/05/17 21:15 135/75 12/05/17 21:00 Room Air 12/05/17 20:00 97.8 103 20 135/75 (95) 97 97.8 12/05/17 20:00 104 12/05/17 17:15 107 121/79 12/05/17 17:15 121/79 12/05/17 16:00 97.4 107 20 121/79 (93) 97 97.4 12/05/17 16:00 102 Intake and Output 12/05/17 12/06/17 19:00 07:00 Intake Total 75 ml 552 ml Balance 75 ml 552 ml IV Total 75 ml 552 ml # Voids 10 3 # Bowel Movements 1 Laboratory Tests 12/06/17 10:40: White Blood Count 8.1, Red Blood Count 3.11L, Hemoglobin 10.5L, Hematocrit 30.4L , Mean Corpuscular Volume 98, Mean Corpuscular Hemoglobin 33.9H, Mean Corpuscular Hemoglobin Concent 34.6, Red Cell Distribution Width 9.9L, Platelet Count 268, Mean Platelet Volume 5.2L, Neutrophils (%) (Auto) , Lymphocytes (%) ( Auto) , Monocytes (%) (Auto) , Eosinophils (%) (Auto) , Basophils (%) (Auto) , Differential Total Cells Counted 100, Neutrophils % (Manual) 74, Lymphocytes % ( Manual) 10L, Monocytes % (Manual) 4, Eosinophils % (Manual) 0, Basophils % ( Manual) 0, Band Neutrophils 12H, Platelet Estimate Adequate, Platelet Morphology Normal, Red Blood Cell Morphology Normal, Sodium Level 142, Potassium Level 3.1L, Chloride Level 108H, Carbon Dioxide Level 28, Anion Gap 6 , Blood Urea Nitrogen 20H, Creatinine 1.0, Estimat Glomerular Filtration Rate , Glucose Level 212H, Calcium Level 11.4H Current Medications Medications (Trade) Dose Ordered Sig/Atilio Route PRN Reason Start Time Stop Time Status Last Admin Dose Admin Clonidine HCl (Catapres tab) 0.2 mg EVERY 8 HOURS GT 12/05/17 14:00 01/04/18 06:15 Dextrose (Dextrose 50%) 25 ml Q30M PRN IV Hypoglycemia 12/03/17 20:30 12/26/17 13:57 Dextrose (Dextrose 50%) 50 ml Q30M PRN IV hypoglycemia 12/03/17 20:30 12/26/17 13:57 Dextrose/Sodium Chloride 1,000 ml @ 75 mls/hr [id number] IV 12/05/17 17:00 01/04/18 16:59 12/06/17 06:11 Hydralazine HCl (Apresoline) 10 mg Q4H IV 12/05/17 16:30 01/04/18 16:29 12/06/17 14:07 Hydralazine HCl (Apresoline) 10 mg Q4H PRN IV For High Blood Pressure 12/03/17 20:30 01/02/18 20:29 Insulin Aspart (NovoLOG) EVERY 6 HOURS SUBQ 12/04/17 00:00 12/21/17 16:29 12/06/17 06:09 Labetalol HCl (Normodyne) 4 mg Q4H IV 12/05/17 17:00 01/04/18 16:59 12/06/17 14:31 Lorazepam (Ativan 2mg/ml 1ml) 1 mg Q4H PRN IM Agitation 12/04/17 19:15 12/11/17 19:14 12/06/17 13:59 Morphine Sulfate (Morphine Sulfate) 2 mg Q4H PRN IVP For Pain 12/05/17 12:28 12/12/17 12:27 Ondansetron HCl (Zofran) 4 mg Q6H PRN IVP Nausea & Vomiting 12/03/17 20:30 01/02/18 20:29 Piperacillin Sod/ Tazobactam Sod 3.375 gm/Sodium Chloride 110 ml @ 27.5 mls/hr Q8H IVPB 12/05/17 18:00 12/12/17 17:59 12/06/17 10:26 Lupillo Huber MD Dec 06, 2017 15:34
--- NOTE | 2017-12-06 17:08 | Neurology Progress Note ---
Interim History Interim History Interim History Ms. Bernardo feels better. She is awake and alert. She pulled out her GT yesterday. She says she is hungry. She is still disoriented. Her BP is running high. She is able to follow commands inconsistently. Review of Systems Neuro Review of Systems Unable to obtain. Objective Physical Exam Last Vital Signs Date Time Temp Pulse Resp B/P (MAP) Pulse Ox O2 Delivery O2 Flow Rate FiO2 12/06/17 16:18 168/90 12/06/17 16:00 95 12/06/17 16:00 98.2 20 95 98.2 12/06/17 09:00 Room Air 12/03/17 21:12 2.0 28 Laboratory Tests Test 12/06/17 10:40 White Blood Count 8.1 K/UL (4.8-10.8) Red Blood Count 3.11 M/UL (4.20-5.40) L Hemoglobin 10.5 G/DL (12.0-16.0) L Hematocrit 30.4 % (37.0-47.0) L Mean Corpuscular Volume 98 FL (80-99) Mean Corpuscular Hemoglobin 33.9 PG (27.0-31.0) H Mean Corpuscular Hemoglobin Concent 34.6 G/DL (32.0-36.0) Red Cell Distribution Width 9.9 % (11.6-14.8) L Platelet Count 268 K/UL (150-450) Mean Platelet Volume 5.2 FL (6.5-10.1) L Neutrophils (%) (Auto) % (45.0-75.0) Lymphocytes (%) (Auto) % (20.0-45.0) Monocytes (%) (Auto) % (1.0-10.0) Eosinophils (%) (Auto) % (0.0-3.0) Basophils (%) (Auto) % (0.0-2.0) Differential Total Cells Counted 100 Neutrophils % (Manual) 74 % (45-75) Lymphocytes % (Manual) 10 % (20-45) L Monocytes % (Manual) 4 % (1-10) Eosinophils % (Manual) 0 % (0-3) Basophils % (Manual) 0 % (0-2) Band Neutrophils 12 % (0-8) H Platelet Estimate Adequate Platelet Morphology Normal Red Blood Cell Morphology Normal Sodium Level 142 MMOL/L (136-145) Potassium Level 3.1 MMOL/L (3.5-5.1) L Chloride Level 108 MMOL/L (98-107) H Carbon Dioxide Level 28 MMOL/L (21-32) Anion Gap 6 mmol/L (5-15) Blood Urea Nitrogen 20 mg/dL (7-18) H Creatinine 1.0 MG/DL (0.55-1.30) Estimat Glomerular Filtration Rate mL/min (>60) Glucose Level 212 MG/DL (74-106) H Calcium Level 11.4 MG/DL (8.5-10.1) H Neurologic Exam Objective PHYSICAL EXAMINATION: GENERAL: She is a well-developed, well-nourished, Nepali lady, lying in bed, in no acute distress. HEAD: Normocephalic and atraumatic. EENT: Examination benign. NECK: No neck rigidity was observed. NEUROLOGICAL EXAMINATION: MENTAL STATUS EXAMINATION: She was awake and alert. She was oriented to self and hospital only. Further mental status testing was impossible. SPEECH: She had a mild dysarthria. LANGUAGE: Could not be tested adequately. CRANIAL NERVE EXAMINATION: II: She did blink to threat. She counted fingers. III, IV & : The external ocular movements were present.The pupils were 3 mm in diameter, equal, round, regular, and reactive sluggishly to light. V & VII: The corneal reflexes were present bilaterally. VIII: She was able to hear and had no nystagmus. IX- X: Were not tested. XI: The sternocleidomastoids and trapezii functioned. XII: The tongue was in the midline without any fasciculations or atrophy. MOTOR SYSTEM: The tone was normal in all four extremities. Examination of muscle mass revealed no focal wasting. She moved all her limbs on command with better effort and gave me good hand academic support assistant. SENSORY EXAMINATION: She responded appropriately to deep pain. She was unable to cooperate for other sensory modalities. REFLEXES: 0 at the biceps, triceps, brachioradialis, knees, and ankles. The plantar responses were flexor bilaterally. COORDINATION, STANCE & GAIT: Could not be tested. Impression/Recommendations Diagnostic Impression 1. Ms. Chelly Bernardo is a 72-year-old, [place] lady, of unknown handedness, who does have a past history of hypertension and diabetes mellitus, who was hospitalized on 11/21/2017 for an episode of severe hypoglycemia with her blood sugars in the 20s. Since she has been here, she has also been exhibiting significantly elevated blood pressures. Her mental state continued to be quite altered. 2. She feels better. She is awake and alert. She pulled out her GT yesterday. She says she is hungry. She is still disoriented. Her BP is running high. She is able to follow commands inconsistently. 3. On neurological examination, at this time, she is awake and alert. She is oriented to self and hospital only. She is still disorganized. Further mental status testing is impossible. She does not demonstrate any focal or lateralizing neurological findings. 4. The CT scan of the brain performed on 11/22/2017 revealed atrophy, but no acute pathology. 5. Laboratory data obtained thus far have revealed that she is mildly anemic, has a borderline low B12 level, and a low folate level but otherwise normal laboratory data. 6. The EEG done on 11/25/17 revealed a moderate metabolic encephalopathy. 7. The MRI of the brain done on 11/27/17 revealed no acute intracranial pathology. Moderate atrophy and chronic small vessel disease involving white matter was seen. 8. Her blood pressures are still fluctuating significantly. 9. The patient's history, neurological examination, imaging studies, and laboratory data are most compatible with an encephalopathy most probably due to a hypoglycemic brain insult, and significant hypertension. Her encephalopathy is waxing and waning. She is less encephalopathic. 10. Even though her electrolytes, blood sugars and blood pressures have been better controlled she is still significantly encephalopathic. 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 Recommendations 1. Continue to keep blood pressure in the physiological range. 2. Continue to keep patient's fluids and electrolytes balanced. 3. Folic acid 1 mg via NGT q day. 4. Vitamin B12 1000 mcg SC monthly. 5. Out of bed in chair. 6. Mobilize with PT/OT. Betina Osullivan M.D., M.S.P.H. BETINA OSULLIVAN Dec 06, 2017 17:08
--- NOTE | 2017-12-06 23:53 | General Progress Note ---
Assessment/Plan Problem List: (1) Encephalopathy acute ICD Codes: G93.40 - Encephalopathy, unspecified SNOMED: 04182611, [id number] Assessment/Plan restraints cassius d/w dr. nunez d/w dr. Hare Subjective Allergies: Coded Allergies: No Known Allergies (Unverified , 11/21/17) Objective Last 24 Hour Vital Signs Date Time Temp Pulse Resp B/P (MAP) Pulse Ox O2 Delivery O2 Flow Rate FiO2 12/06/17 21:32 153/84 12/06/17 21:27 97 153/84 12/06/17 21:07 98.2 97 18 153/84 (107) 95 98.2 12/06/17 21:00 Room Air Room Air 12/06/17 20:32 97 12/06/17 20:25 174/86 12/06/17 20:00 96.6 93 18 174/86 (115) 97 96.6 12/06/17 17:28 99 159/76 12/06/17 16:18 168/90 12/06/17 16:00 95 12/06/17 16:00 98.2 104 20 176/94 (121) 95 98.2 12/06/17 14:31 101 168/90 12/06/17 14:07 168/90 12/06/17 14:07 97.7 101 20 168/90 (116) 97 97.7 12/06/17 14:00 168/90 12/06/17 12:00 97.9 97 18 158/76 (103) 96 97.9 12/06/17 12:00 99 12/06/17 11:36 153/78 12/06/17 09:00 Room Air 12/06/17 08:27 162/79 12/06/17 08:25 88 162/79 12/06/17 08:00 89 12/06/17 08:00 97.7 88 17 162/79 (106) 95 97.7 12/06/17 04:35 160/83 12/06/17 04:34 99 160/83 12/06/17 04:00 97 12/06/17 04:00 97.0 99 22 160/83 (108) 94 97.0 12/06/17 01:01 148/70 12/06/17 01:00 97 148/70 12/06/17 00:00 97 12/06/17 00:00 97.9 97 20 148/70 (96) 96 97.9 Intake and Output 12/05/17 12/06/17 19:00 07:00 Intake Total 75 ml 552 ml Balance 75 ml 552 ml IV Total 75 ml 552 ml # Voids 10 3 # Bowel Movements 1 Laboratory Tests 12/06/17 10:40: White Blood Count 8.1, Red Blood Count 3.11L, Hemoglobin 10.5L, Hematocrit 30.4L , Mean Corpuscular Volume 98, Mean Corpuscular Hemoglobin 33.9H, Mean Corpuscular Hemoglobin Concent 34.6, Red Cell Distribution Width 9.9L, Platelet Count 268, Mean Platelet Volume 5.2L, Neutrophils (%) (Auto) , Lymphocytes (%) ( Auto) , Monocytes (%) (Auto) , Eosinophils (%) (Auto) , Basophils (%) (Auto) , Differential Total Cells Counted 100, Neutrophils % (Manual) 74, Lymphocytes % ( Manual) 10L, Monocytes % (Manual) 4, Eosinophils % (Manual) 0, Basophils % ( Manual) 0, Band Neutrophils 12H, Platelet Estimate Adequate, Platelet Morphology Normal, Red Blood Cell Morphology Normal, Sodium Level 142, Potassium Level 3.1L, Chloride Level 108H, Carbon Dioxide Level 28, Anion Gap 6 , Blood Urea Nitrogen 20H, Creatinine 1.0, Estimat Glomerular Filtration Rate , Glucose Level 212H, Calcium Level 11.4H Height (Feet): 5 Height (Inches): 3.00 Weight (Pounds): 113 General Appearance: alert, confused, agitated Lacey Matthews MD Dec 06, 2017 23:53
--- NOTE | 2017-12-06 23:55 | Cardiology Progress Note ---
Assessment/Plan Assessment/Plan Assessment: Encephalopathy Hypertension Fall/syncope Hypokalemia Hypercalcemia Diabetes Anemia Plan: Echocardiogram Monitor on telemetry due to abnormal electrolytes which can alter the QT and QRS intervals and lead to arrhythmias s/p PEG Zofran prn BP control -Losartan aldactone, metoprolol, GI/DVT ppx Dispo planning Subjective Subjective Heart rates normal, sinus rhythm, BP better controlled, She is in MAXIME, on restraints, mental status improved, more alert. Patient removed PEG tube, replaced by GI, NGT placed for feeds, transferred to floors Objective Last 24 Hour Vital Signs Date Time Temp Pulse Resp B/P (MAP) Pulse Ox O2 Delivery O2 Flow Rate FiO2 12/06/17 21:32 153/84 12/06/17 21:27 97 153/84 12/06/17 21:07 98.2 97 18 153/84 (107) 95 98.2 12/06/17 21:00 Room Air Room Air 12/06/17 20:32 97 12/06/17 20:25 174/86 12/06/17 20:00 96.6 93 18 174/86 (115) 97 96.6 12/06/17 17:28 99 159/76 12/06/17 16:18 168/90 12/06/17 16:00 95 12/06/17 16:00 98.2 104 20 176/94 (121) 95 98.2 12/06/17 14:31 101 168/90 12/06/17 14:07 168/90 12/06/17 14:07 97.7 101 20 168/90 (116) 97 97.7 12/06/17 14:00 168/90 12/06/17 12:00 97.9 97 18 158/76 (103) 96 97.9 12/06/17 12:00 99 12/06/17 11:36 153/78 12/06/17 09:00 Room Air 12/06/17 08:27 162/79 12/06/17 08:25 88 162/79 12/06/17 08:00 89 12/06/17 08:00 97.7 88 17 162/79 (106) 95 97.7 12/06/17 04:35 160/83 12/06/17 04:34 99 160/83 12/06/17 04:00 97 12/06/17 04:00 97.0 99 22 160/83 (108) 94 97.0 12/06/17 01:01 148/70 12/06/17 01:00 97 148/70 12/06/17 00:00 97 12/06/17 00:00 97.9 97 20 148/70 (96) 96 97.9 Intake and Output 12/05/17 12/06/17 19:00 07:00 Intake Total 75 ml 552 ml Balance 75 ml 552 ml IV Total 75 ml 552 ml # Voids 10 3 # Bowel Movements 1 Laboratory Tests Test 12/06/17 10:40 White Blood Count 8.1 K/UL (4.8-10.8) Red Blood Count 3.11 M/UL (4.20-5.40) L Hemoglobin 10.5 G/DL (12.0-16.0) L Hematocrit 30.4 % (37.0-47.0) L Mean Corpuscular Volume 98 FL (80-99) Mean Corpuscular Hemoglobin 33.9 PG (27.0-31.0) H Mean Corpuscular Hemoglobin Concent 34.6 G/DL (32.0-36.0) Red Cell Distribution Width 9.9 % (11.6-14.8) L Platelet Count 268 K/UL (150-450) Mean Platelet Volume 5.2 FL (6.5-10.1) L Neutrophils (%) (Auto) % (45.0-75.0) Lymphocytes (%) (Auto) % (20.0-45.0) Monocytes (%) (Auto) % (1.0-10.0) Eosinophils (%) (Auto) % (0.0-3.0) Basophils (%) (Auto) % (0.0-2.0) Differential Total Cells Counted 100 Neutrophils % (Manual) 74 % (45-75) Lymphocytes % (Manual) 10 % (20-45) L Monocytes % (Manual) 4 % (1-10) Eosinophils % (Manual) 0 % (0-3) Basophils % (Manual) 0 % (0-2) Band Neutrophils 12 % (0-8) H Platelet Estimate Adequate Platelet Morphology Normal Red Blood Cell Morphology Normal Sodium Level 142 MMOL/L (136-145) Potassium Level 3.1 MMOL/L (3.5-5.1) L Chloride Level 108 MMOL/L (98-107) H Carbon Dioxide Level 28 MMOL/L (21-32) Anion Gap 6 mmol/L (5-15) Blood Urea Nitrogen 20 mg/dL (7-18) H Creatinine 1.0 MG/DL (0.55-1.30) Estimat Glomerular Filtration Rate mL/min (>60) Glucose Level 212 MG/DL (74-106) H Calcium Level 11.4 MG/DL (8.5-10.1) H Lupillo Palomo MD Dec 06, 2017 23:55
[2017-12-07] VITALS (8 sets, daily range): BP systolic 107–182; BP diastolic 69–98
[2017-12-07] MEDS: Labetalol 5mg/ml 20ml vial IV SCH ×7 (01:00→23:25)
[2017-12-07] MEDS: Piperacillin/Tazobactam 3.375 GM in NS 110 ML IVPB SCH ×3 (01:28→18:43)
[2017-12-07] MEDS: cloNIDine 0.2mg Tab GT SCH ×3 (06:00→21:09)
[2017-12-07] MEDS: NovoLOG Insulin Flexpen SUBQ SCH ×5 (06:10→23:25)
[2017-12-07] MEDS: LORazepam Inj 2mg/ml 1ml IM PRN ×2 (07:42→16:47)
[2017-12-07 08:16] LABS: BASOPHILS % (AUTO) 0.7 % (0.0-2.0); EOSINOPHILS % (AUTO) 3.8 % (0.0-3.0); HEMATOCRIT 28.8 % (37.0-47.0); HEMOGLOBIN 10.1 G/DL (12.0-16.0); LYMPHOCYTES % (AUTO) 10.2 % (20.0-45.0); MEAN CORPUSCULAR VOLUME 98 FL (80-99); MONOCYTES % (AUTO) 5.9 % (1.0-10.0); NEUTROPHILS % (AUTO) 79.4 % (45.0-75.0); PLATELET COUNT 260 K/UL (150-450); RED BLOOD COUNT 2.94 M/UL (4.20-5.40); WHITE BLOOD COUNT 7.3 K/UL (4.8-10.8)
--- NOTE | 2017-12-07 08:24 | Nephrology Progress Note ---
Assessment/Plan Assessment/Plan A/P 1) HTN Urgency- resolved. IV scheduled medications until enteral route established 2) Tachycardia- being managed by cardiology 4) DVT prophylaxsis with SCDs 5) Encephalopathy- Patient was confused prior to admission (multiple bruises from falling at time of admission). reason for admission was confusion/ hypoglycemia - patient has metabolic encephalopathy due to prolonged hypoglycemic events prior to hospitilization. BP very well controlled The degree of recovery is difficult to predict. 6) Hypercal- elevated PTH, sensipar once GTube replaced. May need calcitonin. AM labs pending Patient pulled GTube despite being on soft restraints and sedated. Monitor over weekend for any sign of infection. GI and Gen Surgery to discuss Friday course of action how to proceed with GTube. Concern is she may pull GTube again and alternative TPN a consideration Subjective Date patient seen: Dec 08, 2017 Time patient seen: 08:22 ROS Limited/Unobtainable: Yes Allergies: Coded Allergies: No Known Allergies (Unverified , 11/21/17) All Systems: reviewed and negative except above Subjective Patient confused/ Pulled GTube. Pulled NG few times Objective Last 24 Hour Vital Signs Date Time Temp Pulse Resp B/P (MAP) Pulse Ox O2 Delivery O2 Flow Rate FiO2 12/07/17 07:49 175/98 12/07/17 06:00 161/91 12/07/17 05:15 99 161/91 12/07/17 05:00 97.9 99 20 161/91 (114) 96 97.9 12/07/17 04:50 93 12/07/17 04:30 107/69 12/07/17 04:00 96.3 87 18 107/69 (82) 98 96.3 12/07/17 01:00 70 108/72 12/07/17 01:00 96.3 70 18 108/72 (84) 98 96.3 12/07/17 00:02 168/92 12/07/17 00:00 97.7 96 18 168/92 (117) 95 97.7 12/06/17 23:45 98 12/06/17 21:32 153/84 12/06/17 21:27 97 153/84 12/06/17 21:07 98.2 97 18 153/84 (107) 95 98.2 12/06/17 21:00 Room Air Room Air 12/06/17 20:32 97 12/06/17 20:25 174/86 12/06/17 20:00 96.6 93 18 174/86 (115) 97 96.6 12/06/17 17:28 99 159/76 12/06/17 16:18 168/90 12/06/17 16:00 95 12/06/17 16:00 98.2 104 20 176/94 (121) 95 98.2 12/06/17 14:31 101 168/90 12/06/17 14:07 168/90 12/06/17 14:07 97.7 101 20 168/90 (116) 97 97.7 12/06/17 14:00 168/90 12/06/17 12:00 97.9 97 18 158/76 (103) 96 97.9 12/06/17 12:00 99 12/06/17 11:36 153/78 12/06/17 09:00 Room Air 12/06/17 08:27 162/79 12/06/17 08:25 88 162/79 Intake and Output 12/06/17 12/07/17 19:00 07:00 Intake Total 102.5 ml 1140.0 ml Balance 102.5 ml 1140.0 ml IV Total 102.5 ml 1140.0 ml # Voids 4 Laboratory Tests 12/06/17 10:40: White Blood Count 8.1, Red Blood Count 3.11L, Hemoglobin 10.5L, Hematocrit 30.4L , Mean Corpuscular Volume 98, Mean Corpuscular Hemoglobin 33.9H, Mean Corpuscular Hemoglobin Concent 34.6, Red Cell Distribution Width 9.9L, Platelet Count 268, Mean Platelet Volume 5.2L, Neutrophils (%) (Auto) , Lymphocytes (%) ( Auto) , Monocytes (%) (Auto) , Eosinophils (%) (Auto) , Basophils (%) (Auto) , Differential Total Cells Counted 100, Neutrophils % (Manual) 74, Lymphocytes % ( Manual) 10L, Monocytes % (Manual) 4, Eosinophils % (Manual) 0, Basophils % ( Manual) 0, Band Neutrophils 12H, Platelet Estimate Adequate, Platelet Morphology Normal, Red Blood Cell Morphology Normal, Sodium Level 142, Potassium Level 3.1L, Chloride Level 108H, Carbon Dioxide Level 28, Anion Gap 6 , Blood Urea Nitrogen 20H, Creatinine 1.0, Estimat Glomerular Filtration Rate , Glucose Level 212H, Calcium Level 11.4H 12/07/17 07:17: White Blood Count [Pending], Red Blood Count [Pending], Hemoglobin [Pending], Hematocrit [Pending], Mean Corpuscular Volume [Pending], Mean Corpuscular Hemoglobin [Pending], Mean Corpuscular Hemoglobin Concent [Pending], Red Cell Distribution Width [Pending], Platelet Count [Pending], Mean Platelet Volume [ Pending], Neutrophils (%) (Auto) [Pending], Lymphocytes (%) (Auto) [Pending], Monocytes (%) (Auto) [Pending], Eosinophils (%) (Auto) [Pending], Basophils (%) (Auto) [Pending], Sodium Level [Pending], Potassium Level [Pending], Chloride Level [Pending], Carbon Dioxide Level [Pending], Blood Urea Nitrogen [Pending], Creatinine [Pending], Estimat Glomerular Filtration Rate [Pending], Glucose Level [Pending], Calcium Level [Pending] Height (Feet): 5 Height (Inches): 3.00 Weight (Pounds): 115 General Appearance: confused, agitated EENT: normal ENT inspection Neck: normal alignment, supple Cardiovascular: normal rate, regular rhythm Respiratory/Chest: lungs clear, normal breath sounds Abdomen: non tender, soft Edema: no edema noted Arm (L), no edema noted Arm (R), no edema noted Leg (L), no edema noted Leg (R), no edema noted Pedal (L), no edema noted Pedal (R), no edema noted Generalized Vinh Winston MD Dec 07, 2017 08:24
[2017-12-07 08:39] LABS: ANION GAP 10 mmol/L (5-15); BLOOD UREA NITROGEN 16 mg/dL (7-18); CALCIUM 11.6 MG/DL (8.5-10.1); CARBON DIOXIDE 25 MMOL/L (21-32); CHLORIDE 113 MMOL/L (98-107); CREATININE 1.1 MG/DL (0.55-1.30); SODIUM 147 MMOL/L (136-145)
[2017-12-07 08:42] LABS: POTASSIUM 2.6 MMOL/L (3.5-5.1)
[2017-12-07] MEDS: D5NS 1,000 ML IV SCH ×2 (11:13→22:23)
--- NOTE | 2017-12-07 13:35 | General Progress Note ---
Assessment/Plan Assessment/Plan (1) Abdominal pain ICD Codes: R10.9 - Unspecified abdominal pain SNOMED: 37490768 Qualifiers: Qualified Codes: R10.13 - Epigastric pain (2) Hypoglycemia associated with type 2 diabetes mellitus ICD Codes: E11.649 - Type 2 diabetes mellitus with hypoglycemia without coma SNOMED: 24999018, 835388124 (3) Encephalopathy acute ICD Codes: G93.40 - Encephalopathy, unspecified SNOMED: 68549757, [id number] Status: stable Status Narrative Discussed with Dr. Alegre. Assessment/Plan Assessment - HTN - hypoglycemia - mild macrocytic anemia - hypokalemia - no N/V/D - s/p PEG >> patient pulled out Recommendations - patient needs to be scheduled for another PEG next friday. - surgery follows >> monitor for s/sx of peritonitis over the weekend - insert NGT, start feeds, NPO @ MN day prior procedure. - DM management - BP management - zofran prn - prn transfusions Subjective Allergies: Coded Allergies: No Known Allergies (Unverified , 11/21/17) Subjective confused restrained (+) NGT d/w RN Objective Last 24 Hour Vital Signs Date Time Temp Pulse Resp B/P (MAP) Pulse Ox O2 Delivery O2 Flow Rate FiO2 12/07/17 12:44 167/88 12/07/17 12:18 98 175/92 12/07/17 12:00 97.0 98 19 175/92 (119) 95 97.0 12/07/17 11:12 185/101 12/07/17 09:00 Room Air Room Air 12/07/17 08:00 86 12/07/17 08:00 97.2 88 20 175/98 (123) 98 97.2 12/07/17 07:49 175/98 12/07/17 06:00 161/91 12/07/17 05:15 99 161/91 12/07/17 05:00 97.9 99 20 161/91 (114) 96 97.9 12/07/17 04:50 93 12/07/17 04:30 107/69 12/07/17 04:00 96.3 87 18 107/69 (82) 98 96.3 12/07/17 01:00 70 108/72 12/07/17 01:00 96.3 70 18 108/72 (84) 98 96.3 12/07/17 00:02 168/92 12/07/17 00:00 97.7 96 18 168/92 (117) 95 97.7 12/06/17 23:45 98 12/06/17 21:32 153/84 12/06/17 21:27 97 153/84 12/06/17 21:07 98.2 97 18 153/84 (107) 95 98.2 12/06/17 21:00 Room Air Room Air 12/06/17 20:32 97 12/06/17 20:25 174/86 12/06/17 20:00 96.6 93 18 174/86 (115) 97 96.6 12/06/17 17:28 99 159/76 12/06/17 16:18 168/90 12/06/17 16:00 95 12/06/17 16:00 98.2 104 20 176/94 (121) 95 98.2 12/06/17 14:31 101 168/90 12/06/17 14:07 168/90 12/06/17 14:07 97.7 101 20 168/90 (116) 97 97.7 12/06/17 14:00 168/90 Intake and Output 12/06/17 12/07/17 19:00 07:00 Intake Total 102.5 ml 1140.0 ml Balance 102.5 ml 1140.0 ml IV Total 102.5 ml 1140.0 ml # Voids 4 Laboratory Tests 12/07/17 07:17: White Blood Count 7.3, Red Blood Count 2.94L, Hemoglobin 10.1L, Hematocrit 28.8L , Mean Corpuscular Volume 98, Mean Corpuscular Hemoglobin 34.3H, Mean Corpuscular Hemoglobin Concent 35.0, Red Cell Distribution Width 10.0L, Platelet Count 260, Mean Platelet Volume 4.9L, Neutrophils (%) (Auto) 79.4H, Lymphocytes (%) (Auto) 10.2L, Monocytes (%) (Auto) 5.9, Eosinophils (%) (Auto) 3.8H, Basophils (%) (Auto) 0.7, Sodium Level 147H, Potassium Level 2.6*L, Chloride Level 113H, Carbon Dioxide Level 25, Anion Gap 10, Blood Urea Nitrogen 16, Creatinine 1.1, Estimat Glomerular Filtration Rate , Glucose Level 187H, Calcium Level 11.6H Height (Feet): 5 Height (Inches): 3.00 Weight (Pounds): 115 Objective Elderly woman NCAT, (+) NGT supple CTA RRR abd soft, (+) closing prior GT site no edema Neuro confused , restrained Radhames Harding MD Dec 07, 2017 13:35
--- NOTE | 2017-12-07 13:49 | General Surgery Progress Note ---
General Surgery-Progress Note Subjective Additional Comments stable. no acute events. Objective Last 24 Hour Vital Signs Date Time Temp Pulse Resp B/P (MAP) Pulse Ox O2 Delivery O2 Flow Rate FiO2 12/07/17 12:44 167/88 12/07/17 12:18 98 175/92 12/07/17 12:00 97.0 98 19 175/92 (119) 95 97.0 12/07/17 11:12 185/101 12/07/17 09:00 Room Air Room Air 12/07/17 08:00 86 12/07/17 08:00 97.2 88 20 175/98 (123) 98 97.2 12/07/17 07:49 175/98 12/07/17 06:00 161/91 12/07/17 05:15 99 161/91 12/07/17 05:00 97.9 99 20 161/91 (114) 96 97.9 12/07/17 04:50 93 12/07/17 04:30 107/69 12/07/17 04:00 96.3 87 18 107/69 (82) 98 96.3 12/07/17 01:00 70 108/72 12/07/17 01:00 96.3 70 18 108/72 (84) 98 96.3 12/07/17 00:02 168/92 12/07/17 00:00 97.7 96 18 168/92 (117) 95 97.7 12/06/17 23:45 98 12/06/17 21:32 153/84 12/06/17 21:27 97 153/84 12/06/17 21:07 98.2 97 18 153/84 (107) 95 98.2 12/06/17 21:00 Room Air Room Air 12/06/17 20:32 97 12/06/17 20:25 174/86 12/06/17 20:00 96.6 93 18 174/86 (115) 97 96.6 12/06/17 17:28 99 159/76 12/06/17 16:18 168/90 12/06/17 16:00 95 12/06/17 16:00 98.2 104 20 176/94 (121) 95 98.2 12/06/17 14:31 101 168/90 12/06/17 14:07 168/90 12/06/17 14:07 97.7 101 20 168/90 (116) 97 97.7 12/06/17 14:00 168/90 I&O Intake and Output 12/06/17 12/07/17 19:00 07:00 Intake Total 102.5 ml 1140.0 ml Balance 102.5 ml 1140.0 ml IV Total 102.5 ml 1140.0 ml # Voids 4 Dressing: dry Wound: clean Drains: none Cardiovascular: RSR Respiratory: clear Abdomen: soft, flat, non-tender, present bowel sounds Extremities: no cyanosis Laboratory Tests Test 12/07/17 07:17 White Blood Count 7.3 K/UL (4.8-10.8) Red Blood Count 2.94 M/UL (4.20-5.40) L Hemoglobin 10.1 G/DL (12.0-16.0) L Hematocrit 28.8 % (37.0-47.0) L Mean Corpuscular Volume 98 FL (80-99) Mean Corpuscular Hemoglobin 34.3 PG (27.0-31.0) H Mean Corpuscular Hemoglobin Concent 35.0 G/DL (32.0-36.0) Red Cell Distribution Width 10.0 % (11.6-14.8) L Platelet Count 260 K/UL (150-450) Mean Platelet Volume 4.9 FL (6.5-10.1) L Neutrophils (%) (Auto) 79.4 % (45.0-75.0) H Lymphocytes (%) (Auto) 10.2 % (20.0-45.0) L Monocytes (%) (Auto) 5.9 % (1.0-10.0) Eosinophils (%) (Auto) 3.8 % (0.0-3.0) H Basophils (%) (Auto) 0.7 % (0.0-2.0) Sodium Level 147 MMOL/L (136-145) H Potassium Level 2.6 MMOL/L (3.5-5.1) *L Chloride Level 113 MMOL/L (98-107) H Carbon Dioxide Level 25 MMOL/L (21-32) Anion Gap 10 mmol/L (5-15) Blood Urea Nitrogen 16 mg/dL (7-18) Creatinine 1.1 MG/DL (0.55-1.30) Estimat Glomerular Filtration Rate mL/min (>60) Glucose Level 187 MG/DL (74-106) H Calcium Level 11.6 MG/DL (8.5-10.1) H Plan Problems: (1) Abdominal pain Assessment & Plan: c/o abdominal pain. no n/v/f/c. unsure how long has been having pain. on exam epigastric tenderness with guarding - improved labs reviewed. no leukocytosis. lfts okay etiology unknown gastritis? US reviewed. no GB noted. prior cholecystectomy KUB okay noted to have elevated Calcium level. possible primary hypercalcemia which at such low elevation unlikely to be etiology of agitation and mental status change. PTH noted. thyroid US noted with multiple nodules. patient pulled out recently placed PEG. contrast noted extrav on kub. currently stable. ng tube placed and decompressing concerning and needs to be monitored closely. if shows any early signs of deterioration will need laparoscopy to repair npo IV fluids IV Abx afebrile, HD stable, labs okay, exam benign. no signs of peritonitis. likely gastric hole healing. still slowly improving and will need feeding tube access. given recent events would recommend laparoscopic assisted PEG will plan for tomorrow afternoon thank you for this consultation Sourav Tobias Dec 07, 2017 13:49
--- NOTE | 2017-12-07 14:06 | Pulmonology Progress Note ---
Assessment/Plan Assessment/Plan Assessment/Plan IMPRESSION ALOC DM HTN S/P fall hypercalemia trace pleural effusion, not significant mild anemia tachycardia Labs noted PLAN respiratory care noted oxygen as is cards noted events reviewed supportive care BP support noted medications/laboratory data/nursing notes reviewed in detail note reviewed and edited care discussed with RN and RT Subjective Allergies: Coded Allergies: No Known Allergies (Unverified , 11/21/17) Subjective hemodynamics noted no distress Objective Last 24 Hour Vital Signs Date Time Temp Pulse Resp B/P (MAP) Pulse Ox O2 Delivery O2 Flow Rate FiO2 12/05/17 06:31 136/58 12/05/17 05:11 99 134/60 12/05/17 05:10 134/60 12/05/17 04:00 98.2 107 18 134/60 (84) 95 98.2 12/05/17 04:00 Room Air 12/05/17 03:33 107 12/05/17 01:00 96 118/67 12/05/17 01:00 118/67 12/05/17 00:00 Room Air 12/05/17 00:00 98.2 97 18 140/76 (97) 97 98.2 12/04/17 23:00 97.9 95 18 136/83 (100) 95 97.9 12/04/17 21:31 90 164/80 12/04/17 21:31 164/80 12/04/17 21:00 90 164/80 12/04/17 20:26 91 12/04/17 20:00 Room Air 12/04/17 20:00 97.5 93 20 164/80 (108) 95 97.5 12/04/17 20:00 93 12/04/17 19:24 Room Air 12/04/17 19:24 95 Room Air 12/04/17 17:31 123/72 12/04/17 16:20 83 12/04/17 16:00 98.2 90 19 123/72 (89) 95 98.2 12/04/17 16:00 Room Air 12/04/17 13:30 94 12/04/17 12:00 Room Air 12/04/17 12:00 98.0 92 19 130/64 (86) 96 98.0 12/04/17 12:00 130/64 12/04/17 08:50 92 119/66 12/04/17 08:49 119/66 10/4/18 08:35 84 Intake and Output 12/04/17 12/05/17 19:00 07:00 Intake Total 90 ml Balance 90 ml Tube Feeding 90 ml # Voids 2 2 Objective WDWN altered and confused stable breath sounds bilaterally without rhonchi or wheeze [id number] without MRG NABS nontender no HSM no CCE no change no distress reviewed and examined Laboratory Tests 12/05/17 06:50: White Blood Count [Pending], Red Blood Count [Pending], Hemoglobin [Pending], Hematocrit [Pending], Mean Corpuscular Volume [Pending], Mean Corpuscular Hemoglobin [Pending], Mean Corpuscular Hemoglobin Concent [Pending], Red Cell Distribution Width [Pending], Platelet Count [Pending], Mean Platelet Volume [ Pending], Neutrophils (%) (Auto) [Pending], Lymphocytes (%) (Auto) [Pending], Monocytes (%) (Auto) [Pending], Eosinophils (%) (Auto) [Pending], Basophils (%) (Auto) [Pending], Sodium Level [Pending], Potassium Level [Pending], Chloride Level [Pending], Carbon Dioxide Level [Pending], Blood Urea Nitrogen [Pending], Creatinine [Pending], Estimat Glomerular Filtration Rate [Pending], Glucose Level [Pending], Calcium Level [Pending] Current Medications Medications (Trade) Dose Ordered Sig/Atilio Route PRN Reason Start Time Stop Time Status Last Admin Dose Admin Acetaminophen (Tylenol) 650 mg Q4H PRN ORAL Mild Pain (Pain Scale 1-3) 12/03/17 20:30 12/21/17 20:29 Atorvastatin Calcium (Lipitor) 40 mg QHS ORAL 12/03/17 21:00 12/21/17 20:59 12/03/17 21:17 Cinacalcet (Sensipar) 30 mg DAILY ORAL 12/04/17 09:00 12/29/17 08:59 12/04/17 09:00 Clonidine HCl (Catapres tab) 0.2 mg EVERY 8 HOURS ORAL 12/05/17 06:16 01/04/18 06:15 12/05/17 06:31 Dextrose (Dextrose 50%) 25 ml Q30M PRN IV Hypoglycemia 12/03/17 20:30 12/26/17 13:57 Dextrose (Dextrose 50%) 50 ml Q30M PRN IV hypoglycemia 12/03/17 20:30 12/26/17 13:57 Famotidine (Pepcid) 40 mg DAILY ORAL 12/04/17 09:00 12/22/17 08:59 12/04/17 09:00 Folic Acid (Folate) 1 mg DAILY NG 12/04/17 09:00 12/25/17 21:29 12/04/17 09:00 Hydralazine HCl (Apresoline) 10 mg Q4H IV 12/04/17 21:00 01/03/18 20:59 12/05/17 05:10 Hydralazine HCl (Apresoline) 10 mg Q4H PRN IV For High Blood Pressure 12/03/17 20:30 01/02/18 20:29 Insulin Aspart (NovoLOG) EVERY 6 HOURS SUBQ 12/04/17 00:00 12/21/17 16:29 12/04/17 18:00 Labetalol HCl (Normodyne) 4 mg Q4H IV 12/04/17 21:00 01/03/18 20:59 12/05/17 05:11 Lorazepam (Ativan 2mg/ml 1ml) 1 mg Q4H PRN IM Agitation 12/04/17 19:15 12/11/17 19:14 Losartan Potassium (Cozaar) 100 mg DAILY GT 12/04/17 09:00 12/29/17 08:59 Metformin HCl (Glucophage) 850 mg TID GT 12/04/17 09:00 01/02/18 08:59 12/04/17 12:45 Metoprolol Tartrate (Lopressor) 50 mg Q12HR GT 12/03/17 21:00 12/25/17 20:59 Ondansetron HCl (Zofran) 4 mg Q6H PRN IVP Nausea & Vomiting 12/03/17 20:30 01/02/18 20:29 Quetiapine Fumarate (SEROquel) 25 mg DAILYPRN PRN ORAL For Anxiety 12/04/17 12:26 01/03/18 12:25 12/04/17 12:44 Subjective ROS Limited/Unobtainable: No Allergies: Coded Allergies: No Known Allergies (Unverified , 11/21/17) Objective Last 24 Hour Vital Signs Date Time Temp Pulse Resp B/P (MAP) Pulse Ox O2 Delivery O2 Flow Rate FiO2 12/07/17 12:44 167/88 12/07/17 12:18 98 175/92 12/07/17 12:00 101 12/07/17 12:00 97.0 98 19 175/92 (119) 95 97.0 12/07/17 11:12 185/101 12/07/17 09:00 Room Air Room Air 12/07/17 08:00 86 12/07/17 08:00 97.2 88 20 175/98 (123) 98 97.2 12/07/17 07:49 175/98 12/07/17 06:00 161/91 12/07/17 05:15 99 161/91 12/07/17 05:00 97.9 99 20 161/91 (114) 96 97.9 12/07/17 04:50 93 12/07/17 04:30 107/69 12/07/17 04:00 96.3 87 18 107/69 (82) 98 96.3 12/07/17 01:00 70 108/72 12/07/17 01:00 96.3 70 18 108/72 (84) 98 96.3 12/07/17 00:02 168/92 12/07/17 00:00 97.7 96 18 168/92 (117) 95 97.7 12/06/17 23:45 98 12/06/17 21:32 153/84 12/06/17 21:27 97 153/84 12/06/17 21:07 98.2 97 18 153/84 (107) 95 98.2 12/06/17 21:00 Room Air Room Air 12/06/17 20:32 97 12/06/17 20:25 174/86 12/06/17 20:00 96.6 93 18 174/86 (115) 97 96.6 12/06/17 17:28 99 159/76 12/06/17 16:18 168/90 12/06/17 16:00 95 12/06/17 16:00 98.2 104 20 176/94 (121) 95 98.2 12/06/17 14:31 101 168/90 12/06/17 14:07 168/90 12/06/17 14:07 97.7 101 20 168/90 (116) 97 97.7 Intake and Output 12/06/17 12/07/17 19:00 07:00 Intake Total 102.5 ml 1140.0 ml Balance 102.5 ml 1140.0 ml IV Total 102.5 ml 1140.0 ml # Voids 4 Laboratory Tests 12/07/17 07:17: White Blood Count 7.3, Red Blood Count 2.94L, Hemoglobin 10.1L, Hematocrit 28.8L , Mean Corpuscular Volume 98, Mean Corpuscular Hemoglobin 34.3H, Mean Corpuscular Hemoglobin Concent 35.0, Red Cell Distribution Width 10.0L, Platelet Count 260, Mean Platelet Volume 4.9L, Neutrophils (%) (Auto) 79.4H, Lymphocytes (%) (Auto) 10.2L, Monocytes (%) (Auto) 5.9, Eosinophils (%) (Auto) 3.8H, Basophils (%) (Auto) 0.7, Sodium Level 147H, Potassium Level 2.6*L, Chloride Level 113H, Carbon Dioxide Level 25, Anion Gap 10, Blood Urea Nitrogen 16, Creatinine 1.1, Estimat Glomerular Filtration Rate , Glucose Level 187H, Calcium Level 11.6H Current Medications Medications (Trade) Dose Ordered Sig/Atilio Route PRN Reason Start Time Stop Time Status Last Admin Dose Admin Clonidine HCl (Catapres tab) 0.2 mg EVERY 8 HOURS GT 12/05/17 14:00 01/04/18 06:15 Dextrose (Dextrose 50%) 25 ml Q30M PRN IV Hypoglycemia 12/03/17 20:30 12/26/17 13:57 Dextrose (Dextrose 50%) 50 ml Q30M PRN IV hypoglycemia 12/03/17 20:30 12/26/17 13:57 Dextrose/Sodium Chloride 1,000 ml @ 75 mls/hr [id number] IV 12/05/17 17:00 01/04/18 16:59 12/07/17 11:13 Hydralazine HCl (Apresoline) 10 mg Q4H IV 12/05/17 16:30 01/04/18 16:29 12/07/17 12:44 Hydralazine HCl (Apresoline) 10 mg Q4H PRN IV For High Blood Pressure 12/03/17 20:30 01/02/18 20:29 12/07/17 11:12 Insulin Aspart (NovoLOG) EVERY 6 HOURS SUBQ 12/04/17 00:00 12/21/17 16:29 12/07/17 06:10 Labetalol HCl (Normodyne) 4 mg Q4H IV 12/05/17 17:00 01/04/18 16:59 12/07/17 12:18 Lorazepam (Ativan 2mg/ml 1ml) 1 mg Q4H PRN IM Agitation 12/04/17 19:15 12/11/17 19:14 12/07/17 07:42 Morphine Sulfate (Morphine Sulfate) 2 mg Q4H PRN IVP For Pain 12/05/17 12:28 12/12/17 12:27 Ondansetron HCl (Zofran) 4 mg Q6H PRN IVP Nausea & Vomiting 12/03/17 20:30 01/02/18 20:29 Piperacillin Sod/ Tazobactam Sod 3.375 gm/Sodium Chloride 110 ml @ 27.5 mls/hr Q8H IVPB 12/05/17 18:00 12/12/17 17:59 12/07/17 11:10 Potassium Chloride 100 ml @ 100 mls/hr Q1HR IVPB 12/07/17 12:00 12/07/17 15:59 12/07/17 12:44 Lupillo Huber MD Dec 07, 2017 14:06
--- NOTE | 2017-12-07 14:41 | Neurology Progress Note ---
Interim History Interim History ROS Limited/Unobtainable: No Interim History Ms. Bernardo feels better. She is awake and alert. She says she is hungry. She is still disoriented. Her BP is running high. She is able to follow commands inconsistently. She is still significantly encephalopathic. She is still cognitively impoverished. Review of Systems Neuro Review of Systems Unable to obtain. Objective Physical Exam Last Vital Signs Date Time Temp Pulse Resp B/P (MAP) Pulse Ox O2 Delivery O2 Flow Rate FiO2 12/07/17 14:30 98 165/75 12/07/17 12:00 97.0 19 95 97.0 12/07/17 09:00 Room Air Room Air 12/03/17 21:12 2.0 28 Laboratory Tests Test 12/07/17 07:17 White Blood Count 7.3 K/UL (4.8-10.8) Red Blood Count 2.94 M/UL (4.20-5.40) L Hemoglobin 10.1 G/DL (12.0-16.0) L Hematocrit 28.8 % (37.0-47.0) L Mean Corpuscular Volume 98 FL (80-99) Mean Corpuscular Hemoglobin 34.3 PG (27.0-31.0) H Mean Corpuscular Hemoglobin Concent 35.0 G/DL (32.0-36.0) Red Cell Distribution Width 10.0 % (11.6-14.8) L Platelet Count 260 K/UL (150-450) Mean Platelet Volume 4.9 FL (6.5-10.1) L Neutrophils (%) (Auto) 79.4 % (45.0-75.0) H Lymphocytes (%) (Auto) 10.2 % (20.0-45.0) L Monocytes (%) (Auto) 5.9 % (1.0-10.0) Eosinophils (%) (Auto) 3.8 % (0.0-3.0) H Basophils (%) (Auto) 0.7 % (0.0-2.0) Sodium Level 147 MMOL/L (136-145) H Potassium Level 2.6 MMOL/L (3.5-5.1) *L Chloride Level 113 MMOL/L (98-107) H Carbon Dioxide Level 25 MMOL/L (21-32) Anion Gap 10 mmol/L (5-15) Blood Urea Nitrogen 16 mg/dL (7-18) Creatinine 1.1 MG/DL (0.55-1.30) Estimat Glomerular Filtration Rate mL/min (>60) Glucose Level 187 MG/DL (74-106) H Calcium Level 11.6 MG/DL (8.5-10.1) H Neurologic Exam Objective PHYSICAL EXAMINATION: GENERAL: She is a well-developed, well-nourished, [place] lady, lying in bed, in no acute distress. HEAD: Normocephalic and atraumatic. EENT: Examination benign. NECK: No neck rigidity was observed. NEUROLOGICAL EXAMINATION: MENTAL STATUS EXAMINATION: She was awake and alert. She was oriented to self and hospital only. Further mental status testing was impossible. SPEECH: She had a mild dysarthria. LANGUAGE: Could not be tested adequately. CRANIAL NERVE EXAMINATION: II: She did blink to threat. She counted fingers. III, IV & : The external ocular movements were present.The pupils were 3 mm in diameter, equal, round, regular, and reactive sluggishly to light. V & VII: The corneal reflexes were present bilaterally. VIII: She was able to hear and had no nystagmus. IX- X: Were not tested. XI: The sternocleidomastoids and trapezii functioned. XII: The tongue was in the midline without any fasciculations or atrophy. MOTOR SYSTEM: The tone was normal in all four extremities. Examination of muscle mass revealed no focal wasting. She moved all her limbs on command with better effort and gave me good hand backrest assembler. SENSORY EXAMINATION: She responded appropriately to deep pain. She was unable to cooperate for other sensory modalities. REFLEXES: 0 at the biceps, triceps, brachioradialis, knees, and ankles. The plantar responses were flexor bilaterally. COORDINATION, STANCE & GAIT: Could not be tested. Impression/Recommendations Diagnostic Impression 1. Ms. Chelly Bernardo is a 72-year-old, [place] lady, of unknown handedness, who does have a past history of hypertension and diabetes mellitus, who was hospitalized on 11/21/2017 for an episode of severe hypoglycemia with her blood sugars in the 20s. Since she has been here, she has also been exhibiting significantly elevated blood pressures. Her mental state continued to be quite altered. 2. She feels better. She is awake and alert. She says she is hungry. She is still disoriented. Her BP is running high. She is able to follow commands inconsistently. She is still significantly encephalopathic. She is still cognitively impoverished. 3. On neurological examination, at this time, she is awake and alert. She is oriented to self and hospital only. She is still disorganized. Further mental status testing is impossible. She does not demonstrate any focal or lateralizing neurological findings. 4. The CT scan of the brain performed on 11/22/2017 revealed atrophy, but no acute pathology. 5. Laboratory data obtained thus far have revealed that she is mildly anemic, has a borderline low B12 level, and a low folate level but otherwise normal laboratory data. 6. The EEG done on 11/25/17 revealed a moderate metabolic encephalopathy. 7. The MRI of the brain done on 11/27/17 revealed no acute intracranial pathology. Moderate atrophy and chronic small vessel disease involving white matter was seen. 8. Her blood pressures are still fluctuating significantly. 9. The patient's history, neurological examination, imaging studies, and laboratory data are most compatible with an encephalopathy most probably due to a hypoglycemic brain insult, and significant hypertension. Her encephalopathy is waxing and waning. She is less encephalopathic. 10. Even though her electrolytes, blood sugars and blood pressures have been better controlled she is still significantly encephalopathic. 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 Recommendations 1. Continue to keep blood pressure in the physiological range. 2. Continue to keep patient's fluids and electrolytes balanced. 3. Folic acid 1 mg via NGT q day. 4. Vitamin B12 1000 mcg SC monthly. 5. Out of bed in chair. 6. Mobilize with PT/OT. Betina Osullivan M.D., M.S.P.BETINA KAY Dec 07, 2017 14:41
[2017-12-07] MEDS ORDERED: D5 1/2NS 1000ml IV ONE (15:24)
[2017-12-07] MEDS ORDERED: D5NS 1000ml IV ONE (15:24)
[2017-12-07] MEDS ORDERED: Tubing IV Secondary IV ONE (16:23)
[2017-12-07] MEDS ORDERED: Labetalol 5mg/ml 20ml vial IV SCH (18:30)
[2017-12-08] VITALS (13 sets, daily range): BP systolic 139–193; BP diastolic 68–128
[2017-12-08] MEDS: Piperacillin/Tazobactam 3.375 GM in NS 110 ML IVPB SCH ×3 (02:20→17:36)
[2017-12-08] MEDS: Labetalol 5mg/ml 20ml vial IV SCH ×7 (02:20→21:53)
[2017-12-08] MEDS: cloNIDine 0.2mg Tab GT SCH ×3 (05:11→23:34)
[2017-12-08] MEDS: NovoLOG Insulin Flexpen SUBQ SCH ×3 (05:15→17:32)
[2017-12-08] MEDS ORDERED: Midazolam 2mg/2ml Inj ONE (08:36)
[2017-12-08 08:47] LABS: BASOPHILS % (AUTO) 0.6 % (0.0-2.0); HEMATOCRIT 28.8 % (37.0-47.0); HEMOGLOBIN 9.8 G/DL (12.0-16.0); LYMPHOCYTES % (AUTO) 13.5 % (20.0-45.0); MEAN CORPUSCULAR VOLUME 98 FL (80-99); MONOCYTES % (AUTO) 6.2 % (1.0-10.0); NEUTROPHILS % (AUTO) 75.8 % (45.0-75.0); PLATELET COUNT 254 K/UL (150-450); RED BLOOD COUNT 2.95 M/UL (4.20-5.40); WHITE BLOOD COUNT 6.4 K/UL (4.8-10.8)
--- NOTE | 2017-12-08 08:51 | Nephrology Progress Note ---
Assessment/Plan Assessment/Plan A/P 1) HTN Urgency- resolved. IV scheduled medications until enteral route established later today 2) Tachycardia- being managed by cardiology 3) DVT prophylaxsis with SCDs 4) Encephalopathy- Patient was confused prior to admission (multiple bruises from falling at time of admission). reason for admission was confusion/ hypoglycemia - patient has metabolic encephalopathy due to prolonged hypoglycemic events prior to hospitilization. BP very well controlled The degree of recovery is difficult to predict. 6) Hypercal- elevated PTH, sensipar once GTube replaced today Patient pulled GTube despite being on soft restraints and sedated. At this point GTube will be reinserted and sutured in place today. Then restart medications and DC to SNF tomorrow Subjective Date patient seen: Dec 08, 2017 Time patient seen: 08:48 ROS Limited/Unobtainable: Yes Allergies: Coded Allergies: No Known Allergies (Unverified , 11/21/17) All Systems: reviewed and negative except above Subjective Patient confused/ Pulled GTube. Seems more awake today, less agitated Objective Last 24 Hour Vital Signs Date Time Temp Pulse Resp B/P (MAP) Pulse Ox O2 Delivery O2 Flow Rate FiO2 12/08/17 08:07 175/88 12/08/17 05:15 166/90 12/08/17 05:15 90 166/90 12/08/17 05:11 166/90 12/08/17 04:11 90 12/08/17 04:00 98.1 96 19 166/90 (115) 94 98.1 12/08/17 02:21 163/88 12/08/17 02:20 94 163/88 12/08/17 00:00 97.5 95 18 153/81 (105) 95 97.5 12/07/17 23:51 93 12/07/17 23:25 95 153/81 12/07/17 23:24 153/81 12/07/17 21:09 86 153/79 12/07/17 21:09 153/79 12/07/17 21:00 Room Air Room Air 12/07/17 20:39 153/79 12/07/17 20:00 98.4 84 18 143/74 (97) 94 98.4 12/07/17 19:16 89 179/99 12/07/17 19:01 87 10/7/18 18:44 179/99 12/07/17 16:48 99 182/83 12/07/17 16:47 182/83 12/07/17 16:00 97.2 99 19 182/83 (116) 95 97.2 12/07/17 16:00 90 12/07/17 14:30 98 165/75 12/07/17 12:44 167/88 12/07/17 12:18 98 175/92 12/07/17 12:00 101 12/07/17 12:00 97.0 98 19 175/92 (119) 95 97.0 12/07/17 11:12 185/101 12/07/17 09:00 Room Air Room Air Intake and Output 12/07/17 12/08/17 19:00 07:00 Intake Total 75 ml 953.4 ml Balance 75 ml 953.4 ml IV Total 75 ml 953.4 ml # Voids 4 # Bowel Movements 2 Laboratory Tests 12/08/17 07:40: White Blood Count 6.4, Red Blood Count 2.95L, Hemoglobin 9.8L, Hematocrit 28.8L , Mean Corpuscular Volume 98, Mean Corpuscular Hemoglobin 33.3H, Mean Corpuscular Hemoglobin Concent 34.1, Red Cell Distribution Width 10.0L, Platelet Count 254, Mean Platelet Volume 4.7L, Neutrophils (%) (Auto) 75.8H, Lymphocytes (%) (Auto) 13.5L, Monocytes (%) (Auto) 6.2, Eosinophils (%) (Auto) 4.0H, Basophils (%) (Auto) 0.6, Prothrombin Time [Pending], Prothromb Time International Ratio [Pending], Activated Partial Thromboplast Time [Pending], Sodium Level [Pending], Potassium Level [Pending], Chloride Level [Pending], Carbon Dioxide Level [Pending], Blood Urea Nitrogen [Pending], Creatinine [ Pending], Estimat Glomerular Filtration Rate [Pending], Glucose Level [Pending] , Calcium Level [Pending] Height (Feet): 5 Height (Inches): 3.00 Weight (Pounds): 113 General Appearance: confused, agitated EENT: normal ENT inspection Neck: normal alignment, supple Cardiovascular: normal rate, regular rhythm Respiratory/Chest: lungs clear, normal breath sounds Abdomen: non tender, soft Edema: no edema noted Arm (L), no edema noted Arm (R), no edema noted Leg (L), no edema noted Leg (R), no edema noted Pedal (L), no edema noted Pedal (R), no edema noted Generalized Vinh Winston MD Dec 08, 2017 08:51
[2017-12-08 09:03] LABS: ANION GAP 11 mmol/L (5-15); BLOOD UREA NITROGEN 14 mg/dL (7-18); CALCIUM 10.7 MG/DL (8.5-10.1); CARBON DIOXIDE 25 MMOL/L (21-32); CHLORIDE 116 MMOL/L (98-107); POTASSIUM 2.9 MMOL/L (3.5-5.1); SODIUM 151 MMOL/L (136-145)
[2017-12-08 09:12] LABS: INR 1.1 (0.9-1.1)
[2017-12-08] MEDS: D5NS 1,000 ML IV SCH (11:08)
--- NOTE | 2017-12-08 11:33 | Pulmonology Progress Note ---
Assessment/Plan Assessment/Plan IMPRESSION ALOC DM HTN S/P fall hypercalemia trace pleural effusion, not significant mild anemia tachycardia PLAN respiratory care without change oxygen noted imaging noted cards noted events reviewed supportive care as is BP support noted medications/laboratory data/nursing notes reviewed in detail note reviewed and edited care discussed with RN and RT Subjective Allergies: Coded Allergies: No Known Allergies (Unverified , 11/21/17) Subjective hemodynamics noted no distress AXR reviewed Objective Last 24 Hour Vital Signs Date Time Temp Pulse Resp B/P (MAP) Pulse Ox O2 Delivery O2 Flow Rate FiO2 12/08/17 10:14 191/96 12/08/17 09:23 91 175/88 12/08/17 09:00 Room Air Room Air 12/08/17 08:07 175/88 12/08/17 08:00 88 12/08/17 08:00 97.5 91 19 175/88 (117) 99 97.5 12/08/17 05:15 166/90 12/08/17 05:15 90 166/90 12/08/17 05:11 166/90 12/08/17 04:11 90 12/08/17 04:00 98.1 96 19 166/90 (115) 94 98.1 12/08/17 02:21 163/88 12/08/17 02:20 94 163/88 12/08/17 00:00 97.5 95 18 153/81 (105) 95 97.5 12/07/17 23:51 93 12/07/17 23:25 95 153/81 12/07/17 23:24 153/81 12/07/17 21:09 86 153/79 12/07/17 21:09 153/79 12/07/17 21:00 Room Air Room Air 12/07/17 20:39 153/79 12/07/17 20:00 98.4 84 18 143/74 (97) 94 98.4 12/07/17 19:16 89 179/99 12/07/17 19:01 87 12/07/17 18:44 179/99 12/07/17 16:48 99 182/83 12/07/17 16:47 182/83 12/07/17 16:00 97.2 99 19 182/83 (116) 95 97.2 12/07/17 16:00 90 12/07/17 14:30 98 165/75 12/07/17 12:44 167/88 12/07/17 12:18 98 175/92 12/07/17 12:00 101 12/07/17 12:00 97.0 98 19 175/92 (119) 95 97.0 Intake and Output 12/07/17 12/08/17 19:00 07:00 Intake Total 75 ml 953.4 ml Balance 75 ml 953.4 ml IV Total 75 ml 953.4 ml # Voids 4 # Bowel Movements 2 Objective WDWN altered stable breath sounds bilaterally without rhonchi or wheeze [id number] without MRG NABS nontender no HSM no CCE no change no distress reviewed and examined Laboratory Tests 12/08/17 07:40: White Blood Count 6.4, Red Blood Count 2.95L, Hemoglobin 9.8L, Hematocrit 28.8L , Mean Corpuscular Volume 98, Mean Corpuscular Hemoglobin 33.3H, Mean Corpuscular Hemoglobin Concent 34.1, Red Cell Distribution Width 10.0L, Platelet Count 254, Mean Platelet Volume 4.7L, Neutrophils (%) (Auto) 75.8H, Lymphocytes (%) (Auto) 13.5L, Monocytes (%) (Auto) 6.2, Eosinophils (%) (Auto) 4.0H, Basophils (%) (Auto) 0.6, Prothrombin Time 11.4, Prothromb Time International Ratio 1.1, Activated Partial Thromboplast Time 27, Sodium Level 151H, Potassium Level 2.9L, Chloride Level 116H, Carbon Dioxide Level 25, Anion Gap 11, Blood Urea Nitrogen 14, Creatinine 1.0, Estimat Glomerular Filtration Rate , Glucose Level 225H, Calcium Level 10.7H Current Medications Medications (Trade) Dose Ordered Sig/Atilio Route PRN Reason Start Time Stop Time Status Last Admin Dose Admin Clonidine HCl (Catapres tab) 0.2 mg EVERY 8 HOURS GT 12/05/17 14:00 01/04/18 06:15 Dextrose (Dextrose 50%) 25 ml Q30M PRN IV Hypoglycemia 12/03/17 20:30 12/26/17 13:57 Dextrose (Dextrose 50%) 50 ml Q30M PRN IV hypoglycemia 12/03/17 20:30 12/26/17 13:57 Dextrose/Sodium Chloride 1,000 ml @ 75 mls/hr [id number] IV 12/05/17 17:00 01/04/18 16:59 12/08/17 11:08 Hydralazine HCl (Apresoline) 10 mg Q3H IV 12/07/17 18:00 01/06/18 17:59 12/08/17 08:07 Hydralazine HCl (Apresoline) 10 mg Q4H PRN IV For High Blood Pressure 12/03/17 20:30 01/02/18 20:29 12/07/17 11:12 Insulin Aspart (NovoLOG) EVERY 6 HOURS SUBQ 12/04/17 00:00 12/21/17 16:29 12/07/17 06:10 Labetalol HCl (Normodyne) 4 mg Q3H IV 12/07/17 21:00 01/06/18 20:59 12/08/17 09:23 Lorazepam (Ativan 2mg/ml 1ml) 1 mg Q4H PRN IM Agitation 12/04/17 19:15 12/11/17 19:14 12/07/17 16:47 Morphine Sulfate (Morphine Sulfate) 2 mg Q4H PRN IVP For Pain 12/05/17 12:28 12/12/17 12:27 Ondansetron HCl (Zofran) 4 mg Q6H PRN IVP Nausea & Vomiting 12/03/17 20:30 01/02/18 20:29 Piperacillin Sod/ Tazobactam Sod 3.375 gm/Sodium Chloride 110 ml @ 27.5 mls/hr Q8H IVPB 12/05/17 18:00 12/12/17 17:59 12/08/17 10:19 Potassium Chloride 100 ml @ 100 mls/hr Q1H IVPB 12/08/17 10:30 12/08/17 12:29 12/08/17 11:04 Romeo Smith MD Dec 08, 2017 11:33
[2017-12-08] MEDS ORDERED: Propofol 200mg/20ml IV ONE (11:55)
[2017-12-08] MEDS ORDERED: Dexamethasone 4mg/ml vial ONE (11:55)
[2017-12-08] MEDS ORDERED: Lidocaine 1% MPF 10mg/ml 5ml ONE (11:55)
[2017-12-08] MEDS ORDERED: Sodium Chloride 10ml vial INJ ONE (11:55)
[2017-12-08] MEDS ORDERED: LR 1000ml ONE (12:00)
[2017-12-08] MEDS ORDERED: Zemuron 50mg/5ml Inj IV ONE (12:04)
[2017-12-08] MEDS ORDERED: LR 1000ml 1,000 ML IVLG SCH (12:10)
[2017-12-08] MEDS ORDERED: Bupivacaine w/Epi 0.25% 30ml Vial INJ ONE (12:13)
[2017-12-08] MEDS ORDERED: Meperidine 50mg/ml Inj(FOR RIGORS ONLY) IVP PRN (12:15)
[2017-12-08] MEDS ORDERED: Norco 5mg/325mg tab ORAL PRN (12:15)
[2017-12-08] MEDS ORDERED: Midazolam 2mg/2ml Inj IVP PRN (12:15)
[2017-12-08] MEDS ORDERED: fentaNYL 100 mcg/2 mL IV PRN (12:15)
[2017-12-08] MEDS ORDERED: HYDROcodone/Acetamin 7.5/325 tab ORAL PRN (12:15)
[2017-12-08] MEDS ORDERED: oxyCODONE HCL/Acetaminophen 5/325mg ORAL PRN (12:15)
[2017-12-08] MEDS ORDERED: LORazepam Inj 2mg/ml 1ml IV PRN (12:15)
[2017-12-08] MEDS ORDERED: Ketorolac 30mg Inj IV PRN ×2 (12:15)
[2017-12-08] MEDS ORDERED: Atropine Sulfate 0.4mg/ml inj IVP PRN (12:15)
[2017-12-08] MEDS ORDERED: Metoclopramide 10mg/2ml Inj IVP PRN (12:15)
[2017-12-08] MEDS ORDERED: Hydromorphone 0.5mg/0.5ml inj IVP PRN (12:15)
[2017-12-08] MEDS ORDERED: DiphenhydrAMINE 50mg/ml Inj IVP PRN (12:15)
--- NOTE | 2017-12-08 12:15 | Anethesia Preoperative Eval ---
Anesthesia Pre-op PMH/ROS General Date of Evaluation: Dec 08, 2017 Anesthesiologist: Charmaine ASA Score: ASA 4 Mallampati Score Class I : Soft palate, uvula, fauces, pillars visible Class II: Soft palate, uvula, fauces visible Class III: Soft palate, base of uvula visible Class IV: Only hard plate visible Mallampati Classification: Class II Surgeon: Sis/Micheline Diagnosis: Abd Pain Surgical Procedure: G Tube Replacement Anesthesia History: none Family History: no anesthesia problems Allergies: Coded Allergies: No Known Allergies (Unverified , 11/21/17) Medications: see eMAR Patient NPO?: Yes Past Medical History Cardiovascular: Reports: HTN Neurologic/Psychiatric: Reports: dementia Endocrine: Reports: DM - Hypoglycemia Hematology/Immune: Reports: anemia Anesthesia Pre-op Phys. Exam Physician Exam Last Vital Signs Date Time Temp Pulse Resp B/P (MAP) Pulse Ox O2 Delivery O2 Flow Rate FiO2 12/08/17 10:14 191/96 12/08/17 09:23 91 12/08/17 09:00 Room Air Room Air 12/08/17 08:00 97.5 19 99 97.5 12/03/17 21:12 2.0 28 Constitutional: NAD Neurologic: CN 2-12 intact Cardiovascular: RRR Respiratory: CTA Gastrointestinal: S/NT/ND Airway Exam Mallampati Score: Class II MO: limited ROM: limited Teeth: missing, intact Anesthesia Pre-op A/P Labs Hematology Test 12/08/17 07:40 White Blood Count 6.4 K/UL (4.8-10.8) Red Blood Count 2.95 M/UL (4.20-5.40) L Hemoglobin 9.8 G/DL (12.0-16.0) L Hematocrit 28.8 % (37.0-47.0) L Mean Corpuscular Volume 98 FL (80-99) Mean Corpuscular Hemoglobin 33.3 PG (27.0-31.0) H Mean Corpuscular Hemoglobin Concent 34.1 G/DL (32.0-36.0) Red Cell Distribution Width 10.0 % (11.6-14.8) L Platelet Count 254 K/UL (150-450) Mean Platelet Volume 4.7 FL (6.5-10.1) L Neutrophils (%) (Auto) 75.8 % (45.0-75.0) H Lymphocytes (%) (Auto) 13.5 % (20.0-45.0) L Monocytes (%) (Auto) 6.2 % (1.0-10.0) Eosinophils (%) (Auto) 4.0 % (0.0-3.0) H Basophils (%) (Auto) 0.6 % (0.0-2.0) Coagulation Test 12/08/17 07:40 Prothrombin Time 11.4 SEC (9.30-11.50) Prothromb Time International Ratio 1.1 (0.9-1.1) Activated Partial Thromboplast Time 27 SEC (23-33) Chemistry Test 12/08/17 07:40 Sodium Level 151 MMOL/L (136-145) H Potassium Level 2.9 MMOL/L (3.5-5.1) L Chloride Level 116 MMOL/L (98-107) H Carbon Dioxide Level 25 MMOL/L (21-32) Anion Gap 11 mmol/L (5-15) Blood Urea Nitrogen 14 mg/dL (7-18) Creatinine 1.0 MG/DL (0.55-1.30) Estimat Glomerular Filtration Rate mL/min (>60) Glucose Level 225 MG/DL (74-106) H Calcium Level 10.7 MG/DL (8.5-10.1) H Risk Assessment & Plan Assessment: ASA 4 Plan: GA Status Change Before Surgery: Raul Harris MD Dec 08, 2017 12:15
--- NOTE | 2017-12-08 12:25 | Pre-Procedure Note/Attestation ---
Pre-Procedure Note/Attestation Complete Prior to Procedure Planned Procedure: not applicable Procedure Narrative: egd/peg Indications for Procedure Pre-Operative Diagnosis: dysphagia Attestation I attest that I discussed the nature of the procedure; its benefits; risks and complications; and alternatives (and the risks and benefits of such alternatives ), prior to the procedure, with the patient (or the patient's legal customer account representative). I attest that, if there was a reasonable possibility of needing a blood transfusion, the patient (or the patient's legal customer account representative) was given the [facility] standardized written summary, pursuant to the [place] [place] Blood Safety Act ([place] Health and Safety Code # 1645, as amended). I attest that I re-evaluated the patient just prior to the surgery and that there has been no change in the patient's H&P, except as documented below: Mayito Alegre MD Dec 08, 2017 12:25
--- NOTE | 2017-12-08 12:27 | 48 Hour Post Anesthesia Eval ---
Post Anesthesia Evaluation Procedure: PEG Replacement Date of Evaluation: Dec 08, 2017 Time of Evaluation: 15:42 Blood Pressure Systolic: 144 0: 86 Pulse Rate: 90 Respiratory Rate: 18 Temperature (Fahrenheit): 98.1 O2 Sat by Pulse Oximetry: 100 Airway: patent Nausea: No Vomiting: No Pain Intensity: 2 Hydration Status: adequate Cardiopulmonary Status: Stable Mental Status/LOC: patient returned to baseline Follow-up Care/Observations: 0 Post-Anesthesia Complications: 0 Follow-up care needed: N/A Raul Montano MD Dec 08, 2017 12:27
--- NOTE | 2017-12-08 12:27 | Immediate Post-Op Evaluation ---
Immediate Post-Op Evalulation Immediate Post-Op Evalulation Procedure: PEG Replacement Date of Evaluation: Dec 08, 2017 Time of Evaluation: 13:30 IV Fluids: 500LR Blood Products: 0 Estimated Blood Loss: 2 Urinary Output: 0 Blood Pressure Systolic: 145 Blood Pressure Diastolic: 87 Pulse Rate: 91 Respiratory Rate: 16 O2 Sat by Pulse Oximetry: 100 Temperature (Fahrenheit): 97.5 Pain Score (1-10): 2 Nausea: No Vomiting: No Complications 0 Patient Status: awake, reacts, patent, none Hydration Status: adequate Raul Montano MD Dec 08, 2017 12:27
[2017-12-08] MEDS ORDERED: NS 500ML IVPB ONE (12:30)
[2017-12-08] MEDS ORDERED: Glycopyrrolate 0.2mg/ml 1ml Vial ONE (13:00)
[2017-12-08] MEDS ORDERED: Naloxone 0.4mg/ml Inj ONE (13:00)
--- NOTE | 2017-12-08 13:17 | Endoscopy Procedure Note ---
Endoscopy Procedure Note General Indication for Procedure: dysphagia Procedures Performed: EGD, PEG Operative Findings/Diagnosis: same Specimen: none Pt Tolerated Procedure Well: Yes Estimated Blood Loss: none Anesthesia Anesthesiologist: mary Anesthesia: MAC Inserted Devices Implant(s) used?: No GI Core Measures 50 yrs or older w/o bx or poly: Not Applicable 10yrs. F/U not recommended: Not Applicable Mayito Alegre MD Dec 08, 2017 13:17
--- NOTE | 2017-12-08 15:37 | General Surgery Progress Note ---
General Surgery-Progress Note Subjective Additional Comments had PEG today Objective Last 24 Hour Vital Signs Date Time Temp Pulse Resp B/P (MAP) Pulse Ox O2 Delivery O2 Flow Rate FiO2 12/08/17 14:52 170/105 12/08/17 14:05 98.2 89 23 148/78 100 Nasal Cannula 3 98.2 12/08/17 13:55 88 19 152/68 100 Nasal Cannula 3 12/08/17 13:40 89 19 158/88 19 Nasal Cannula 3 12/08/17 13:27 90 20 169/83 100 Simple Mask 6 12/08/17 13:22 90 19 149/80 100 Simple Mask 6 12/08/17 13:21 208.6 90 18 100 12/08/17 13:20 207.5 91 16 100 12/08/17 13:17 97.8 91 25 145/87 100 Simple Mask 6 97.8 12/08/17 12:00 148/78 12/08/17 12:00 89 148/78 12/08/17 11:30 97.3 104 20 165/128 (140) 96 97.3 12/08/17 10:14 191/96 12/08/17 09:23 91 175/88 12/08/17 09:00 Room Air Room Air 12/08/17 08:07 175/88 12/08/17 08:00 88 12/08/17 08:00 97.5 91 19 175/88 (117) 99 97.5 12/08/17 05:15 166/90 12/08/17 05:15 90 166/90 12/08/17 05:11 166/90 12/08/17 04:11 90 12/08/17 04:00 98.1 96 19 166/90 (115) 94 98.1 12/08/17 02:21 163/88 12/08/17 02:20 94 163/88 12/08/17 00:00 97.5 95 18 153/81 (105) 95 97.5 12/07/17 23:51 93 12/07/17 23:25 95 153/81 12/07/17 23:24 153/81 12/07/17 21:09 86 153/79 12/07/17 21:09 153/79 12/07/17 21:00 Room Air Room Air 12/07/17 20:39 153/79 12/07/17 20:00 98.4 84 18 143/74 (97) 94 98.4 12/07/17 19:16 89 179/99 12/07/17 19:01 87 12/07/17 18:44 179/99 12/07/17 16:48 99 182/83 12/07/17 16:47 182/83 12/07/17 16:00 97.2 99 19 182/83 (116) 95 97.2 12/07/17 16:00 90 I&O Intake and Output 12/07/17 12/08/17 19:00 07:00 Intake Total 75 ml 1028.4 ml Balance 75 ml 1028.4 ml IV Total 75 ml 1028.4 ml # Voids 4 # Bowel Movements 2 Dressing: dry Wound: clean Drains: other Cardiovascular: RSR Respiratory: clear Abdomen: soft, flat, non-tender, present bowel sounds Extremities: no cyanosis Laboratory Tests Test 12/08/17 07:40 White Blood Count 6.4 K/UL (4.8-10.8) Red Blood Count 2.95 M/UL (4.20-5.40) L Hemoglobin 9.8 G/DL (12.0-16.0) L Hematocrit 28.8 % (37.0-47.0) L Mean Corpuscular Volume 98 FL (80-99) Mean Corpuscular Hemoglobin 33.3 PG (27.0-31.0) H Mean Corpuscular Hemoglobin Concent 34.1 G/DL (32.0-36.0) Red Cell Distribution Width 10.0 % (11.6-14.8) L Platelet Count 254 K/UL (150-450) Mean Platelet Volume 4.7 FL (6.5-10.1) L Neutrophils (%) (Auto) 75.8 % (45.0-75.0) H Lymphocytes (%) (Auto) 13.5 % (20.0-45.0) L Monocytes (%) (Auto) 6.2 % (1.0-10.0) Eosinophils (%) (Auto) 4.0 % (0.0-3.0) H Basophils (%) (Auto) 0.6 % (0.0-2.0) Prothrombin Time 11.4 SEC (9.30-11.50) Prothromb Time International Ratio 1.1 (0.9-1.1) Activated Partial Thromboplast Time 27 SEC (23-33) Sodium Level 151 MMOL/L (136-145) H Potassium Level 2.9 MMOL/L (3.5-5.1) L Chloride Level 116 MMOL/L (98-107) H Carbon Dioxide Level 25 MMOL/L (21-32) Anion Gap 11 mmol/L (5-15) Blood Urea Nitrogen 14 mg/dL (7-18) Creatinine 1.0 MG/DL (0.55-1.30) Estimat Glomerular Filtration Rate mL/min (>60) Glucose Level 225 MG/DL (74-106) H Calcium Level 10.7 MG/DL (8.5-10.1) H Plan Problems: (1) Abdominal pain Assessment & Plan: c/o abdominal pain. no n/v/f/c. unsure how long has been having pain. on exam epigastric tenderness with guarding - improved labs reviewed. no leukocytosis. lfts okay etiology unknown gastritis? US reviewed. no GB noted. prior cholecystectomy KUB okay noted to have elevated Calcium level. possible primary hypercalcemia which at such low elevation unlikely to be etiology of agitation and mental status change. PTH noted. thyroid US noted with multiple nodules. patient pulled out recently placed PEG. contrast noted extrav on kub. currently stable since s/p second PEG placement today. as per report no injury from prior peg noted. thank you for this consultation Sourav Tobias Dec 08, 2017 15:37
--- NOTE | 2017-12-08 17:15 | Procedure Note ---
DATE OF PROCEDURE: 12/08/2017 SURGEON: Mayito Alegre M.D. ANESTHESIOLOGIST: Dr. Montano. PROCEDURE: Upper endoscopy with PEG placement. ANESTHESIA: Per Dr. Montano. INSTRUMENT: Olympus adult flexible upper endoscope. INDICATION: The patient had recently pulled the G-tube out. She had a G-tube which was actually fresh, so we decided to completely close. The patient needed another G-tube placement. The procedure, risks, benefits, and possible consequences, including hemorrhage, aspiration, perforation and infection, and alternative treatments, were explained to the patient/legal guardian by Dr. Mayito Alegre and the patient/legal guardian understood and accepted these risks. DESCRIPTION OF PROCEDURE: After informed consent was obtained and the patient was adequately sedated, Olympus upper endoscope was advanced from the mouth into the second portion of duodenum and retroflexion was performed in the stomach. The patient had no evidence of any obvious open hole in the stomach. Then under endoscopic guidance and under sterile condition, a 20-Cymraes pull type of G-tube was successfully placed in the epigastric area. The distance from the tip of the tube to skin was about 2.5 cm in size. The patient tolerated procedure very well without any complication. SUMMARY OF FINDINGS: Status post successful G-tube placement. RECOMMENDATIONS: Abdominal binder. Elevate the head of bed at all times. G-tube flush. G-tube care. Start tube feeding later today. Mayito Alegre M.D. DR: Anu JOB#: [id number] CC:
[2017-12-08 17:56] LABS: PHOSPHORUS 2.2 MG/DL (2.5-4.9)
--- NOTE | 2017-12-08 18:14 | Cardiology Progress Note ---
Assessment/Plan Status: stable Assessment/Plan Assessment: Encephalopathy Hypertension Fall/syncope Hypokalemia Hypercalcemia Diabetes Anemia Plan: Echocardiogram Monitor on telemetry due to abnormal electrolytes which can alter the QT and QRS intervals and lead to arrhythmias s/p PEG x2 Add free water for hypernatremia Zofran prn BP control -Losartan aldactone, metoprolol, GI/DVT ppx Dispo planning to SNF Subjective Cardiovascular: Reports: no symptoms Respiratory: Reports: no symptoms Gastrointestinal/Abdominal: Reports: no symptoms Genitourinary: Reports: no symptoms Subjective Heart rates normal, sinus rhythm, BP better controlled, She is in MAXIME, on restraints, mental status improved, more alert. Patient removed PEG tube, replaced by GI, Dispo planning to SNF NA trending up, will need free water via G tube Objective Last 24 Hour Vital Signs Date Time Temp Pulse Resp B/P (MAP) Pulse Ox O2 Delivery O2 Flow Rate FiO2 12/08/17 18:02 193/105 (134) 12/08/17 17:40 90 139/94 12/08/17 17:35 139/94 12/08/17 16:00 90 12/08/17 16:00 97.8 73 20 139/94 (109) 99 97.8 12/08/17 15:55 96 180/101 12/08/17 14:52 170/105 12/08/17 14:05 98.2 89 23 148/78 100 Nasal Cannula 3 98.2 12/08/17 13:55 88 19 152/68 100 Nasal Cannula 3 12/08/17 13:40 89 19 158/88 19 Nasal Cannula 3 12/08/17 13:27 90 20 169/83 100 Simple Mask 6 12/08/17 13:22 90 19 149/80 100 Simple Mask 6 12/08/17 13:21 208.6 90 18 100 12/08/17 13:20 207.5 91 16 100 12/08/17 13:17 97.8 91 25 145/87 100 Simple Mask 6 97.8 12/08/17 12:00 148/78 12/08/17 12:00 89 148/78 12/08/17 11:30 97.3 104 20 165/128 (140) 96 97.3 12/08/17 10:14 191/96 12/08/17 09:23 91 175/88 12/08/17 09:00 Room Air Room Air 12/08/17 08:07 175/88 12/08/17 08:00 88 12/08/17 08:00 97.5 91 19 175/88 (117) 99 97.5 12/08/17 05:15 166/90 12/08/17 05:15 90 166/90 12/08/17 05:11 166/90 12/08/17 04:11 90 12/08/17 04:00 98.1 96 19 166/90 (115) 94 98.1 12/08/17 02:21 163/88 12/08/17 02:20 94 163/88 12/08/17 00:00 97.5 95 18 153/81 (105) 95 97.5 12/07/17 23:51 93 12/07/17 23:25 95 153/81 12/07/17 23:24 153/81 12/07/17 21:09 86 153/79 12/07/17 21:09 153/79 12/07/17 21:00 Room Air Room Air 12/07/17 20:39 153/79 12/07/17 20:00 98.4 84 18 143/74 (97) 94 98.4 12/07/17 19:16 89 179/99 12/07/17 19:01 87 12/07/17 18:44 179/99 General Appearance: no apparent distress, alert EENT: PERRL/EOMI, normal ENT inspection, TMs normal, pharynx normal Neck: non-tender, normal alignment, supple, normal inspection, no JVD Rhythm: NSR Cardiovascular: normal peripheral pulses, normal rate, regular rhythm Respiratory/Chest: chest wall non-tender, lungs clear, normal breath sounds, no respiratory distress, no accessory muscle use Abdomen: normal bowel sounds, non tender, soft, no organomegaly Extremities: normal range of motion, non-tender, normal inspection Neurologic: stove cleaner II-XII grossly normal, no motor/sensory deficits Intake and Output 12/07/17 12/08/17 19:00 07:00 Intake Total 75 ml 1028.4 ml Balance 75 ml 1028.4 ml IV Total 75 ml 1028.4 ml # Voids 4 # Bowel Movements 2 Laboratory Tests Test 12/08/17 07:40 White Blood Count 6.4 K/UL (4.8-10.8) Red Blood Count 2.95 M/UL (4.20-5.40) L Hemoglobin 9.8 G/DL (12.0-16.0) L Hematocrit 28.8 % (37.0-47.0) L Mean Corpuscular Volume 98 FL (80-99) Mean Corpuscular Hemoglobin 33.3 PG (27.0-31.0) H Mean Corpuscular Hemoglobin Concent 34.1 G/DL (32.0-36.0) Red Cell Distribution Width 10.0 % (11.6-14.8) L Platelet Count 254 K/UL (150-450) Mean Platelet Volume 4.7 FL (6.5-10.1) L Neutrophils (%) (Auto) 75.8 % (45.0-75.0) H Lymphocytes (%) (Auto) 13.5 % (20.0-45.0) L Monocytes (%) (Auto) 6.2 % (1.0-10.0) Eosinophils (%) (Auto) 4.0 % (0.0-3.0) H Basophils (%) (Auto) 0.6 % (0.0-2.0) Prothrombin Time 11.4 SEC (9.30-11.50) Prothromb Time International Ratio 1.1 (0.9-1.1) Activated Partial Thromboplast Time 27 SEC (23-33) Sodium Level 151 MMOL/L (136-145) H Potassium Level 2.9 MMOL/L (3.5-5.1) L Chloride Level 116 MMOL/L (98-107) H Carbon Dioxide Level 25 MMOL/L (21-32) Anion Gap 11 mmol/L (5-15) Blood Urea Nitrogen 14 mg/dL (7-18) Creatinine 1.0 MG/DL (0.55-1.30) Estimat Glomerular Filtration Rate mL/min (>60) Glucose Level 225 MG/DL (74-106) H Calcium Level 10.7 MG/DL (8.5-10.1) H Phosphorus Level 2.2 MG/DL (2.5-4.9) L Magnesium Level 1.5 MG/DL (1.8-2.4) L Lupillo Palomo MD Dec 08, 2017 18:14
--- NOTE | 2017-12-08 22:03 | Neurology Progress Note ---
Interim History Interim History Interim History Ms. Bernardo feels better. She had her G-tube replaced. She is awake and alert. She is still disoriented. Her BP is running high and is not in control. She is able to follow commands inconsistently. She is still significantly encephalopathic. She is still cognitively impoverished. Review of Systems Neuro Review of Systems Unable to obtain. Objective Physical Exam Last Vital Signs Date Time Temp Pulse Resp B/P (MAP) Pulse Ox O2 Delivery O2 Flow Rate FiO2 12/08/17 18:02 193/105 (134) 12/08/17 17:40 90 12/08/17 16:00 97.8 20 99 97.8 12/08/17 14:05 Nasal Cannula 3 12/03/17 21:12 28 Laboratory Tests Test 12/08/17 07:40 White Blood Count 6.4 K/UL (4.8-10.8) Red Blood Count 2.95 M/UL (4.20-5.40) L Hemoglobin 9.8 G/DL (12.0-16.0) L Hematocrit 28.8 % (37.0-47.0) L Mean Corpuscular Volume 98 FL (80-99) Mean Corpuscular Hemoglobin 33.3 PG (27.0-31.0) H Mean Corpuscular Hemoglobin Concent 34.1 G/DL (32.0-36.0) Red Cell Distribution Width 10.0 % (11.6-14.8) L Platelet Count 254 K/UL (150-450) Mean Platelet Volume 4.7 FL (6.5-10.1) L Neutrophils (%) (Auto) 75.8 % (45.0-75.0) H Lymphocytes (%) (Auto) 13.5 % (20.0-45.0) L Monocytes (%) (Auto) 6.2 % (1.0-10.0) Eosinophils (%) (Auto) 4.0 % (0.0-3.0) H Basophils (%) (Auto) 0.6 % (0.0-2.0) Prothrombin Time 11.4 SEC (9.30-11.50) Prothromb Time International Ratio 1.1 (0.9-1.1) Activated Partial Thromboplast Time 27 SEC (23-33) Sodium Level 151 MMOL/L (136-145) H Potassium Level 2.9 MMOL/L (3.5-5.1) L Chloride Level 116 MMOL/L (98-107) H Carbon Dioxide Level 25 MMOL/L (21-32) Anion Gap 11 mmol/L (5-15) Blood Urea Nitrogen 14 mg/dL (7-18) Creatinine 1.0 MG/DL (0.55-1.30) Estimat Glomerular Filtration Rate mL/min (>60) Glucose Level 225 MG/DL (74-106) H Calcium Level 10.7 MG/DL (8.5-10.1) H Phosphorus Level 2.2 MG/DL (2.5-4.9) L Magnesium Level 1.5 MG/DL (1.8-2.4) L Neurologic Exam Objective PHYSICAL EXAMINATION: GENERAL: She is a well-developed, well-nourished, Setswana lady, lying in bed, in no acute distress. HEAD: Normocephalic and atraumatic. EENT: Examination benign. NECK: No neck rigidity was observed. NEUROLOGICAL EXAMINATION: MENTAL STATUS EXAMINATION: She was awake and alert. She was oriented to self and hospital only. Further mental status testing was impossible. SPEECH: She had a mild dysarthria. LANGUAGE: Could not be tested adequately. CRANIAL NERVE EXAMINATION: II: She did blink to threat. She counted fingers. III, IV & : The external ocular movements were present.The pupils were 3 mm in diameter, equal, round, regular, and reactive sluggishly to light. V & VII: The corneal reflexes were present bilaterally. VIII: She was able to hear and had no nystagmus. IX- X: Were not tested. XI: The sternocleidomastoids and trapezii functioned. XII: The tongue was in the midline without any fasciculations or atrophy. MOTOR SYSTEM: The tone was normal in all four extremities. Examination of muscle mass revealed no focal wasting. 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 SENSORY EXAMINATION: She responded appropriately to deep pain. She was unable to cooperate for other sensory modalities. REFLEXES: 0 at the biceps, triceps, brachioradialis, knees, and ankles. The plantar responses were flexor bilaterally. COORDINATION, STANCE & GAIT: Could not be tested. Impression/Recommendations Diagnostic Impression 1. Ms. Chelly Bernardo is a 72-year-old, [place] lady, of unknown handedness, who does have a past history of hypertension and diabetes mellitus, who was hospitalized on 11/21/2017 for an episode of severe hypoglycemia with her blood sugars in the 20s. Since she has been here, she has also been exhibiting significantly elevated blood pressures. Her mental state continued to be quite altered. 2. She feels better. She had her G-tube replaced. She is awake and alert. She is still disoriented. Her BP is running high and is not in control. She is able to follow commands inconsistently. She is still significantly encephalopathic. She is still cognitively impoverished. 3. On neurological examination, at this time, she is awake and alert. She is oriented to self and hospital only. She is still disorganized. Further mental status testing is impossible. She does not demonstrate any focal or lateralizing neurological findings. 4. The CT scan of the brain performed on 11/22/2017 revealed atrophy, but no acute pathology. 5. Laboratory data obtained thus far have revealed that she is mildly anemic, has a borderline low B12 level, and a low folate level but otherwise normal laboratory data. 6. The EEG done on 11/25/17 revealed a moderate metabolic encephalopathy. 7. The MRI of the brain done on 11/27/17 revealed no acute intracranial pathology. Moderate atrophy and chronic small vessel disease involving white matter was seen. 8. Her blood pressures are still fluctuating significantly. 9. The patient's history, neurological examination, imaging studies, and laboratory data are most compatible with an encephalopathy most probably due to a hypoglycemic brain insult, and significant hypertension. Her encephalopathy is waxing and waning. She is less encephalopathic. 10. Even though her electrolytes, blood sugars and blood pressures have been better controlled she is still significantly encephalopathic. 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 Recommendations 1. Continue to keep blood pressure in the physiological range. 2. Continue to keep patient's fluids and electrolytes balanced. 3. Folic acid 1 mg via NGT q day. 4. Vitamin B12 1000 mcg SC monthly. 5. Out of bed in chair. 6. Mobilize with PT/OT. Betina Osullivan M.D., M.BETINA JANE Dec 08, 2017 22:03
--- NOTE | 2017-12-08 23:58 | General Progress Note ---
Assessment/Plan Problem List: (1) Encephalopathy acute ICD Codes: G93.40 - Encephalopathy, unspecified SNOMED: 20575152, [id number] Assessment/Plan restraints soft no meds Subjective Date patient seen: Dec 08, 2017 Neurologic/Psychiatric: Reports: anxiety, depressed, emotional problems Allergies: Coded Allergies: No Known Allergies (Unverified , 11/21/17) Subjective the pt was agitated was able to answer the questions. Objective Last 24 Hour Vital Signs Date Time Temp Pulse Resp B/P (MAP) Pulse Ox O2 Delivery O2 Flow Rate FiO2 12/08/17 23:34 175/109 12/08/17 21:53 89 175/109 12/08/17 21:52 175/109 12/08/17 18:02 193/105 (134) 12/08/17 17:40 90 139/94 12/08/17 17:35 139/94 12/08/17 16:00 90 12/08/17 16:00 97.8 73 20 139/94 (109) 99 97.8 12/08/17 15:55 96 180/101 12/08/17 14:52 170/105 12/08/17 14:05 98.2 89 23 148/78 100 Nasal Cannula 3 98.2 12/08/17 13:55 88 19 152/68 100 Nasal Cannula 3 12/08/17 13:40 89 19 158/88 19 Nasal Cannula 3 12/08/17 13:27 90 20 169/83 100 Simple Mask 6 12/08/17 13:22 90 19 149/80 100 Simple Mask 6 12/08/17 13:21 208.6 90 18 100 12/08/17 13:20 207.5 91 16 100 12/08/17 13:17 97.8 91 25 145/87 100 Simple Mask 6 97.8 12/08/17 12:00 148/78 12/08/17 12:00 89 148/78 12/08/17 11:30 97.3 104 20 165/128 (140) 96 97.3 12/08/17 10:14 191/96 12/08/17 09:23 91 175/88 12/08/17 09:00 Room Air Room Air 12/08/17 08:07 175/88 12/08/17 08:00 88 12/08/17 08:00 97.5 91 19 175/88 (117) 99 97.5 12/08/17 05:15 166/90 12/08/17 05:15 90 166/90 12/08/17 05:11 166/90 12/08/17 04:11 90 12/08/17 04:00 98.1 96 19 166/90 (115) 94 98.1 12/08/17 02:21 163/88 12/08/17 02:20 94 163/88 12/08/17 00:00 97.5 95 18 153/81 (105) 95 97.5 Intake and Output 12/07/17 12/08/17 19:00 07:00 Intake Total 75 ml 1028.4 ml Balance 75 ml 1028.4 ml IV Total 75 ml 1028.4 ml # Voids 4 # Bowel Movements 2 Laboratory Tests 12/08/17 07:40: White Blood Count 6.4, Red Blood Count 2.95L, Hemoglobin 9.8L, Hematocrit 28.8L , Mean Corpuscular Volume 98, Mean Corpuscular Hemoglobin 33.3H, Mean Corpuscular Hemoglobin Concent 34.1, Red Cell Distribution Width 10.0L, Platelet Count 254, Mean Platelet Volume 4.7L, Neutrophils (%) (Auto) 75.8H, Lymphocytes (%) (Auto) 13.5L, Monocytes (%) (Auto) 6.2, Eosinophils (%) (Auto) 4.0H, Basophils (%) (Auto) 0.6, Prothrombin Time 11.4, Prothromb Time International Ratio 1.1, Activated Partial Thromboplast Time 27, Sodium Level 151H, Potassium Level 2.9L, Chloride Level 116H, Carbon Dioxide Level 25, Anion Gap 11, Blood Urea Nitrogen 14, Creatinine 1.0, Estimat Glomerular Filtration Rate , Glucose Level 225H, Calcium Level 10.7H, Phosphorus Level 2.2L, Magnesium Level 1.5L Height (Feet): 5 Height (Inches): 1.00 Weight (Pounds): 113 General Appearance: alert, confused, agitated Lacey Matthews MD Dec 08, 2017 23:58
--- NOTE | 2017-12-08 23:59 | Psych Consult Progress Note ---
Psych Consult Progress Note Consult 12/07/17 restraints soft no meds Vital Signs Last 24 Hour Vital Signs Date Time Temp Pulse Resp B/P (MAP) Pulse Ox O2 Delivery O2 Flow Rate FiO2 12/08/17 23:34 175/109 12/08/17 21:53 89 175/109 12/08/17 21:52 175/109 12/08/17 18:02 193/105 (134) 12/08/17 17:40 90 139/94 12/08/17 17:35 139/94 12/08/17 16:00 90 12/08/17 16:00 97.8 73 20 139/94 (109) 99 97.8 12/08/17 15:55 96 180/101 12/08/17 14:52 170/105 12/08/17 14:05 98.2 89 23 148/78 100 Nasal Cannula 3 98.2 12/08/17 13:55 88 19 152/68 100 Nasal Cannula 3 12/08/17 13:40 89 19 158/88 19 Nasal Cannula 3 12/08/17 13:27 90 20 169/83 100 Simple Mask 6 12/08/17 13:22 90 19 149/80 100 Simple Mask 6 12/08/17 13:21 208.6 90 18 100 12/08/17 13:20 207.5 91 16 100 12/08/17 13:17 97.8 91 25 145/87 100 Simple Mask 6 97.8 12/08/17 12:00 148/78 12/08/17 12:00 89 148/78 12/08/17 11:30 97.3 104 20 165/128 (140) 96 97.3 12/08/17 10:14 191/96 12/08/17 09:23 91 175/88 12/08/17 09:00 Room Air Room Air 12/08/17 08:07 175/88 12/08/17 08:00 88 12/08/17 08:00 97.5 91 19 175/88 (117) 99 97.5 12/08/17 05:15 166/90 12/08/17 05:15 90 166/90 12/08/17 05:11 166/90 12/08/17 04:11 90 12/08/17 04:00 98.1 96 19 166/90 (115) 94 98.1 12/08/17 02:21 163/88 12/08/17 02:20 94 163/88 12/08/17 00:00 97.5 95 18 153/81 (105) 95 97.5 Labs Laboratory Tests Test 12/08/17 07:40 White Blood Count 6.4 K/UL (4.8-10.8) Red Blood Count 2.95 M/UL (4.20-5.40) L Hemoglobin 9.8 G/DL (12.0-16.0) L Hematocrit 28.8 % (37.0-47.0) L Mean Corpuscular Volume 98 FL (80-99) Mean Corpuscular Hemoglobin 33.3 PG (27.0-31.0) H Mean Corpuscular Hemoglobin Concent 34.1 G/DL (32.0-36.0) Red Cell Distribution Width 10.0 % (11.6-14.8) L Platelet Count 254 K/UL (150-450) Mean Platelet Volume 4.7 FL (6.5-10.1) L Neutrophils (%) (Auto) 75.8 % (45.0-75.0) H Lymphocytes (%) (Auto) 13.5 % (20.0-45.0) L Monocytes (%) (Auto) 6.2 % (1.0-10.0) Eosinophils (%) (Auto) 4.0 % (0.0-3.0) H Basophils (%) (Auto) 0.6 % (0.0-2.0) Prothrombin Time 11.4 SEC (9.30-11.50) Prothromb Time International Ratio 1.1 (0.9-1.1) Activated Partial Thromboplast Time 27 SEC (23-33) Sodium Level 151 MMOL/L (136-145) H Potassium Level 2.9 MMOL/L (3.5-5.1) L Chloride Level 116 MMOL/L (98-107) H Carbon Dioxide Level 25 MMOL/L (21-32) Anion Gap 11 mmol/L (5-15) Blood Urea Nitrogen 14 mg/dL (7-18) Creatinine 1.0 MG/DL (0.55-1.30) Estimat Glomerular Filtration Rate mL/min (>60) Glucose Level 225 MG/DL (74-106) H Calcium Level 10.7 MG/DL (8.5-10.1) H Phosphorus Level 2.2 MG/DL (2.5-4.9) L Magnesium Level 1.5 MG/DL (1.8-2.4) L Medications Current Medications Medications (Trade) Dose Ordered Sig/Atilio Route PRN Reason Start Time Stop Time Status Last Admin Dose Admin Clonidine HCl (Catapres tab) 0.2 mg EVERY 8 HOURS GT 12/05/17 14:00 01/04/18 06:15 12/08/17 23:34 Dextrose (Dextrose 50%) 25 ml Q30M PRN IV Hypoglycemia 12/03/17 20:30 12/26/17 13:57 Dextrose (Dextrose 50%) 50 ml Q30M PRN IV hypoglycemia 12/03/17 20:30 12/26/17 13:57 Hydralazine HCl (Apresoline) 10 mg Q3H IV 12/07/17 18:00 01/06/18 17:59 12/08/17 21:52 Hydralazine HCl (Apresoline) 10 mg Q4H PRN IV For High Blood Pressure 12/03/17 20:30 01/02/18 20:29 12/07/17 11:12 Insulin Aspart (NovoLOG) EVERY 6 HOURS SUBQ 12/04/17 00:00 12/21/17 16:29 12/07/17 06:10 Labetalol HCl (Normodyne) 4 mg Q3H IV 12/07/17 21:00 01/06/18 20:59 12/08/17 21:53 Lorazepam (Ativan 2mg/ml 1ml) 1 mg Q4H PRN IM Agitation 12/04/17 19:15 12/11/17 19:14 12/07/17 16:47 Morphine Sulfate (Morphine Sulfate) 2 mg Q4H PRN IVP For Pain 12/05/17 12:28 12/12/17 12:27 Ondansetron HCl (Zofran) 4 mg Q6H PRN IVP Nausea & Vomiting 12/03/17 20:30 01/02/18 20:29 Piperacillin Sod/ Tazobactam Sod 3.375 gm/Sodium Chloride 110 ml @ 27.5 mls/hr Q8H IVPB 12/05/17 18:00 12/12/17 17:59 12/08/17 17:36 Sodium Chloride 1,000 ml @ 75 mls/hr [id number] IV 12/08/17 17:00 01/07/18 16:59 12/08/17 16:55 Problems: (1) Encephalopathy acute Status: Acute Lacey Matthews MD Dec 08, 2017 23:59
[2017-12-09] VITALS: BP 190/99
[2017-12-09] MEDS: Labetalol 5mg/ml 20ml vial IV SCH ×4 (00:33→09:36)
[2017-12-09] MEDS: NovoLOG Insulin Flexpen SUBQ SCH ×3 (00:35→12:47)
[2017-12-09] MEDS: Piperacillin/Tazobactam 3.375 GM in NS 110 ML IVPB SCH ×2 (02:27→10:58)
[2017-12-09 04:00] VITALS: BP 162/82
[2017-12-09] MEDS ORDERED: NS IV ONE ×2 (05:15→09:00)
[2017-12-09] MEDS ORDERED: POTASSIUM PHOSPHATE IV ONE ×2 (05:15→09:00)
[2017-12-09] MEDS: cloNIDine 0.2mg Tab GT SCH ×2 (06:42→14:33)
[2017-12-09 07:24] LABS: BASOPHILS % (AUTO) 0.5 % (0.0-2.0); EOSINOPHILS % (AUTO) 0.2 % (0.0-3.0); HEMATOCRIT 28.7 % (37.0-47.0); HEMOGLOBIN 10.3 G/DL (12.0-16.0); LYMPHOCYTES % (AUTO) 15.4 % (20.0-45.0); MEAN CORPUSCULAR VOLUME 98 FL (80-99); MONOCYTES % (AUTO) 6.5 % (1.0-10.0); NEUTROPHILS % (AUTO) 77.4 % (45.0-75.0); PLATELET COUNT 233 K/UL (150-450); RED BLOOD COUNT 2.93 M/UL (4.20-5.40); RED CELL DISTRIBUTION WIDTH 9.8 % (11.6-14.8); WHITE BLOOD COUNT 6.8 K/UL (4.8-10.8)
[2017-12-09 07:33] LABS: ANION GAP 11 mmol/L (5-15); BLOOD UREA NITROGEN 18 mg/dL (7-18); CALCIUM 10.9 MG/DL (8.5-10.1); CARBON DIOXIDE 22 MMOL/L (21-32); CHLORIDE 115 MMOL/L (98-107); POTASSIUM 3.2 MMOL/L (3.5-5.1); SODIUM 148 MMOL/L (136-145)
[2017-12-09 08:00] VITALS: BP 153/83
--- NOTE | 2017-12-09 08:58 | Nephrology Progress Note ---
Assessment/Plan Assessment/Plan A/P 1) HTN Urgency- resolved. Start po meds thru GTube 2) Tachycardia- being managed by cardiology on propanolol 3) DVT prophylaxsis with SCDs 4) Encephalopathy- Patient was confused prior to admission (multiple bruises from falling at time of admission). reason for admission was confusion/ hypoglycemia - patient has metabolic encephalopathy due to prolonged hypoglycemic events prior to hospitilization. BP very well controlled The degree of recovery is difficult to predic but patient seems to be slowly improving 6) Hypercal- elevated PTH, sensipar once GTube cleared for use GTube replaced. Once cleared for use will DC patient Subjective Date patient seen: Dec 09, 2017 Time patient seen: 08:52 ROS Limited/Unobtainable: Yes Allergies: Coded Allergies: No Known Allergies (Unverified , 11/21/17) Subjective Patient confused but more coherent and participating with PT Objective Last 24 Hour Vital Signs Date Time Temp Pulse Resp B/P (MAP) Pulse Ox O2 Delivery O2 Flow Rate FiO2 12/09/17 08:00 97.9 81 20 153/83 (106) 96 97.9 12/09/17 06:42 182/98 12/09/17 06:20 182/98 12/09/17 06:20 90 182/98 12/09/17 04:15 162/82 12/09/17 04:00 97.5 83 20 162/82 (108) 95 97.5 12/09/17 04:00 84 12/09/17 03:21 184/106 12/09/17 03:21 83 184/106 12/09/17 00:33 190/99 12/09/17 00:33 92 190/99 12/09/17 00:00 97.5 89 20 190/99 (129) 97 97.5 12/09/17 00:00 88 12/08/17 23:34 175/109 12/08/17 21:53 89 175/109 12/08/17 21:52 175/109 12/08/17 21:00 Room Air Room Air 12/08/17 20:00 97.5 88 20 175/109 (131) 97 97.5 12/08/17 20:00 88 12/08/17 18:02 193/105 (134) 12/08/17 17:40 90 139/94 12/08/17 17:35 139/94 10/8/18 16:00 90 12/08/17 16:00 97.8 73 20 139/94 (109) 99 97.8 12/08/17 15:55 96 180/101 12/08/17 14:52 170/105 12/08/17 14:05 98.2 89 23 148/78 100 Nasal Cannula 3 98.2 12/08/17 13:55 88 19 152/68 100 Nasal Cannula 3 12/08/17 13:40 89 19 158/88 19 Nasal Cannula 3 12/08/17 13:27 90 20 169/83 100 Simple Mask 6 12/08/17 13:22 90 19 149/80 100 Simple Mask 6 12/08/17 13:21 208.6 90 18 100 12/08/17 13:20 207.5 91 16 100 12/08/17 13:17 97.8 91 25 145/87 100 Simple Mask 6 97.8 12/08/17 12:00 148/78 12/08/17 12:00 89 148/78 12/08/17 11:30 97.3 104 20 165/128 (140) 96 97.3 12/08/17 10:14 191/96 12/08/17 09:23 91 175/88 12/08/17 09:00 Room Air Room Air Intake and Output 12/08/17 12/09/17 19:00 07:00 Intake Total 1457.5 ml 675 ml Balance 1457.5 ml 675 ml IV Total 1457.5 ml 675 ml # Voids 1 7 Laboratory Tests 12/09/17 06:50: White Blood Count 6.8, Red Blood Count 2.93L, Hemoglobin 10.3L, Hematocrit 28.7L , Mean Corpuscular Volume 98, Mean Corpuscular Hemoglobin 35.1H, Mean Corpuscular Hemoglobin Concent 35.9, Red Cell Distribution Width 9.8L, Platelet Count 233, Mean Platelet Volume 4.6L, Neutrophils (%) (Auto) 77.4H, Lymphocytes (%) (Auto) 15.4L, Monocytes (%) (Auto) 6.5, Eosinophils (%) (Auto) 0.2, Basophils (%) (Auto) 0.5, Sodium Level 148H, Potassium Level 3.2L, Chloride Level 115H, Carbon Dioxide Level 22, Anion Gap 11, Blood Urea Nitrogen 18, Creatinine 1.0, Estimat Glomerular Filtration Rate , Glucose Level 163H, Calcium Level 10.9H Height (Feet): 5 Height (Inches): 1.00 Weight (Pounds): 113 General Appearance: no apparent distress EENT: normal ENT inspection Neck: normal alignment, supple Cardiovascular: normal rate, regular rhythm Respiratory/Chest: lungs clear, normal breath sounds Abdomen: non tender, soft Edema: no edema noted Arm (L), no edema noted Arm (R), no edema noted Leg (L), no edema noted Leg (R), no edema noted Pedal (L), no edema noted Pedal (R), no edema noted Generalized Vinh Winston MD Dec 09, 2017 08:58
--- NOTE | 2017-12-09 10:46 | Diagnostic Imaging Report ---
Indication: Dyspnea Comparison: None A single view chest radiograph was obtained. Findings: No definite infiltrate or pulmonary vascular congestion identified. The heart is enlarged. The aorta is mildly enlarged consistent with atherosclerotic vascular disease. The bones are osteopenic. Impression: No acute disease
--- NOTE | 2017-12-09 10:54 | Diagnostic Imaging Report ---
Indication: Gastrostomy check Comparison: None Single view of the abdomen obtained Findings: Contrast is seen within the stomach. The gastrostomy balloon is projected over the mid body in good position. There is no evidence of extraluminal contrast. IMPRESSION: Unremarkable gastrostomy
[2017-12-09] MEDS: Phospha 250 Neutral tab GT SCH ×2 (10:59→12:43)
--- NOTE | 2017-12-09 11:36 | General Progress Note ---
Assessment/Plan Problem List: (1) Encephalopathy acute ICD Codes: G93.40 - Encephalopathy, unspecified SNOMED: [id number], [id number] Status: unchanged Assessment/Plan restraints soft no meds d/w son Subjective Date patient seen: Dec 09, 2017 Neurologic/Psychiatric: Reports: anxiety, depressed, emotional problems Allergies: Coded Allergies: No Known Allergies (Unverified , 11/21/17) Subjective the pt was agitated and is the same. the pt is unable to participate in exam Objective Last 24 Hour Vital Signs Date Time Temp Pulse Resp B/P (MAP) Pulse Ox O2 Delivery O2 Flow Rate FiO2 12/09/17 09:36 81 153/83 12/09/17 09:09 153/83 12/09/17 09:00 Room Air Room Air 12/09/17 08:00 97.9 81 20 153/83 (106) 96 97.9 12/09/17 06:42 182/98 12/09/17 06:20 182/98 12/09/17 06:20 90 182/98 12/09/17 04:15 162/82 12/09/17 04:00 97.5 83 20 162/82 (108) 95 97.5 12/09/17 04:00 84 12/09/17 03:21 184/106 12/09/17 03:21 83 184/106 12/09/17 00:33 190/99 12/09/17 00:33 92 190/99 12/09/17 00:00 97.5 89 20 190/99 (129) 97 97.5 12/09/17 00:00 88 12/08/17 23:34 175/109 12/08/17 21:53 89 175/109 12/08/17 21:52 175/109 12/08/17 21:00 Room Air Room Air 12/08/17 20:00 97.5 88 20 175/109 (131) 97 97.5 12/08/17 20:00 88 12/08/17 18:02 193/105 (134) 12/08/17 17:40 90 139/94 12/08/17 17:35 139/94 12/08/17 16:00 90 12/08/17 16:00 97.8 73 20 139/94 (109) 99 97.8 12/08/17 15:55 96 180/101 12/08/17 14:52 170/105 12/08/17 14:05 98.2 89 23 148/78 100 Nasal Cannula 3 98.2 12/08/17 13:55 88 19 152/68 100 Nasal Cannula 3 12/08/17 13:40 89 19 158/88 19 Nasal Cannula 3 12/08/17 13:27 90 20 169/83 100 Simple Mask 6 12/08/17 13:22 90 19 149/80 100 Simple Mask 6 12/08/17 13:21 208.6 90 18 100 12/08/17 13:20 207.5 91 16 100 12/08/17 13:17 97.8 91 25 145/87 100 Simple Mask 6 97.8 12/08/17 12:00 148/78 12/08/17 12:00 89 148/78 Intake and Output 12/08/17 12/09/17 19:00 07:00 Intake Total 1457.5 ml 675 ml Balance 1457.5 ml 675 ml IV Total 1457.5 ml 675 ml # Voids 1 7 Laboratory Tests 12/09/17 06:50: White Blood Count 6.8, Red Blood Count 2.93L, Hemoglobin 10.3L, Hematocrit 28.7L , Mean Corpuscular Volume 98, Mean Corpuscular Hemoglobin 35.1H, Mean Corpuscular Hemoglobin Concent 35.9, Red Cell Distribution Width 9.8L, Platelet Count 233, Mean Platelet Volume 4.6L, Neutrophils (%) (Auto) 77.4H, Lymphocytes (%) (Auto) 15.4L, Monocytes (%) (Auto) 6.5, Eosinophils (%) (Auto) 0.2, Basophils (%) (Auto) 0.5, Sodium Level 148H, Potassium Level 3.2L, Chloride Level 115H, Carbon Dioxide Level 22, Anion Gap 11, Blood Urea Nitrogen 18, Creatinine 1.0, Estimat Glomerular Filtration Rate , Glucose Level 163H, Calcium Level 10.9H Height (Feet): 5 Height (Inches): 1.00 Weight (Pounds): 113 General Appearance: alert, confused, agitated Lacey Matthews MD Dec 09, 2017 11:36
[2017-12-09 12:00] VITALS: BP 177/91
[2017-12-09] MEDS ORDERED: Metoprolol Tartrate 50mg tab GT SCH ×2 (12:40)
[2017-12-09] MEDS ORDERED: LORazepam Inj 2mg/ml 1ml IM PRN (12:45)
[2017-12-09] MEDS ORDERED: Losartan 50mg tab GT SCH ×2 (13:00)
--- NOTE | 2017-12-09 13:21 | General Surgery Progress Note ---
General Surgery-Progress Note Subjective Additional Comments no acute events. stable. Objective Last 24 Hour Vital Signs Date Time Temp Pulse Resp B/P (MAP) Pulse Ox O2 Delivery O2 Flow Rate FiO2 12/09/17 12:42 177/91 12/09/17 12:41 70 177/91 12/09/17 12:00 97.9 70 20 177/91 (119) 98 97.9 12/09/17 09:36 81 153/83 12/09/17 09:09 153/83 12/09/17 09:00 Room Air Room Air 12/09/17 08:00 97.9 81 20 153/83 (106) 96 97.9 12/09/17 06:42 182/98 12/09/17 06:20 182/98 12/09/17 06:20 90 182/98 12/09/17 04:15 162/82 12/09/17 04:00 97.5 83 20 162/82 (108) 95 97.5 12/09/17 04:00 84 12/09/17 03:21 184/106 12/09/17 03:21 83 184/106 12/09/17 00:33 190/99 12/09/17 00:33 92 190/99 12/09/17 00:00 97.5 89 20 190/99 (129) 97 97.5 12/09/17 00:00 88 12/08/17 23:34 175/109 12/08/17 21:53 89 175/109 12/08/17 21:52 175/109 12/08/17 21:00 Room Air Room Air 12/08/17 20:00 97.5 88 20 175/109 (131) 97 97.5 12/08/17 20:00 88 12/08/17 18:02 193/105 (134) 12/08/17 17:40 90 139/94 12/08/17 17:35 139/94 12/08/17 16:00 90 12/08/17 16:00 97.8 73 20 139/94 (109) 99 97.8 12/08/17 15:55 96 180/101 12/08/17 14:52 170/105 12/08/17 14:05 98.2 89 23 148/78 100 Nasal Cannula 3 98.2 12/08/17 13:55 88 19 152/68 100 Nasal Cannula 3 10/8/18 13:40 89 19 158/88 19 Nasal Cannula 3 12/08/17 13:27 90 20 169/83 100 Simple Mask 6 12/08/17 13:22 90 19 149/80 100 Simple Mask 6 12/08/17 13:21 208.6 90 18 100 I&O Intake and Output 12/08/17 12/09/17 19:00 07:00 Intake Total 1457.5 ml 675 ml Balance 1457.5 ml 675 ml IV Total 1457.5 ml 675 ml # Voids 1 7 Dressing: dry Wound: clean, dry Drains: other Cardiovascular: RSR Respiratory: clear Abdomen: soft, flat, present bowel sounds Extremities: no cyanosis Laboratory Tests Test 12/09/17 06:50 White Blood Count 6.8 K/UL (4.8-10.8) Red Blood Count 2.93 M/UL (4.20-5.40) L Hemoglobin 10.3 G/DL (12.0-16.0) L Hematocrit 28.7 % (37.0-47.0) L Mean Corpuscular Volume 98 FL (80-99) Mean Corpuscular Hemoglobin 35.1 PG (27.0-31.0) H Mean Corpuscular Hemoglobin Concent 35.9 G/DL (32.0-36.0) Red Cell Distribution Width 9.8 % (11.6-14.8) L Platelet Count 233 K/UL (150-450) Mean Platelet Volume 4.6 FL (6.5-10.1) L Neutrophils (%) (Auto) 77.4 % (45.0-75.0) H Lymphocytes (%) (Auto) 15.4 % (20.0-45.0) L Monocytes (%) (Auto) 6.5 % (1.0-10.0) Eosinophils (%) (Auto) 0.2 % (0.0-3.0) Basophils (%) (Auto) 0.5 % (0.0-2.0) Sodium Level 148 MMOL/L (136-145) H Potassium Level 3.2 MMOL/L (3.5-5.1) L Chloride Level 115 MMOL/L (98-107) H Carbon Dioxide Level 22 MMOL/L (21-32) Anion Gap 11 mmol/L (5-15) Blood Urea Nitrogen 18 mg/dL (7-18) Creatinine 1.0 MG/DL (0.55-1.30) Estimat Glomerular Filtration Rate mL/min (>60) Glucose Level 163 MG/DL (74-106) H Calcium Level 10.9 MG/DL (8.5-10.1) H Plan Problems: (1) Abdominal pain Assessment & Plan: c/o abdominal pain. no n/v/f/c. unsure how long has been having pain. on exam epigastric tenderness with guarding - improved labs reviewed. no leukocytosis. lfts okay etiology unknown gastritis? US reviewed. no GB noted. prior cholecystectomy KUB okay noted to have elevated Calcium level. possible primary hypercalcemia which at such low elevation unlikely to be etiology of agitation and mental status change. PTH noted. thyroid US noted with multiple nodules. patient pulled out recently placed PEG. contrast noted extrav on kub. currently stable since s/p second PEG placement today. as per report no injury from prior peg noted. feeding as tolerated okay to d/c from surgical standpoint thank you for this consultation Sourav Tobias Dec 09, 2017 13:21
--- NOTE | 2017-12-09 13:55 | Cardiology Progress Note ---
Assessment/Plan Status: stable Assessment/Plan Assessment: Encephalopathy Hypertension Fall/syncope Hypokalemia Hypercalcemia Diabetes Anemia Plan: Echocardiogram Monitor on telemetry due to abnormal electrolytes which can alter the QT and QRS intervals and lead to arrhythmias s/p PEG x2 Add free water for hypernatremia Zofran prn BP control -Losartan aldactone, metoprolol, GI/DVT ppx Dispo planning to SNF Subjective Subjective Heart rates normal, sinus rhythm, BP better controlled, She is in MAXIME, off restraints, mental status improved, more alert. Patient removed PEG tube, replaced by GI, Dispo planning to SNF NA trending up, will need free water via G tube--> now improved Abx stopped, G tube feeds restarted plan to d/c to SNF Objective Last 24 Hour Vital Signs Date Time Temp Pulse Resp B/P (MAP) Pulse Ox O2 Delivery O2 Flow Rate FiO2 12/09/17 12:42 177/91 12/09/17 12:41 70 177/91 12/09/17 12:00 97.9 70 20 177/91 (119) 98 97.9 12/09/17 09:36 81 153/83 12/09/17 09:09 153/83 12/09/17 09:00 Room Air Room Air 12/09/17 08:00 97.9 81 20 153/83 (106) 96 97.9 12/09/17 06:42 182/98 12/09/17 06:20 182/98 12/09/17 06:20 90 182/98 12/09/17 04:15 162/82 12/09/17 04:00 97.5 83 20 162/82 (108) 95 97.5 12/09/17 04:00 84 12/09/17 03:21 184/106 12/09/17 03:21 83 184/106 12/09/17 00:33 190/99 12/09/17 00:33 92 190/99 12/09/17 00:00 97.5 89 20 190/99 (129) 97 97.5 12/09/17 00:00 88 12/08/17 23:34 175/109 12/08/17 21:53 89 175/109 12/08/17 21:52 175/109 12/08/17 21:00 Room Air Room Air 12/08/17 20:00 97.5 88 20 175/109 (131) 97 97.5 12/08/17 20:00 88 12/08/17 18:02 193/105 (134) 12/08/17 17:40 90 139/94 12/08/17 17:35 139/94 12/08/17 16:00 90 12/08/17 16:00 97.8 73 20 139/94 (109) 99 97.8 12/08/17 15:55 96 180/101 12/08/17 14:52 170/105 12/08/17 14:05 98.2 89 23 148/78 100 Nasal Cannula 3 98.2 12/08/17 13:55 88 19 152/68 100 Nasal Cannula 3 General Appearance: no apparent distress, mild distress EENT: PERRL/EOMI, normal ENT inspection, TMs normal, pharynx normal Neck: non-tender, normal alignment, supple, normal inspection, no JVD Rhythm: NSR Cardiovascular: normal peripheral pulses, normal rate, regular rhythm Respiratory/Chest: chest wall non-tender, lungs clear Abdomen: normal bowel sounds, non tender, soft Extremities: normal range of motion, non-tender, normal inspection 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 II-XII grossly normal Intake and Output 12/08/17 12/09/17 19:00 07:00 Intake Total 1457.5 ml 675 ml Balance 1457.5 ml 675 ml IV Total 1457.5 ml 675 ml # Voids 1 7 Laboratory Tests Test 12/09/17 06:50 White Blood Count 6.8 K/UL (4.8-10.8) Red Blood Count 2.93 M/UL (4.20-5.40) L Hemoglobin 10.3 G/DL (12.0-16.0) L Hematocrit 28.7 % (37.0-47.0) L Mean Corpuscular Volume 98 FL (80-99) Mean Corpuscular Hemoglobin 35.1 PG (27.0-31.0) H Mean Corpuscular Hemoglobin Concent 35.9 G/DL (32.0-36.0) Red Cell Distribution Width 9.8 % (11.6-14.8) L Platelet Count 233 K/UL (150-450) Mean Platelet Volume 4.6 FL (6.5-10.1) L Neutrophils (%) (Auto) 77.4 % (45.0-75.0) H Lymphocytes (%) (Auto) 15.4 % (20.0-45.0) L Monocytes (%) (Auto) 6.5 % (1.0-10.0) Eosinophils (%) (Auto) 0.2 % (0.0-3.0) Basophils (%) (Auto) 0.5 % (0.0-2.0) Sodium Level 148 MMOL/L (136-145) H Potassium Level 3.2 MMOL/L (3.5-5.1) L Chloride Level 115 MMOL/L (98-107) H Carbon Dioxide Level 22 MMOL/L (21-32) Anion Gap 11 mmol/L (5-15) Blood Urea Nitrogen 18 mg/dL (7-18) Creatinine 1.0 MG/DL (0.55-1.30) Estimat Glomerular Filtration Rate mL/min (>60) Glucose Level 163 MG/DL (74-106) H Calcium Level 10.9 MG/DL (8.5-10.1) H Lupillo Palomo MD Dec 09, 2017 13:55
--- NOTE | 2017-12-09 14:19 | GI Progress Note ---
Assessment/Plan Problems: (1) Abdominal pain ICD Codes: R10.9 - Unspecified abdominal pain SNOMED: 43693980 Qualifiers: Qualified Codes: R10.13 - Epigastric pain (2) Hypoglycemia associated with type 2 diabetes mellitus ICD Codes: E11.649 - Type 2 diabetes mellitus with hypoglycemia without coma SNOMED: 18332710, 045334832 (3) Encephalopathy acute ICD Codes: G93.40 - Encephalopathy, unspecified SNOMED: 50550896, 295698874 Status: stable Status Narrative Discussed with Dr. Alegre. Assessment/Plan Status post successful G-tube placement. f/u KUB reviewed >> no extraluminal leakage Recommendations ok to start feedings okay for DC per GI standpoint Abdominal binder. Elevate the head of bed at all times. G-tube flush. G-tube care. Start tube feeding later today. DM management BP management zofran prn prn transfusions The patient was seen and examined at bedside and all new and available data was reviewed in the patients chart. I agree with the above findings, impression and plan. (Patient seen earlier today. Signature stamp does not reflect patient encounter time.). - Mayito Alegre MD Subjective Subjective limited Objective Last 24 Hour Vital Signs Date Time Temp Pulse Resp B/P (MAP) Pulse Ox O2 Delivery O2 Flow Rate FiO2 12/09/17 12:42 177/91 12/09/17 12:41 70 177/91 12/09/17 12:00 97.9 70 20 177/91 (119) 98 97.9 12/09/17 09:36 81 153/83 12/09/17 09:09 153/83 12/09/17 09:00 Room Air Room Air 12/09/17 08:00 97.9 81 20 153/83 (106) 96 97.9 12/09/17 06:42 182/98 12/09/17 06:20 182/98 12/09/17 06:20 90 182/98 12/09/17 04:15 162/82 12/09/17 04:00 97.5 83 20 162/82 (108) 95 97.5 12/09/17 04:00 84 12/09/17 03:21 184/106 12/09/17 03:21 83 184/106 12/09/17 00:33 190/99 12/09/17 00:33 92 190/99 12/09/17 00:00 97.5 89 20 190/99 (129) 97 97.5 12/09/17 00:00 88 12/08/17 23:34 175/109 12/08/17 21:53 89 175/109 12/08/17 21:52 175/109 12/08/17 21:00 Room Air Room Air 12/08/17 20:00 97.5 88 20 175/109 (131) 97 97.5 12/08/17 20:00 88 12/08/17 18:02 193/105 (134) 12/08/17 17:40 90 139/94 12/08/17 17:35 139/94 12/08/17 16:00 90 12/08/17 16:00 97.8 73 20 139/94 (109) 99 97.8 12/08/17 15:55 96 180/101 12/08/17 14:52 170/105 Intake and Output 12/08/17 12/09/17 19:00 07:00 Intake Total 1457.5 ml 675 ml Balance 1457.5 ml 675 ml IV Total 1457.5 ml 675 ml # Voids 1 7 Laboratory Tests Test 12/09/17 06:50 White Blood Count 6.8 K/UL (4.8-10.8) Red Blood Count 2.93 M/UL (4.20-5.40) L Hemoglobin 10.3 G/DL (12.0-16.0) L Hematocrit 28.7 % (37.0-47.0) L Mean Corpuscular Volume 98 FL (80-99) Mean Corpuscular Hemoglobin 35.1 PG (27.0-31.0) H Mean Corpuscular Hemoglobin Concent 35.9 G/DL (32.0-36.0) Red Cell Distribution Width 9.8 % (11.6-14.8) L Platelet Count 233 K/UL (150-450) Mean Platelet Volume 4.6 FL (6.5-10.1) L Neutrophils (%) (Auto) 77.4 % (45.0-75.0) H Lymphocytes (%) (Auto) 15.4 % (20.0-45.0) L Monocytes (%) (Auto) 6.5 % (1.0-10.0) Eosinophils (%) (Auto) 0.2 % (0.0-3.0) Basophils (%) (Auto) 0.5 % (0.0-2.0) Sodium Level 148 MMOL/L (136-145) H Potassium Level 3.2 MMOL/L (3.5-5.1) L Chloride Level 115 MMOL/L (98-107) H Carbon Dioxide Level 22 MMOL/L (21-32) Anion Gap 11 mmol/L (5-15) Blood Urea Nitrogen 18 mg/dL (7-18) Creatinine 1.0 MG/DL (0.55-1.30) Estimat Glomerular Filtration Rate mL/min (>60) Glucose Level 163 MG/DL (74-106) H Calcium Level 10.9 MG/DL (8.5-10.1) H Height (Feet): 5 Height (Inches): 1.00 Weight (Pounds): 113 General Appearance: WD/WN, no apparent distress, alert Cardiovascular: normal rate Respiratory/Chest: normal breath sounds, no respiratory distress Abdominal Exam: normal bowel sounds, non tender, soft, GT site Extremities: normal range of motion, non-tender Fatou Santos NP Dec 09, 2017 14:19
[2017-12-09 14:33] VITALS: BP 177/91
--- NOTE | 2017-12-09 21:13 | Pulmonology Progress Note ---
Assessment/Plan Assessment/Plan IMPRESSION ALOC DM HTN S/P fall hypercalemia trace pleural effusion, not significant mild anemia tachycardia PLAN respiratory care stable imaging noted cards noted events reviewed ok to dc medically medications/laboratory data/nursing notes reviewed in detail note reviewed and edited care discussed with RN and RT Subjective Allergies: Coded Allergies: No Known Allergies (Unverified , 11/21/17) Subjective hemodynamics noted no distress cxr negative seen earlier Objective Last 24 Hour Vital Signs Date Time Temp Pulse Resp B/P (MAP) Pulse Ox O2 Delivery O2 Flow Rate FiO2 12/09/17 14:33 177/91 12/09/17 12:42 177/91 12/09/17 12:41 70 177/91 12/09/17 12:00 97.9 70 20 177/91 (119) 98 97.9 12/09/17 09:36 81 153/83 12/09/17 09:09 153/83 12/09/17 09:00 Room Air Room Air 12/09/17 08:00 97.9 81 20 153/83 (106) 96 97.9 12/09/17 06:42 182/98 12/09/17 06:20 182/98 12/09/17 06:20 90 182/98 12/09/17 04:15 162/82 12/09/17 04:00 97.5 83 20 162/82 (108) 95 97.5 12/09/17 04:00 84 12/09/17 03:21 184/106 12/09/17 03:21 83 184/106 12/09/17 00:33 190/99 12/09/17 00:33 92 190/99 12/09/17 00:00 97.5 89 20 190/99 (129) 97 97.5 12/09/17 00:00 88 12/08/17 23:34 175/109 12/08/17 21:53 89 175/109 12/08/17 21:52 175/109 Intake and Output 12/08/17 12/09/17 19:00 07:00 Intake Total 1457.5 ml 675 ml Balance 1457.5 ml 675 ml IV Total 1457.5 ml 675 ml # Voids 1 7 Objective WDWN altered stable breath sounds bilaterally without rhonchi or wheeze [id number] without MRG NABS nontender no HSM no CCE no change no distress reviewed and examined Laboratory Tests 12/09/17 06:50: White Blood Count 6.8, Red Blood Count 2.93L, Hemoglobin 10.3L, Hematocrit 28.7L , Mean Corpuscular Volume 98, Mean Corpuscular Hemoglobin 35.1H, Mean Corpuscular Hemoglobin Concent 35.9, Red Cell Distribution Width 9.8L, Platelet Count 233, Mean Platelet Volume 4.6L, Neutrophils (%) (Auto) 77.4H, Lymphocytes (%) (Auto) 15.4L, Monocytes (%) (Auto) 6.5, Eosinophils (%) (Auto) 0.2, Basophils (%) (Auto) 0.5, Sodium Level 148H, Potassium Level 3.2L, Chloride Level 115H, Carbon Dioxide Level 22, Anion Gap 11, Blood Urea Nitrogen 18, Creatinine 1.0, Estimat Glomerular Filtration Rate , Glucose Level 163H, Calcium Level 10.9H Romeo Smith MD Dec 09, 2017 21:13
--- NOTE | 2017-12-12 09:50 | Discharge Summary ---
Discharge Summary Discharge Summary _ DATE OF ADMISSION: 11/21/2017 DATE OF DISCHARGE: 12/09/2017 REASON FOR ADMISSION: 72 years old female with past medical history of diabetes mellitus, hypertension , presented with weakness, dizziness and hypoglycemia . In the field, accu-chek per hydroelectric station chief was in 20th. Patietn was unresponsive at that time. Patient received 1 ampule of D50 in the field. At home takes patient was on glipizide and metformin. Family reported that the patient took medication without e. Daughter reported , that the patient fell few days ago in the bathroom and hit her head. No evaluation was done at that time . No headache,no slurred speech or facial droop. No chest pain or shortness of breath . Patient was a poor historian and unable to provide history. Daughter at the bedside provided all information. Vital signs revealed severely elevated blood pressure 183/110. Laboratory workup revealed no leukocytosis, stable hemoglobin and hematocrit, glucose 119. Potassium 3.0. Magnesium 1.3. Calcium 11.1. Stable renal parameters and LFT . Urinalysis +3 protein, but no evidence of UTI. CT of the head revealed evidence of chronic small vessel disease, involving white matter tracts, but showed no acute intracranial bleeding, mass effect or edema. Moderate atrophy of the brain noted. Patient admitted with diagnoses of hypoglycemia ( likely secondary to poor oral intake while taking glipizide and metformin), diabetes mellitus, hypertensive urgency, electrolytes imbalance( hypomagnesemia, hypokalemia, hypercalcemia), altered mental status, status post fall/syncope. CONSULTANTS: lithographic stripper Dr. Palomo neurologist Dr. Osullivan pulmonary Dr. Smith GI specialist Dr. Alegre surgery Dr. Tobias psychiatrist [facility] COURSE: Patient admitted to telemetry floor. Patient started on the IV fluids and diet. Oral anti-glycemic medications were held. Sliding scale of insulin on as needed basis was implemented. Blood sugars stabilized, no further episodes of hypoglycemia. Industrial [employer] closely followed. Blood pressure was managed with multiply regimen of antihypertensives , including ARB, beta karina and Aldactone. Blood pressure eventually stabilized. Patient was kept on telemetry due to abnormal electrolytes , which could alter QT and QRS intervals and cause arrhythmia. No evidence of significant arrhythmia. Renal parameters remained stable. Electrolytes corrected as needed. Nephrotoxins were avoided. Neurologist closely followed. CT scan of the brain revealed atrophy , but no acute pathology. EEG revealed moderate metabolic encephalopathy. MRI of the brain showed no acute intracranial pathology , but demonstrated moderate atrophy and chronic small vessel disease, involving white matter. According to neurologist , patient history, neurological examination ,imaging study, laboratory data were most compatible with encephalopathy due to hypoglycemic brain insult and significant hypertension. As blood sugar stabilized , patient became less encephalopathic. Bedside swallow evaluation revealed dysphagia . Speech therapist recommended video swallow evaluation and tube feeding. Video swallow evaluation revealed high aspiration risk and confirmed need for non-oral feeding. Patient subsequently undergone upper endoscopy with PEG placement on December 03, after family consented. Unfortunately, patient pulled out G-tube despite abdominal binder and had repeated PEG placement on . Strict aspiration /reflux precautions were maintain. Abdominal binder was on. G tube site care provided. Patient slowly started on G-tube feeding type as recommended by de icer and advanced to goal rate as tolerated. Antiemetics were on board as needed. Patient was able to tolerate tube feeding. Surgeon closely followed patient. Abdominal ultrasound revealed no biliary ducts dilatation , no hydronephrosis, prior history of cholecystectomy. KUB were stable. No acute surgical intervention was necessary at this time. Thyroid ultrasound revealed multiply thyroid nodules . Patient will need to follow-up as outpatient with field contact technician for possible biopsy. Hemoglobin and hematocrit were closely monitored with goal to keep hemoglobin above 7. Hemoglobin and hematocrit remained at the baseline. Anemia workup revealed low B12 and folate levels. Patient started on daily folic acid supplement and monthly B12 injection. Workup for elevated calcium revealed elevated PTH Patient started on Sensipar. Patient will need close monitoring of electrolytes as outpatient. Psychiatrist seen and evaluated patient, and diagnosed patient with encephalopathy. DVT and prophylaxis provided. X ray of pelvis revealed no acute findings. Patient was working with physical and occupational therapists. Fall precautions were maintained. Dietary recommendations implemented in plan of care. Bowel regimen instituted. Pain management was addressed as needed. Patient clinically stabilized and was transferred to care home facility for continuation of care FINAL DIAGNOSES: Hypoglycemia associated with type 2 diabetes mellitus Acute metabolic encephalopathy ( likely due to hypoglycemia brain insult and component of HTN encephalopathy ) Hypertensive urgency resolved Dysphagia High aspiration risk Status post PEG placement Anemia B12 deficiency Folate deficiency Electrolyte imbalances: hypokalemia, hypomagnesemia ,hypercalcemia, Status post fall/syncope Multiple thyroid nodules DISCHARGE MEDICATIONS: List of medication was sent accepting facility. DISCHARGE INSTRUCTIONS: Patient was discharged to the care home facility. Follow up with medical doctor at the facility. I have been assigned to dictate discharge summary for this account. I was not involved in the patient's management. Madison Clifton NP Dec 12, 2017 09:50
--- NOTE | 2017-12-12 15:04 | Diagnostic Imaging Report ---
Indication: Dysphasia Procedure and findings: Real-time fluoroscopic imaging performed in a lateral projection in conjunction with the speech pathologist evaluation. Variable consistencies of barium given per mouth. Findings: Significant abnormalities of both oral and pharyngeal phases of swallowing are demonstrated. Total fluoroscopic time 301 second. Some aspiration with thin barium and nectar was noted. Abnormal video swallow. Please refer to speech pathology evaluation for more information.
== END 2017-12-09 15:15 | DRG 637 ==
LOC: EDBD 14:26 → EMR 15:00 → 3E 15:40 → EDBEDREQ 15:56 → ICU 11-22 08:35 → 2W 11-28 03:59 → ICU 11-29 12:51 → 2W 12-03 21:00 → 2E 12-04 23:08
PROC: 0DH63UZ Insertion of Feeding Device into Stomach, Percutaneous Approach (ICD-10-PCS; principal; 2017-12-03 08:02)
PROC: 0DH63UZ Insertion of Feeding Device into Stomach, Percutaneous Approach (ICD-10-PCS; 2017-12-08 11:15)
DX: E11.649 Type 2 diabetes mellitus with hypoglycemia without coma (principal); G93.41 Metabolic encephalopathy; Z79.84 Long term (current) use of oral hypoglycemic drugs; I16.0 Hypertensive urgency; E83.52 Hypercalcemia; R10.13 Epigastric pain; R55 Syncope and collapse; E87.6 Hypokalemia; D64.9 Anemia, unspecified; R13.10 Dysphagia, unspecified; R00.0 Tachycardia, unspecified; K29.70 Gastritis, unspecified, without bleeding; E83.42 Hypomagnesemia; E53.8 Deficiency of other specified B group vitamins; E04.2 Nontoxic multinodular goiter
CPT/HCPCS: 36415; 70450; 70551; 71045; 72170; 74018; 74230; 76536; 76700; 80048; 80053; 80076; 81003; 82009; 82088; 82150; 82306; 82330; 82533; 82607; 82746; 82747; 82962; 83036; 83690; 83735; 83970; 84100; 84244; 84443; 85007; 85025; 85610; 85651; 85730; 86592; 87324; 94003; 94150; 94760; 95819; 96374; 99285; C9399; J1815; J2250; J2405; J8499